=== PATIENT | female | born 1985 | race Caucasian/White ===

== ENCOUNTER 2018-01-18 18:12 | Inpatient (IN) | payer BC, SELFPAY ==
[2018-01-18] VITALS (9 sets, daily range): BP systolic 113–140; BP diastolic 59–73; PULSE 69–101; RESP 16–18; TEMP 36.3–37.2; O2SAT 98–100; BMI 24.8; BMI 24.7
--- NOTE | 2018-01-18 18:56 | ED.DCSUM_ITS ---
- ER Visit Summary Date of Service: 01/18/18 Chief Complaint: Lower abdominal pelvic pain. History of Present Illness: The patient is a 32 F history of colonic polyps and polypectomy and prior thyroid disease. She is also had a prior appendectomy and multiple laparoscopic procedures for endometriosis. Patient states she is having suprapubic with lower abdominal and pelvic pain. Associated nausea but no vomiting. She has had diarrhea last 2 days with some bright red blood. Denies melena. Denies fever. Denies dysuria. Her last menstrual period was 1 2 weeks ago. She denies any vaginal bleeding or discharge. She denies any fever. Physical Examination: Appearing young female. Vital signs are stable afebrile. HEENT exam unremarkable. Neck nontender no lymphadenopathy. Lungs clear to auscultation bilaterally. Heart rhythm no murmur. Abdomen soft nondistended normal bowel sounds no peritoneal signs. Mild superpubic tenderness. She is moving all 4 extremities. Neurovascular intact. Neurologically she is awake alert with no focal deficits. Skin is slightly pale. Back exam is nontender. Test Results: 7 but her hemoglobin and hematocrit are 5.4 and 21. Her last hemoglobin several years ago was 11. I suspect this is acute on chronic anemia that may or may not be from a slow lower GI bleed. Electrolytes are unremarkable normal creatinine, BUN and gap. UA normal. Serum test negative. Emergency Department Course and Treatment: Patient treated with Zofran for nausea and a liter normal saline. Treatment Plan: Repeat exam patient is doing well. I went over all test results with her. She has been typed and crossed for 4 units and she will be transfused 2 units. I went over that with her also. I have spoken to the hospitalist who will admit her. Disposition: Discharge Impression: Acute on chronic anemia with a hemoglobin of 5.4 Lower GI bleed Blood transfusion This note was generated with [employer] dictation software. It may contain incorrect words, spelling, and punctuation that were not noted in review of the chart prior to signing ED Disposition - Plan for ED Patient: Chief Complaint: Abd Pain Referrals: Alexis Yu DO [Primary Care Provider] -
[2018-01-18] MEDS: 0.9% Normal Saline 1,000 ML 1000 ML IV (19:08)
[2018-01-18] MEDS: Ondansetron 4 MG/2 ML Vial IV ×2 (19:08→21:16)
[2018-01-18 19:13] LABS: Absolute Lymphocyte Count 1.89 X10^3/ul (0.83-4.51); Absolute Neutrophil Count 5.2 X10^3/uL (2.0-7.7); Basophil# 0.05 X10^3/uL; Basophil% 0.6 % (0-1); Eosinophil# 0.22 X10^3/uL; Eosinophils% 2.8 % (0-5); Hematocrit 21.7 % (37-47); Lymphocyte # 1.89 X10^3/ul (4.0); Mean Corp Hgb Conc 24.9 g/gl (32-36); Mean Corpuscular Hgb 15.1 pg (27.0-32.0); Mean Corpuscular Volume 60.6 fL (81-99); Monocyte# 0.47 X10^3/uL; Neutrophil # 5.23 X10^3/uL (2.7-7.7); Neutrophil % 66.5 % (47-70); Platelet Count 306 K/mm3 (150-450); RBC Distribution Width CV 19.4 % (11.6-14.6); RBC Distribution Width SD 42.9 fl (35.1-43.9); Red Blood Count 3.58 M/mm3 (4.2-5.4); White Blood Count 7.9 K/mm3 (4.4-11.0)
[2018-01-18 19:15] LABS: Differential Indicated SCAN CRITERIA MET; Hemoglobin 5.4 g/dl (12.0-15.0); POSITIVE COUNT YES; POSITIVE DIFFERENTIAL NO; POSITIVE MORPHOLOGY YES
--- NOTE | 2018-01-18 19:18 | ED.RN ---
lab called with critical lab results. hgb 5.4. Dr. rdz made aware. orders to be placed at this time. primary nurse made aware.
[2018-01-18 19:22] LABS: Anion Gap 9 (5-15); BUN 9 mg/dL (7-18); BUN/Creat Ratio 12.8 RATIO (10-20); Calcium,Total 9.1 mg/dL (8.5-10.1); Chloride 104 mmol/L (98-107); EST Glomerular Filtration Rate 104 mL/min (>60); Est Glom Filt Rate - Afr Amer 125 mL/min (>60); Estimated Creatinine Clearance 105.74 ml/min; Glucose 92 mg/dL (74-106); Potassium 3.6 mmol/L (3.5-5.1); Sodium Level 139 mmol/L (136-145)
[2018-01-18 19:31] LABS: Bacteria 0 SEEN /hpf (None Seen); Mucous, Urine 0 SEEN /hpf (<or=2+); Red Blood Cells-Urine 0 SEEN /hpf (0-5); White Blood Cells 0 SEEN /hpf (0-5)
[2018-01-18 19:33] LABS: Pregnancy, Serum, hCG Quali. NEGATIVE Negative (0-9 Nonpreg)
[2018-01-18 19:35] LABS: Color, Urine Yellow (Yellow); Glucose, Dipstick Normal (Normal); Ketone-Dipstick Negative (Negative); Leukocyte Esterase-Dipstick Negative /ul (Negative); Nitrite-Dipstick Negative (Negative); Occult Blood-Urine Negative /ul (Negative); Protein-Dipstick Negative (Negative); Specific Gravity, Urine 1.005 (1.002-1.030); Urine Bilirubin Dipstick Negative (Negative); Urine Clarity Sl. Cloudy (Clear); Urine Urobilinogen Normal (Normal)
[2018-01-18 19:40] LABS: Anisocytosis 1+; Differential Comment SCANNED; Hypochromasia 4+; Platelet Estimate ADEQUATE (ADEQ); Polychromasia RARE
[2018-01-18 19:41] LABS: Ovalocyte 1+
[2018-01-18 19:42] LABS: Schistocytes RARE
[2018-01-18 19:47] LABS: Squamous Epithelial Cells - UA 0-5 SEEN /hpf (5-10)
--- NOTE | 2018-01-18 21:11 | PCM.HP.STD ---
Problem List (1) Acute blood loss anemia Status: Acute (2) GI bleed Status: Acute History of Present Illness Date of Admission: 01/18/18 Chief Complaint: GI bleed. The patient is a 32 year old F presents with hematochezia today. Had a large BM that was 70% blood. Days earlier was having small blood in BMs. Presents to ED with a hg of 5.4. Last know Hg was 11. from 04/27/2016. Pt says she have similiar episode 5 years ago due to polyps. Has had none since. She does endorse she has heavy regular periods. 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 I was requested to admit the patient for the anemia. [] Past Medical History Medical History: Medical History (Last Updated 01/18/18 @ 21:19 by Franc Husain DO) Colon polyps K63.5 Endometriosis N80.9 Graves disease E05.00 Hypothyroidism E03.9 Migraine G43.909 Allergies etodolac [From Lodine] Allergy (Mild, Verified 01/18/18 18:13) Itching tomato Allergy (Verified 01/18/18 18:13) Anaphylaxis FLU SHOT Allergy (Unknown, Uncoded 01/18/18 18:13) Unknown Home Medications: Ambulatory Orders Medication Instructions Recorded Amitriptyline HCl 25 mg PO QHS 01/18/18 Cetirizine HCl [Zyrtec] 10 mg PO DAILY 01/18/18 Citalopram [Celexa] 10 mg PO DAILY 01/18/18 Ibuprofen 400 - 600 mg PO QHS 01/18/18 Levothyroxine [Synthroid] 125 mcg PO DAILY 01/18/18 Verapamil [Calan Sr] 180 mg PO DAILY 01/18/18 Surgical History: Surgical History (Last Updated 01/18/18 @ 21:19 by Franc Husain DO) H/O exploratory laparotomy Z98.890 History of appendectomy Z90.49 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 Denies: Fever Eyes: Denies: Blurred vision, Double vision HEENT: Denies: Head Aches, Sinus Congestion, Sinus Drainage Cardiovascular: Reports: Chest Pain. Denies: Palpitations Respiratory: Denies: Cough, Shortness of breath at rest, Sputum production Gastrointestinal: Reports: Abdominal Pain, Hematochezia. Denies: Hematemesis Genitourinary: Denies: Dysuria Gynecological: Reports: Excessively long or heavy periods Musculoskeletal: Denies: Joint Pain, Joint Tenderness Skin: Denies: Rash, Wounds Neurological: Denies: Numbness, Tingling, Focal weakness Psychiatric: Denies: Anxiety, Depression, Homicidal Ideations, Suicidal Ideations Endocrine: Denies: Change in Body Habitus, Heat/ Cold Intolerance Hematologic/ Lymphatic: Denies: Easy Bruising, Easy Bleeding VTE Information - Inpt Only VTE Present on Admission: No VTE Mechan Device Prophylaxis: SCD's VTE Pharm Prophylaxis ordered?: No Reason prophylaxis not ordered:: Medical Contraindication Patient Problems: Active and Suspected Problems Acute blood loss anemia (Acute) GI bleed (Acute) - Physical Exam General: Alert, Cooperative, No apparent distress HEENT: Atraumatic, Normocephalic Oral: Moist Mucosa, No Gingival or Mucosal Lesions/ Ulcerations Neck: No Nodes, Thyroid Normal Size and Texture Lungs: Clear to auscultation, Normal air movement, No rhonchi, No wheeze Cardiovascular: Regular rate, Regular Rhythm, Normal S1, Normal S2, No murmurs Abdomen: Bowel Sounds Present, Soft, Non-Distended, Tender - RLQ Extremities: No edema, No Calf Tenderness Skin: No rashes, No breakdown Musculoskeletal: No Tenderness to Palpation of Joints or Extremities, No Muscle Wasting Neurological: Neuro grossly intact, Sensory exam intact to light touch and pain, Coordination normal Psych/Mental Status: Normal Affect, Appropriate Vital Signs Temp Pulse Resp BP Pulse Ox 37.2 C 101 H 17 140/73 H 100 01/18/18 18:14 01/18/18 18:14 01/18/18 18:14 01/18/18 18:14 01/18/18 18:14 Assessment/Plan All Active Problems Acute blood loss anemia (Acute) GI bleed (Acute) 1. Acute blood loss anemia Hemoglobin 5.4 and most recent was 11.2 from 2016. Part of this acute blood loss anemia is related with the medication that she had today but I suspect part of this is chronic due to her heavy periods. Patient was typed and crossed for 4 units in the emergency room. I do not feel is necessary the patient have 4 units of blood and will only transfuse her 2 units on the floor. Will monitor hemoglobin and transfuse as necessary. Start patient on ferrous sulfate. 2. GI bleed Unclear etiology. Possibilities could be related with colitis versus patient's history of polyps. Will check a CT scan of the abdomen pelvis Discussed with Dr. Najera on-call for Dr. Peck, and did not feel comfortable being available for care for this patient. I spoke with Dr. Hester who stated she would be happy to see the patient in consultation. I did discuss with the patient if she has further bleeding that she may require bleeding scan and possible coiling and if she did require coiling that would be done at another facility. 3. Heavy menstrual periods As above, I feel likely etiology of her anemia at least part of it. Advised patient follow-up with gynecology as outpatient 4. DVT prophylaxis with SCDs. Chemical prophylaxis contraindicated in light of acute hemorrhage. Code Visit Inpatient E&M: 43693 Init Hosp L3
[2018-01-18] MEDS: Morphine 4 MG/ML Syringe IV (21:15)
[2018-01-18] MEDS: Acetaminophen 500 MG Tablet 1000 MG PO (21:16)
--- NOTE | 2018-01-18 21:21 | HP.PCM_ITS ---
Problem List (1) Acute blood loss anemia Status: Acute (2) GI bleed Status: Acute History of Present Illness Date of Admission: 01/18/18 Chief Complaint: GI bleed. The patient is a 32 year old F presents with hematochezia today. Had a large BM that was 70% blood. Days earlier was having small blood in BMs. Presents to ED with a hg of 5.4. Last know Hg was 11. from 04/27/2016. Pt says she have similiar episode 5 years ago due to polyps. Has had none since. She does endorse she has heavy regular periods. 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 I was requested to admit the patient for the anemia. [] Past Medical History Medical History: Medical History (Last Updated 01/18/18 @ 21:19 by Franc Husain DO) Colon polyps K63.5 Endometriosis N80.9 Graves disease E05.00 Hypothyroidism E03.9 Migraine G43.909 Allergies etodolac [From Lodine] Allergy (Mild, Verified 01/18/18 18:13) Itching tomato Allergy (Verified 01/18/18 18:13) Anaphylaxis FLU SHOT Allergy (Unknown, Uncoded 01/18/18 18:13) Unknown Home Medications: Ambulatory Orders Medication Instructions Recorded Amitriptyline HCl 25 mg PO QHS 01/18/18 Cetirizine HCl [Zyrtec] 10 mg PO DAILY 01/18/18 Citalopram [Celexa] 10 mg PO DAILY 01/18/18 Ibuprofen 400 - 600 mg PO QHS 01/18/18 Levothyroxine [Synthroid] 125 mcg PO DAILY 01/18/18 Verapamil [Calan Sr] 180 mg PO DAILY 01/18/18 Surgical History: Surgical History (Last Updated 01/18/18 @ 21:19 by Franc Husain DO) H/O exploratory laparotomy Z98.890 History of appendectomy Z90.49 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 Denies: Fever Eyes: Denies: Blurred vision, Double vision HEENT: Denies: Head Aches, Sinus Congestion, Sinus Drainage Cardiovascular: Reports: Chest Pain. Denies: Palpitations Respiratory: Denies: Cough, Shortness of breath at rest, Sputum production Gastrointestinal: Reports: Abdominal Pain, Hematochezia. Denies: Hematemesis Genitourinary: Denies: Dysuria Gynecological: Reports: Excessively long or heavy periods Musculoskeletal: Denies: Joint Pain, Joint Tenderness Skin: Denies: Rash, Wounds Neurological: Denies: Numbness, Tingling, Focal weakness Psychiatric: Denies: Anxiety, Depression, Homicidal Ideations, Suicidal Ideations Endocrine: Denies: Change in Body Habitus, Heat/ Cold Intolerance Hematologic/ Lymphatic: Denies: Easy Bruising, Easy Bleeding VTE Information - Inpt Only VTE Present on Admission: No VTE Mechan Device Prophylaxis: SCD's VTE Pharm Prophylaxis ordered?: No Reason prophylaxis not ordered:: Medical Contraindication Patient Problems: Active and Suspected Problems Acute blood loss anemia (Acute) GI bleed (Acute) - Physical Exam General: Alert, Cooperative, No apparent distress HEENT: Atraumatic, Normocephalic Oral: Moist Mucosa, No Gingival or Mucosal Lesions/ Ulcerations Neck: No Nodes, Thyroid Normal Size and Texture Lungs: Clear to auscultation, Normal air movement, No rhonchi, No wheeze Cardiovascular: Regular rate, Regular Rhythm, Normal S1, Normal S2, No murmurs Abdomen: Bowel Sounds Present, Soft, Non-Distended, Tender - RLQ Extremities: No edema, No Calf Tenderness Skin: No rashes, No breakdown Musculoskeletal: No Tenderness to Palpation of Joints or Extremities, No Muscle Wasting Neurological: Neuro grossly intact, Sensory exam intact to light touch and pain , Coordination normal Psych/Mental Status: Normal Affect, Appropriate Vital Signs Temp Pulse Resp BP Pulse Ox 37.2 C 101 H 17 140/73 H 100 01/18/18 18:14 01/18/18 18:14 01/18/18 18:14 01/18/18 18:14 01/18/18 18:14 Assessment/Plan All Active Problems Acute blood loss anemia (Acute) GI bleed (Acute) 1. Acute blood loss anemia * Hemoglobin 5.4 and most recent was 11.2 from 2016. Part of this acute blood loss anemia is related with the medication that she had today but I suspect part of this is chronic due to her heavy periods. * Patient was typed and crossed for 4 units in the emergency room. I do not feel is necessary the patient have 4 units of blood and will only transfuse her 2 units on the floor. * Will monitor hemoglobin and transfuse as necessary. * Start patient on ferrous sulfate. 2. GI bleed * Unclear etiology. Possibilities could be related with colitis versus patient' s history of polyps. * Will check a CT scan of the abdomen pelvis * Discussed with Dr. Najera on-call for Dr. Peck, and did not feel comfortable being available for care for this patient. I spoke with Dr. Hester who stated she would be happy to see the patient in consultation. * I did discuss with the patient if she has further bleeding that she may require bleeding scan and possible coiling and if she did require coiling that would be done at another facility. 3. Heavy menstrual periods * As above, I feel likely etiology of her anemia at least part of it. * Advised patient follow-up with gynecology as outpatient 4. DVT prophylaxis with SCDs. Chemical prophylaxis contraindicated in light of acute hemorrhage. Code Visit Inpatient E&M: 12090 Init Hosp L3
--- NOTE | 2018-01-18 22:05 | CT_ITS ---
STUDY: CT ABDOMEN AND PELVIS WITH CONTRAST REASON FOR EXAM: Female, 32 years old. Right lower quadrant pain. Hematochezia. RADIATION DOSAGE (If Supplied By Facility): CTDIvol = ( 13.13 ) mGy, DLP = ( 617.11 ) mGycm TECHNIQUE: Transaxial images were obtained from the dome of the diaphragm to the symphysis pubis without oral contrast. 100 ml of Isovue 300 contrast was administered. Sagittal and coronal images were reconstructed. Individualized dose optimization techniques were used for this CT. COMPARISON: None. FINDINGS: Lung bases demonstrate minimal dependent atelectasis versus scar formation. The visualized portions of the heart are within normal limits. Hypoattenuated lesion within the right lateral hepatic dome with peripheral puddling enhancement. Normal gallbladder and extrahepatic biliary system. Normal spleen. Normal pancreas. Normal bilateral adrenal glands. Normal right kidney. Normal left kidney. Normal visualized stomach. Normal small intestine. Normal colon. Appendix is not visualized. No pericecal inflammation. Normal abdominal aorta. Normal inferior vena cava. Normal retroperitoneum. Normal urinary bladder. Uterus and bilateral adnexa are unremarkable. Normal abdominal wall. Normal osseous structures. CT/Abdomen/Pelvis WITH Contrast IMPRESSION: 1. No evidence of an acute intra-abdominal abnormality. 2. Hemangioma within the right lateral liver dome. Electronically Signed: Julian Banuelos MD at 1:59 EDT Tel , Service support ,
[2018-01-19] VITALS (20 sets, daily range): BP systolic 99–114; BP diastolic 54–70; PULSE 54–74; RESP 15–18; TEMP 36.4–36.8; O2SAT 96–100; BMI 24.7
[2018-01-19] MEDS: 0.9% Normal Saline 1,000 ML 100 ML IV ×3 (00:55→17:18)
[2018-01-19] MEDS: 0.9% NaCl Peripheral Flush Adult/Peds IV ×3 (01:00→15:12)
[2018-01-19] MEDS: Morphine 2 MG/ML Syringe IV ×4 (01:01→12:43)
[2018-01-19] MEDS: Electrolyte Solution/Peg's 4000 ML 2000 ML PO (03:15)
[2018-01-19] MEDS: Ondansetron 4 MG/2 ML Vial IV ×2 (05:54→18:42)
[2018-01-19 06:01] LABS: International Normalized Ratio 1.1; Prothrombin Time (Protime)PT. 14.5 SECONDS (11.7-14.9)
[2018-01-19 06:07] LABS: Anion Gap 7 (5-15); BUN 6 mg/dL (7-18); Calcium,Total 8.2 mg/dL (8.5-10.1); Chloride 111 mmol/L (98-107); Creatinine, Serum 0.54 mg/dL (0.55-1.02); EST Glomerular Filtration Rate 139 mL/min (>60); Est Glom Filt Rate - Afr Amer 169 mL/min (>60); Estimated Creatinine Clearance 137.08 ml/min; Glucose 86 mg/dL (74-106); Potassium 3.7 mmol/L (3.5-5.1); Sodium Level 143 mmol/L (136-145)
[2018-01-19 06:09] LABS: Hemoglobin 8.1 g/dl (12.0-15.0); Mean Corp Hgb Conc 27.9 g/gl (32-36); Mean Corpuscular Hgb 18.2 pg (27.0-32.0); Mean Corpuscular Volume 65.3 fL (81-99); Platelet Count 256 K/mm3 (150-450); RBC Distribution Width CV 20.6 % (11.6-14.6); RBC Distribution Width SD 49.5 fl (35.1-43.9); Red Blood Count 4.44 M/mm3 (4.2-5.4); White Blood Count 5.6 K/mm3 (4.4-11.0)
[2018-01-19 06:11] LABS: Scan Indicated on CBC? Y/N YES- FLAGS NOTED
[2018-01-19 06:31] LABS: Differential Comment SCANNED
--- NOTE | 2018-01-19 07:54 | CON.PCM_ITS ---
- Consult Date of Consult: 01/19/18 - Reason for Consult Chief Complaint: anemia, abdominal pain, diarrhea, blood in stools History of Present Illness: 32 y/o WF presents with diarrhea since Monday and copious bloody stools, mostly yesterday. Presented to ED, Hgb 5.4, transfused 2 uPRBC and Hgb is now 8.1. Complaint of lower abdominal pain, radiates to the back. Also has had history of endometriosis. Denies hematemesis, denies upper abdominal pain. Denies fevers. Denies weight loss. Has been passing flatus. Had colonoscopy a few years ago, had revealed polyps. No colon cancer in immediate family. No inflammatory bowel disease in immediate family Past Medical History: endometriosis Past Surgical History: appendectomy multiple diagnostic laparoscopies for endometriosis thyroid surgery Medications: amitriptyline zyrtec celexa iron oxyir calan SR levothyroxine Allergies: etodolac, flu shot Social history: TOB use denies Review of Systems: General - denies fevers, denies weight loss, denies anorexia Cardiovascular denies chest pain, denies chest palpatations, denies history of heart attack Pulmonary denies shortness of breath, denies coughing up blood Gastrointestinal as per HPI Neurological denies numbness/weakness of extremities, denies seizures Genitourinary thought she had a UTI, denies blood in urine Hematological denies spontaneous/prolonged bleeding Skin denies open non healing wounds Musculoskeletal denies arthritis Endocrine denies diabetes, had Graves disease presently on thyroid supplementation Psychological denies hallucinations Physical examination: Vital signs Temp 97.9F HR 62 RR 16 BP 110/53 General WD/WN WF in no apparent distress, alert and oriented, not septic appearing HEENT Normocephalic. EOM intact with sclera clear and no icterus noted. Neck is supple with no jugular venous distention noted. Trachea is midline. Lungs normal breath sounds in all lung joel. No rales/rhonchi/wheezing noted. No labored breathing noted, such as retractions. No cough heard. Heart normal S1 and S2 auscultated. No rubs/clicks/murmurs noted. Normal size and location by auscultation. Abdomen soft but generalized tenderness noted, no peritoneal signs, hypoactive bowel sounds, no masses noted Extremities no calf tenderness noted. No pitting edema noted. . Genitourinary/Rectal deferred Skin normal skin integrity. Neurological cranial nerves II-XII intact. Normal motor strength in arms and legs. No localized numbness detected. Psychological normal affect, patient is anxious but appropriate Impression: anemia blood in stools abdominal pain diarrhea Discussion/Plan: I have discussed the above with the patient and her mother who is present with her. I have offered the patient the procedure of colonoscopy, possible biopsies. I have explained the procedure to the patient. I have counseled the patient as to the risks of the procedure, including but not limited to: infection, bleeding, injury to any blood vessels/nerves, injury to any intraabdominal organs such as the liver/spleen, perforation of the GI tract, inability to complete the procedure, etc. the patient understands. She agrees to proceed. I have answered all questions to the patient?s satisfaction and the patient has no further questions.
[2018-01-19 10:03] LABS: Pathologist Review Reviewed
[2018-01-19 10:04] LABS: Pathologist Review Reviewed
--- NOTE | 2018-01-19 11:00 | CASEMGMT ---
Face to Face with patient for initial transition planning/care coordination assessment. SANTIAGO CAUSEY introduced self and role at [facility], pt voices understanding and consents to assessment at this time. Pt is lying in bed and tearful at this time. Per family member, pt has been the bathroom all morning. Pt is A/O x4 at this time and answers all questions appropriately at this time. Care providers, pharmacy, and demographics verified. See attached link. Pt voices no further concerns/needs at this time. Advised pt to ask for CM if any further questions/concerns/needs arise, voices understanding. PLAN: [place] SANTIAGO [place]USEY
--- NOTE | 2018-01-19 15:18 | NURSING ---
rEPORT CALLED TO HUYEN.
--- NOTE | 2018-01-19 16:36 | COLBX_PTH ---
PATIENT: OLIVIA CHANCE LOC: PCU U#:[id number] AGE/SX: 32/F ROOM: [facility] RE01/18/[address]: Saud Gracia MD : 1985 BED: 1 DIS: 01/20/2018 SPEC #: [id number] RECD: 01/19/18 17:34 STATUS: WENDI RE #: [id number] VANI: 01/19/18 16:[address]: Eli Hester DEPT: SURGICAL PATHOLOGY RECD BY: Seth Boykin ENTERED: 01/22/18 07:39 SP TYPE: COLON BX OTHR DR: Dr. Franc Husain, MD Dr. Eli Jiménez MD Dr. Mark Pluskota, Tissues: A - COLON BIOPSY B - Ileum, NOS Procedures: Surgery Specimen Level IV Comments: @ Ordering doctor for SUIV edited from to @ by LINDY at 01/22/18 0839 @ Submitting doctor edited from to @ by LINDY at 01/22/18 39 HEADER OPERATION: Colonoscopy PRE-OP DIAGNOSIS: GI bleed, anemia, diarrhea, abdomen pain TISSUE SUBMITTED: A ? Random colonic biopsies, B ? Terminal ileum biopsies, rule out colitis MICROSCOPIC DIAGNOSIS A. Colon, random biopsy: Fragments of colonic mucosa, no pathologic diagnosis. B. Terminal ileum, biopsy: Fragments of small intestinal mucosa, no pathologic diagnosis. Fragments of colonic mucosa, no pathologic diagnosis. OKSANA:dario 01/23/18 MICROSCOPIC DESCRIPTION Slides are reviewed. GROSS DESCRIPTION A - Received in fixative is one container labeled with the patient's name and designated random colonic biopsy. The specimen consists of multiple irregular fragments of light hameed soft tissue that in aggregate measure 2 x 0.5 x 0.1 cm. The specimen is totally submitted in one cassette. B - Received in fixative is one container labeled with the patient's name and designated terminal ileum. The specimen consists of multiple irregular fragments of light hameed soft tissue that in aggregate measure 1 x 0.3 x 0.1 cm. The specimen is totally submitted in one cassette. / OKSANA:dario 01/22/18 TC:4 CPT: 30950 x2
--- NOTE | 2018-01-19 17:38 | OP.PCM_ITS ---
Report of Operation Date of Procedure: 01/19/18 Pre-Operative Diagnosis: rectal bleeding, anemia, abdominal pain, diarrhea Post-Operative Diagnosis: same as above, no source of GI bleeding noted Surgery/Procedure Performed:: colonoscopy with mucosal biopsies Description of Surgical Findings:: normal colon, no source of GI bleeding noted Type of Anesthesia:: MAC Anesthesiologist: Gerber Shepard Specimen's removed: random mucosal biopsies throughout colon Estimated Blood Loss (mL): minimal Fluids Replaced: see anesthesia note Description of Procedure: After informed consent was given, the patient was brought to the endoscopy suite. Appropriate time out protocol was followed. Appropriate cardiac, blood pressure, and pulse oximetry monitoring was placed. After stable vital signs were noted, the patient was given anesthesia by the anesthesia provider. The patient was then placed in the left lateral decubitis position. The colonoscope was lubricated and carefully inserted into the patient?s anus. It was then advanced into the rectum, then into the sigmoid colon, then into the left descending colon, past the splenic flexure, into the transverse colon, past the hepatic flexure, then down into the right descending colon and into the cecum. The cecum was identified by: transillumination, confluence of the tenae coli, identification of the ileocecal valve and appendiceal orifice, and external pressure with indentation. At this point, the colonoscope was slowly retracted back and the entire colonic mucosa was examined. Random mucosal biopsies were taken about every 10 cm throughout the colon using cold grasper forceps to rule out microscopic colitis. There was no evidence of extrinsic compression and no inflammatory changes were noted. The colon cleansing preparation was adequate. No intraluminal obstructing lesions, no strictures, and no ulcers were noted. Retroflex view in the rectum revealed no lesions in the rectal vault, minimal hemorrhoidal disease was noted. The colonoscope was removed intact. Patient tolerated procedure well. - Complications none noted
--- NOTE | 2018-01-19 17:40 | PCM.PN.HOSP ---
Patient Problems: Active and Suspected Problems (Last Updated 01/18/18 @ 21:19 by Franc Husain DO) Acute blood loss anemia (Acute) GI bleed (Acute) Subjective: Cc: Acute GI bleed. Objective: Patient reports gastrointestinal bleed and abdominal pain, is any nausea or vomiting.She also denies any chest pain, shortness of breath or vaginal bleeding today. Vitals/I&O's: Vital Signs Temp Pulse Resp BP Pulse Ox 98.2 F 56 L 16 102/70 99 01/19/18 17:17 01/19/18 17:17 01/19/18 17:17 01/19/18 17:17 01/19/18 17:17 Oxygen Delivery Method Room Air Weight: 67.6 kg Body Mass Index (BMI) 24.7 Intake and Output for Last 24 Hours 01/17/18 01/18/18 01/19/18 23:59 23:59 23:59 Intake Total 345 / 345 5332 / 5332 Balance 345 / 345 5332 / 5332 General: Alert, Oriented x3 Oral: Moist Mucosa Neck: Supple, No JVD Lungs: Clear to auscultation Cardiovascular: Regular rate, Normal S1, Normal S2 Abdomen: Bowel Sounds Present Extremities: No edema Laboratory Results 01/19/18 05:35: WBC 5.6, RBC 4.44, Hgb 8.1 L, Hct 29.0 L, MCV 65.3 L, MCH 18.2 L, MCHC 27.9 L, RDW 20.6 H, RDW Differential 49.5 H, Plt Count 256, Differential Comment SCANNED, Diff Path Review Reviewed 01/19/18 05:35: PT 14.5, INR 1.1 01/19/18 05:35: Sodium 143, Potassium 3.7, Chloride 111 H, Carbon Dioxide 25.0, Anion Gap 7, BUN 6 L, Creatinine 0.54 L, Estim Creat Clear Calc 137.08, Est GFR (MDRD) Af Amer 169, Est GFR (MDRD) Non-Af 139, BUN/Creatinine Ratio 11.0, Glucose 86, Calcium 8.2 L Current Medications Amitriptyline HCl (Elavil) 25 mg PO QHS MICHAEL Last Admin: 01/18/18 23:35 Dose: Not Given Citalopram Hydrobromide (Celexa) 10 mg PO DAILY [facility] Ferrous Sulfate (Ferrous Sulfate) 325 mg PO BIDCM [facility] Last Admin: 01/19/18 15:19 Dose: Not Given Sodium Chloride () 1,000 mls @ 100 mls/hr IV .Q10H [facility] Last Admin: 01/19/18 17:18 Dose: 100 mls/hr Levothyroxine Sodium (Synthroid) 125 mcg PO DAILY@0600 [facility] Last Admin: 01/19/18 06:06 Dose: Not Given Loratadine (Claritin) 10 mg PO DAILY [facility] Magnesium Hydroxide (Milk Of Magnesia) 30 ml PO DAILY PRN PRN Reason: Constipation Morphine Sulfate () 2 - 4 mg IV Q3H PRN PRN PRN Reason: MOD-SEVERE PAIN (4-10/10) Morphine Sulfate () 2 - 4 mg IV Q3H PRN PRN PRN Reason: MOD-SEVERE PAIN (4-10/10) Last Admin: 01/19/18 12:43 Dose: 2 mg Ondansetron HCl (Zofran) 4 mg IV Q8H PRN PRN PRN Reason: NAUSEA Last Admin: 01/19/18 05:54 Dose: 4 mg Oxycodone HCl (Oxyir) 5 - 10 mg PO Q4H PRN PRN PRN Reason: MOD-SEVERE PAIN (4-10/10) Sodium Chloride () 5 - 30 ml IV UD PRN PRN Reason: SALINE FLUSH Last Admin: 01/19/18 15:12 Dose: 10 ml Verapamil HCl (Calan Sr) 180 mg PO DAILY [facility] Medical Necessity - Tobacco Use Smoking Status: Heavy Smoker (>10/day) Tobacco Use: Cigarettes Assessment/Plan All Active Problems (Last Updated 01/18/18 @ 21:19 by Franc Husain DO) Acute blood loss anemia (Acute) GI bleed (Acute) 1. Acute gastrointestinal bleed; colonoscopy today does not reveal any clear source of bleeding, continue to monitor. 2. Acute blood loss anemia; the patient would be transfused with packed RBCs as needed. 3. History of menorrhagia; this may be contributing to her anemia. Code Visit Inpatient E&M: 24033 Subs Hosp L2
--- NOTE | 2018-01-19 17:43 | PN_ITS ---
Patient Problems: Active and Suspected Problems (Last Updated 01/18/18 @ 21:19 by Franc Husain DO ) Acute blood loss anemia (Acute) GI bleed (Acute) Subjective: Cc: Acute GI bleed. Objective: Patient reports gastrointestinal bleed and abdominal pain, is any nausea or vomiting.She also denies any chest pain, shortness of breath or vaginal bleeding today. Vitals/I&O's: Vital Signs Temp Pulse Resp BP Pulse Ox 98.2 F 56 L 16 102/70 99 01/19/18 17:17 01/19/18 17:17 01/19/18 17:17 01/19/18 17:17 01/19/18 17:17 Oxygen Delivery Method Room Air Weight: 67.6 kg Body Mass Index (BMI) 24.7 Intake and Output for Last 24 Hours 01/17/18 01/18/18 01/19/18 23:59 23:59 23:59 Intake Total 345 / 345 5332 / 5332 Balance 345 / 345 5332 / 5332 General: Alert, Oriented x3 Oral: Moist Mucosa Neck: Supple, No JVD Lungs: Clear to auscultation Cardiovascular: Regular rate, Normal S1, Normal S2 Abdomen: Bowel Sounds Present Extremities: No edema Laboratory Results 01/19/18 05:35: WBC 5.6, RBC 4.44, Hgb 8.1 L, Hct 29.0 L, MCV 65.3 L, MCH 18.2 L , MCHC 27.9 L, RDW 20.6 H, RDW Differential 49.5 H, Plt Count 256, Differential Comment SCANNED, Diff Path Review Reviewed 01/19/18 05:35: PT 14.5, INR 1.1 01/19/18 05:35: Sodium 143, Potassium 3.7, Chloride 111 H, Carbon Dioxide 25.0, Anion Gap 7, BUN 6 L, Creatinine 0.54 L, Estim Creat Clear Calc 137.08, Est GFR (MDRD) Af Amer 169, Est GFR (MDRD) Non-Af 139, BUN/Creatinine Ratio 11.0, Glucose 86, Calcium 8.2 L Current Medications Amitriptyline HCl (Elavil) 25 mg PO QHS MICHAEL Last Admin: 01/18/18 23:35 Dose: Not Given Citalopram Hydrobromide (Celexa) 10 mg PO DAILY [facility] Ferrous Sulfate (Ferrous Sulfate) 325 mg PO BIDCM [facility] Last Admin: 01/19/18 15:19 Dose: Not Given Sodium Chloride () 1,000 mls @ 100 mls/hr IV .Q10H [facility] Last Admin: 01/19/18 17:18 Dose: 100 mls/hr Levothyroxine Sodium (Synthroid) 125 mcg PO DAILY@0600 [facility] Last Admin: 01/19/18 06:06 Dose: Not Given Loratadine (Claritin) 10 mg PO DAILY [facility] Magnesium Hydroxide (Milk Of Magnesia) 30 ml PO DAILY PRN PRN Reason: Constipation Morphine Sulfate () 2 - 4 mg IV Q3H PRN PRN PRN Reason: MOD-SEVERE PAIN (4-10/10) Morphine Sulfate () 2 - 4 mg IV Q3H PRN PRN PRN Reason: MOD-SEVERE PAIN (4-10/10) Last Admin: 01/19/18 12:43 Dose: 2 mg Ondansetron HCl (Zofran) 4 mg IV Q8H PRN PRN PRN Reason: NAUSEA Last Admin: 01/19/18 05:54 Dose: 4 mg Oxycodone HCl (Oxyir) 5 - 10 mg PO Q4H PRN PRN PRN Reason: MOD-SEVERE PAIN (4-10/10) Sodium Chloride () 5 - 30 ml IV UD PRN PRN Reason: SALINE FLUSH Last Admin: 01/19/18 15:12 Dose: 10 ml Verapamil HCl (Calan Sr) 180 mg PO DAILY [facility] Medical Necessity - Tobacco Use Smoking Status: Heavy Smoker (>10/day) Tobacco Use: Cigarettes Assessment/Plan All Active Problems (Last Updated 01/18/18 @ 21:19 by Franc Husain DO) Acute blood loss anemia (Acute) GI bleed (Acute) 1. Acute gastrointestinal bleed; colonoscopy today does not reveal any clear source of bleeding, continue to monitor. 2. Acute blood loss anemia; the patient would be transfused with packed RBCs as needed. 3. History of menorrhagia; this may be contributing to her anemia. Code Visit Inpatient E&M: 83502 Subs Hosp L2
[2018-01-19] MEDS: Morphine 4 MG/ML Syringe IV ×2 (18:42→21:47)
[2018-01-19] MEDS: Amitriptyline 25 MG Tablet PO (21:23)
[2018-01-19] MEDS: Verapamil SR 180 MG CAPSULE PO (21:24)
[2018-01-20 02:55] VITALS: BP 92/53; PULSE 56; RESP 16; TEMP 36.9; O2SAT 98
[2018-01-20 03:00] VITALS: PULSE 69
[2018-01-20] MEDS: 0.9% Normal Saline 1,000 ML 100 ML IV (06:25)
[2018-01-20] MEDS: Levothyroxine 125 MCG Tablet PO (06:25)
[2018-01-20 08:01] VITALS: PULSE 62
[2018-01-20 08:55] VITALS: BP 110/53; PULSE 83; RESP 16; TEMP 36.6; O2SAT 98
[2018-01-20] MEDS: Ferrous Sulfate 325 MG Tablet PO (09:06)
[2018-01-20] MEDS: Citalopram 10 MG Tablet PO (09:06)
[2018-01-20] MEDS: Loratadine 10 MG Tablet PO (09:06)
[2018-01-20] MEDS: oxyCODONE 5 MG Tablet PO ×2 (10:00→16:22)
[2018-01-20 11:15] LABS: Hematocrit 29.3 % (37-47); Hemoglobin 8.2 g/dl (12.0-15.0)
[2018-01-20] MEDS: Morphine 2 MG/ML Syringe IV (13:09)
--- NOTE | 2018-01-20 15:16 | PCM.DC ---
- Discharge Diagnoses Current Active Problems: Current Active and Chronic Problems (Last Updated 01/18/18 @ 21:19 by Franc Husain DO) Acute blood loss anemia (Acute) GI bleed (Acute) You will use the following diet at home:: Regular Discharge Activity: Return to Normal Activity Allergies/Adverse Reactions: Allergies etodolac [From Lodine] Allergy (Mild, Verified 01/18/18 18:13) Itching tomato Allergy (Verified 01/18/18 18:13) Anaphylaxis FLU SHOT Allergy (Unknown, Uncoded 01/18/18 18:13) Unknown Medications to take at Discharge Amitriptyline HCl 25 mg PO QHS 01/18/18 Cetirizine HCl [Zyrtec] 10 mg PO DAILY 01/18/18 Citalopram [Celexa] 10 mg PO DAILY 01/18/18 Levothyroxine [Synthroid] 125 mcg PO DAILY 01/18/18 Verapamil [Calan Sr] 180 mg PO DAILY 01/18/18 Ferrous Sulfate 325 mg PO BIDCM 30 Days #60 tab 01/20/18 Oxycodone [Oxyir] 5 - 10 mg PO Q4H PRN PRN #20 tab 01/20/18 The following prescriptions were given: Oxycodone [Oxyir] 5 - 10 mg PO Q4H PRN PRN #20 tab PRN Reason: Mod-Severe Pain (4-10/10) Ferrous Sulfate 325 mg PO BIDCM 30 Days #60 tab Primary Care Physician: Alexis Yu DO [Primary Care Provider] - Within 2 Weeks
--- NOTE | 2018-01-20 15:18 | DS.PCM_ITS ---
Discharge Date and Diagnosis - Problem List Patient Problems: Active and Suspected Problems (Last Updated 01/18/18 @ 21:19 by Franc Husain DO ) Acute blood loss anemia (Acute) GI bleed (Acute) Date of Admission: 01/18/18 Date of Discharge: 01/20/18 - Primary Discharge Diagnosis Active and Suspected Problems (Last Updated 01/18/18 @ 21:19 by Franc Husain DO ) Acute blood loss anemia (Acute) GI bleed (Acute) Hospital Course and Treatment Summary of Care Provided: This is a 32 year old F presents with hematochezia with hgb 5.4, she reports history of menorrhagia. She was transfused with packed RBCs as he was admitted to the hospital general surgery was consulted and Dr. Garcia performed colonoscopy that did not reveal any evidence of gastrointestinal bleeding. Her hemoglobin remains stable and she was discharged home on iron sulfate she is recommended to follow-up with her primary care doctor, marketing communications coordinator and Dr. Garcia. Physical exam at the time of discharge; vital signs were stable. He was alert and oriented to time place and person. He did not appear to be any form of distress. S1 and S2 heard no murmur or gallop Lung exam was clear to auscultation with no adventitious sounds. Abdomen was soft nontender with normal bowel sounds. extremity exam did not reveal any edema, palpable pulses bilaterally. Neurologic exam was grossly intact. Discharge Activity: Return to Normal Activity Home Medications: Medications to take at Discharge Amitriptyline HCl 25 mg PO QHS 01/18/18 Cetirizine HCl [Zyrtec] 10 mg PO DAILY 01/18/18 Citalopram [Celexa] 10 mg PO DAILY 01/18/18 Levothyroxine [Synthroid] 125 mcg PO DAILY 01/18/18 Verapamil [Calan Sr] 180 mg PO DAILY 01/18/18 Ferrous Sulfate 325 mg PO BIDCM 30 Days #60 tab 01/20/18 Oxycodone [Oxyir] 5 - 10 mg PO Q4H PRN PRN #20 tab 01/20/18 Following Prescrptions Were Given to Patient: Oxycodone [Oxyir] 5 - 10 mg PO Q4H PRN PRN #20 tab PRN Reason: Mod-Severe Pain (4-10/10) Ferrous Sulfate 325 mg PO BIDCM 30 Days #60 tab Primary Care Physician: Alexis Yu DO [Primary Care Provider] - Within 2 Weeks Medical Necessity - Tobacco Use Smoking Status: Heavy Smoker (>10/day) Tobacco Use: Cigarettes Meaningful Use Info Meaningful Use Diagnoses (Choose all that apply): None applicable Code Visit Inpatient E&M: 81288 Disch Hosp
[2018-01-20 17:00] VITALS: BP 108/62; PULSE 61; RESP 16; TEMP 36.6; O2SAT 96
== END 2018-01-20 17:40 | disposition home or self-care (01) | DRG 812 ==
LOC: ED 18:56 → PCU 21:26
PROVIDERS: Surgery; Emergency Provider Emergency Medicine; Visit Provider Internal Medicine
PROC: 0DJD8ZZ Inspection of Lower Intestinal Tract, Via Natural or Artificial Opening Endoscopic (ICD-10-PCS; CPT 45378; principal; 2018-01-19 11:55)
DX: D62 Acute posthemorrhagic anemia (principal); K92.1 Melena; F17.210 Nicotine dependence, cigarettes, uncomplicated; E89.0 Postprocedural hypothyroidism; N92.0 Excessive and frequent menstruation with regular cycle
CPT/HCPCS: 36415; 74177; 80048; 81001; 84703; 85014; 85018; 85025; 85027; 85610; 86850; 86900; 86920; 86922; 88305; 99284; 99406; J7030; J7040; P9016; Q9967; A4216; J2405

== ENCOUNTER → 2018-02-13 14:35 | Outpatient (CLI) | payer BC, SELFPAY ==
[2018-02-13 15:04] LABS: Absolute Lymphocyte Count 1.95 X10^3/ul (0.83-4.51); Absolute Neutrophil Count 3.6 X10^3/uL (2.0-7.7); Basophil# 0.04 X10^3/uL; Basophil% 0.7 % (0-1); Differential Indicated SCAN CRITERIA MET; Eosinophil# 0.16 X10^3/uL; Eosinophils% 2.7 % (0-5); Hematocrit 36.2 % (37-47); Hemoglobin 10.5 g/dl (12.0-15.0); Lymphocyte # 1.95 X10^3/ul (4.0); Lymphocyte % 32.4 % (19-41); Mean Corpuscular Hgb 21.9 pg (27.0-32.0); Mean Corpuscular Volume 75.6 fL (81-99); Monocyte# 0.31 X10^3/uL; Monocyte% 5.1 % (0-10); Neutrophil # 3.55 X10^3/uL (2.7-7.7); Neutrophil % 58.9 % (47-70); POSITIVE COUNT NO; POSITIVE DIFFERENTIAL NO; POSITIVE MORPHOLOGY YES; Platelet Count 309 K/mm3 (150-450); RBC Distribution Width SD 75.7 fl (35.1-43.9); Red Blood Count 4.79 M/mm3 (4.2-5.4)
[2018-02-13 19:59] LABS: Anisocytosis 2+
[2018-02-13 20:00] LABS: Ovalocyte 1+; Tear Drop Cell RARE
[2018-02-13 20:06] LABS: Platelet Estimate ADEQUATE (ADEQ)
[2018-02-16 14:17] LABS: t-Transglutaminase IgA <2 U/mL (0-3)
== END ==
DX: D50.0 Iron deficiency anemia secondary to blood loss (chronic) (principal); E03.9 Hypothyroidism, unspecified
CPT/HCPCS: 36415; 83516; 85025

== ENCOUNTER → 2018-02-21 14:53 | Outpatient (CLI) | payer BC, SELFPAY ==
[2018-02-21 16:29] LABS: Absolute Neutrophil Count 5.4 X10^3/uL (2.0-7.7); Basophil# 0.05 X10^3/uL; Basophil% 0.6 % (0-1); Eosinophil# 0.18 X10^3/uL; Eosinophils% 2.2 % (0-5); Hematocrit 37.5 % (37-47); Hemoglobin 10.9 g/dl (12.0-15.0); Lymphocyte % 25.3 % (19-41); Mean Corp Hgb Conc 29.1 g/gl (32-36); Mean Corpuscular Hgb 22.9 pg (27.0-32.0); Mean Corpuscular Volume 78.9 fL (81-99); Monocyte# 0.56 X10^3/uL; Monocyte% 6.7 % (0-10); Neutrophil # 5.42 X10^3/uL (2.7-7.7); Neutrophil % 65.2 % (47-70); Platelet Count 186 K/mm3 (150-450); RBC Distribution Width CV 26.5 % (11.6-14.6); RBC Distribution Width SD 73.7 fl (35.1-43.9); Red Blood Count 4.75 M/mm3 (4.2-5.4); White Blood Count 8.3 K/mm3 (4.4-11.0)
[2018-02-21 16:30] LABS: Ferritin 6 ng/mL (8-252); Iron 83 ug/dL (50-170)
[2018-02-21 16:33] LABS: Differential Indicated SCAN CRITERIA MET; POSITIVE COUNT NO; POSITIVE DIFFERENTIAL NO; POSITIVE MORPHOLOGY YES
[2018-02-21 17:10] LABS: Anisocytosis 1+; Differential Comment SCANNED; Ovalocyte 1+; Platelet Estimate ADEQUATE (ADEQ)
== END ==
DX: D64.9 Anemia, unspecified (principal)
CPT/HCPCS: 36415; 82728; 83540; 85025

== ENCOUNTER 2018-03-14 12:22 | Day surgery (SDC) | payer BC, SELFPAY ==
[2018-03-09 16:54] LABS: Hematocrit 37.9 % (37-47); Hemoglobin 11.5 g/dl (12.0-15.0); Mean Corp Hgb Conc 30.3 g/gl (32-36); Mean Corpuscular Hgb 24.8 pg (27.0-32.0); Mean Corpuscular Volume 81.9 fL (81-99); Mean Platelet Vol. 9.8 fl (6.2-12.0); Platelet Count 189 K/mm3 (150-450); RBC Distribution Width CV 21.3 % (11.6-14.6); RBC Distribution Width SD 63.8 fl (35.1-43.9); Red Blood Count 4.63 M/mm3 (4.2-5.4); Scan Indicated on CBC? Y/N YES- FLAGS NOTED; White Blood Count 6.2 K/mm3 (4.4-11.0)
[2018-03-09 17:04] LABS: Thyroid Stim Hormone (TSH) 1.46 uIU/mL (0.358-3.74)
[2018-03-09 17:08] LABS: Prothrombin Time (Protime)PT. 12.9 SECONDS (11.7-14.9)
[2018-03-09 17:09] LABS: Partial Thromboplast Time 27.3 Seconds (24.1-36.2)
[2018-03-09 17:32] LABS: Differential Comment SCANNED
[2018-03-14] VITALS (12 sets, daily range): BP systolic 103–132; BP diastolic 59–83; PULSE 50–89; RESP 16–18; TEMP 36.4–37; O2SAT 93–100; BMI 24.0
[2018-03-14] MEDS: Phenazopyridine 95 MG Tablet 190 MG PO (13:12)
[2018-03-14 13:31] LABS: Pregnancy, Serum, hCG Quali. NEGATIVE Negative (0-9 Nonpreg)
--- NOTE | 2018-03-14 14:20 | UT_PTH ---
PATIENT: OLIVIA CHANCE LOC: [facility] U#:[id number] AGE/SX: 32/F ROOM: RE03/14/[address]: Dr. Baylee Garrett MD : [id number] BED: DIS: 03/15/2018 SPEC #: [id number] RECD: 03/15/18 09:19 STATUS: WENDI RAHEEM #: [id number] VANI: 03/14/18 14:[address]: Baylee Garrett DEPT: SURGICAL PATHOLOGY RECD BY: Seth Boykin ENTERED: 03/15/18 10:18 SP TYPE: UTERUS OTHR DR: Dr. Alexis Yu, DO Tissues: Uterus, NOS Procedures: Surgery Specimen Level V HEADER OPERATION: Hysterectomy, lap-assisted vaginal, bilateral salpingectomy PRE-OP DIAGNOSIS: Endometriosis, abnormal uterine bleeding, anemia due to blood loss, chronic TISSUE SUBMITTED: Uterus, bilateral tubes MICROSCOPIC DIAGNOSIS Uterus and bilateral fallopian tubes, vaginal hysterectomy and bilateral salpingectomy: Cervix ? chronic inflammation and squamous metaplasia. Endometrium ? early secretory endometrium. Myometrium - no pathologic diagnosis. Bilateral fallopian tubes - no pathologic diagnosis. Right paratubal cyst. SJ:rg 03/16/18 MICROSCOPIC DESCRIPTION Slides are reviewed. GROSS DESCRIPTION Received in fixative is one container labeled with the patient's name and designated uterus and bilateral tubes. The specimen consists of a hysterectomy specimen consisting of uterus with cervix and attached bilateral fallopian tubes. The uterus with cervix weighs 72 gm and measures 7.5 x 6 x 4 cm. The serosal surface is hameed, glistening. The ectocervical mucosa is unremarkable. The external os is slit-like in contour. The endocervical canal measures 2.5 cm in length and the endocervical mucosa is without any mass lesion. The triangular endometrial cavity measures 3.5 cm in length and up to 2 cm in width. The endometrium is without any mass lesions and measures 0.1 cm in thickness. Sections of the uterine wall do not reveal any mass lesion and measures 2 cm in thickness. The right fallopian tube measures 7 cm in length and 0.5 to 0.8 cm in diameter. The fimbrial end is identified. A paratubal cyst is also noted measuring 0.4 cm in greatest dimension. Sections reveal unremarkable cut surfaces. The left fallopian tube is similar appearance to right and measures 6 cm in length and 0.5 to 0.7 cm in diameter. The fimbrial end is identified. Sections reveal unremarkable cut surfaces. Ironer Sock sections are submitted in eight cassettes as follows: 1 - anterior cervix, 2 - posterior cervix, 3 & 4 - anterior uterine wall, 5 & 6 - posterior uterine wall, 7 ? right fallopian tube and paratubal cyst, 8 ? left fallopian tube. / OKSANA:dario 03/15/18 TC:5 CPT: 71306
--- NOTE | 2018-03-14 15:27 | PCM.OPRPT ---
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 Patient was taken back to the operating room and placed in the dorsal lithotomy position. General anesthesia was induced and patient was prepped and draped in normal sterile fashion. Uterine manipulator was placed inside the uterus and Vazquez catheter placed in the bladder. The umbilicus was grasped with towel clamps and an intraumbilical incision was made after injecting with quarter percent Marcaine and a Veress needle entered into the abdomen confirmed to be intra-abdominal with a low opening pressure. Abdomen was insufflated with CO2 gas and the Veress needle removed and the 5 mm trocar was placed under direct visualization without complication. Right and left lower quadrants were transilluminated and injected with quarter percent Marcaine and 5 mm ports placed under direct visualization. Pelvis was well visualized see operative findings for additional information. Bilateral fallopian tubes were identified and transected with the LigaSure device across the mesosalpinx to the level of the utero-ovarian ligament which was also transected with the LigaSure device. The broad ligament was opened up by transecting the round ligament bilaterally and skeletonizing the uterine vessels bilaterally and creating a bladder flap using the LigaSure device. The uterine arteries were transected bilaterally with good visualization of the bladder and the ureters were seen to be inferior lateral to the operative area. Attention was then paid to the vaginal portion of the procedure and the cervix was grasped with Jairo clamps and circumferentially injected with dilute vasopressin. A circumferential incision was made and the vaginal mucosa was mobilized off posteriorly and the cul-de-sac entered into sharply and a longneck speculum placed. The anterior cul-de-sac was then identified and entered into sharply. The uterosacral ligaments were clamped cut and suture ligated with 0 Monocryl bilaterally followed by the cardinal ligaments which were clamped cut and suture ligated bilaterally with 0 Monocryl. The uterus serially descended and was removed without difficulty with minimal morcellation. Pelvic sidewall pedicles were checked and noted to have excellent hemostasis. The vaginal mucosa was reapproximated incorporating the posterior peritoneum. This was reapproximated using 0 Vicryl [id number] sutures. Excellent hemostasis was noted. The cystoscopy was then performed and bilateral ureteral strong spray was noted and the bladder was noted to have no abnormality or lesions seen. Vazquez catheter was replaced and then attention paid to the abdominal portion of the procedure again. The pelvis and cul-de-sac was well visualized and no significant active bleeding noted but some raw areas were seen and stable. several small endometriosis implants were seen and ablated with the ligasure device. Pressure was taken down and the areas visualized and noted of excellent hemostasis. All ports were removed under direct visualization without complication and the abdomen was desufflated of air. The instruments removed from the abdomen and the vagina vaginal sweep was negative. Port sites on the abdomen were closed with 4-0 Monocryl interrupted sutures and Steri's and windows were applied. She was awoken and taken recovery in stable condition. - Complications none - Admit VTE Documentation VTE Present on Admission: No
[2018-03-14] MEDS: Bupivacaine 0.25% 30 ML Vial (15:40)
[2018-03-14] MEDS: Vasopressin 20 UNITS/ML Vial (16:01)
--- NOTE | 2018-03-14 19:53 | NURSING ---
PHARMACY CALLED TO VERIFY DILAUDID AND ZOFRAN
[2018-03-14] MEDS: Ondansetron 4 MG/2 ML Vial IV (20:30)
[2018-03-14] MEDS: Ketorolac 30 MG/ML Syringe IV (20:30)
[2018-03-14] MEDS: Acetaminophen 500 MG Tablet 1000 MG PO (21:39)
[2018-03-14] MEDS: oxyCODONE 5 MG Tablet PO (21:40)
[2018-03-14] MEDS: Amitriptyline 25 MG Tablet PO (21:40)
[2018-03-14] MEDS: Ferrous Gluconate 325 MG Tablet PO (21:41)
[2018-03-14] MEDS: Verapamil SR 180 MG CAPSULE PO (23:00)
[2018-03-15] MEDS: Ketorolac 30 MG/ML Syringe IV (04:33)
[2018-03-15 05:33] VITALS: BP 111/66; PULSE 54; RESP 18; TEMP 37; O2SAT 97
[2018-03-15] MEDS: Levothyroxine 125 MCG Tablet PO (05:36)
[2018-03-15] MEDS: 0.9% NaCl Peripheral Flush Adult/Peds IV (05:36)
[2018-03-15 06:29] LABS: Hematocrit 37.7 % (37-47); Hemoglobin 11.8 g/dl (12.0-15.0); Mean Corp Hgb Conc 31.3 g/gl (32-36); Mean Corpuscular Hgb 25.4 pg (27.0-32.0); Mean Corpuscular Volume 81.3 fL (81-99); Mean Platelet Vol. 10.7 fl (6.2-12.0); Platelet Count 215 K/mm3 (150-450); RBC Distribution Width CV 18.9 % (11.6-14.6); RBC Distribution Width SD 55.5 fl (35.1-43.9); Red Blood Count 4.64 M/mm3 (4.2-5.4); White Blood Count 8.1 K/mm3 (4.4-11.0)
[2018-03-15 06:30] LABS: Scan Indicated on CBC? Y/N NO
[2018-03-15 08:05] VITALS: O2SAT 95
[2018-03-15 08:32] VITALS: BP 99/56; PULSE 51; RESP 16; TEMP 37.1; O2SAT 96
[2018-03-15] MEDS: Enoxaparin 40 MG/0.4 ML Syringe SC (08:38)
[2018-03-15] MEDS: Ferrous Gluconate 325 MG Tablet PO (08:38)
[2018-03-15] MEDS: Citalopram 10 MG Tablet PO (08:38)
[2018-03-15] MEDS: oxyCODONE 5 MG Tablet PO ×2 (08:41→13:38)
[2018-03-15] MEDS: Ketorolac 10 MG Tablet PO (11:17)
[2018-03-15 13:37] VITALS: BP 106/66; PULSE 60; RESP 14; TEMP 36.3; O2SAT 100
[2018-03-15] MEDS: Acetaminophen 500 MG Tablet 1000 MG PO (13:39)
--- NOTE | 2018-03-15 13:43 | DCINST_ITS ---
Discharge Diet: No Restrictions Discharge Activity: Return to Normal Activity, May Not Drive, May Shower May resume sexual activity in: 6-8 weeks Call your doctor if your incision/area has: Continuous Slow Oozing, Sudden Increased Bleeding, Increased Pain/ Swelling, Increased Redness, Foul Smelling Discharge Call your doctor if you observe: Fever of 101 or Higher, Inability to urinate, Inability to have a bowel movement, Using more than one pad per hour Allergies/Adverse Reactions: Allergies etodolac [From Lodine] Allergy (Mild, Verified 03/07/18 13:08) Itching FLU SHOT Allergy (Unknown, Uncoded 03/07/18 13:08) Unknown Medications to take at Discharge Amitriptyline HCl 25 mg PO QHS 01/18/18 Citalopram [Celexa] 10 mg PO DAILY 01/18/18 Levothyroxine [Synthroid] 125 mcg PO DAILY 01/18/18 Verapamil [Calan Sr] 180 mg PO QHS 01/18/18 oxycodone 5 mg tablet 5 - 10 mg PO Q4H PRN PRN #20 tab 02/27/18 pantoprazole 40 mg tablet,delayed release 40 mg PO BID PRN tab 02/27/18 Ferrous Gluconate 325 mg PO BIDCM 03/14/18 Levonorgestrel-Ethin Estradiol [Lessina-28 Tablet] 1 tab PO QDAY 03/14/18 Naproxen 500 mg PO BID PRN #60 tab 03/15/18 Naproxen 500 mg PO BID PRN #60 tab 03/15/18 Oxycodone HCl/Acetaminophen [Percocet 5/325] 1 - 2 tablet PO Q4H PRN PRN 7 Days #28 tablet 03/15/18 The following prescriptions were given: Oxycodone HCl/Acetaminophen [Percocet 5/325] 1 - 2 tablet PO Q4H PRN PRN 7 Days #28 tablet PRN Reason: Pain Naproxen 500 mg PO BID PRN #60 tab PRN Reason: Pain Naproxen 500 mg PO BID PRN #60 tab PRN Reason: Pain Primary Care Physician: Alexis Yu DO [Primary Care Provider] - Test Results: Test results from this visit will be discussed in further detail at your follow- up appointment, if applicable. Please Follow Up With: Baylee Garrett MD - [phone]
--- NOTE | 2018-03-15 13:43 | PCM.PN.OB ---
Subjective: doing well no complaints - Physical Exam General: Alert, Oriented x3 Vital Signs Temp Pulse Resp BP Pulse Ox 97.4 F L 60 14 106/66 100 03/15/18 13:37 03/15/18 13:37 03/15/18 13:37 03/15/18 13:37 03/15/18 13:37 Oxygen Delivery Method Room Air Weight: 144 lb 9.972 oz Body Mass Index (BMI) 24.0 Intake and Output for Last 24 Hours 03/13/18 03/14/18 03/15/18 23:59 23:59 23:59 Intake Total 2400 / 2400 1983 / 1983 Output Total 410 / 410 2200 / 2200 Balance 1989 / 1989 -216 / -216 Laboratory Tests Past 24 Hrs 03/14/18 03/15/18 12:40 05:55 WBC 8.1 RBC 4.64 Hgb 11.8 L Hct 37.7 MCV 81.3 MCH 25.4 L MCHC 31.3 L RDW 18.9 H RDW Differential 55.5 H Plt Count 215 MPV 10.7 Blood Type A POSITIVE Antibody Screen NEGATIVE Medical Necessity - Tobacco Use Smoking Status: Current every day smoker Assessment/Plan All Active Problems (Last Reviewed 02/27/18 @ 08:51 by Lea Falk) Acute blood loss anemia (Acute) GI bleed (Acute) dc home routine care doing well s/p YOVANNY
== END 2018-03-15 14:00 | disposition home or self-care (01) ==
LOC: SDC 12:22 → AC 12:25 → MS2 03-15 07:48
PROVIDERS: Visit Provider Obstetrics & Gynecology
PROC: 0UT9FZZ Resection of Uterus, Via Natural or Artificial Opening With Percutaneous Endoscopic Assistance (ICD-10-PCS; CPT 58552; principal; 2018-03-14 13:55)
DX: N93.9 Abnormal uterine and vaginal bleeding, unspecified (principal); D50.0 Iron deficiency anemia secondary to blood loss (chronic); N80.3 Endometriosis of pelvic peritoneum; N80.2 Endometriosis of fallopian tube; N83.8 Other noninflammatory disorders of ovary, fallopian tube and broad ligament; E05.00 Thyrotoxicosis with diffuse goiter without thyrotoxic crisis or storm; E89.0 Postprocedural hypothyroidism; F17.200 Nicotine dependence, unspecified, uncomplicated; Z79.899 Other long term (current) drug therapy
CPT/HCPCS: 00840; 58552; 36415; 84443; 84703; 85027; 85610; 85730; 86850; 86900; 88307; 99406; J7120; A4216; J2405

== ENCOUNTER 2018-04-06 12:37 | Emergency (ER) | payer BC, SELFPAY ==
[2018-04-06 12:37] VITALS: BP 123/68; PULSE 95; RESP 16; TEMP 36.9; O2SAT 98; BMI 23.6
[2018-04-06] MEDS: 0.9% Normal Saline 1,000 ML 1000 ML IV (14:07)
[2018-04-06 14:26] LABS: Anion Gap 7 (5-15); BUN 10 mg/dL (7-18); BUN/Creat Ratio 14.8 RATIO (10-20); Calcium,Total 8.4 mg/dL (8.5-10.1); Chloride 110 mmol/L (98-107); Creatinine, Serum 0.68 mg/dL (0.55-1.02); EST Glomerular Filtration Rate 108 mL/min (>60); Est Glom Filt Rate - Afr Amer 131 mL/min (>60); Estimated Creatinine Clearance 108.85 ml/min; Glucose 80 mg/dL (74-106); Potassium 3.9 mmol/L (3.5-5.1); Sodium Level 143 mmol/L (136-145)
[2018-04-06 14:37] LABS: Hematocrit 36.4 % (37-47); Hemoglobin 11.4 g/dl (12.0-15.0); Mean Corp Hgb Conc 31.3 g/gl (32-36); Mean Corpuscular Hgb 25.5 pg (27.0-32.0); Mean Corpuscular Volume 81.4 fL (81-99); Mean Platelet Vol. 10.1 fl (6.2-12.0); Platelet Count 219 K/mm3 (150-450); RBC Distribution Width CV 15.5 % (11.6-14.6); RBC Distribution Width SD 43.9 fl (35.1-43.9); Red Blood Count 4.47 M/mm3 (4.2-5.4); Scan Indicated on CBC? Y/N NO; White Blood Count 7.7 K/mm3 (4.4-11.0)
--- NOTE | 2018-04-06 15:53 | ED.VISSUMM ---
- ER Visit Summary Date of Service: 04/06/18 Chief Complaint: Chronic cough and bloody diarrhea. History of Present Illness: The patient is a 32 F status post hysterectomy several weeks ago. She states she has had a cough for the last 2 weeks. Mild phlegm. No hemoptysis. No chest pain. No pleuritic chest pain. No leg pain or swelling. No prior DVT or PE. Also states she is recently developed diarrhea the last few days. Has had some blood mixed with it. Physical Examination: Well-appearing young female. Vital signs are stable afebrile. Does not look septic or toxic. No acute distress. HEENT exam unremarkable. Neck nontender no JVD. No lymphadenopathy. Lungs clear to auscultation bilaterally. Dry cough. No rhonchi or wheezing. Heart regular rhythm no murmur. Abdomen soft, nontender, nondistended normal bowel sounds no peritoneal signs. Moving all 4 extremities. Calves nontender no edema no cords neurologically awake alert no focal motor deficits. Neurologically she is awake and alert. Test Results: CBC showed a white count 7. Hemoglobin 11.4 previously she runs chronically anemic and her hemoglobin was around 11 before. Electrolytes unremarkable gap is 7. Creatinine 0.6. Emergency Department Course and Treatment: Repeat exam patient is doing well at 249. She will be discharged to home to follow-up with Dr. Eli Hester who had done prior endoscopy on her. Treatment Plan: Return to the ER feeling worse. Outpatient follow-up for repeat evaluation for bloody diarrhea. Disposition: Discharge Impression: Bloody diarrhea Chronic anemia URI This note was generated with [employer] dictation software. It may contain incorrect words, spelling, and punctuation that were not noted in review of the chart prior to signing ED Disposition - Plan for ED Patient: Chief Complaint: General Illness Referrals: Alexis Yu DO [Primary Care Provider] -
--- NOTE | 2018-04-06 15:58 | ED.DEP ---
ED Disposition - Plan for ED Patient: Disposition: Home or Assisted Living Chief Complaint: General Illness Diagnosis: GI bleed Referrals: Eli Hestre MD [STAFF PHYSICIAN] - Additional Instructions: Call follow-up your primary care physician or Dr. Eli Hester for further evaluation of the bloody diarrhea and endoscopy if needed. Plenty fluids and rest. The cough should clear up. Your chest x-ray was normal today. Return to ER if bleeding is a lot worse you are feeling a lot worse but at this time is stable and your blood counts are stable.
[2018-04-06 16:17] VITALS: BP 112/68; PULSE 78; RESP 16; O2SAT 98
== END 2018-04-06 16:18 | disposition home or self-care (01) ==
PROVIDERS: Emergency Provider Emergency Medicine
DX: J06.9 Acute upper respiratory infection, unspecified (principal); R19.7 Diarrhea, unspecified; K92.1 Melena; D64.9 Anemia, unspecified; Z79.899 Other long term (current) drug therapy; Z72.0 Tobacco use
CPT/HCPCS: 71046; 80048; 85027; 96360; 96361; 99284; J7030

== ENCOUNTER → 2018-05-09 14:50 | Outpatient (CLI) | payer BC, SELFPAY ==
[2018-05-09 16:05] LABS: Absolute Lymphocyte Count 2.05 X10^3/ul (0.83-4.51); Absolute Neutrophil Count 3.7 X10^3/uL (2.0-7.7); Basophil# 0.07 X10^3/uL; Basophil% 1.1 % (0-1); Eosinophil# 0.34 X10^3/uL; Eosinophils% 5.2 % (0-5); Hematocrit 38.1 % (37-47); Hemoglobin 12.3 g/dl (12.0-15.0); Lymphocyte # 2.05 X10^3/ul (4.0); Lymphocyte % 31.3 % (19-41); Mean Corp Hgb Conc 32.3 g/gl (32-36); Mean Corpuscular Hgb 26.7 pg (27.0-32.0); Mean Corpuscular Volume 82.8 fL (81-99); Mean Platelet Vol. 10.9 fl (6.2-12.0); Monocyte# 0.35 X10^3/uL; Monocyte% 5.3 % (0-10); Neutrophil # 3.74 X10^3/uL (2.7-7.7); Neutrophil % 56.9 % (47-70); POSITIVE COUNT NO; POSITIVE DIFFERENTIAL NO; POSITIVE MORPHOLOGY NO; Platelet Count 253 K/mm3 (150-450); RBC Distribution Width CV 14.3 % (11.6-14.6); RBC Distribution Width SD 42.3 fl (35.1-43.9); White Blood Count 6.6 K/mm3 (4.4-11.0)
[2018-05-09 16:40] LABS: Thyroid Stim Hormone (TSH) 1.25 uIU/mL (0.358-3.74)
== END ==
DX: Z79.899 Other long term (current) drug therapy (principal)
CPT/HCPCS: 36415; 84443; 85025

== ENCOUNTER 2018-08-19 17:07 | Emergency (ER) | payer BC, SELFPAY ==
[2018-08-19 17:09] VITALS: BP 116/75; PULSE 89; RESP 18; TEMP 36.3; O2SAT 99; BMI 23.3
[2018-08-19] MEDS: DiphenhydrAMINE 50 MG/ML Syringe 25 MG IV (17:31)
[2018-08-19] MEDS: proCHLORPERazine 10 MG/2 ML Vial IV (17:31)
[2018-08-19] MEDS: 0.9% Normal Saline 1,000 ML 999 ML IV (17:31)
[2018-08-19] MEDS: Ketorolac 30 MG/ML Syringe IV (17:32)
--- NOTE | 2018-08-19 18:09 | ED.VISSUMM ---
- ER Visit Summary Date of Service: 08/19/18 Chief Complaint: Migraine headache History of Present Illness: The patient is a 33 F who presents with a migraine headache. Started 5 days ago. Similar to her prior migraines. She has had nausea and is seeing black spots. She felt dizzy as well. Denies any falls or trauma. She currently takes verapamil and amitriptyline and just started a new injection to help with her migraines. Physical Examination: Vital signs reviewed. HEENT exam unremarkable. Heart is regular rate and rhythm without murmurs. Lungs are clear to auscultation. Abdomen is soft and nontender. Extremities reveal no edema. Skin exam normal. Neurologic exam normal. Test Results: None performed Emergency Department Course and Treatment: Patient was given IV Toradol, Compazine and Benadryl. She was given normal saline. She feels much better upon reevaluation. Patient will be discharged to continue her home medications. She will follow-up with her PCP Treatment Plan: [] Disposition: Discharge Impression: Migraine headache This note was generated with [employer] dictation software. It may contain incorrect words, spelling, and punctuation that were not noted in review of the chart prior to signing ED Disposition - Plan for ED Patient: Chief Complaint: Headache Referrals: Alexis Yu DO [Primary Care Provider] -
--- NOTE | 2018-08-19 18:10 | ED.DEP ---
ED Disposition - Plan for ED Patient: Disposition: Home or Assisted Living Chief Complaint: Headache Instructions: ED Headache Migraine Referrals: Alexis Yu DO [Primary Care Provider] -
[2018-08-19 18:20] VITALS: BP 113/78; PULSE 73; RESP 17; O2SAT 98
== END 2018-08-19 18:20 | disposition home or self-care (01) ==
PROVIDERS: Emergency Provider Emergency Medicine
DX: G43.909 Migraine, unspecified, not intractable, without status migrainosus (principal); Z72.0 Tobacco use
CPT/HCPCS: 96361; 96374; 96375; 99283; J7030; A4216

== ENCOUNTER → 2018-11-06 17:43 | Outpatient (CLI) | payer BC, SELFPAY ==
[2018-11-06 15:02] VITALS: BMI 23.3
== END ==
PROVIDERS: Referring Provider Obstetrics & Gynecology; Visit Provider Obstetrics & Gynecology
DX: R10.2 Pelvic and perineal pain (principal); G89.29 Other chronic pain
CPT/HCPCS: 87086; 87088

== ENCOUNTER 2018-11-07 10:42 | Emergency (ER) | payer BC, SELFPAY ==
[2018-11-06 15:02] VITALS: BMI 23.3
[2018-11-07 10:43] VITALS: BP 124/67; PULSE 91; RESP 16; TEMP 36.7; O2SAT 96; BMI 23.8
--- NOTE | 2018-11-07 10:57 | CT_ITS ---
STUDY: CT ABDOMEN AND PELVIS WITHOUT CONTRAST REASON FOR EXAM: Female, 33 years old. Left lower quadrant pain with nausea. RADIATION DOSAGE (If Supplied By Facility): CTDIvol = ( 9.22 ) mGy, DLP = ( 458.57 ) mGycm TECHNIQUE: Transaxial images were obtained from the dome of the diaphragm to the symphysis pubis without oral contrast, and without intravenous contrast. Sagittal and coronal images were reconstructed. Individualized dose optimization techniques were used for this CT. COMPARISON: Comparison is made with prior study dated January 19, 2018. FINDINGS: The visualized lung bases are unremarkable. The visualized portions of the heart are within normal limits. There is a 7.6 mm well-defined rounded vascular nodule in the anterior lateral aspect of the dome of the right lobe the liver. This most likely represents an hemangioma. Normal gallbladder and extrahepatic biliary system. Normal spleen. Normal pancreas. Normal bilateral adrenal glands. Normal right kidney. Normal left kidney. Normal visualized stomach. Normal small intestine. There are scattered colonic diverticula consistent with diverticulosis. There is non-visualization of the appendix. Normal abdominal aorta. Normal inferior vena cava. Normal retroperitoneum. Normal urinary bladder. There is absence of the uterus consistent with a prior hysterectomy. Minimal amount of free fluid is seen in the right lower hemipelvis. There is a 1.9 cm x 1.4 cm dominant follicle in the right ovary. This is also evidence of a 1.4 cm dominant follicle in the left ovary. Normal abdominal wall. Normal osseous structures. CT/Abdomen/Pelvis W IV Cont ONLY IMPRESSION: Status post hysterectomy. Minimal amount of fluid is seen in the right posterior hemipelvis. Dominant follicles are seen in both ovaries. Electronically Signed: Alonso Jennings, at 11:38 EDT , Service support ,
--- NOTE | 2018-11-07 11:04 | ED.DCSUM_ITS ---
History of Present Illness Chief Complaint: Abd Pain Informant: Patient Onset: Days - 3 Context: Gradual Onset Timing: Intermittent - initially, now continuous, Waxes and wanes - at times Quality: sharp, burning Location: LLQ mostly; radiating across lower abd Current Severity: Severe Maximum Severity: Severe Worsened by: trying to eat or drink Relieved by: nothing Associated Symptoms: nausea. no vtg. no back pain. no urinary sx or fevers. Narrative: Patient had a hysterectomy last year because of anemia related to menorrhagia. She still has her ovaries. She has had prior appendectomy and multiple surgeries for endometriosis. She states this feels different than that. She saw her OB yesterday for this pain, she ordered an outpatient ultrasound that is scheduled about an hour and a half from now here at the hospital, but the patie nt states the pain is much worse and so she is seeking further evaluation now. She states a urinalysis was done in the office but she does not know the results. She had been having normal bowel movements, but she has not had one yet today. Also states that the age of 28 she was having rectal bleeding and then had a colonoscopy that showed many polyps, none of them were cancerous. - Past Medical History (1) Endometriosis Status: Chronic Past Medical History - Allergies and Home Meds Allergies/Adverse Reactions: Allergies etodolac [From [place]] Allergy (Mild, Verified 11/07/18 10:42) Itching FLU SHOT Allergy (Unknown, Uncoded 11/07/18 10:42) Unknown Primary Care Physician: Alexis Yu DO [Primary Care Provider] - Surgical History: appendectomy, hysterectomy, - - laparoscopies for endometrios is Smoking Status: Current every day smoker - Family History Maternal Family History: Reports: - - no colon cancer Review of Systems General: Denies: Chills, Fever, Sweats Eyes: Denies: Visual changes - bilaterally, Diplopia ENT: Denies: Rhinorrhea, Sore throat Cardiovascular: Denies: Chest pain, Palpitations Respiratory: Denies: Dyspnea, Cough, Dyspnea on exertion Gastrointestinal: Reports: Abdominal pain, Nausea. Denies: Vomiting, Diarrhea, Melena, Hematochezia Genitourinary: Denies: Dysuria, Hematuria, Frequency Musculoskeletal: Denies: Back pain, Swelling, Extremity Pain Skin: Denies: Rash, Wounds Neurological: Denies: Headache, Weakness, Numbness Physical Exam Vital Signs/Narrative: Vital Signs Temp Pulse Resp BP Pulse Ox 11/07/18 10:43 98.1 F 91 16 124/67 H 96 Inital Vital Signs reviewed: Yes General: Well nourished, Well developed, No Acute Distress Head: Normocephalic, Atraumatic Eyes: Perrl, EOMI ENT: Moist mucous membranes, No rhinorrhea Neck: Supple, Nontender Cardiovascular: Regular rate, Regular rhythm, No murmurs, Normal S1, Normal S2 Respiratory: No distress, CTA bilaterally, Chest nontender Abdomen: Soft, Nondistended, Normal bowel sounds, Tender - LLQ and suprapubic > LUQ and RLQ. otherwise, NT, including RUQ., Guarding - LLQ. voluntary.. Negative for: Rebound tenderness Back: Normal Inspection, CVA tenderness - left only. no rash/lesions. . Negative for: Spinal tenderness Extremities: Nontender, No edema Skin: Normal color, No rash, No Trauma Neurological: Alert, Oriented x3, Cranial nerves II-XII grossly intact, Normal Strength, Normal Sensation Psychological: Normal affect, Normal Mood Diagnostic/Tx/Re-eval Impressions Abdomen/Pelvis CT 11/07/18 10:57 IMPRESSION: Status post hysterectomy. Minimal amount of fluid is seen in the right posterior hemipelvis. Dominant follicles are seen in both ovaries. Electronically Signed: Alonso Jennings, at 11:38 EDT , Service support , 11/07/18 10:57 CT Abd [Abdomen/Pelvis W IV Cont ONLY] [CT] Stat Laboratory Results 11/07/18 11/07/18 11:15 11:15 WBC 11.5 H RBC 4.95 Hgb 15.0 Hct 44.6 MCV 90.1 MCH 30.3 MCHC 33.6 RDW 12.5 RDW Differential 41.0 Plt Count 246 MPV 10.0 Immature Gran % (Auto) 0.200 Neut % (Auto) 80.0 H Lymph % (Auto) 12.0 L [place] % (Auto) 6.4 Eos % (Auto) 1.1 Baso % (Auto) 0.3 Absolute Neuts (auto) 9.2 H Absolute Lymphs (auto) 1.38 Total Counted Not Reportable Sodium 139 Potassium 3.8 Chloride 105 Carbon Dioxide 26.0 Anion Gap 8 BUN 7 Creatinine 0.74 Estim Creat Clear Calc 99.12 Est GFR (MDRD) Af Amer 118 Est GFR (MDRD) Non-Af 98 BUN/Creatinine Ratio 9.5 L Glucose 85 Calcium 9.4 Total Bilirubin 0.40 AST 15 ALT 23 Alkaline Phosphatase 94 Total Protein 7.8 Albumin 4.3 Globulin 3.5 Albumin/Globulin Ratio 1.2 Lipase 59 L - Medical Decision Making Reviewed patient's urinalysis results that were available from yesterday. That showed large bilirubin but was otherwise normal. I obtain CBC, chemistries with liver enzymes and lipase, all of it is normal. Still, obtain CT abdomen/pelvis to rule out colonic etiologies of her discomfort and other possibilities, it showed free fluid in the pelvis and dominant follicles bilaterally, but no other acute abnormalities explained on CT. Given this, I suspect the ultrasound she is scheduled for would be the next best test. I gave her some Toradol she said it helped a little but not much. She is stable clinically and hemodynamically. I discussed with her OB Dr. Garrett, she agrees with plan of discharging her with an analgesic. She reviewed the CT, and states that it basically is showing normal follicular ovaries, and states that the patient does not have to follow back up with her and the ultrasound may be canceled, it is not necessary anymore based on the information provided. I would advise patient to follow-up with her PCP if the pain does not resolve spontaneously. Prescribed Ultram and given a dose here prior to discharge. ED Disposition - Plan for ED Patient: Disposition: Home or Assisted Living Diagnosis: Pelvic pain in female Instructions: ED Pelvic Pain [facility] Prescriptions: traMADol [Ultram] 50 mg PO Q4H PRN PRN 3 Days #15 tab PRN Reason: Pain Referrals: Alexis Yu, [Primary Care Provider] - 3-5 Days if not improving
[2018-11-07] MEDS: Ketorolac 30 MG/ML Syringe IV (11:30)
[2018-11-07 11:31] LABS: Absolute Lymphocyte Count 1.38 X10^3/ul (0.83-4.51); Absolute Neutrophil Count 9.2 X10^3/uL (2.0-7.7); Basophil# 0.03 X10^3/uL; Basophil% 0.3 % (0-1); Eosinophil# 0.13 X10^3/uL; Eosinophils% 1.1 % (0-5); Hematocrit 44.6 % (37-47); Lymphocyte # 1.38 X10^3/ul (4.0); Mean Corp Hgb Conc 33.6 g/gl (32-36); Mean Corpuscular Hgb 30.3 pg (27.0-32.0); Mean Corpuscular Volume 90.1 fL (81-99); Monocyte# 0.74 X10^3/uL; Monocyte% 6.4 % (0-10); Neutrophil # 9.18 X10^3/uL (2.7-7.7); Platelet Count 246 K/mm3 (150-450); RBC Distribution Width CV 12.5 % (11.6-14.6); Red Blood Count 4.95 M/mm3 (4.2-5.4); White Blood Count 11.5 K/mm3 (4.4-11.0)
[2018-11-07 11:34] LABS: POSITIVE COUNT NO; POSITIVE DIFFERENTIAL NO; POSITIVE MORPHOLOGY NO
[2018-11-07 11:40] LABS: ALB/GLOB Ratio 1.2 RATIO (0.9-2.4); AST(SGOT) 15 U/L (15-37); Alanine Aminotransfer ALT/SGPT 23 U/L (13-56); Albumin, Serum 4.3 g/dL (3.2-5.0); Alkaline Phosphatase 94 U/L (45-117); Anion Gap 8 (5-15); BUN 7 mg/dL (7-18); BUN/Creat Ratio 9.5 RATIO (10-20); Calcium,Total 9.4 mg/dL (8.5-10.1); Chloride 105 mmol/L (98-107); Creatinine, Serum 0.74 mg/dL (0.55-1.02); EST Glomerular Filtration Rate 98 mL/min (>60); Est Glom Filt Rate - Afr Amer 118 mL/min (>60); Estimated Creatinine Clearance 99.12 ml/min; Globulin 3.5 g/dL (2.2-4.2); Glucose 85 mg/dL (74-106); Lipase 59 U/L (73-393); Potassium 3.8 mmol/L (3.5-5.1); Protein, Total 7.8 g/dL (6.4-8.2); Sodium Level 139 mmol/L (136-145)
--- NOTE | 2018-11-07 12:07 | NURSING ---
DR FRANCESCA SY
[2018-11-07] MEDS: traMADol 50 MG Tablet PO (12:18)
[2018-11-07 12:23] VITALS: BP 107/71; PULSE 69; RESP 18; O2SAT 99
== END 2018-11-07 12:24 | disposition home or self-care (01) ==
PROVIDERS: Emergency Provider Emergency Medicine
DX: R10.2 Pelvic and perineal pain (principal); N80.9 Endometriosis, unspecified; F17.200 Nicotine dependence, unspecified, uncomplicated
CPT/HCPCS: 74177; 80053; 83690; 85025; 96374; 99285; Q9967; A4216

== ENCOUNTER 2019-08-08 10:24 | Emergency (ER) | payer BC, SELFPAY ==
[2019-08-08 10:25] VITALS: BP 125/70; PULSE 122; RESP 17; TEMP 36.6; O2SAT 99; BMI 24.1
--- NOTE | 2019-08-08 10:40 | CT_ITS ---
STUDY: CT ABDOMEN AND PELVIS WITH CONTRAST REASON FOR EXAM: Female, 34 years old. AB PAIN. PRIOR Appendectomy, uterus REMOVED RADIATION DOSAGE (If Supplied By Facility): CTDIvol = ( 10.70 ) mGy, DLP = ( 586.00 ) mGycm TECHNIQUE: Transaxial images were obtained from the dome of the diaphragm to the symphysis pubis with oral contrast. Oral and amp; IV Gastrografin and amp; 100mL Isovue-300 was administered. Sagittal and coronal images were reconstructed. Individualized dose optimization techniques were used for this CT. COMPARISON: 11/07/2018 FINDINGS: The visualized lung bases are unremarkable. The visualized portions of the heart are within normal limits. Normal liver. Normal gallbladder and extrahepatic biliary system. Normal spleen. Normal pancreas. Normal bilateral adrenal glands. Normal right kidney. Normal left kidney. Normal visualized stomach. Normal small intestine. Normal colon. There is non-visualization of the appendix. Normal abdominal aorta. Normal inferior vena cava. Normal retroperitoneum. Normal urinary bladder. There is absence of the uterus consistent with a prior hysterectomy. Bilateral likely physiologic ovarian cysts. Small amount of free fluid in the cul-de-sac Normal abdominal wall. Normal osseous structures. CT/Abdomen/Pelvis WITH Contrast IMPRESSION: No suspicious solid organ abnormality No free intraperitoneal fluid, air, or suspicious adenopathy Physiologic ovarian cysts Electronically Signed: Horacio Mead MD at 13:17 EST , Service support ,
--- NOTE | 2019-08-08 10:41 | EKG12_ITS ---
Test Reason : GI BLEED Blood Pressure : / mmHG Vent. Rate : 087 BPM Atrial Rate : 087 BPM P-R Int : 130 ms QRS Dur : 090 ms QT Int : 376 ms P-R-T Axes : 012 053 003 degrees QTc Int : 452 ms Normal sinus rhythm Normal ECG Confirmed by DAVID SHEARER, CHRIS ([id number]), editor farm journal OLIVIA RODRIGUEZ ([id number]) on 08/12/2019 12:26:26 PM Referred By: KAYLEE Confirmed By:CHRIS HERNANDEZ MD
--- NOTE | 2019-08-08 10:42 | ED.DCSUM_ITS ---
History of Present Illness Chief Complaint: GI Bleed Informant: Patient Onset: Yesterday Narrative: Patient states for the past several days she has had pain in the lower abdomen reminiscent of when she had an ovarian cyst rupture. She has had prior hysterectomy but states that her ovaries are still in place. She states that beginning last night she said several episodes of blood with her stool. She states that about 9 years ago she had significant GI bleeding and had polyps found and removed. She states she has subsequently had GI bleeds with colonoscopies but did not find any obvious source of bleeding but continued polyps. She denies any history of colitis. No history of diverticulitis. She denies any rectal pain. She is not on any blood thinners. No fevers. Past Medical History - Allergies and Home Meds Allergies/Adverse Reactions: Allergies etodolac [From [facility]] Allergy (Mild, Verified 08/08/19 10:25) Itching FLU SHOT Allergy (Unknown, Uncoded 08/08/19 10:25) Unknown Primary Care Physician: Alexis Yu DO [Primary Care Provider] - Surgical History: appendectomy, hysterectomy, - - laparoscopies for endometriosis Smoking Status: Current every day smoker - Family History Maternal Family History: Reports: - - no colon cancer Review of Systems General: Denies: Chills, Fever, Malaise, Subjective, Sweats Eyes: Denies: Visual changes - bilaterally, Diplopia ENT: Denies: Left ear pain, Right ear pain, Rhinorrhea, Sore throat Cardiovascular: Denies: Chest pain, Palpitations Respiratory: Denies: Dyspnea, Cough, Sputum, Dyspnea on exertion Gastrointestinal: Reports: Abdominal pain, Nausea, Hematochezia. Denies: Vomiting, Diarrhea, Melena Genitourinary: Denies: Dysuria, Hematuria, Frequency Musculoskeletal: Denies: Myalgias, Arthralgias, Neck pain, Back pain, Swelling, Extremity Pain Skin: Denies: Rash, Abscess, Abrasions, Wounds Neurological: Denies: Headache, Weakness, Numbness Psych: Denies: Depression, Anxiety, Suicidal thoughts, Suicidal ideations Endocrine: Denies: Polyuria, Polydipsia, Heat intolerance, Cold intolerance Hematologic: Denies: Easy bruising, Easy bleeding, Lymphadenopathy Allergy: Denies: Swelling of the mouth Physical Exam Vital Signs/Narrative: Vital Signs Temp Pulse Resp BP Pulse Ox 08/08/19 10:25 97.8 F 122 H 17 125/70 H 99 Inital Vital Signs reviewed: Yes General: Well nourished, Well developed, No Acute Distress Head: Normocephalic, Atraumatic Eyes: Perrl, EOMI. Negative for: Pale conjunctiva ENT: Moist mucous membranes, No rhinorrhea Neck: Supple, Nontender Cardiovascular: Regular rate, Regular rhythm, No murmurs, Tachycardia Respiratory: No distress, CTA bilaterally, Chest nontender Abdomen: Soft, Nondistended, Normal bowel sounds, Tender Back: Nontender, Normal Inspection Extremities: Nontender, No edema Skin: Normal color, No rash Neurological: Alert, Oriented x3, Cranial nerves II-XII grossly intact, Normal Strength, Normal Sensation Psychological: Normal affect, Normal Mood Diagnostic/Tx/Re-eval - Medical Decision Making Patient's hemoglobin level is stable. White count is normal. CT does not demonstrate any evidence of colitis. There are some ovarian cyst but this should not cause any rectal bleeding. As she is hemodynamically stable hemoglobin is stable patient's not had any bleeding since she has been here that I am aware of it safe to send the patient home. Dr. Hester is seen her and performed a colonoscopy in the past. 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 I am going to refer her to Dr. Simental and to Dr. Hester and I have asked that at her next doctor's appointment which she has next week they recheck her hem oglobin level unless she starts to bleed more and become symptomatic. ED Disposition - Plan for ED Patient: Disposition: Home or Assisted Living Instructions: RECTAL BLEED, Stable Referrals: Alexis Yu DO [Primary Care Provider] - Keep Tristan appointment Oren Simental MD [NON-STAFF] - (for gastroenterology) Eli Hester MD [STAFF PHYSICIAN] - (for surgery - you have seen her before for your last colonoscopy)
[2019-08-08] MEDS: 0.9% Normal Saline 1,000 ML 1000 ML IV (11:04)
[2019-08-08 11:07] LABS: Absolute Lymphocyte Count 1.59 X10^3/uL (0.83-4.51); Absolute Neutrophil Count 4.5 X10^3/uL (2.0-7.7); Basophil# 0.05 X10^3/uL; Basophil% 0.7 % (0-1); Eosinophil# 0.19 X10^3/uL; Eosinophils% 2.8 % (0-5); Hematocrit 43.1 % (37-47); Hemoglobin 14.4 g/dL (12.0-15.0); Lymphocyte # 1.59 X10^3/ul (4.0); Lymphocyte % 23.2 % (19-41); Mean Corp Hgb Conc 33.4 g/dL (32-36); Mean Corpuscular Hgb 29.8 pg (27.0-32.0); Mean Platelet Vol. 9.2 fl (6.2-12.0); Monocyte# 0.54 X10^3/uL; Monocyte% 7.9 % (0-10); NRBC Flagged by Analyzer 0 % (0-5); Neutrophil # 4.47 X10^3/uL (2.7-7.7); Neutrophil % 65.3 % (47-70); Platelet Count 240 K/mm3 (150-450); RBC Distribution Width CV 12.7 % (11.6-14.6); RBC Distribution Width SD 41.5 fl (35.1-43.9); Red Blood Count 4.84 M/mm3 (4.2-5.4); White Blood Count 6.9 K/mm3 (4.4-11.0)
[2019-08-08] MEDS: Ondansetron 4 MG/2 ML Vial IV (11:08)
[2019-08-08] MEDS: Morphine 4 MG/ML Syringe IV (11:08)
[2019-08-08 11:27] LABS: AST(SGOT) 16 U/L (15-37); Alanine Aminotransfer ALT/SGPT 24 U/L (13-56); Albumin, Serum 4.1 g/dL (3.2-5.0); Alkaline Phosphatase 85 U/L (45-117); Anion Gap 6 (5-15); BUN 10 mg/dL (7-18); BUN/Creat Ratio 13.2 RATIO (10-20); Calcium,Total 9.4 mg/dL (8.5-10.1); Chloride 107 mmol/L (98-107); Creatinine, Serum 0.76 mg/dL (0.55-1.02); EST Glomerular Filtration Rate 94 mL/min (>60); Est Glom Filt Rate - Afr Amer 114 mL/min (>60); Estimated Creatinine Clearance 95.63 ml/min; Globulin 3.6 g/dL (2.2-4.2); Glucose 89 mg/dL (74-106); Lipase 44 U/L (73-393); Potassium 3.7 mmol/L (3.5-5.1); Protein, Total 7.7 g/dL (6.4-8.2); Sodium Level 140 mmol/L (136-145)
[2019-08-08 11:30] LABS: Lactic Acid 0.9 mmol/L (0.4-1.9)
[2019-08-08 11:55] LABS: Bacteria 0 SEEN /hpf (None Seen); Mucous, Urine 0 SEEN /hpf (<or=2+); Red Blood Cells-Urine 0 SEEN /hpf (0-5); White Blood Cells 0 SEEN /hpf (0-5)
[2019-08-08 11:57] LABS: Color, Urine Yellow (Yellow); Glucose, Dipstick Normal (Normal); Ketone-Dipstick Negative (Negative); Leukocyte Esterase-Dipstick Negative /ul (Negative); Nitrite-Dipstick Negative (Negative); Occult Blood-Urine Negative /ul (Negative); Protein-Dipstick Negative (Negative); Specific Gravity, Urine 1.005 (1.002-1.030); Urine Bilirubin Dipstick Negative (Negative); Urine Clarity Clear (Clear); Urine Urobilinogen Normal (Normal)
[2019-08-08 12:04] LABS: Squamous Epithelial Cells - UA 0-5 SEEN /hpf (5-10)
[2019-08-08 13:23] LABS: Internal QC Validated? YES +Cl - CLEAR BKGD
[2019-08-08 13:24] LABS: Pregnancy, Urine Negative Negative
[2019-08-08 14:17] VITALS: BP 99/69; PULSE 70; RESP 14; O2SAT 98
== END 2019-08-08 14:29 | disposition home or self-care (01) ==
PROVIDERS: Emergency Provider Emergency Medicine
DX: K92.2 Gastrointestinal hemorrhage, unspecified (principal); N83.202 Unspecified ovarian cyst, left side; N83.201 Unspecified ovarian cyst, right side; F17.200 Nicotine dependence, unspecified, uncomplicated
CPT/HCPCS: 74177; 80048; 80076; 81001; 81025; 83605; 83690; 85025; 93005; 96361; 96374; 96375; 99283; J7030; Q9967; A4216; J2405

== ENCOUNTER 2020-03-17 06:01 | Day surgery (SDC) | payer BC, SELFPAY ==
[2019-12-19 10:37] VITALS: BMI 24.1
[2020-02-26 08:45] VITALS: BMI 24.1
[2020-03-11 11:03] LABS: Hematocrit 40.6 % (37-47); Hemoglobin 14.5 g/dL (12.0-15.0); Mean Corp Hgb Conc 35.7 g/dL (32-36); Mean Corpuscular Hgb 32.8 pg (27.0-32.0); Mean Corpuscular Volume 91.9 fL (81-99); Mean Platelet Vol. 9.8 fl (6.2-12.0); Platelet Count 206 K/mm3 (150-450); RBC Distribution Width CV 13.1 % (11.6-14.6); RBC Distribution Width SD 41.2 fl (35.1-43.9); Red Blood Count 4.42 M/mm3 (4.2-5.4); White Blood Count 6.8 K/mm3 (4.4-11.0)
[2020-03-11 11:45] LABS: Thyroid Stim Hormone (TSH) 3.34 uIU/mL (0.358-3.74)
--- NOTE | 2020-03-16 06:40 | HP.PCM_ITS ---
- Problem List (1) Endometriosis Status: Chronic Comment: Discussed options including hormonal and nonhormonal. Recommend 6 months of Depo-Lupron for ovarian suppression and if resolution of pain will proceed with laparoscopic BSO for long-term management. Discussed risk of early menopause and increased risk for heart disease and shortened life span, would recommend hormone replacement therapy after oophorectomy. Patient is agreeable to plan and will start medication and follow-up in 3 to 4 months. 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 Is patient in pain?: No Allergies etodolac [From Lodine] Allergy (Mild, Verified 02/26/20 08:44) Itching FLU SHOT Allergy (Unknown, Uncoded 02/26/20 08:44) Unknown Medications Amitriptyline HCl 25 mg PO QHS 01/18/18 [History Confirmed 02/26/20] Citalopram [Celexa] 10 mg PO DAILY 01/18/18 [History Confirmed 02/26/20] Levothyroxine [Synthroid] 125 mcg PO DAILY 01/18/18 [History Confirmed 02/26/20] Verapamil [Calan Sr] 180 mg PO QHS 01/18/18 [History Confirmed 02/26/20] Ferrous Gluconate 325 mg PO BIDCM 03/14/18 [History Confirmed 02/26/20] leuprolide (3 month) 11.25 mg (3 month) intramuscular syringe kit 11.25 mg IM Q12W #1 ea 09/18/19 [Rx Confirmed 02/26/20] Post menopausal: No Patient : No : No PFSH Medical History Anemia (Acute) Colon polyps (Acute) Endometriosis (Acute) Graves disease (Acute) Hypothyroidism (Acute) Migraine (Acute) Surgical History H/O exploratory laparotomy (Acute) History of LAVH (Acute) History of appendectomy (Acute) Hx of thyroidectomy (Acute) Social History (Updated 02/26/20 @ 09:[address] Baylee Garrett MD) Smoking Status: Current every day smoker alcohol intake: never substance use type: does not use caffeine: Yes what type of physical activity do you participate in: none seatbelt use: always do you feel safe at home: Yes additional social history: Jelena Oconnell Patient works at [employer] HPI pre op: Details: OLIVIA CHANCE is a 34 year old who presents for preop visit for her laparoscopic BSO for removal of ovaries for definitive treatment of endometriosis and chronic pelvic pain. she has had improvement with depot lupron and is looking for definitive therapy. Pregancy History 1 Elective abortions Hx Para 1 Spontaneous abortions Hx # Term Pregnancies Ectopic pregnancies Hx # Pregnancies Multiple births # of living children Past Pregnancies Del. Date Name GA/Weeks Outcome Route Bth Weight Infant Gen Labor Lgth Anesthesia Del Locatn Provider FOB Unknown 2008 Albert live - full term Dr. Ngo ROS Const Constitutional: Denies fatigue, fever(s), headache(s), increased appetite, poor appetite, weight gain or weight loss Cardio Card: Denies chest pain Resp Resp: Denies cough or dyspnea : Reports as per HPI; denies difficulty urinating, painful urination, nipple discharge, urinary frequency, urinary incontinence, urinary hesitancy, urinary urgency, vaginal discharge, vaginal dryness, vaginal odor or vaginal itching Skin Skin/Breast: Denies change in hair, breast lump, breast pain, breast skin changes or nipple discharge Psych Psych: Reports system reviewed and no additional complaints, except as docu Endo Endo: Denies cold intolerance, excessive sweating, heat intolerance or increased thirst Stephen/Lymph Hematologic/Lymphatic: Denies easy bleeding, Denies easy bruising, Denies enlarged lymph nodes Exam Const General: cooperative, healthy appearing, comfortable, no acute distress Nutritional Appearance: average body habitus Orientation: alert HENMT Head: normal to inspection, normocephalic Neck Neck: normal visual inspection, trachea midline Thyroid: thyroid normal Resp Effort & Inspection: normal respiratory effort Auscultation: clear to auscultation bilaterally Cardio Rate: regular rate Rhythm: regular rhythm Heart Sounds: S1 normal, S2 normal GI Inspection: normal to inspection, non-distended Palpation: soft, no hepatosplenomegaly General: bladder normal to palpation External Female Exam: normal external appearance, normal appearance of the urethra Urethra: normal appearance of the urethra Speculum Exam - Vagina: normal appearance of the vagina, other (normal vaginal length, apex well supprted and healed, intact no granulation) Speculum Exam - Cervix: cervix absent Bimanual Exam- Vagina & Uterus: bladder normal to palpation, uterus absent Bimanual Exam- Adnexa, other: pelvic support normal, adnexae non-tender Pelvic Support: normal Other: vaginal cuff normal and intact, good vaginal length, no granulation tissue present Musc Other: gross motor intact no deficits, full bilateral strength Skin General: no rashes or lesions noted Neuro General: alert, awake, moves all extremities, no focal motor deficits Motor: muscle tone normal throughout Extrem General: normal to inspection, no pedal edema Psych Appearance: grossly normal Mental Status: mental status grossly normal Affect: normal affect Speech and Movement: speech and movement normal Assessment & Plan Problems 1. Endometriosis N80.9 Discussed options including hormonal and nonhormonal. Recommend 6 months of Depo-Lupron for ovarian suppression and if resolution of pain will proceed with laparoscopic BSO for long-term management. Discussed risk of early menopause and increased risk for heart disease and shortened life span, would recommend hormone replacement therapy after oophorectomy. Patient is agreeable to plan and will start medication and follow-up in 3 to 4 months. Plan After discussing the patient's diagnosis and treatment plan options, patient wishes to proceed with surgical management. I have discussed with the patient the risks, benefits, and alternatives of the procedure which include but are not limited to risks of anesthesia, bleeding, infection, possible damage to bowel, bladder, or surrounding vasculature which could lead to additional surgery to evaluate any complications. Patient agrees to procedure and wishes to proceed. ACOG/uptodate references given for additional information regarding procedure. Coding Level of Care Code No Charge Diagnoses Endometriosis N80.9 UPDATE- I have seen the patient and performed any clinically relevant updates to the history and physical exam. Baylee Garrett MD
[2020-03-17] VITALS (8 sets, daily range): BP systolic 97–118; BP diastolic 55–77; PULSE 57–108; RESP 16; TEMP 36.1–36.6; O2SAT 92–100; BMI 25.2
[2020-03-17] MEDS: Lactated Ringers 1,000 ML 100 ML IV ×2 (06:38→08:59)
--- NOTE | 2020-03-17 07:30 | OV_PTH ---
PATIENT: OLIVIA CHANCE LOC: [facility] [place] U#:[id number] AGE/SX: 34/F ROOM: RE03/17/[address]: Dr. Baylee Garrett MD : [id number] BED: DIS: 03/17/2020 SPEC #: [id number] RECD: 03/17/20 08:46 STATUS: WENDI RAHEEM #: [id number] VANI: 03/17/20 07:[address]: Baylee Garrett DEPT: SURGICAL PATHOLOGY RECD BY: Daniel Elizabeth ENTERED: 03/17/20 08:52 SP TYPE: OVARY OTHR DR: Dr. Alexis Yu, DO Tissues: Ovary, NOS Procedures: Surgery Specimen Level IV HEADER OPERATION: Laparoscopic salpingo-oophorectomy PRE-OP DIAGNOSIS: Endometriosis N80.9 TISSUE SUBMITTED: Bilateral ovaries MICROSCOPIC DIAGNOSIS Bilateral ovaries, oophorectomy: Focal endometriosis involving one ovary. Physiologic follicular cysts. SJ:dario 03/18/20 MICROSCOPIC DESCRIPTION Slides are reviewed. GROSS DESCRIPTION Received in fixative is one container labeled with the patient's name and designated bilateral ovaries. The specimen consists of bilateral ovaries weighing in aggregate 15.9 and measuring 4 x 3 x 1.5 cm and 3.5 x 3 x 1.2 cm. The ovaries are not identified as right or left. The rest of the surface is unremarkable. Multiple cysts are noted filled with clear to hemorrhagic fluid. One of the cysts appear to be ruptured at the surface. This cyst measures 0.8 cm in greatest dimension. Aba Therapist sections are submitted in four cassettes as follows: 1 & 2 - one ovary, 3 & 4 - second ovary. / SJ:dario 03/17/20 TC:5 CPT: 97777 x2
[2020-03-17] MEDS: Bupivacaine 0.25% 30 ML Vial (08:01)
--- NOTE | 2020-03-17 08:19 | PCM.OPRPT ---
Problem List (1) Endometriosis Status: Chronic Comment: Discussed options including hormonal and nonhormonal. Recommend 6 months of Depo-Lupron for ovarian suppression and if resolution of pain will proceed with laparoscopic BSO for long-term management. Discussed risk of early menopause and increased risk for heart disease and shortened life span, would recommend hormone replacement therapy after oophorectomy. Patient is agreeable to plan and will start medication and follow-up in 3 to 4 months. 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 Bladder was drained of clear urine and SCDs were on preoperatively. Uterus was sounded and a uterine manipulator was placed after dilating. Attention was then paid to the abdominal portion of the procedure and the umbilicus was elevated with towel clamps and injected with Marcaine and after a 12 mm incision was made and the Veress needle was entered into the abdomen confirmed to be intra-abdominal with a low opening pressure of less than 5 mmHg. Abdomen was insufflated with CO2 gas and a 12 mm optical trocar was placed under direct visualization. A right and left lower quadrant 5 mm ports were placed under direct visualization. bilateral ovaries were identified and the infundibulopelvic ligaments were transected across using the LigaSure device. Excellent hemostasis was noted. Ovaries were removed through the umbilical port site and then trocar removed and umbilical port site closed with 0 Vicryl using a Inderjit-Lucius without complication. Liver and upper abdomen were visualized notably within normal limits and no other gross abnormalities were seen in the abdomen. All instruments removed from the abdomen after gas was desufflated. Port sites were closed with 3-0 Monocryl Steri's and op sites were applied. All instruments removed from the vagina and patient was awoken and taken recovery in stable condition. Grafts/Implants Used: none - Complications none - Admit VTE Documentation VTE Present on Admission: No VTE Mechan Device Prophylaxis: SCD's Multi Select Codes - Urinary/Genital Urinary/Genital CPT Codes: 10460 Laproscopic BS/O
--- NOTE | 2020-03-17 08:25 | DCINST_ITS ---
Discharge Diet: No Restrictions - Increase fluid intake for the next 48 hours. Discharge Activity: Return to Normal Activity, May Drive - when you are no longer taking narcotic pain medications., May Shower, May Take a Tub Bath - in 7 days Additional Activity Instructions:: Ambulate often the next week after surgery. Nothing in the vagina for 5 days. Call your doctor if your incision/area has: Continuous Slow Oozing, Sudden Increased Bleeding, Increased Pain/ Swelling, Increased Redness, Foul Smelling Discharge Call your doctor if you observe: Fever of 101 or Higher Allergies/Adverse Reactions: Allergies etodolac [From Lodine] Allergy (Mild, Verified 03/17/20 06:21) Itching FLU SHOT Allergy (Unknown, Uncoded 03/17/20 06:21) Unknown Medications to take at Discharge Amitriptyline HCl 25 mg PO QHS 01/18/18 Citalopram [Celexa] 10 mg PO DAILY 01/18/18 Levothyroxine [Synthroid] 125 mcg PO DAILY 01/18/18 Verapamil [Calan Sr] 180 mg PO QHS 01/18/18 Ferrous Gluconate 325 mg PO DAILY 03/14/18 leuprolide (3 month) 11.25 mg (3 month) intramuscular syringe kit 11.25 mg IM Q12W #1 ea 09/18/19 Primary Care Physician: Alexis Yu DO [Primary Care Provider] - Test Results: Test results from this visit will be discussed in further detail at your follow- up appointment, if applicable. Please Follow Up With: Baylee Garrett MD - [phone]
[2020-03-17] MEDS: HYDROcodone Bitartrate/Apap 5/325 Tablet PO (10:12)
== END 2020-03-17 10:53 | disposition home or self-care (01) ==
LOC: SDC 06:01 → AC 06:01
PROVIDERS: Anesthesiology; Referring Provider Obstetrics & Gynecology; Visit Provider Obstetrics & Gynecology
PROC: (CPT 58661; principal; 2020-03-17 07:15)
DX: N80.9 Endometriosis, unspecified (principal); Z11.59 Encounter for screening for other viral diseases; D64.9 Anemia, unspecified; E05.00 Thyrotoxicosis with diffuse goiter without thyrotoxic crisis or storm; Z79.899 Other long term (current) drug therapy; F17.200 Nicotine dependence, unspecified, uncomplicated; G43.909 Migraine, unspecified, not intractable, without status migrainosus
CPT/HCPCS: 00840; 58661; 36415; 84443; 85027; 86850; 86900; 86901; 87635; 88305; 94799; J7120; J2405; U0003

== ENCOUNTER 2020-04-20 21:23 | Emergency (ER) | payer BC, SELFPAY ==
[2020-04-01 11:38] VITALS: BMI 25.2
[2020-04-20 21:24] VITALS: BP 118/66; PULSE 80; RESP 18; TEMP 36.3; O2SAT 100; BMI 25.2
--- NOTE | 2020-04-20 22:01 | RAD_ITS ---
STUDY: X-RAY - LEFT FOOT CLINICAL: Female, 34 years old. Fell and smashed foot in door, states pain runs up her leg. TECHNIQUE: 3 view(s) of the foot. COMPARISON: None. FINDINGS: Normal talus, calcaneus, and tarsal bones. Normal visualized subtalar, talonavicular, calcaneocuboid, tarsal and tarsometatarsal articulations. Normal metatarsi. Normal metatarsophalangeal joint of the great toe. Normal tibial and fibular sesamoid bones. Normal interphalangeal joint of the great toe. Normal phalanges of the great toe. Normal second through fifth metatarsophalangeal joints. Normal interphalangeal joints and phalanges of the lesser toes. The soft tissue structures are unremarkable. RAD/Foot min 3 Views IMPRESSION: Normal x-ray examination of the foot. Electronically Signed: Dwaine Colbert DO at 22:49 EDT Tel [phone], Service support ,
--- NOTE | 2020-04-20 22:01 | RAD_ITS ---
STUDY: X-RAY - LEFT FEMUR REASON FOR STUDY: Female, 34 years old. Fell and smashed foot in door, states pain runs up her leg. TECHNIQUE: 4 view(s) of the femur. COMPARISON: None. FINDINGS: Normal visualized femur. Normal visualized soft tissue structure. RAD/Femur Min 2 Views IMPRESSION: Normal x-ray examination of the femur. Electronically Signed: Dwaine Colbert DO at 22:45 EDT Tel [phone], Service support ,
--- NOTE | 2020-04-20 22:01 | RAD_ITS ---
STUDY: X-RAY - LEFT TIBIA AND FIBULA REASON FOR EXAM: Female, 34 years old. Fell and smashed foot in door, states pain runs up her leg. TECHNIQUE: 2 view(s) of the tibia and fibula were obtained. COMPARISON: None. FINDINGS: Normal visualized tibia. Normal visualized fibula. The soft tissue structures are unremarkable. RAD/Tibia & Fibula 2 Views IMPRESSION: Normal x-ray examination of the tibia and fibula. Electronically Signed: Dwaine Colbert DO at 22:44 EDT Tel [phone], Service support ,
--- NOTE | 2020-04-20 22:01 | ED.VIS.GEN ---
History of Present Illness Chief Complaint: Lower Extremity Injury Informant: Patient Onset: Today Current Severity: Moderate Maximum Severity: Severe Narrative: Patient presents with severe left leg pain. She states that she was carrying her daughter in the house from the garage when her foot got caught on the door step into the house. She fell and twisted injuring her entire leg. She has not been able to weight-bear. - Past Medical History (1) Hypothyroidism Status: Chronic Past Medical History - Allergies and Home Meds Allergies/Adverse Reactions: Allergies etodolac [From Lodine] Allergy (Mild, Verified 04/20/20 21:24) Itching FLU SHOT Allergy (Unknown, Uncoded 04/20/20 21:24) Unknown Primary Care Physician: Alexis Yu DO [Primary Care Provider] - Harpreet Reid MD [STAFF PHYSICIAN] - 10-14 Days if not better Prior records reviewed: Yes Surgical History: appendectomy, hysterectomy, - - laparoscopies for endometriosis Lives: With Family Smoking Status: Current every day smoker - Family History Maternal Family History: Reports: - Review of Systems General: Denies: Chills, Fever Eyes: Denies: Visual changes - bilaterally ENT: Denies: Bilateral ear pain Cardiovascular: Denies: Chest pain Respiratory: Denies: Dyspnea, Cough Gastrointestinal: Denies: Abdominal pain, Nausea, Vomiting, Diarrhea Genitourinary: Denies: Dysuria Musculoskeletal: Reports: Extremity Pain Skin: Denies: Rash Neurological: Denies: Headache Hematologic: Denies: Easy bruising, Easy bleeding Allergy: Denies: Uticaria Physical Exam Vital Signs/Narrative: Vital Signs Temp Pulse Resp BP Pulse Ox 04/20/20 21:24 97.4 F L 80 18 118/66 100 Inital Vital Signs reviewed: Yes General: Well nourished, Well developed Head: Normocephalic ENT: Moist mucous membranes Neck: Supple Cardiovascular: Regular rate, Regular rhythm Respiratory: No distress, CTA bilaterally Abdomen: Soft, Nontender Extremities: - - Diffuse tenderness throughout the left lower extremity, worse over the foot. No significant edema, erythema, or abrasion noted. Strong distal pulses noted. Skin: Normal color Neurological: Alert, Oriented x3 Psychological: Normal affect Diagnostic/Tx/Re-eval Impressions Femur X-Ray 04/20/20 22:01 IMPRESSION: Normal x-ray examination of the femur. Electronically Signed: Dwaine Colbert at 22:45 EDT Tel [phone], Service support , Foot X-Ray 04/20/20 22:01 IMPRESSION: Normal x-ray examination of the foot. Electronically Signed: Dwaine Colbert at 22:49 EDT Tel [phone], Service support , Tibia/Fibula X-Ray 04/20/20 22:01 IMPRESSION: Normal x-ray examination of the tibia and fibula. Electronically Signed: Dwaine Colbert at 22:44 EDT Tel [phone], Service support , 04/20/20 22:01 Femur Min 2 Views [RAD] Stat Foot min 3 Views [RAD] Stat Tibia & Fibula 2 Views [RAD] Stat - Medical Decision Making She was given Naprosyn and [place] here for pain. Test results are discussed with her. Chad wrap is applied to the left foot she is given crutches. She may weight-bear as tolerated. She is referred to orthopedics for follow-up as needed. ED Disposition - Plan for ED Patient: Disposition: Home or Assisted Living Diagnosis: Foot sprain, Ankle sprain Instructions: ED Sprain Ankle W X Ray, ED Sprain Foot Prescriptions: Naproxen [Naprosyn] 500 mg PO BID PRN PRN #20 tab PRN Reason: Pain Score 4-10/10 Transmission Status: Received by [facility] Hydrocodone Bitart/Apap 5-325 [[place] 5MG-325MG] 1 tab PO Q6H PRN PRN 3 Days #10 tab PRN Reason: Pain Transmission Status: Received by [facility] Referrals: Alexis Yu DO [Primary Care Provider] - Harpreet Reid MD [STAFF PHYSICIAN] - 10-14 Days if not better
[2020-04-20] MEDS: HYDROcodone Bitartrate/Apap 5/325 Tablet PO (22:34)
[2020-04-20] MEDS: Naproxen 500 MG Tablet PO (22:34)
[2020-04-20 22:36] VITALS: RESP 16
== END 2020-04-20 23:37 | disposition home or self-care (01) ==
PROVIDERS: Emergency Provider Emergency Medicine
DX: S93.602A Unspecified sprain of left foot, initial encounter (principal); S93.402A Sprain of unspecified ligament of left ankle, initial encounter; F17.200 Nicotine dependence, unspecified, uncomplicated; E03.9 Hypothyroidism, unspecified; W19.XXXA Unspecified fall, initial encounter
CPT/HCPCS: 73552; 73590; 73630; 99284

== ENCOUNTER 2020-08-13 17:41 | Emergency (ER) | payer BC, SELFPAY ==
[2020-08-13 17:42] VITALS: BP 128/90; PULSE 116; RESP 20; TEMP 35.6; O2SAT 96; BMI 25.8
[2020-08-13 17:44] VITALS: BP 128/90; PULSE 116; RESP 20; TEMP 35.6; O2SAT 96
--- NOTE | 2020-08-13 17:55 | ED.DCSUM_ITS ---
History of Present Illness Chief Complaint: Allergic Reaction Narrative: Patient presents with an allergic reaction to her face she recently used a brand-new eye make-up remover. Her redness or swelling are in the infraorbital region and extending into her face. She has no other rash. She has no voice change. She has no shortness of breath, she saw an urgent care was prescribed prednisone but on the way there she felt tingling throughout her fingers and toes and wanted to get it checked out. Otherwise she has no other symptoms. Past Medical History - Allergies and Home Meds Allergies/Adverse Reactions: Allergies etodolac [From Lodine] Allergy (Mild, Verified 04/20/20 21:24) Itching FLU SHOT Allergy (Unknown, Uncoded 04/20/20 21:24) Unknown Primary Care Physician: Alexis Yu DO [Primary Care Provider] - Past Medical History: None Surgical History: appendectomy, hysterectomy, - - laparoscopies for endometriosis Smoking Status: Current every day smoker - Family History Maternal Family History: Reports: - Review of Systems All systems negative except as indicated General: Denies: Fever Eyes: Denies: Visual changes - bilaterally ENT: Reports: - - No voice change, otherwise facial swelling and redness as in HPI. Denies: Sore throat Cardiovascular: Denies: Chest pain Respiratory: Denies: Dyspnea, Cough Gastrointestinal: Denies: Abdominal pain, Nausea, Vomiting Skin: Reports: Rash Neurological: Denies: Headache, Weakness Psych: Denies: Depression Endocrine: Denies: Polyuria Hematologic: Denies: Easy bruising Physical Exam Vital Signs/Narrative: Vital Signs Temp Pulse Resp BP Pulse Ox 08/13/20 17:42 96.1 F L 116 H 20 H 128/90 H 96 General: Well nourished, Well developed, No Acute Distress Head: Normocephalic, Atraumatic Eyes: Perrl, EOMI ENT: Moist mucous membranes, - - There is erythema that is blanching and some edema of the infraorbital region and facial region. There is no mucosal involvement. This is consistent with an allergic reaction Neck: Supple Cardiovascular: Regular rate, Regular rhythm Respiratory: No distress, CTA bilaterally Abdomen: Soft, Nontender Extremities: Nontender, No edema Skin: Normal color Neurological: Alert, Oriented x3 Psychological: Normal affect Diagnostic/Tx/Re-eval - Medical Decision Making Triage note notes that she is tachycardic however by the time I got to the room she had a heart rate in the 90s. She appears well. She has no evidence of systemic allergic reaction. I reassured her she will be discharged in stable condition. ED Disposition - Plan for ED Patient: Disposition: Home or Assisted Living Diagnosis: Allergic reaction Instructions: ED Allergic Reaction Local Other Prescriptions: hydrOXYzine pamoate capsule [Vistaril] 50 mg PO TID PRN PRN #30 cap PRN Reason: Anxiety Transmission Status: Pending to [facility] Referrals: Alexis Yu DO [Primary Care Provider] - 3-5 Days
[2020-08-13] MEDS: Triamcinolone Acetonide 40 MG/ML Vial IM (18:03)
[2020-08-13] MEDS: hydrOXYzine 50 MG/ML Vial IM (18:03)
[2020-08-13 18:38] VITALS: BP 130/92; PULSE 75; RESP 16; O2SAT 99
== END 2020-08-13 18:39 | disposition home or self-care (01) ==
LOC: ED 18:18
PROVIDERS: Emergency Provider Emergency Medicine
DX: T78.40XA Allergy, unspecified, initial encounter (principal); F17.200 Nicotine dependence, unspecified, uncomplicated
CPT/HCPCS: 96372; 99282

== ENCOUNTER → 2020-08-19 09:47 | Outpatient (CLI) | payer BC, SELFPAY ==
[2020-08-13 17:42] VITALS: BMI 25.8
== END ==
PROVIDERS: Referring Provider Orthopaedic Surgery; Visit Provider Orthopaedic Surgery
DX: Z11.59 Encounter for screening for other viral diseases (principal)
CPT/HCPCS: 87635; C9803; U0005; U0003

== ENCOUNTER 2021-02-19 19:37 | Emergency (ER) | payer BC, SELFPAY ==
[2021-02-19 19:37] VITALS: BP 127/89; PULSE 73; RESP 15; TEMP 36.4; O2SAT 99; BMI 25.7
--- NOTE | 2021-02-19 19:58 | EDS_ITS ---
HPI History of Present Illness Chief Complaint: Headache Informant: patient Onset/Context/Timing Onset: Today Context: Gradual Timing: Continuous Quality -Headache: Positive for Similar Prior Headaches Current Severity: Moderate Maximum Severity: Moderate Associated Symptoms/Injury Associated Symptoms: Positive for Nausea and Photophobia; Negative for Fever, Vomiting, Sore Throat, Sinus Pressure, Numbness, Tingling, Preceding Aura, Visual Changes, Blurred Vision and Visual Loss Injury - SEGAL: Negative for Direct Trauma, Fall and Assault Narrative Narrative: 35-year-old female history of migraine headaches. Said started with a migraine headache today around 6:00 gradual increase. Primarily posterior scalp. No falls or trauma no fever no sinus congestion. He has had multiple migraines in the past. She had a prior CTA to rule out any aneurysm. States she took Imitrex at home and actually felt worse so she came in the emergency department. Prior similar symptoms: Yes Recent Illness/Hospitalization: No PFSH PFSH Medical History Anemia Colon polyps Endometriosis Graves disease Hypothyroidism Migraine Home Medications amitriptyline 25 mg PO QHS 01/18/18 [History Last Taken Unknown] citalopram 10 mg PO DAILY 01/18/18 [History Last Taken 03/17/20] levothyroxine 125 mcg PO DAILY 01/18/18 [History Last Taken 03/17/20] verapamil 180 mg PO QHS 01/18/18 [History Last Taken Unknown] ferrous gluconate 325 mg PO DAILY 03/14/18 [History Last Taken Unknown] naproxen 250 - 500 mg PO Q8H PRN PRN #30 tab 03/17/20 [Rx Last Taken Unknown] estradiol 1 mg tablet 1 mg PO QDAY #90 tab 04/01/20 [Rx Last Taken Unknown] sumatriptan succinate 100 mg PO X1 PRN 02/19/21 [History Last Taken Unknown] Allergy/AdvReac Type Severity Reaction Status Date / Time etodolac [From Lodine] Allergy Mild Itching Verified 02/19/21 19:39 FLU SHOT Allergy Unknown Unknown Uncoded 02/19/21 19:39 Surgical History H/O bilateral salpingo-oophorectomy H/O exploratory laparotomy History of appendectomy History of LAVH Hx of thyroidectomy Social History Smoking Status: Current every day smoker tobacco type: cigarettes alcohol intake: never substance use type: does not use caffeine: Yes what type of physical activity do you participate in: none seatbelt use: always do you feel safe at home: Yes 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 Review of Systems ROS Unobtainable: Denies due to encephalopathy Constitutional Constitutional ED: Denies chills or fever(s) Eyes Eyes: Denies change in vision ENT ENT ED: Denies ear pain or sore throat Cardiovascular Cardiovascular: Denies chest pain Respiratory/Chest Respiratory/Chest: Denies dyspnea Gastrointestinal Gastrointestinal: Reports nausea; Denies abdominal pain, diarrhea or vomiting Genitourinary Genitourinary ED: Denies dysuria Musculoskeletal Musculoskeletal: Denies myalgias Integumentary Denies rash Neurologic Neurologic: Reports headache(s) Psychiatric Psychiatric: Denies depression Endocrine Endocrinology: Denies polyuria Hematologic/Lymphatic Hematologic/Lymphatic: Denies easy bruising Allergic/Immunologic Allergic/Immunologic ED: Denies urticaria EXAM Physical Exam Narrative Exam Narrative: Well-appearing 35-year-old female no acute distress. Vital signs stable afebrile. HEENT exam unremarkable. Neck nontender no meningismus. Lungs clear to auscultation bilaterally. Heart regular rhythm no murmur rate about 70. Abdomen soft nontender normal bowel sounds no peritoneal signs. Moving all 4 extremities. Neurologic exam normal. Fingertip to nose within normal limits. 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 Dorsi plantar flexion intact. NIH score is 0. Const Vital Signs: 02/19/21 19:37 Temperature 97.6 F L Temperature Source Temporal Pulse Rate 73 Respiratory Rate 15 Blood Pressure 127/89 H Blood Pressure Mean 101 Pulse Ox 99 Oxygen Delivery Method Room Air Positive well nourished and well developed General Appearance ED: well developed HEENT Reports normocephalic and moist mucous membranes atraumatic; Negative for trauma or tenderness Eyes PERRL and EOMs intact bilaterally Neck no lymphadenopathy, supple, no meningeal signs and no JVD General: Negative for tenderness Resp normal respiratory effort and clear to auscultation bilaterally Cardio regular rate, regular rhythm, S1 normal heart sound, S2 normal heart sound and no murmurs GI non-tender and non-distended Auscultation: normoactive bowel sounds Palpation: soft Back/Spine no CVA tenderness Extremity normal to inspection and full ROM General Extremety ED: Negative for edema or tenderness General Extremity: Negative for edema Neuro oriented x3 and CN's II-XII intact bilaterally Sensorium / Orientation: awake, alert, oriented to person, oriented to place and oriented to time; Negative for orientation impaired, lethargic or stuporous Motor Exam: strength 5/5 throughout Psych mental status grossly normal Skin Lesions: no lesions Rashes: no rashes MDM MDM MDM Narrative Medical decision making narrative: 35-year-old female history exam consistent with migraine headache. Normal neurologic exam. Prior CTA showed no aneurysm. She will be treated with IV fluids, Toradol, Benadryl and Reglan and reassess. If she is doing well she will be discharged to home. Repeat exam neurologically remains normal at 9:20 PM. She will be given a second dose of Benadryl. Patient would like to go home and sleep and let the headache resolve. Discharge Plan Triage Chief Complaint: Headache ED Provider: Allan Daily Dx/Rx/DC Orders Clinical Impression: FH: migraine headache Instructions: ED, Migraine (Classical) Prescriptions: No Action estradiol [Estrace] 1 mg tablet 1 mg PO QDAY Qty: 90 RF: 4 citalopram 10 MG tablet 10 mg PO DAILY RF: 0 verapamil 180 MG capsule 180 mg PO QHS RF: 0 amitriptyline 25 MG tablet 25 mg PO QHS RF: 0 levothyroxine 125 MCG tablet 125 mcg PO DAILY RF: 0 ferrous gluconate 325 MG tablet 325 mg PO DAILY RF: 0 naproxen 250 MG tablet 250 - 500 mg PO Q8H PRN PRN (Reason: MILD PAIN) Qty: 30 RF: 1 sumatriptan succinate 100 mg tablet 100 mg PO X1 PRN (Reason: Migraine Headache) RF: 0 Primary Care Provider: Alexis Yu Referrals: Alexis Yu DO [Primary Care Provider] - As Needed Activity Restrictions/Additional Instructions: Plenty of fluids and rest. Alternate Tylenol Motrin for headache. Benadryl as needed. Return if you are feeling worse or follow-up your primary care physician. As needed. Disposition Disposition: Home, Self Care
[2021-02-19] MEDS: Metoclopramide 10 MG/2 ML Vial 5 MG IV (20:23)
[2021-02-19] MEDS: Ketorolac 30 MG/ML Syringe IV (20:23)
[2021-02-19] MEDS: 0.9% Normal Saline 1,000 ML 1000 ML IV (20:23)
[2021-02-19] MEDS: DiphenhydrAMINE 50 MG/ML Syringe IV ×2 (20:23→21:29)
[2021-02-19 21:32] VITALS: BP 115/75; PULSE 67
== END 2021-02-19 22:03 | disposition home or self-care (01) ==
PROVIDERS: Emergency Provider Emergency Medicine
DX: G43.909 Migraine, unspecified, not intractable, without status migrainosus (principal); F17.210 Nicotine dependence, cigarettes, uncomplicated; E03.9 Hypothyroidism, unspecified; Z79.899 Other long term (current) drug therapy
CPT/HCPCS: 96361; 96374; 96375; 96376; 99284; J7030; A4216

== ENCOUNTER 2022-03-23 13:22 | Emergency (ER) | payer BC, SELFPAY ==
[2022-03-23 13:25] VITALS: BP 113/76; PULSE 65; RESP 16; TEMP 35.8; O2SAT 100; BMI 26.7
--- NOTE | 2022-03-23 13:48 | CT_ITS ---
INDICATION: lower abd pain. S/p appy and hysterectomy EXAMINATION: CT ABDOMEN AND PELVIS WITH CONTRAST - CT Abdomen And Pelvis W/ Contrast Injection TECHNIQUE: Helically acquired images were obtained of the abdomen and pelvis following IV contrast. A radiation dose optimization technique was used for this scan. IV Contrast dosage and agent: 100 mL of ISOVUE-300 Oral contrast: None. COMPARISON: 08/08/2019.. FINDINGS: LOWER CHEST: Lung bases are clear. No cardiomegaly or pericardial effusion. LIVER: Homogeneous. 1.4 cm hypervascular lesion visualized in the lateral aspect of the right lobe of the liver suggestive of a hemangioma. GALLBLADDER AND BILIARY TREE: Multiple noncalcified filling defects/stones visualized in the neck of the gallbladder. No significant interval gallbladder wall thickening is seen. No gallbladder distension, no evidence of pericholecystic stranding. No intra- or extrahepatic biliary ductal dilation. PANCREAS: No focal cystic or solid mass. SPLEEN: Normal size without focal cystic or solid mass. ADRENAL GLANDS: No nodules. KIDNEYS AND URETERS: Normal renal size and position. No hydronephrosis. PERITONEUM: No ascites or free air. No other fluid collection. BOWEL: Small type I hiatus hernia is seen, small bowel loops are unremarkable except for the distal ileum that demonstrates wall thickening and luminal narrowing as visualized on sagittal series 602 image 74. Thickening of the wall of the terminal ileum is visualized seen best on coronal series 601 image 51. Surgical clips visualized along the posteromedial aspect of the cecum.. Scattered stool visualized in the large bowel, scattered areas of large bowel wall thickening visualized most prominent in the descending colon is visualized on axial series 2 image 57 and sagittal series 602 image 118, focal dilated segment of large bowel visualized distal to this narrowing. LYMPH NODES: Extensive scattered peritoneal lymph nodes are visualized. Bilateral inguinal lymphadenopathy seen. VESSELS: Aorta is non-dilated. URINARY BLADDER: Unremarkable. REPRODUCTIVE ORGANS: Uterus and ovaries are not visualized, correlate for history of hysterectomy and bilateral oophorectomy. ABDOMINAL WALL: No discrete abdominal or pelvic wall hernia. BONES: No lytic or blastic abnormality. CT/Abdomen/Pelvis W IV Cont ONLY IMPRESSION: Small type I hiatus hernia. Extensive peritoneal lymphadenopathy is seen. Areas of for wall thickening and luminal narrowing visualized most prominent in the distal ileum and in the descending colon. Correlate for inflammatory bowel disease. Electronically Signed: Sebas Marin MD at 14:41 EDT ,
--- NOTE | 2022-03-23 13:49 | ED.VIS.GI ---
HPI HPI - GI History of Present Illness Chief Complaint: Abd Pain Informant: patient Abdominal Pain/Flank Pain Onset: Today Context: Gradual Onset Timing: Continuous Quality: Aching Location: RLQ and LLQ Current Severity: Mild Maximum Severity: Mild Worsened by: Nothing Relieved by: Nothing Nausea/Vomiting/Emesis GI Symptom: Negative for Nausea or Vomiting Diarrhea/Melena/Hematochezia GI Symptom: Negative for Diarrhea, Melena or Hematochezia Associated Symptoms Associated Symptoms: Negative for Dysuria, Frequency, Hematuria or Urgency Narrative Narrative: 36-year-old female history of prior appendectomy KATHY/BSO and endometriosis. States that today this morning she started and lower abdominal cramping. No nausea or vomiting. No fever or chills. No dysuria. She is having bowel movements. No diarrhea. No melena. Denies any trauma. No weight change. Prior similar symptoms: Yes Recent Illness/Hospitalization: No [facility] Medical History Anemia Colon polyps Endometriosis Graves disease Hypothyroidism Migraine Home Medications amitriptyline 25 mg tablet 25 mg PO QHS anti depressant 01/18/18 [History Last Taken Unknown] citalopram 10 mg tablet 10 mg PO DAILY anti depressant 01/18/18 [History Last Taken 03/17/20] levothyroxine 125 mcg tablet 125 mcg PO DAILY thyroid 01/18/18 [History Last Taken 03/17/20] verapamil 180 mg 24 hr capsule,extended release 180 mg PO QHS MIGRAINE 01/18/18 [History Last Taken Unknown] ferrous gluconate 324 mg (37.5 mg iron) tablet 325 mg PO DAILY supplement 03/14/18 [History Last Taken Unknown] estradiol 2 mg tablet 2 mg PO QDAY #90 tabs 03/16/22 [Rx Last Taken Unknown] ondansetron 4 mg disintegrating tablet 4 mg PO Q6H PRN nausea and vomiting #10 tabs 03/23/22 [Rx Last Taken Unknown] Allergy/AdvReac Type Severity Reaction Status Date / Time etodolac [From Lodine] Allergy Mild Itching Verified 03/23/22 13:23 influenza virus vaccine tv AdvReac NEEDS Verified 03/23/22 13:25 splt 2012- (4 yr,up) FOLLOW-UP [From Fluvirin] Surgical History H/O bilateral salpingo-oophorectomy H/O exploratory laparotomy History of appendectomy History of LAVH Hx of thyroidectomy Social History Smoking Status: Current every day smoker tobacco type: cigarettes alcohol intake: never substance use type: does not use caffeine: Yes what type of physical activity do you participate in: none seatbelt use: always do you feel safe at home: Yes 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 Review of Systems ROS Unobtainable: Denies due to encephalopathy Constitutional Constitutional ED: Denies chills or fever(s) ENT ENT ED: Denies ear pain Cardiovascular Cardiovascular: Denies chest pain Respiratory/Chest Respiratory/Chest: Denies cough Gastrointestinal Gastrointestinal: Reports abdominal pain; Denies constipation, diarrhea, melena, nausea or vomiting Genitourinary Genitourinary ED: Denies dysuria or hematuria Musculoskeletal Musculoskeletal: Denies arthralgias Integumentary Denies abscess Neurologic Neurologic: Denies headache(s) Psychiatric Psychiatric: Denies anxiety Endocrine Endocrinology: Denies polydipsia Hematologic/Lymphatic Hematologic/Lymphatic: Denies easy bleeding Allergic/Immunologic Allergic/Immunologic ED: Denies mouth swelling EXAM Physical Exam Narrative Exam Narrative: 36-year-old female no acute distress. Vital signs stable afebrile. H EENT exam unremarkable. Moist with membranes. Neck nontender no lymphadenopathy. Lungs clear to auscultation. Heart regular rhythm rate about 65 no murmur. Abdomen soft nondistended normal bowel sounds no peritoneal signs. Diffusely tender both lower quadrants suprapubically. No hernia or mass. No obstruction. Upper quadrants are unremarkable. Moving all 4 extremities. Nontender no edema. Back nontender. Const Vital Signs: 03/23/22 13:25 Temperature 96.5 F L Temperature Source Temporal Pulse Rate 65 Respiratory Rate 16 Blood Pressure 113/76 Blood Pressure Mean 88 Pulse Ox 100 Oxygen Delivery Method Room Air Positive well nourished and well developed; Negative for obese, cachectic, contractures or unkempt General Appearance ED: well developed; Negative for unkempt, cachectic, contractures or pallor Nutritional Appearance: Negative for cachectic or obese HEENT Reports moist mucous membranes normocephalic and atraumatic; Negative for trauma or tenderness Eyes PERRL and EOMs intact bilaterally General Eye ED: Negative for pale conjunctiva or scleral icterus Neck no lymphadenopathy, supple and no JVD General: Negative for tenderness Carotids: Negative for other Lymph Lymphatic: Negative for other Resp normal respiratory effort and clear to auscultation bilaterally Effort and Inspection: Negative for respiratory distress Auscultation: Negative for rales, rhonchi or wheezes Cardio regular rate, regular rhythm, S1 normal heart sound, S2 normal heart sound and no murmurs Rate: Negative for bradycardia Rhythm: Negative for abnormal rhythm GI non-distended and no masses; Negative for non-tender Inspection: Negative for abdominal distention Auscultation: normoactive bowel sounds Palpation: soft and tender; Negative for guarding, rigid, hepatomegaly, splenomegaly, hernia, mass, pulsatile mass or rebound tenderness present Back/Spine no CVA tenderness General Back: Negative for CVA tenderness Cervical Spine: Negative for cervical spine tenderness Thoracic Spine / Upper Back: Negative for thoracic spinal tenderness Lumbar Spine / Lower Back: Negative for lumbar spinal tenderness Extremity full ROM General Extremety ED: Negative for edema or tenderness General Extremity: Negative for edema Neuro CN's II-XII intact bilaterally and moves all extremities Sensorium / Orientation: alert, oriented to person, oriented to place and oriented to time; Negative for orientation impaired, confused, lethargic or stuporous Motor Exam: strength 5/5 throughout Psych mental status grossly normal and thought process normal Appearance: Negative for unkempt Attitude: No agitated Mood & Affect: Negative for depressed, anxious or tearful Skin no wounds General Skin Exam: Negative for jaundice or pallor Lesions: no lesions Rashes: no rashes Trauma: Negative for abrasion Nails: Negative for discolored MDM MDM MDM Narrative Medical decision making narrative: 36-year-old with abdominal pain. Pain is on the lower. She had a prior hysterectomy and appendectomy. This may be from scar tissue from endometriosis. CAT scan labs pending. Benign exam. She will be treated with IV Toradol. Repeat exam patient doing well at 3 PM. Still having discomfort. She and I discussed her test results specifically the inflammation shown on the CAT scan of her colon. She has had colonoscopies before no history of any inflammatory bowel disease.She will be given IV morphine and Zofran prior to discharge. Tylenol Motrin at home for pain. She wants to get a new primary care physician locally and she also be referred to Dr. Abbott of gastroenterology. Lab Data Attestation: I reviewed the patient's lab results. Lab results narrative: CBC shows a white count 12.1. H&H 15 and 44. Platelets 245. Urinalysis shows no nitrites. No white or red cells. No bacteria.Urinalysis is negative. Chemistries unremarkable gap of 7. Normal BUN and creatinine. Liver enzymes unremarkable. Glucose of 112. Lipase normal at 91.CAT scan shows nonspecific colonic wall thickening. Also a hiatal hernia and lymphadenopathy. Labs: Laboratory Results - last 24 hr 03/23/22 03/23/22 03/23/22 13:55 14:00 14:00 WBC 12.1 H RBC 4.97 Hgb 15.1 H Hct 44.1 MCV 88.7 MCH 30.4 MCHC 34.2 RDW Std Deviation 39.4 RDW Coeff of Sy 12.1 Plt Count 245 MPV 9.4 Immature Gran % (Auto) 0.300 Neut % (Auto) 84.1 H Lymph % (Auto) 9.4 L [place] % (Auto) 4.6 Eos % (Auto) 0.9 Baso % (Auto) 0.7 Absolute Neuts (auto) 10.2 H Absolute Lymphs (auto) 1.14 Nucleated RBC % 0 Sodium 140 Potassium 3.7 Chloride 104 Carbon Dioxide 29.0 Anion Gap 7 BUN 12 Creatinine 0.74 Estim Creat Clear Calc 96.39 Est GFR (MDRD) Af Amer 115 Est GFR (MDRD) Non-Af 95 BUN/Creatinine Ratio 16.2 Glucose 112 H Calcium 9.7 Total Bilirubin 0.30 AST 15 ALT 23 Alkaline Phosphatase 98 Total Protein 8.0 Albumin 4.3 Globulin 3.7 Albumin/Globulin Ratio 1.2 Lipase 91 Urine Color Yellow Urine Clarity Clear Urine pH 7.0 Ur Specific [place] 1.010 Urine Protein 15 H Urine Glucose (UA) Normal Urine Ketones 5 H Urine Occult Blood 25 H Urine Nitrite Negative Urine Bilirubin Negative Urine Urobilinogen Normal Ur Leukocyte Esterase 25 H Urine RBC 0 SEEN Urine WBC 0-5 SEEN Ur Squamous Epith Cells 0-5 SEEN Urine Bacteria 0 SEEN Urine Mucus 0 SEEN Radiography Diagnostic Testing: Clinical Impression(s) from Imaging Studies Abdomen/Pelvis CT 03/23/22 13:48 IMPRESSION: Small type I hiatus hernia. Extensive peritoneal lymphadenopathy is seen. Areas of for wall thickening and luminal narrowing visualized most prominent in the distal ileum and in the descending colon. Correlate for inflammatory bowel disease. Electronically Signed: Sebas Marin MD at 14:41 EDT Reading Location ID and State: [facility] / [place] Tel , Service support , Discharge Plan Triage Chief Complaint: Abd Pain ED Provider: Allan Daily Dx/Rx/DC Orders Clinical Impression: Abdominal pain Instructions: ED Abdominal Pain Unkn Cause Fem Prescriptions: New ondansetron 4 mg tablet,disintegrating 4 mg PO Q6H PRN (Reason: nausea and vomiting) Qty: 10 0RF No Action citalopram 10 MG tablet 10 mg PO DAILY verapamil 180 MG capsule 180 mg PO QHS amitriptyline 25 MG tablet 25 mg PO QHS levothyroxine 125 MCG tablet 125 mcg PO DAILY ferrous gluconate 325 MG tablet 325 mg PO DAILY estradiol 2 mg tablet 2 mg PO QDAY Qty: 90 1RF Primary Care Provider: Care Physician,No Primary Referrals: Kulwant Lyon MD [Med Staff - Advertising Campaign Manager] - As soon as possible Alexis Yu DO [Non-Staff] - Harrison Abbott DO [Med Staff - Active Staff] - As soon as possible Activity Restrictions/Additional Instructions: Your labs are unremarkable. Plenty of fluids and rest. Zofran as needed for nausea. Motrin and Tylenol for pain. Your CAT scan showed nonspecific inflammation of your colon. You will need further evaluation for that. I referred you to a local primary care physician and Dr. Abbott who is the local lacquer shader. Disposition Disposition: Home, Self Care
[2022-03-23] MEDS: Ketorolac 30 MG/ML Syringe IV (14:03)
[2022-03-23 14:09] LABS: Bacteria 0 SEEN /hpf (None Seen); Mucous, Urine 0 SEEN /hpf (<or=2+); Red Blood Cells-Urine 0 SEEN /hpf (0-5)
[2022-03-23 14:11] LABS: Color, Urine Yellow (Yellow); Glucose, Dipstick Normal (Normal); Ketone-Dipstick 5 mg/dl (Negative); Leukocyte Esterase-Dipstick 25 /ul (Negative); Nitrite-Dipstick Negative (Negative); Occult Blood-Urine 25 /ul (Negative); Protein-Dipstick 15 mg/dl (Negative); Urine Bilirubin Dipstick Negative (Negative); Urine Clarity Clear (Clear); Urine Urobilinogen Normal (Normal)
[2022-03-23 14:17] LABS: Squamous Epithelial Cells - UA 0-5 SEEN /hpf (5-10); White Blood Cells 0-5 SEEN /hpf (0-5)
[2022-03-23 14:20] LABS: Absolute Lymphocyte Count 1.14 X10^3/uL (0.83-4.51); Absolute Neutrophil Count 10.2 X10^3/uL (2.0-7.7); Basophil# 0.08 X10^3/uL; Basophil% 0.7 % (0-1); Eosinophil# 0.11 X10^3/uL; Eosinophils% 0.9 % (0-5); Hematocrit 44.1 % (37-47); Hemoglobin 15.1 g/dL (12.0-15.0); Lymphocyte # 1.14 X10^3/ul (0.83-4.51); Lymphocyte % 9.4 % (19-41); Mean Corp Hgb Conc 34.2 g/dL (32-36); Mean Corpuscular Hgb 30.4 pg (27.0-32.0); Mean Corpuscular Volume 88.7 fL (81-99); Mean Platelet Vol. 9.4 fl (6.2-12.0); Monocyte# 0.56 X10^3/uL; Monocyte% 4.6 % (0-10); NRBC Flagged by Analyzer 0 % (0-5); Neutrophil # 10.15 X10^3/uL (2.7-7.7); Neutrophil % 84.1 % (47-70); Platelet Count 245 K/mm3 (150-450); RBC Distribution Width CV 12.1 % (11.6-14.6); RBC Distribution Width SD 39.4 fl (35.1-43.9); Red Blood Count 4.97 M/mm3 (4.2-5.4); White Blood Count 12.1 K/mm3 (4.4-11.0)
[2022-03-23 14:30] LABS: ALB/GLOB Ratio 1.2 RATIO (0.9-2.4); AST(SGOT) 15 U/L (15-37); Alanine Aminotransfer ALT/SGPT 23 U/L (13-56); Albumin, Serum 4.3 g/dL (3.2-5.0); Alkaline Phosphatase 98 U/L (45-117); Anion Gap 7 (5-15); BUN 12 mg/dL (7-18); BUN/Creat Ratio 16.2 RATIO (10-20); Calcium,Total 9.7 mg/dL (8.5-10.1); Chloride 104 mmol/L (98-107); Creatinine, Serum 0.74 mg/dL (0.55-1.02); EST Glomerular Filtration Rate 95 mL/min (>60); Est Glom Filt Rate - Afr Amer 115 mL/min (>60); Estimated Creatinine Clearance 96.39 ml/min; Globulin 3.7 g/dL (2.2-4.2); Glucose 112 mg/dL (74-106); Lipase 91 U/L (73-393); Potassium 3.7 mmol/L (3.5-5.1); Sodium Level 140 mmol/L (136-145)
[2022-03-23] MEDS: Ondansetron 4 MG/2 ML Vial IV (15:29)
[2022-03-23] MEDS: Morphine 4 MG/ML Syringe IV (15:29)
[2022-03-23 15:51] VITALS: PULSE 81; RESP 18; O2SAT 98
== END 2022-03-23 15:52 | disposition home or self-care (01) ==
PROVIDERS: Emergency Provider Emergency Medicine; Visit Provider Emergency Medicine
DX: R10.9 Unspecified abdominal pain (principal); E03.9 Hypothyroidism, unspecified; Z79.899 Other long term (current) drug therapy; Z79.890 Hormone replacement therapy; E05.00 Thyrotoxicosis with diffuse goiter without thyrotoxic crisis or storm
CPT/HCPCS: 74177; 80053; 81001; 83690; 85025; 96374; 96375; 96376; 99283; Q9967; A4216; J2405

== ENCOUNTER → 2022-03-25 | Outpatient (CLI) | payer BC, SELFPAY ==
[2022-03-25 12:23] LABS: Erythrocyte Sedimentation Rate 12 mm/hr (0-30)
[2022-03-25 12:35] LABS: Absolute Lymphocyte Count 1.97 X10^3/uL (0.83-4.51); Absolute Neutrophil Count 4.6 X10^3/uL (2.0-7.7); Basophil# 0.05 X10^3/uL; Basophil% 0.7 % (0-1); Eosinophils% 2.8 % (0-5); Hematocrit 40.1 % (37-47); Hemoglobin 13.5 g/dL (12.0-15.0); Lymphocyte # 1.97 X10^3/ul (0.83-4.51); Lymphocyte % 27.1 % (19-41); Mean Corp Hgb Conc 33.7 g/dL (32-36); Mean Corpuscular Hgb 29.8 pg (27.0-32.0); Mean Corpuscular Volume 88.5 fL (81-99); Mean Platelet Vol. 9.9 fl (6.2-12.0); Monocyte# 0.44 X10^3/uL; Monocyte% 6.1 % (0-10); NRBC Flagged by Analyzer 0 % (0-5); Neutrophil # 4.59 X10^3/uL (2.7-7.7); Neutrophil % 63.2 % (47-70); Platelet Count 242 K/mm3 (150-450); RBC Distribution Width SD 38.8 fl (35.1-43.9); Red Blood Count 4.53 M/mm3 (4.2-5.4); White Blood Count 7.3 K/mm3 (4.4-11.0)
[2022-03-25 13:01] LABS: ALB/GLOB Ratio 1.1 RATIO (0.9-2.4); AST(SGOT) 14 U/L (15-37); Alanine Aminotransfer ALT/SGPT 22 U/L (13-56); Albumin, Serum 3.7 g/dL (3.2-5.0); Alkaline Phosphatase 92 U/L (45-117); Anion Gap 5 (5-15); BUN 11 mg/dL (7-18); BUN/Creat Ratio 16.4 RATIO (10-20); Calcium,Total 8.8 mg/dL (8.5-10.1); Chloride 106 mmol/L (98-107); Creatinine, Serum 0.67 mg/dL (0.55-1.02); EST Glomerular Filtration Rate 107 mL/min (>60); Est Glom Filt Rate - Afr Amer 129 mL/min (>60); Globulin 3.5 g/dL (2.2-4.2); Glucose 102 mg/dL (74-106); LDH 136 U/L (84-246); Potassium 3.8 mmol/L (3.5-5.1); Protein, Total 7.2 g/dL (6.4-8.2); Sodium Level 138 mmol/L (136-145)
[2022-03-26 13:07] LABS: Anti-Centromere B Ab <0.2 AI (0.0-0.9); Anti-Chromatin <0.2 AI (0.0-0.9); Anti-Jo <0.2 AI (0.0-0.9); Anti-Scleroderma-70 AB <0.2 AI (0.0-0.9); RNP Ab <0.2 AI (0.0-0.9); SJOGREN'S Anti-SS-A test < 0.2 AI (0.0-0.9); SJOGREN'S Anti-SS-B test < 0.2 AI (0.0-0.9); Smith Ab <0.2 AI (0.0-0.9)
[2022-03-27 15:26] LABS: Anti-dsDNA Ab 8 IU/mL (0-9)
[2022-03-29 09:08] LABS: Endomysial Antibody IgA Negative (Negative); Immunoglobulin A 84 mg/dL (87-352)
[2022-03-29 09:21] LABS: t-Transglutaminase IgA <2 U/mL (0-3)
[2022-03-30 08:04] LABS: Calprotectin, Stool 458 ug/g (0-120)
[2022-03-30 18:00] LABS: Pancreatic Elastase, Fecal 417 (>200)
[2022-03-31 04:07] LABS: Alpha-1-Globulins 0.3 g/dL (0.0-0.4); Alpha-2-Globulins 0.8 g/dL (0.4-1.0); Cytoplasmic Ab (C-ANCA) <1:20 titer (Neg:<1:20); Immunoglobulin A 81 mg/dL (87-352); Immunoglobulin E 20 IU/mL (6-495); Immunoglobulin G 918 mg/dL (586-1602); Immunoglobulin M 63 mg/dL (26-217); PROEL- TOTAL PROTEIN 6.8 g/dL (6.0-8.5)
[2022-03-31 09:23] LABS: Perinuclear Ab (P-ANCA) <1:20 titer (Neg:<1:20)
== END | disposition home or self-care (01) ==
PROVIDERS: Referring Provider Internal Medicine Gastroenterology; Visit Provider Internal Medicine Gastroenterology
DX: R10.9 Unspecified abdominal pain (principal); K58.9 Irritable bowel syndrome, unspecified
CPT/HCPCS: 36415; 80053; 82653; 82784; 82785; 83516; 83615; 83630; 83993; 84165; 85025; 85652; 86140; 86225; 86235; 86255; 86256; 86334; 87493; 87506

== ENCOUNTER → 2022-03-26 | Outpatient (CLI) | payer BC, SELFPAY | END | disposition home or self-care (01) | LOC: LAB 11:43 | PROVIDERS: Referring Provider Internal Medicine Gastroenterology; Visit Provider Internal Medicine Gastroenterology | DX: Z00.00 Encounter for general adult medical examination without abnormal findings (principal) ==

== ENCOUNTER → 2022-04-01 | Outpatient (CLI) | payer BC, SELFPAY | END | disposition home or self-care (01) | PROVIDERS: Referring Provider Internal Medicine Gastroenterology; Visit Provider Internal Medicine Gastroenterology | DX: R10.9 Unspecified abdominal pain (principal) | CPT/HCPCS: 36415 ==

== ENCOUNTER 2022-04-19 05:22 | Day surgery (SDC) | payer BC, SELFPAY ==
--- NOTE | 2022-04-19 | IMM_PTH ---
PATIENT: OLIVIA CHANCE LOC: [facility] U#:[id number] AGE/SX: 36/F ROOM: RE04/19/[address]: Dr. Harrison Abbott DO : 1985 BED: DIS: 04/19/2022 SPEC #: [id number] RECD: 04/20/22 13:43 STATUS: WENDI REQ #: [id number] VANI: 04/19/22 00:[address]: Harrison Abbott DEPT: IMMUNOHISTOCHEMISTRY RECD BY: Tiarra Rosario ENTERED: 04/20/22 13:44 SP TYPE: IMMUNO OT DR: No Primary Care Phys Tissues: B - Stomach, NOS Procedures: H Pylori (initial) PHYSICIAN & INSTITUTION [place] [id number] SPECIMEN INFORMATION: Tissue Source: B ? Lesser curvature biopsy Clinical Info: Abdominal pain Specimen Number: [id number] CPT code: 29800 METHODOLOGY: Deparaffinized sections of prefer/formalin-fixed tissue or PAP/DQ stained slides are incubated with monoclonal/polyclonal antibodies/oligonucleotide probes. Localization is made via biotin free immunoperoxidase method. Appropriate controls are performed and reacted as expected. Results on target cell population are indicated in the following table: RESULTS: ANTIBODY / CLONE RESULT Block B H Pylori (polyclonal) negative These tests were developed and their performance characteristics determined by [facility]. They may not have been cleared or approved by the U.S. Food and Drug Administration. The FDA has determined that such clearance or approval is not necessary. The above immunohistochemical/dualISH markers are ordered and reviewed by the Pathologist. INTERPRETATION: B. Lesser curvature, biopsy: Negative for Helicobacter pylori organisms. OKSANA:dario 04/21/2022
[2022-04-19] MEDS: Lactated Ringers 1,000 ML 15 ML IV (05:40)
[2022-04-19 05:55] VITALS: BP 110/80; PULSE 68; RESP 18; TEMP 36.3; O2SAT 99; BMI 25.7
--- NOTE | 2022-04-19 06:29 | HP.PCM_ITS ---
History and Physical Date of Admission: 04/19/22 OLIVIA CHANCE, is a 36 F who presents to the office today for Initial consult. Olivia established with this clinic 03.25.22 following [facility] ED presentation 03.23.22 for lower abdominal pain/cramping with frequent BM and black stools with nausea (resolved) and bloating, one week prior to this she was having diarrhea. Exam, biochemical workup unremarkable, imaging with abnormality; pain medication effective and she was discharged. She has had similar symptoms periodically spanning across years. Stools are typically occur 2-3 times a day with normal consistency. Hospitalization 2018 for hemoglobin 5.4 with suspected GIB (not seen on colonoscopy); she was discharged following transfusion of PRBC with orders to follow up as outpatient PMH endometriosis, Graves disease, hypothyroid, migraine, anemia, colon polyps PSH appendectomy; total hysterectomy Colonoscopy 01.19.[address] Hester for suspected GIB without visual abnormalities. Colon random and TI biopsies without pathologic changes. Biochemical workup ED CBC, CMP, lipase, UA without pertinent abnormalities. CT abd/pel ED 03.25.22 hepatic hemangioma otherwise normal; multiple filling defects/stones of gallbladder neck without wall thickening or stranding; small hiatal hernia; distal ileum demonstrates wall thickening and luminal narrowing; scattered large bowel wall thickening most prominent in descending colon with distal narrowing; peritoneal lymphadenopathy. Recommend IBD correlation. ROS Const Constitutional: No anorexia, fatigue, fever(s), weight change or sleep problems Eyes Eyes: No change in vision ENT ENT: No abnormal hearing, difficulty swallowing, mouth lesions, tongue swelling or throat swelling Resp Respiratory: No cough or shortness of breath Cardio Cardiology: No chest pain at rest, chest pain with exertion, shortness of breath or dyspnea on exertion Gastro GI: No difficulty swallowing Genitourinary-Female: No difficulty urinating or burning urination Musc Musculoskeletal: No joint pain, joint swelling, muscle weakness or decreased muscle mass Skin Skin: No hair loss in leg, yellowing of the eye, itchy eyes, rash, skin ulcer or skin swelling Neuro Neurology: No abnormal hearing, abnormal movements, confusion, unsteady gait/balance or memory loss Psych Psychiatric: No anxiety, No confusion and No memory loss Endo Endocrine: No fatigue or weight change Aller/Imm Allergy/Immunologic: No itchy eyes, throat swelling or tongue swelling Stephen/Lymp Hematologic/Lymphatic: No easy bleeding, easy bruising or enlarged lymph nodes Exam Const General: cooperative and comfortable Nutritional Appearance: average body habitus and well nourished [facility] Head: normal to inspection Ears: hearing grossly normal bilaterally Nose: external nose normal Face and sinus: normal facial exam Mouth: oral mucosae normal Throat: posterior oropharynx normal Eyes General: appearance normal, both eyes and all related structures Neck Neck: normal visual inspection Chest Chest palpation & inspection: normal inspection of the chest and normal palpation of entire chest wall Resp Effort & Inspection: normal respiratory effort Auscultation: Bilateral: Clear to Auscultation Cardio Palpation: normal PMI Rate: regular rate Rhythm: regular rhythm GI Inspection: normal to inspection Auscultation: normal bowel sounds Percussion: normal to percussion Palpation: no hepatosplenomegaly Skin General: no rashes or lesions noted Neuro General: patient alert Extrem General: normal to inspection Psych Affect: normal affect Quality Reporting Tobacco Screening ([facility] 138) Smoking Status: Current every day smoker Assessment and Plan Assessment and Plan (1) Abdominal pain: ?Status:?Acute ?Plan: The differential diagnosis for abdominal pain in the setting of CT scan that shows bowel wall thickening and small bowel and the colon is inflammatory bowel disease.? We will draw an ESR, CRP, CBC, LDH, AUDIE comprehensive,, ANCA, celiac profile, and globulins G, A, M, E, protein electrophoresis, C. difficile PCR, enteric pathogen, fecal elastase.? She will also need an upper and lower endoscopy for the complete evaluation of her abdominal pain. ? ? ? Orders: Orders OP w/Giardia EIA [id number] Today R10.9 - Unspecified abdominal pain ? Comprehensive Metabolic Profil Today R10.9 - Unspecified abdominal pain ? CRP Today R10.9 - Unspecified abdominal pain ? LDH Today R10.9 - Unspecified abdominal pain ? CBC W/Diff, Automated Today R10.9 - Unspecified abdominal pain ? Erythrocyte Sed Rate Today R10.9 - Unspecified abdominal pain ? AUDIE Comprehensive Panel Today R10.9 - Unspecified abdominal pain ? Calprotectin, Stool Today R10.9 - Unspecified abdominal pain ? Stool Lactoferrin/WBC Today R10.9 - Unspecified abdominal pain ? ANCA Today R10.9 - Unspecified abdominal pain ? Celiac Disease Profile Today R10.9 - Unspecified abdominal pain ? Immunoglobulins G/A/M/E Today R10.9 - Unspecified abdominal pain ? ALVINO + Protein Elect, Serum Today R10.9 - Unspecified abdominal pain ? CDIFF (PCR) Today R10.9 - Unspecified abdominal pain ? ENTERIC PATHOGEN PANEL STOOL Today K58.9 - Irritable bowel syndrome without diarrhea, R10.9 - Unspecified abdominal pain ? Pancreatic Elastase, Fecal Today R10.9 - Unspecified abdominal pain ? Medications: New dicyclomine 20 mg? PO TID 90 tabs 0RF ? ? I have re-examined the patient. There are no clinical changes since date of exam.
--- NOTE | 2022-04-19 06:30 | EGD_PTH ---
PATIENT: OLIVIA CHANCE LOC: [facility] U#:[id number] AGE/SX: 36/F ROOM: RE04/19/[address]: Dr. Harrison Abbott DO : 1985 BED: DIS: 04/19/2022 SPEC #: [id number] RECD: 04/19/22 10:15 STATUS: WENDI RAHEEM #: [id number] VANI: 04/19/22 06:[address]: Harrison Abbott DEPT: SURGICAL PATHOLOGY RECD BY: Freda Zabala ENTERED: 04/19/22 11:44 SP TYPE: EGD BIOPSY OT DR: Kelle Primary Care Phys Tissues: A - Duodenum, NOS B - Stomach, NOS C - Esophagus, NOS D - Ileum, NOS E - COLON BIOPSY Procedures: Special Stain Group II Surgery Specimen Level IV Alcian Blue/PAS (control) HEADER OPERATION: Colonoscopy, EGD ([facility]), biopsy PRE-OP DIAGNOSIS: Abdominal pain TISSUE SUBMITTED: A ? Duodenum biopsy, B ? Lesser curvature biopsy, C ? Distal esophagus biopsy, D ? Terminal ileum biopsy, E ? Random colonic biopsy MICROSCOPIC DIAGNOSIS A. Duodenum, biopsy: Fragments of duodenal mucosa, no pathologic diagnosis. B. Lesser curvature, biopsy: Moderate chronic active gastritis. See comment. C. Distal esophagus, biopsy: Fragments of gastroesophageal mucosa with chronic inflammation. Intestinal metaplasia (goblet cell metaplasia) not identified. See comment. D. Terminal ileum, biopsy: Fragments of small intestinal mucosa, no pathologic diagnosis. E. Colon, random biopsy: Focal acute colitis. See comment. SJ:rg 04/20/2022 COMMENT B. The results of immunohistochemistry for Helicobacter pylori will be reported separately ([id number]). C. Alcian blue/PAS stain with matched control is used in the evaluation of the specimen. E. Significant glandular distortion is not seen. Correlation with clinical, endoscopic findings and appropriate follow up are necessary. MICROSCOPIC DESCRIPTION Slides are reviewed. GROSS DESCRIPTION A - Received in fixative is one container labeled with the patient's name and designated duodenum biopsy. The specimen consists of multiple irregular fragments of light hameed soft tissue that in aggregate measure 1 x 0.3 x 0.1 cm. The specimen is totally submitted in one cassette. B - Received in fixative is one container labeled with the patient's name and designated lesser curvature biopsy. The specimen consists of two irregular fragments of light hameed soft tissue that in aggregate measure 0.6 x 0.4 x 0.1 cm. The specimen is totally submitted in one cassette. C - Received in fixative is one container labeled with the patient's name and designated distal esophagus biopsy. The specimen consists of multiple irregular fragments of light hamede soft tissue that in aggregate measure 1 x 0.3 x 0.1 cm. The specimen is totally submitted in one cassette. D - Received in fixative is one container labeled with the patient's name and designated terminal ileum biopsy. The specimen consists of multiple irregular fragments of light hameed soft tissue that in aggregate measure 1.5 x 0.5 x 0.1 cm. The specimen is totally submitted in one cassette. E - Received in fixative is one container labeled with the patient's name and designated random colonic biopsy. The specimen consists of multiple irregular fragments of light hameed soft tissue that in aggregate measure 1.5 x 1 x 0.1 cm. The specimen is totally submitted in one cassette. / SJ:rg 04/19/2022 TC:2 CPT: 61913 x5, [id number]
[2022-04-19 07:08] VITALS: BP 101/79; BP 110/80; PULSE 80; RESP 18; TEMP 36.5; O2SAT 100
[2022-04-19 07:10] VITALS: BP 110/80; BP 95/68; PULSE 70; RESP 18; O2SAT 100
--- NOTE | 2022-04-19 07:10 | OP.CCLET_ITS ---
04/19/2022 No Primary Care Physician Re : Upper GI endoscopy procedure for Dina Man Dear Care Physician This procedure was performed on Tuesday, April 19, 2022. My impressions and recommendations are as follows: Impressions : - LA Grade A reflux esophagitis. Biopsied. - Chronic gastritis. Biopsied. - No gross lesions in the second portion of the duodenum. Biopsied. Recommendations : - Discharge patient to home. - Resume previous diet. - Continue present medications. - Await pathology results. - Repeat upper endoscopy in 1 year for surveillance based on pathology results. My findings are described in the full procedure note, which is enclosed. If I can be of further assistance, please feel free to contact me at . Sincerely, Harrison Abbott, 04/19/2022 7:09:29 AM This report has been signed electronically.
--- NOTE | 2022-04-19 07:10 | OP.EGD_ITS ---
Patient Name: Dina Man Procedure Date: 04/19/2022 6:12 AM Date of : 1985 Age: 36 Procedure: Upper GI endoscopy Indications: Epigastric abdominal pain, Failure to respond to medical treatment Providers: Harrison Abbott DO Medicines: Monitored Anesthesia Care Patient Profile: This is a 36 year old female. Refer to note in patient chart for documentation of history and physical. Patient has symptoms of chronic global abdominal pain and chronic nausea. Complications: No immediate complications. Procedure: Pre-Anesthesia Assessment: - Prior to the procedure, a History and Physical was performed, and patient medications and allergies were reviewed. The risks and benefits of the procedure and the sedation options and risks were discussed with the patient. All questions were answered and informed consent was obtained. Patient identification and proposed procedure were verified by the physician in the pre-procedure area. Mental Status Examination: alert and oriented. Airway Examination: normal oropharyngeal airway and neck mobility. Respiratory Examination: clear to auscultation. CV Examination: normal. Prophylactic Antibiotics: The patient does not require prophylactic antibiotics. Prior Anticoagulants: The patient has taken no previous anticoagulant or antiplatelet agents. After reviewing the risks and benefits, the patient was deemed in satisfactory condition to undergo the procedure. The anesthesia plan was to use monitored anesthesia care (MAC). Immediately prior to administration of medications, the patient was re-assessed for adequacy to receive sedatives. The heart rate, respiratory rate, oxygen saturations, blood pressure, adequacy of pulmonary ventilation, and response to care were monitored throughout the procedure. The physical status of the patient was re-assessed after the procedure. After obtaining informed consent, the endoscope was passed under direct vision. Throughout the procedure, the patient's blood pressure, pulse, and oxygen saturations were monitored continuously. The colonoscope was introduced through the mouth, and advanced to the second part of duodenum. The upper GI endoscopy was accomplished without difficulty. The patient tolerated the procedure well. Scope In: 6:39:19 AM Scope Out: 6:46:47 AM Total Procedure Duration Time 0 hours 7 minutes 28 seconds Findings: LA Grade A (one or more mucosal breaks less than 5 mm, not extending between tops of 2 mucosal folds) esophagitis with no bleeding was found 36 to 38 cm from the incisors. Biopsies were taken with a cold forceps for histology. Verification of patient identification for the specimen was done. Estimated blood loss was minimal. Patchy moderate inflammation characterized by erythema, friability and granularity was found on the lesser curvature of the stomach. Biopsies were taken with a cold forceps for histology. Verification of patient identification for the specimen was done. Estimated blood loss was minimal. No gross lesions were noted in the second portion of the duodenum. Biopsies were taken with a cold forceps for histology. Verification of patient identification for the specimen was done. Estimated blood loss was minimal. Impression: - LA Grade A reflux esophagitis. Biopsied. - Chronic gastritis. Biopsied. - No gross lesions in the second portion of the duodenum. Biopsied. Recommendation: - Discharge patient to home. - Resume previous diet. - Continue present medications. - Await pathology results. - Repeat upper endoscopy in 1 year for surveillance based on pathology results. Procedure Code(s): --- Professional --- 76938, Esophagogastroduodenoscopy, flexible, transoral; with biopsy, single or multiple CPT copyright 2017 [employer]. All rights reserved. The codes documented in this report are preliminary and upon car escort review may be revised to meet current compliance requirements. Harrison Abbott DO 04/19/2022 7:09:29 AM This report has been signed electronically. Number of Addenda: 0 Note Initiated On: 04/19/2022 6:12 AM
--- NOTE | 2022-04-19 07:13 | OP.CCLET_ITS ---
04/19/2022 No Primary Care Physician Re : Colonoscopy procedure for Dina Man Dear Care Physician This procedure was performed on Tuesday, April 19, 2022. My impressions and recommendations are as follows: Impressions : - Simple Endoscopic Score for Crohn's Disease: 6, mucosal inflammatory changes secondary to Crohn's disease, with ileitis and colitis. Biopsied. Recommendations : - Discharge patient to home. - Resume previous diet. - Continue present medications. - Await pathology results. - Repeat colonoscopy is recommended to check healing. The colonoscopy date will be determined after pathology results from today's exam become available for review. My findings are described in the full procedure note, which is enclosed. If I can be of further assistance, please feel free to contact me at . Sincerely, Harrison Abbott, 04/19/2022 7:13:18 AM This report has been signed electronically.
--- NOTE | 2022-04-19 07:13 | OP.COLON_ITS ---
Patient Name: Dina Man Procedure Date: 04/19/2022 6:46 AM Date of : 1985 Age: 36 Procedure: Colonoscopy Indications: Exclusion of Crohn's disease of the colon Providers: Harrison Abbott DO Medicines: Monitored Anesthesia Care Patient Profile: This is a 36 year old female. Refer to note in patient chart for documentation of history and physical. Patient has symptoms of chronic global abdominal pain and chronic nausea. Last Colonoscopy: 3 years ago. Complications: No immediate complications. Procedure: Pre-Anesthesia Assessment: - Prior to the procedure, a History and Physical was performed, and patient medications and allergies were reviewed. The risks and benefits of the procedure and the sedation options and risks were discussed with the patient. All questions were answered and informed consent was obtained. Patient identification and proposed procedure were verified by the physician in the pre-procedure area. Mental Status Examination: alert and oriented. Airway Examination: normal oropharyngeal airway and neck mobility. Respiratory Examination: clear to auscultation. CV Examination: normal. Prophylactic Antibiotics: The patient does not require prophylactic antibiotics. Prior Anticoagulants: The patient has taken no previous anticoagulant or antiplatelet agents. After reviewing the risks and benefits, the patient was deemed in satisfactory condition to undergo the procedure. The anesthesia plan was to use monitored anesthesia care (MAC). Immediately prior to administration of medications, the patient was re-assessed for adequacy to receive sedatives. The heart rate, respiratory rate, oxygen saturations, blood pressure, adequacy of pulmonary ventilation, and response to care were monitored throughout the procedure. The physical status of the patient was re-assessed after the procedure. After I obtained informed consent, the scope was passed under direct vision. Throughout the procedure, the patient's blood pressure, pulse, and oxygen saturations were monitored continuously. The Colonoscope was introduced through the anus and advanced to the terminal ileum. The colonoscopy was performed without difficulty. The patient tolerated the procedure well. The quality of the bowel preparation was adequate. Scope In: 6:49:22 AM Scope Withdrawal Time 0 hours 10 minutes 44 seconds Scope Out: 7:03:08 AM Total Procedure Duration Time 0 hours 13 minutes 46 seconds Findings: The perianal and digital rectal examinations were normal. The Simple Endoscopic Score for Crohn's Disease was determined based on the endoscopic appearance of the mucosa in the following segments: - Ileum: Findings include aphthous ulcers less than 0.5 cm in size, less than 10% ulcerated surfaces, less than 50% of surfaces affected, no narrowings and no ulcers present, no ulcerated surfaces, no affected surfaces and no narrowings. Segment score: 3. - Right Colon: Findings include no ulcers present, no ulcerated surfaces, no affected surfaces, no narrowings and no ulcers present, no ulcerated surfaces, no affected surfaces and no narrowings. Segment score: 0. - Transverse Colon: Findings include no ulcers present, no ulcerated surfaces, no affected surfaces and no narrowings. Segment score: 0. - Left Colon: Findings include aphthous ulcers less than 0.5 cm in size, less than 10% ulcerated surfaces, less than 50% of surfaces affected, no narrowings and no ulcers present, no ulcerated surfaces, no affected surfaces and no narrowings. Segment score: 3. - Rectum: Findings include no ulcers present, no ulcerated surfaces, no affected surfaces, no narrowings and no ulcers present, no ulcerated surfaces, no affected surfaces and no narrowings. Segment score: 0. - Total SES-CD aggregate score: 6. Biopsies were taken with a cold forceps for histology. Verification of patient identification for the specimen was done. Estimated blood loss was minimal. Impression: - Simple Endoscopic Score for Crohn's Disease: 6, mucosal inflammatory changes secondary to Crohn's disease, with ileitis and colitis. Biopsied. Recommendation: - Discharge patient to home. - Resume previous diet. - Continue present medications. - Await pathology results. - Repeat colonoscopy is recommended to check healing. The colonoscopy date will be determined after pathology results from today's exam become available for review. Procedure Code(s): --- Professional --- 35102, Colonoscopy, flexible; with biopsy, single or multiple CPT copyright 2017 [employer]. All rights reserved. The codes documented in this report are preliminary and upon torch straightener and heater review may be revised to meet current compliance requirements. Harrison Abbott DO 04/19/2022 7:13:18 AM This report has been signed electronically. Number of Addenda: 0 Note Initiated On: 04/19/2022 6:46 AM
[2022-04-19 07:14] VITALS: BP 110/80; BP 99/65; PULSE 62; RESP 12; O2SAT 100
[2022-04-19 07:21] VITALS: BP 110/80; BP 99/67; PULSE 66; RESP 18; TEMP 36.5; O2SAT 98
[2022-04-19 07:35] VITALS: BP 110/80
== END 2022-04-19 07:51 | disposition home or self-care (01) ==
LOC: EN 05:26 → AC 05:26
PROVIDERS: Visit Provider Internal Medicine Gastroenterology
PROC: 0DJD8ZZ Inspection of Lower Intestinal Tract, Via Natural or Artificial Opening Endoscopic (ICD-10-PCS; CPT 45378; principal; 2022-04-19 06:25)
DX: K50.90 Crohn's disease, unspecified, without complications (principal); K29.50 Unspecified chronic gastritis without bleeding; K31.89 Other diseases of stomach and duodenum; F17.200 Nicotine dependence, unspecified, uncomplicated; K21.00 Gastro-esophageal reflux disease with esophagitis, without bleeding; F41.9 Anxiety disorder, unspecified; F32.A Depression, unspecified; E03.9 Hypothyroidism, unspecified; Z79.899 Other long term (current) drug therapy
CPT/HCPCS: 45380; 43239; 87493; 87506; 88305; 88313; 88342; J7120; J2405

== ENCOUNTER → 2022-04-21 | Outpatient (CLI) | payer BC, SELFPAY ==
[2022-04-21 14:46] LABS: Rubella IgG Reactive (Nonreactive)
[2022-04-26 00:06] LABS: HEPATITIS B SURFACE AG Negative (Negative); Hep C Antibodies <0.1 s/co ratio (0.0-0.9); Hepatitis A IgM Antibody Negative (Negative); Hepatitis B Core AB IgM Negative (Negative); QNTFERON TB Mitogen Value > 10.00 IU/mL (.); QNTFERON TB Nil Value 0 IU/mL (.); QNTFERON TB1+ Ag Value 0 IU/mL (.); QNTFERON TB2+ Ag Value 0 IU/mL (.)
[2022-04-26 15:16] LABS: B. pertussis IgG 2.95 index (0.00-0.94); Mumps Antibody, IgM < 0.80 AU (0.00-0.79); QNTIFERON TB Positive Criteria Negative (Negative); V-Zoster IgG (Immunity) 1624 index (Immune >165)
== END | disposition home or self-care (01) ==
PROVIDERS: Referring Provider Internal Medicine Gastroenterology; Visit Provider Internal Medicine Gastroenterology
DX: K50.90 Crohn's disease, unspecified, without complications (principal)
CPT/HCPCS: 36415; 80074; 86480; 86735; 86762; 86787

== ENCOUNTER 2022-05-23 13:49 | Outpatient (RCR) | payer BC, SELFPAY | END 2022-06-06 23:59 | LOC: NS 13:49 | PROVIDERS: Referring Provider Internal Medicine Gastroenterology; Visit Provider Internal Medicine Gastroenterology | DX: Z71.3 Dietary counseling and surveillance (principal); R10.9 Unspecified abdominal pain | CPT/HCPCS: 97802 ==

== ENCOUNTER 2022-06-29 12:31 | Emergency (ER) | payer BC, SELFPAY ==
[2022-06-29 12:32] VITALS: BP 132/81; PULSE 102; RESP 16; TEMP 36.6; O2SAT 98; BMI 25.4
--- NOTE | 2022-06-29 13:40 | EKG12_ITS ---
Test Reason : Blood Pressure : / mmHG Vent. Rate : 076 BPM Atrial Rate : 076 BPM P-R Int : 138 ms QRS Dur : 092 ms QT Int : 390 ms P-R-T Axes : 008 061 028 degrees QTc Int : 438 ms Normal sinus rhythm Normal ECG Confirmed by DAVID SHEARER, CHRIS ([id number]), newspaper photo editor OLIVIA RODRIGUEZ ([id number]) on 07/04/2022 11:42:16 AM Referred By: RIVER Confirmed By:CHRIS HERNANDEZ MD
[2022-06-29 13:53] LABS: Absolute Lymphocyte Count 1.32 X10^3/uL (0.83-4.51); Absolute Neutrophil Count 12.4 X10^3/uL (2.0-7.7); Basophil# 0.03 X10^3/uL; Basophil% 0.2 % (0-1); Hematocrit 46.8 % (37-47); Hemoglobin 15.2 g/dL (12.0-15.0); Lymphocyte # 1.32 X10^3/ul (0.83-4.51); Lymphocyte % 9.2 % (19-41); Mean Corp Hgb Conc 32.5 g/dL (32-36); Mean Corpuscular Volume 92.3 fL (81-99); Mean Platelet Vol. 9.5 fl (6.2-12.0); Monocyte# 0.52 X10^3/uL; Monocyte% 3.6 % (0-10); NRBC Flagged by Analyzer 0 % (0-5); Neutrophil # 12.37 X10^3/uL (2.7-7.7); Neutrophil % 86.7 % (47-70); Platelet Count 211 K/mm3 (150-450); RBC Distribution Width CV 13.2 % (11.6-14.6); RBC Distribution Width SD 44.7 fl (35.1-43.9); Red Blood Count 5.07 M/mm3 (4.2-5.4); White Blood Count 14.3 K/mm3 (4.4-11.0)
[2022-06-29 14:06] LABS: Anion Gap 7 (5-15); BUN 18 mg/dL (7-18); BUN/Creat Ratio 22.4 RATIO (10-20); Calcium,Total 9.4 mg/dL (8.5-10.1); Chloride 104 mmol/L (98-107); EST Glomerular Filtration Rate 86 mL/min (>60); Est Glom Filt Rate - Afr Amer 104 mL/min (>60); Estimated Creatinine Clearance 88.32 ml/min; Glucose 96 mg/dL (74-106); Potassium 3.5 mmol/L (3.5-5.1); Sodium Level 139 mmol/L (136-145)
[2022-06-29 14:09] VITALS: PULSE 81; RESP 18; O2SAT 97
--- NOTE | 2022-06-29 14:10 | RAD_ITS ---
HISTORY: chest pain. TECHNIQUE: XR Chest 1 View. COMPARISON: 04/06/2018. FINDINGS: CARDIOMEDIASTINAL BORDERS: Cardiac silhouette within normal limits in size. Mediastinal contour unremarkable. LUNGS: Radiographically clear. PLEURA: No pleural effusion or pneumothorax seen. OSSEOUS STRUCTURES: Thoracic dextroscoliosis again noted. RAD/Chest 1 View (Portable) IMPRESSION: No acute cardiopulmonary process identified. Electronically Signed: Concetta White MD at 14:47 EST ,
[2022-06-29 14:13] LABS: Bacteria 0 SEEN /hpf (None Seen); Mucous, Urine 0 SEEN /hpf (<or=2+); Red Blood Cells-Urine 0 SEEN /hpf (0-5); White Blood Cells 0 SEEN /hpf (0-5)
[2022-06-29] MEDS: Ondansetron 4 MG/2 ML Vial IV (14:14)
[2022-06-29] MEDS: Ketorolac 15 MG/ML Vial IV (14:14)
--- NOTE | 2022-06-29 14:14 | CT_ITS ---
EXAM: CT ABDOMEN AND PELVIS WITH INTRAVENOUS CONTRAST CLINICAL INDICATION: abdominal pain -- IV PO Contrast TECHNIQUE: Helically acquired images were obtained of the abdomen and pelvis with intravenous contrast. This CT exam was performed using one or more of the following dose reduction techniques: automated exposure control, adjustment of the mA and/or kV according to patient size, and/or use of iterative reconstruction technique. This report was created using [employer] report generation technology. CONTRAST: Oral and amp;amp; IV Gastrografin and amp;amp; 100mL [id number] COMPARISON: CT Abdomen Pelvis dated 03/23/2022 FINDINGS: LOWER THORAX: Normal. Lung bases are clear. No cardiomegaly. No pericardial effusion. ABDOMEN: LIVER: Normal. Homogeneous. No focal mass. GALLBLADDER AND BILE DUCTS: Normal. No calcified gallstones. No gallbladder distention or wall edema. No intra- or extrahepatic biliary ductal dilation. PANCREAS: Normal. No focal cystic or solid mass. SPLEEN: Normal. Normal size without focal cystic or solid mass. ADRENALS: Normal. No nodules. KIDNEYS AND URETERS: Normal. Normal renal size and position. No hydronephrosis. STOMACH AND BOWEL: Normal. No bowel distention. No focal inflammatory change. PELVIS: APPENDIX: No evidence of acute appendicitis. BLADDER: Normal. REPRODUCTIVE: Uterus is absent. ABDOMEN and PELVIS: INTRAPERITONEAL SPACE: Normal. No ascites or other fluid collection. No free air. BONES/JOINTS: Normal. No suspicious lytic or blastic abnormality. SOFT TISSUES: Normal. No discrete abdominal or pelvic wall hernia. VASCULATURE: Normal. Abdominal aorta is non-dilated. LYMPH NODES: Normal. No enlarged lymph nodes. CT/Abdomen/Pelvis WITH Contrast IMPRESSION: No acute abdominal or pelvic abnormality. Electronically Signed: Phani Lane MD at 16:17 EST ,
[2022-06-29 14:16] LABS: Color, Urine Yellow (Yellow); Glucose, Dipstick Normal (Normal); Ketone-Dipstick Negative (Negative); Leukocyte Esterase-Dipstick Negative /ul (Negative); Nitrite-Dipstick Negative (Negative); Occult Blood-Urine Negative /ul (Negative); Protein-Dipstick Negative (Negative); Urine Bilirubin Dipstick Negative (Negative); Urine Clarity Sl. Cloudy (Clear); Urine Urobilinogen Normal (Normal)
--- NOTE | 2022-06-29 14:21 | EX.ED.DYSGE1 ---
HPI <SANGEETA Chavez - Last Filed: 06/29/22 21:22> History of Present Illness Chief Complaint: Abd Pain Narrative Narrative: Patient presents today with what she thinks is a flare-up of her Crohn's disease. She states that she has had intermittent abdominal pain, nausea, and coffee ground colored loose stools that started yesterday. She denies having these changes in her stool today, but states every time she pees she is seeing coffee grounds. She denies dysuria and polyuria. She states Monday she began to have feelings of lightheadedness, weakness, and midsternal nonradiating chest pain that is worsened with laying down. The symptoms have persisted and have not worsened. Several days ago she began to have diffuse joint pain, throbbing headache, increased skin redness around her chest, and left-sided ear pain. These symptoms have persisted and have not worsened. Monday she went to urgent care was diagnosed with bronchitis and was given azithromycin for body aches, fever, and cough. She states her symptoms have not resolved. Patient denies shortness of breath, difficulty breathing, and vomiting. PFSH <SANGEETA Chavez - Last Filed: 06/29/22 21:22> [facility] Medical History Anemia Anxiety Colon polyps Depression Endometriosis Graves disease Heartburn History of Crohn's disease History of hiatal hernia History of steroid therapy Hypothyroidism Low iron Migraine Smoker Thyroid disease Wears dentures Wears glasses Home Medications amitriptyline 25 mg tablet 25 mg PO QHS anti depressant 01/18/18 [History Last Taken Unknown] citalopram 10 mg tablet 10 mg PO DAILY anti depressant 01/18/18 [History Last Taken 04/19/22] levothyroxine 125 mcg tablet 125 mcg PO DAILY thyroid 01/18/18 [History Last Taken 04/19/22] verapamil 180 mg 24 hr capsule,extended release 180 mg PO QHS MIGRAINE 01/18/18 [History Last Taken Unknown] ferrous gluconate 324 mg (37.5 mg iron) tablet 325 mg PO DAILY supplement 03/14/18 [History Last Taken Unknown] prednisone 10 mg tablet 40 mg PO DAILY bowel inflamation 04/18/22 [History Last Taken Unknown] dicyclomine 20 mg tablet 20 mg PO TID #90 tabs 04/25/22 [Rx Last Taken Unknown] adalimumab 40 mg/0.4 mL subcutaneous pen kit (Humira(CF) Pen) 40 mg (0.4 mL) subcut Q2W #2 ea 05/17/22 [Rx Last Taken Unknown] adalimumab 80 mg/0.8 mL subcutaneous pen kit (Humira(CF) Pen) See Rx Instructions subcut .COMPLEX #2 ea 05/17/22 [Rx Last Taken Unknown] estradiol 2 mg tablet 2 mg PO QDAY #90 tabs 05/24/22 [Rx Last Taken Unknown] albuterol sulfate 90 mcg/actuation aerosol inhaler 1 inh inhalation Q6H PRN Wheezing 06/29/22 [History Last Taken Unknown] azithromycin 250 mg capsule 250 mg PO DAILY 06/29/22 [History Last Taken Unknown] benzonatate 100 mg capsule 100 mg PO TID PRN coughing 06/29/22 [History Last Taken Unknown] clotrimazole 1 % topical cream 1 applic topical BID 06/29/22 [History Last Taken Unknown] loratadine 10 mg capsule 10 mg PO DAILY 06/29/22 [History Last Taken Unknown] Allergy/AdvReac Type Severity Reaction Status Date / Time etodolac [From Lodine] Allergy Mild Itching Verified 06/29/22 12:34 influenza virus vaccine tv AdvReac NEEDS Verified 06/29/22 12:34 splt 2012- (4 yr,up) FOLLOW-UP [From Fluvirin] Surgical History H/O bilateral salpingo-oophorectomy H/O exploratory laparotomy History of appendectomy History of carpal tunnel surgery of right wrist History of colonoscopy History of hysteroscopy History of knee surgery History of LAVH History of oral surgery History of tonsillectomy and adenoidectomy Hx of thyroidectomy Social History Smoking Status: Current every day smoker tobacco type: cigarettes alcohol intake: never substance use type: does not use caffeine: Yes what type of physical activity do you participate in: none seatbelt use: always do you feel safe at home: Yes additional social history: [employer]- [employer] Patient works at [employer] ROS <SANGEETA Chavez - Last Filed: 06/29/22 21:22> ROS ED Constitutional Constitutional ED: Denies chills or fever(s) Eyes Eyes: Denies blurry vision or change in vision ENT ENT ED: Reports ear pain left; Denies rhinorrhea or sore throat Cardiovascular Cardiovascular: Reports chest pain; Denies palpitations Respiratory/Chest Respiratory/Chest: Reports cough; Denies dyspnea, shortness of breath at rest or shortness of breath with exertion Gastrointestinal Gastrointestinal: Reports abdominal pain, diarrhea, melena and nausea; Denies vomiting Genitourinary Genitourinary ED: Denies dysuria, hematuria or urinary frequency Musculoskeletal Musculoskeletal: Reports arthralgias and myalgias Integumentary Reports rash; Denies abscess or Abrasions Neurologic Neurologic: Reports headache(s); Denies paresthesias or weakness EXAM <SANGEETA Chavez - Last Filed: 06/29/22 21:22> Physical Exam Const Vital Signs: 06/29/22 12:32 06/29/22 13:19 06/29/22 14:09 Temperature 97.8 F Temperature Source Temporal Pulse Rate 102 H 81 Respiratory Rate 16 18 Respiratory Effort Normal Non-Labored Respiratory Depth Normal Respiratory Pattern Normal Blood Pressure 132/81 H Blood Pressure Mean 98 Pulse Ox 98 97 Oxygen Delivery Method Room Air Room Air 06/29/22 15:45 Temperature Temperature Source Pulse Rate 64 Respiratory Rate 16 Respiratory Effort Respiratory Depth Respiratory Pattern Blood Pressure Blood Pressure Mean Pulse Ox 99 Oxygen Delivery Method Room Air Positive well nourished and well developed General Appearance ED: well developed HEENT Reports external ears normal, TM's normal bilaterally and moist mucous membranes HEENT Narrative: Patient does have a healing ulcer on her lower lip. Negative for trauma Throat: posterior oropharynx normal Eyes PERRL and EOMs intact bilaterally Neck no lymphadenopathy and supple Chest Wall inspection of chest normal Chest Narrative: Patient states she has tenderness to palpation in the midsternal region of her chest. Resp normal respiratory effort and clear to auscultation bilaterally Cardio regular rate, regular rhythm and no murmurs GI normal to inspection, nondistended, normoactive bowel sounds GI Narrative: Patient is tender to palpation in the left lower quadrant. Palpation: soft; Negative for guarding or rebound tenderness present Narrative: Rectal examination performed with assistance from nurse. No external abnormality. No dried blood. Hemoccult testing performed. Extremity normal to inspection Neuro oriented x3, CN's II-XII intact bilaterally and no sensory deficits noted Sensorium / Orientation: alert Motor Exam: strength 5/5 throughout Psych mental status grossly normal Skin no wounds Skin Narrative: Patient has diffuse redness on her chest and neck. Lesions: No lesion noted Trauma: Negative for abrasion <Dr. Americo Estes, DO - Last Filed: 06/29/22 15:31> Physical Exam Const Vital Signs: 06/29/22 12:32 06/29/22 13:19 06/29/22 14:09 Temperature 97.8 F Temperature Source Temporal Pulse Rate 102 H 81 Respiratory Rate 16 18 Respiratory Effort Normal Non-Labored Respiratory Depth Normal Respiratory Pattern Normal Blood Pressure 132/81 H Blood Pressure Mean 98 Pulse Ox 98 97 Oxygen Delivery Method Room Air Room Air 06/29/22 15:45 Temperature Temperature Source Pulse Rate 64 Respiratory Rate 16 Respiratory Effort Respiratory Depth Respiratory Pattern Blood Pressure Blood Pressure Mean Pulse Ox 99 Oxygen Delivery Method Room Air <Dr. Pranay Wu, DO - Last Filed: 06/29/22 18:55> Physical Exam Const Vital Signs: 06/29/22 12:32 06/29/22 13:19 06/29/22 14:09 Temperature 97.8 F Temperature Source Temporal Pulse Rate 102 H 81 Respiratory Rate 16 18 Respiratory Effort Normal Non-Labored Respiratory Depth Normal Respiratory Pattern Normal Blood Pressure 132/81 H Blood Pressure Mean 98 Pulse Ox 98 97 Oxygen Delivery Method Room Air Room Air 06/29/22 15:45 Temperature Temperature Source Pulse Rate 64 Respiratory Rate 16 Respiratory Effort Respiratory Depth Respiratory Pattern Blood Pressure Blood Pressure Mean Pulse Ox 99 Oxygen Delivery Method Room Air MDM <Bessie Mccracken PA - Last Filed: 06/29/22 21:22> [facility] Narrative Medical decision making narrative: This patient was seen with a PA/BOILER TESTING TECHNICIAN Individually assessed they patient including history and physical. I have reviewed everything on the chart that is available and agree with the documentation provided by the PA/BOILER TESTING TECHNICIAN including discussion about the assessment, treatment plan, discussion, and return precautions. 37-year-old female with history of Crohn's disease previously had [address] dose of Humira with Dr. Abbott and has been on prednisone 40 mg p.o. daily for Crohn's disease. She is presenting today with multiple complaints including bronchitis, chest pain, shortness of breath. She states she had a fever 3 days ago but this is resolved. She also complains of nausea and vomiting as well as chest pain. EKG on my interpretation shows normal sinus rhythm with a ventricular at 76 bpm without sign of ischemic change. High-sensitivity troponin is 4. CBC shows slight leukocytosis of 14.3. Hemoglobin hematocrit are stable. Platelets are normal. Renal function electrolytes within normal limits. Urinalysis negative for infection. I do not need she needs any testing for her upper respiratory symptoms. She is outside the treatment window for anything. Her chest x-ray on my interpretation shows no acute cardiopulmonary process and the radiologist does agree. Since patient has leukocytosis of ongoing left lower quadrant abdominal pain will obtain CT of the abdomen pelvis. Patient signed out to incoming ED physician for monitoring for follow-up of the CT scan. CT of the abdomen and pelvis showed no acute abnormality. Hemoccult has been performed and shows no blood. Patient is still complaining of a headache after 15 mg Toradol so 30 mg more have been given to her along with IV fluids. I spoke with her GI doctor, Dr. Abbott about what is going on with her and he advised against using narcotics for her head pain. He stated to give her IV fluids and that she can discharge home after. Patient was able to tolerate food and liquids here in the ED. After the fluids and additional Toradol, she states she feels good enough to go home. Patient has close contact with her GI doctor so I am comfortable with her discharging home. I have given her return instructions and answered all of her questions. Patient is comfortable with plan. Lab Data Attestation: I reviewed the patient's lab results. Lab results narrative: Elevated WBC and neutrophils. Labs: Laboratory Results - last 24 hr 06/29/22 06/29/22 06/29/22 13:30 13:40 13:40 WBC 14.3 H RBC 5.07 Hgb 15.2 H Hct 46.8 MCV 92.3 MCH 30.0 MCHC 32.5 RDW Std Deviation 44.7 H RDW Coeff of Sy 13.2 Plt Count 211 MPV 9.5 Immature Gran % (Auto) 0.300 Neut % (Auto) 86.7 H Lymph % (Auto) 9.2 L [place] % (Auto) 3.6 Eos % (Auto) 0.0 Baso % (Auto) 0.2 Absolute Neuts (auto) 12.4 H Absolute Lymphs (auto) 1.32 Nucleated RBC % 0 Sodium 139 Potassium 3.5 Chloride 104 Carbon Dioxide 28.0 Anion Gap 7 BUN 18 Creatinine 0.80 Estim Creat Clear Calc 88.32 Est GFR (MDRD) Af Amer 104 Est GFR (MDRD) Non-Af 86 BUN/Creatinine Ratio 22.4 H Glucose 96 Calcium 9.4 Troponin I High Sens 4 Urine Color Urine Clarity Urine pH Ur Specific [place] Urine Protein Urine Glucose (UA) Urine Ketones Urine Occult Blood Urine Nitrite Urine Bilirubin Urine Urobilinogen Ur Leukocyte Esterase Urine RBC Urine WBC Ur Squamous Epith Cells Urine Bacteria Urine Mucus 06/29/22 14:10 WBC RBC Hgb Hct MCV MCH MCHC RDW Std Deviation RDW Coeff of Sy Plt Count MPV Immature Gran % (Auto) Neut % (Auto) Lymph % (Auto) [place] % (Auto) Eos % (Auto) Baso % (Auto) Absolute Neuts (auto) Absolute Lymphs (auto) Nucleated RBC % Sodium Potassium Chloride Carbon Dioxide Anion Gap BUN Creatinine Estim Creat Clear Calc Est GFR (MDRD) Af Amer Est GFR (MDRD) Non-Af BUN/Creatinine Ratio Glucose Calcium Troponin I High Sens Urine Color Yellow Urine Clarity Sl. Cloudy Urine pH 7.0 Ur Specific [place] 1.010 Urine Protein Negative Urine Glucose (UA) Normal Urine Ketones Negative Urine Occult Blood Negative Urine Nitrite Negative Urine Bilirubin Negative Urine Urobilinogen Normal Ur Leukocyte Esterase Negative Urine RBC 0 SEEN Urine WBC 0 SEEN Ur Squamous Epith Cells 0-5 SEEN Urine Bacteria 0 SEEN Urine Mucus 0 SEEN Radiography Diagnostic Testing: Clinical Impression(s) from Imaging Studies Chest X-Ray 06/29/22 14:10 IMPRESSION: No acute cardiopulmonary process identified. Electronically Signed: Concetta White MD at 14:47 EST , Abdomen/Pelvis CT 06/29/22 14:14 IMPRESSION: No acute abdominal or pelvic abnormality. Electronically Signed: Phani Lane MD at 16:17 EST , chest X-ray and abdominal CT reviewed and I agree with radiologist impressions. These have also been reviewed by attending ED physician. EKG Initial EKG: Attestation: I personally reviewed and interpreted this EKG as follows: Comments: 76 bpm. Normal sinus rhythm. No signs cardiac ischemia. No ST elevation. This has also been reviewed by attending ED physician. <Dr. Americo Estes, DO - Last Filed: 06/29/22 15:31> [facility] MDM Narrative Medical decision making narrative: This patient was seen with a PA/BOILER TESTING TECHNICIAN Individually assessed they patient including history and physical. I have reviewed everything on the chart that is available and agree with the documentation provided by the PA/BOILER TESTING TECHNICIAN including discussion about the assessment, treatment plan, discussion, and return precautions. 37-year-old female with history of Crohn's disease previously had 1 dose of Humira with Dr. Abbott and has been on prednisone 40 mg p.o. daily for Crohn's disease. She is presenting today with multiple complaints including bronchitis, chest pain, shortness of breath. She states she had a fever 3 days ago but this is resolved. She also complains of nausea and vomiting as well as chest pain. EKG on my interpretation shows normal sinus rhythm with a ventricular at 76 bpm without sign of ischemic change. High-sensitivity troponin is 4. CBC shows slight leukocytosis of 14.3. Hemoglobin hematocrit are stable. Platelets are normal. Renal function electrolytes within normal limits. Urinalysis negative for infection. I do not need she needs any testing for her upper respiratory symptoms. She is outside the treatment window for anything. Her chest x-ray on my interpretation shows no acute cardiopulmonary process and the radiologist does agree. Since patient has leukocytosis of ongoing left lower quadrant abdominal pain will obtain CT of the abdomen pelvis. Patient signed out to incoming ED physician for monitoring for follow-up of the CT scan. Lab Data Labs: Laboratory Results - last 24 hr 06/29/22 06/29/22 06/29/22 13:30 13:40 13:40 WBC 14.3 H RBC 5.07 Hgb 15.2 H Hct 46.8 MCV 92.3 MCH 30.0 MCHC 32.5 RDW Std Deviation 44.7 H RDW Coeff of Sy 13.2 Plt Count 211 MPV 9.5 Immature Gran % (Auto) 0.300 Neut % (Auto) 86.7 H Lymph % (Auto) 9.2 L [place] % (Auto) 3.6 Eos % (Auto) 0.0 Baso % (Auto) 0.2 Absolute Neuts (auto) 12.4 H Absolute Lymphs (auto) 1.32 Nucleated RBC % 0 Sodium 139 Potassium 3.5 Chloride 104 Carbon Dioxide 28.0 Anion Gap 7 BUN 18 Creatinine 0.80 Estim Creat Clear Calc 88.32 Est GFR (MDRD) Af Amer 104 Est GFR (MDRD) Non-Af 86 BUN/Creatinine Ratio 22.4 H Glucose 96 Calcium 9.4 Troponin I High Sens 4 Urine Color Urine Clarity Urine pH Ur Specific [place] Urine Protein Urine Glucose (UA) Urine Ketones Urine Occult Blood Urine Nitrite Urine Bilirubin Urine Urobilinogen Ur Leukocyte Esterase Urine RBC Urine WBC Ur Squamous Epith Cells Urine Bacteria Urine Mucus 06/29/22 14:10 WBC RBC Hgb Hct MCV MCH MCHC RDW Std Deviation RDW Coeff of Sy Plt Count MPV Immature Gran % (Auto) Neut % (Auto) Lymph % (Auto) [place] % (Auto) Eos % (Auto) Baso % (Auto) Absolute Neuts (auto) Absolute Lymphs (auto) Nucleated RBC % Sodium Potassium Chloride Carbon Dioxide Anion Gap BUN Creatinine Estim Creat Clear Calc Est GFR (MDRD) Af Amer Est GFR (MDRD) Non-Af BUN/Creatinine Ratio Glucose Calcium Troponin I High Sens Urine Color Yellow Urine Clarity Sl. Cloudy Urine pH 7.0 Ur Specific [place] 1.010 Urine Protein Negative Urine Glucose (UA) Normal Urine Ketones Negative Urine Occult Blood Negative Urine Nitrite Negative Urine Bilirubin Negative Urine Urobilinogen Normal Ur Leukocyte Esterase Negative Urine RBC 0 SEEN Urine WBC 0 SEEN Ur Squamous Epith Cells 0-5 SEEN Urine Bacteria 0 SEEN Urine Mucus 0 SEEN Radiography Diagnostic Testing: Clinical Impression(s) from Imaging Studies Chest X-Ray 06/29/22 14:10 IMPRESSION: No acute cardiopulmonary process identified. Electronically Signed: Concetta White MD at 14:47 EST , Abdomen/Pelvis CT 06/29/22 14:14 IMPRESSION: No acute abdominal or pelvic abnormality. Electronically Signed: Phani Lane MD at 16:17 EST , <Dr. Pranay Wu, DO - Last Filed: 06/29/22 18:55> [facility] MDM Narrative Medical decision making narrative: This patient was seen with a PA/BOILER TESTING TECHNICIAN Individually assessed they patient including history and physical. I have reviewed everything on the chart that is available and agree with the documentation provided by the PA/BOILER TESTING TECHNICIAN including discussion about the assessment, treatment plan, discussion, and return precautions. 37-year-old female with history of Crohn's disease previously had 1 dose of Humira with Dr. Abbott and has been on prednisone 40 mg p.o. daily for Crohn's disease. She is presenting today with multiple complaints including bronchitis, chest pain, shortness of breath. She states she had a fever 3 days ago but this is resolved. She also complains of nausea and vomiting as well as chest pain. EKG on my interpretation shows normal sinus rhythm with a ventricular at 76 bpm without sign of ischemic change. High-sensitivity troponin is 4. CBC shows slight leukocytosis of 14.3. Hemoglobin hematocrit are stable. Platelets are normal. Renal function electrolytes within normal limits. Urinalysis negative for infection. I do not need she needs any testing for her upper respiratory symptoms. She is outside the treatment window for anything. Her chest x-ray on my interpretation shows no acute cardiopulmonary process and the radiologist does agree. Since patient has leukocytosis of ongoing left lower quadrant abdominal pain will obtain CT of the abdomen pelvis. Patient signed out to incoming ED physician for monitoring for follow-up of the CT scan. CT of the abdomen and pelvis showed no acute abnormality. Hemoccult has been performed and shows no blood. Patient is still complaining of a headache after 15 mg Toradol so 30 mg more have been given to her along with IV fluids. I spoke with her GI doctor, Dr. Abbott about what is going on with her and he advised against using narcotics for her head pain. He stated to give her IV fluids and that she can discharge home. Lab Data Labs: Laboratory Results - last 24 hr 06/29/22 06/29/22 06/29/22 13:30 13:40 13:40 WBC 14.3 H RBC 5.07 Hgb 15.2 H Hct 46.8 MCV 92.3 MCH 30.0 MCHC 32.5 RDW Std Deviation 44.7 H RDW Coeff of Sy 13.2 Plt Count 211 MPV 9.5 Immature Gran % (Auto) 0.300 Neut % (Auto) 86.7 H Lymph % (Auto) 9.2 L [place] % (Auto) 3.6 Eos % (Auto) 0.0 Baso % (Auto) 0.2 Absolute Neuts (auto) 12.4 H Absolute Lymphs (auto) 1.32 Nucleated RBC % 0 Sodium 139 Potassium 3.5 Chloride 104 Carbon Dioxide 28.0 Anion Gap 7 BUN 18 Creatinine 0.80 Estim Creat Clear Calc 88.32 Est GFR (MDRD) Af Amer 104 Est GFR (MDRD) Non-Af 86 BUN/Creatinine Ratio 22.4 H Glucose 96 Calcium 9.4 Troponin I High Sens 4 Urine Color Urine Clarity Urine pH Ur Specific [place] Urine Protein Urine Glucose (UA) Urine Ketones Urine Occult Blood Urine Nitrite Urine Bilirubin Urine Urobilinogen Ur Leukocyte Esterase Urine RBC Urine WBC Ur Squamous Epith Cells Urine Bacteria Urine Mucus 06/29/22 14:10 WBC RBC Hgb Hct MCV MCH MCHC RDW Std Deviation RDW Coeff of Sy Plt Count MPV Immature Gran % (Auto) Neut % (Auto) Lymph % (Auto) [place] % (Auto) Eos % (Auto) Baso % (Auto) Absolute Neuts (auto) Absolute Lymphs (auto) Nucleated RBC % Sodium Potassium Chloride Carbon Dioxide Anion Gap BUN Creatinine Estim Creat Clear Calc Est GFR (MDRD) Af Amer Est GFR (MDRD) Non-Af BUN/Creatinine Ratio Glucose Calcium Troponin I High Sens Urine Color Yellow Urine Clarity Sl. Cloudy Urine pH 7.0 Ur Specific [place] 1.010 Urine Protein Negative Urine Glucose (UA) Normal Urine Ketones Negative Urine Occult Blood Negative Urine Nitrite Negative Urine Bilirubin Negative Urine Urobilinogen Normal Ur Leukocyte Esterase Negative Urine RBC 0 SEEN Urine WBC 0 SEEN Ur Squamous Epith Cells 0-5 SEEN Urine Bacteria 0 SEEN Urine Mucus 0 SEEN Radiography Diagnostic Testing: Clinical Impression(s) from Imaging Studies Chest X-Ray 06/29/22 14:10 IMPRESSION: No acute cardiopulmonary process identified. Electronically Signed: Concetta White MD at 14:47 EST , Abdomen/Pelvis CT 06/29/22 14:14 IMPRESSION: No acute abdominal or pelvic abnormality. Electronically Signed: Phani Lane MD at 16:17 EST , Treatment and Re-Evaluation Narrative: I performed a history and physical examination of the patient and discussed management plan with the physician research study assistant. I reviewed the physician research study assistant's note and agree with the documented findings and plan of care. Pranay Wu DO, MS Discharge Plan Triage Chief Complaint: Abd Pain Other Complaint: Cough ED Midlevel Provider: Bessie Mccracken ED Provider: Pranay Wu Dx/Rx/DC Orders Clinical Impression: Crohn disease, Headache, Nausea, Abdominal pain, Chest pain, Bronchitis Instructions: Crohns Disease Dc Prescriptions: No Action estradiol 2 mg tablet 2 mg PO QDAY Qty: 90 4RF citalopram 10 MG tablet 10 mg PO DAILY verapamil 180 MG capsule 180 mg PO QHS amitriptyline 25 MG tablet 25 mg PO QHS levothyroxine 125 MCG tablet 125 mcg PO DAILY ferrous gluconate 325 MG tablet 325 mg PO DAILY prednisone 10 mg tablet 40 mg PO DAILY azithromycin 250 mg Capsule 250 mg PO DAILY loratadine 10 mg Capsule 10 mg PO DAILY benzonatate 100 mg Capsule 100 mg PO TID PRN (Reason: coughing) albuterol sulfate 90 mcg/actuation Hfa Aerosol Inhaler 1 inh INHALATION Q6H PRN (Reason: Wheezing) clotrimazole 1 % Cream 1 applic TOPICAL BID Rx Instructions: ear dicyclomine 20 mg tablet 20 mg PO TID Qty: 90 0RF Humira(CF) Pen 40 mg/0.4 mL pen injector kit 40 mg subcut Q2W Qty: 2 11RF Rx Instructions: Maintenance dose: inject one syringe every other week. Humira(CF) Pen 80 mg/0.8 mL pen injector kit See Rx Instructions subcut .COMPLEX Qty: 2 0RF Rx Instructions: Starter Kit: inject two - 80 mg/0.8 mL pens on Day 1; inject one - 80 mg/0.8 mL pen on Day 15 of therapy subcut Primary Care Provider: MARIZOL WHITNEY Referrals: MOSES WHITNEY [Other] - 5-7 Days Activity Restrictions/Additional Instructions: Please return if any worsening of symptoms. Please follow-up with PCP. Disposition Disposition: Home, Self Care Discharge Date/Time: 06/29/22 18:47
[2022-06-29 14:24] LABS: Squamous Epithelial Cells - UA 0-5 SEEN /hpf (5-10)
[2022-06-29 14:35] LABS: Troponin-I HS (w/2H Reflex) 4 pg/mL (3.0-54.0)
[2022-06-29 15:45] VITALS: PULSE 64; RESP 16; O2SAT 99
[2022-06-29] MEDS: Ketorolac 30 MG/ML Syringe IV (17:01)
[2022-06-29] MEDS: 0.9% Normal Saline 1,000 ML 999 ML IV (17:03)
== END 2022-06-29 18:47 | disposition home or self-care (01) ==
PROVIDERS: Physician Assistant; Emergency Provider Emergency Medicine; Visit Provider Emergency Medicine
DX: K50.90 Crohn's disease, unspecified, without complications (principal); R51.9 Headache, unspecified; R11.0 Nausea; R10.9 Unspecified abdominal pain; R07.9 Chest pain, unspecified; J40 Bronchitis, not specified as acute or chronic; F41.9 Anxiety disorder, unspecified; F32.A Depression, unspecified; E03.9 Hypothyroidism, unspecified; F17.210 Nicotine dependence, cigarettes, uncomplicated; Z79.899 Other long term (current) drug therapy
CPT/HCPCS: 71045; 74177; 80048; 81001; 82274; 84484; 85025; 87426; 93005; 96374; 96375; 96376; 99285; J7030; Q9967; A4216; J2405

== ENCOUNTER → 2022-08-24 | Outpatient (CLI) | payer BC, SELFPAY ==
[2022-08-24 15:27] LABS: Absolute Lymphocyte Count 3.51 X10^3/uL (0.83-4.51); Absolute Neutrophil Count 4.6 X10^3/uL (2.0-7.7); Basophil# 0.09 X10^3/uL; Eosinophil# 0.19 X10^3/uL; Eosinophils% 2.1 % (0-5); Hematocrit 44.2 % (37-47); Hemoglobin 14.7 g/dL (12.0-15.0); Lymphocyte # 3.51 X10^3/ul (0.83-4.51); Lymphocyte % 39.5 % (19-41); Mean Corp Hgb Conc 33.3 g/dL (32-36); Mean Corpuscular Hgb 30.7 pg (27.0-32.0); Mean Corpuscular Volume 92.3 fL (81-99); Mean Platelet Vol. 9.8 fl (6.2-12.0); Monocyte# 0.52 X10^3/uL; Monocyte% 5.8 % (0-10); NRBC Flagged by Analyzer 0 % (0-5); Neutrophil # 4.56 X10^3/uL (2.7-7.7); Neutrophil % 51.4 % (47-70); Platelet Count 281 K/mm3 (150-450); RBC Distribution Width SD 41.3 fl (35.1-43.9); Red Blood Count 4.79 M/mm3 (4.2-5.4); White Blood Count 8.9 K/mm3 (4.4-11.0)
[2022-08-24 15:42] LABS: Erythrocyte Sedimentation Rate 2 mm/hr (0-30)
[2022-08-24 15:54] LABS: ALB/GLOB Ratio 1.2 RATIO (0.9-2.4); AST(SGOT) 14 U/L (15-37); Alanine Aminotransfer ALT/SGPT 22 U/L (13-56); Albumin, Serum 4.2 g/dL (3.2-5.0); Alkaline Phosphatase 65 U/L (45-117); Anion Gap 5 (5-15); BUN 11 mg/dL (7-18); BUN/Creat Ratio 15.6 RATIO (10-20); CRP < 2.90 mg/L (0.0-3.0); Calcium,Total 9.5 mg/dL (8.5-10.1); Chloride 108 mmol/L (98-107); Creatinine, Serum 0.71 mg/dL (0.55-1.02); EST Glomerular Filtration Rate 100 mL/min (>60); Est Glom Filt Rate - Afr Amer 121 mL/min (>60); Globulin 3.4 g/dL (2.2-4.2); Glucose 94 mg/dL (74-106); Potassium 3.6 mmol/L (3.5-5.1); Protein, Total 7.6 g/dL (6.4-8.2); Sodium Level 140 mmol/L (136-145)
== END | disposition home or self-care (01) ==
LOC: LAB 14:09
PROVIDERS: Referring Provider Internal Medicine Gastroenterology; Visit Provider Internal Medicine Gastroenterology
DX: K50.90 Crohn's disease, unspecified, without complications (principal)
CPT/HCPCS: 36415; 80053; 85025; 85652; 86140

== ENCOUNTER → 2022-09-23 | Outpatient (CLI) | payer BC, SELFPAY ==
[2022-09-23 12:46] LABS: Erythrocyte Sedimentation Rate 1 mm/hr (0-30)
[2022-09-23 12:54] LABS: ALB/GLOB Ratio 1.2 RATIO (0.9-2.4); AST(SGOT) 15 U/L (15-37); Alanine Aminotransfer ALT/SGPT 20 U/L (13-56); Albumin, Serum 4.4 g/dL (3.2-5.0); Alkaline Phosphatase 65 U/L (45-117); Anion Gap 7 (5-15); BUN 11 mg/dL (7-18); BUN/Creat Ratio 13.5 RATIO (10-20); CRP < 2.90 mg/L (0.0-3.0); Calcium,Total 9.9 mg/dL (8.5-10.1); Chloride 106 mmol/L (98-107); Creatinine, Serum 0.81 mg/dL (0.55-1.02); EST Glomerular Filtration Rate 85 mL/min (>60); Est Glom Filt Rate - Afr Amer 103 mL/min (>60); Globulin 3.7 g/dL (2.2-4.2); Glucose 74 mg/dL (74-106); Potassium 3.7 mmol/L (3.5-5.1); Protein, Total 8.1 g/dL (6.4-8.2); Rheumatoid Factor < 10.0 IU/mL (<15); Sodium Level 140 mmol/L (136-145)
[2022-09-23 12:56] LABS: Absolute Lymphocyte Count 2.33 X10^3/uL (0.83-4.51); Basophil# 0.06 X10^3/uL; Eosinophil# 0.13 X10^3/uL; Eosinophils% 2.2 % (0-5); Hematocrit 45.9 % (37-47); Hemoglobin 15.1 g/dL (12.0-15.0); Lymphocyte # 2.33 X10^3/ul (0.83-4.51); Lymphocyte % 39.2 % (19-41); Mean Corp Hgb Conc 32.9 g/dL (32-36); Mean Corpuscular Hgb 30.7 pg (27.0-32.0); Mean Corpuscular Volume 93.3 fL (81-99); Mean Platelet Vol. 10.6 fl (6.2-12.0); Monocyte# 0.42 X10^3/uL; Monocyte% 7.1 % (0-10); NRBC Flagged by Analyzer 0 % (0-5); Neutrophil # 2.99 X10^3/uL (2.7-7.7); Neutrophil % 50.2 % (47-70); Platelet Count 248 K/mm3 (150-450); RBC Distribution Width CV 11.9 % (11.6-14.6); RBC Distribution Width SD 41.3 fl (35.1-43.9); Red Blood Count 4.92 M/mm3 (4.2-5.4)
[2022-09-23 13:21] LABS: Hepatitis B Surface Antibody Non-Reactive; Hepatitis B Surface Antigen Non-Reactive (Nonreactive); Hepatitis C Antibody Non-Reactive (Nonreactive)
[2022-09-24 22:12] LABS: ANTINUCLEAR ANTIBODIES DIRECT Positive (Negative)
[2022-09-24 22:13] LABS: CCP IgG Antibodies 8 units (0-19)
== END | disposition home or self-care (01) ==
LOC: MTLAB 10:06
PROVIDERS: Referring Provider Internal Medicine Rheumatology; Visit Provider Internal Medicine Rheumatology
DX: M07.60 Enteropathic arthropathies, unspecified site (principal); K50.90 Crohn's disease, unspecified, without complications
CPT/HCPCS: 36415; 80053; 85025; 85652; 86038; 86140; 86200; 86431; 86706; 86803; 87340

== ENCOUNTER → 2022-11-16 | Outpatient (CLI) | payer BC, SELFPAY ==
[2022-11-16 14:33] LABS: EXAGEN MAILED SPECIMEN
[2022-11-16 15:25] LABS: Absolute Lymphocyte Count 2.94 X10^3/uL (0.83-4.51); Absolute Neutrophil Count 3.1 X10^3/uL (2.0-7.7); Basophil# 0.04 X10^3/uL; Basophil% 0.6 % (0-1); Eosinophil# 0.13 X10^3/uL; Hematocrit 41.2 % (37-47); Hemoglobin 13.4 g/dL (12.0-15.0); Lymphocyte # 2.94 X10^3/ul (0.83-4.51); Lymphocyte % 44.5 % (19-41); Mean Corp Hgb Conc 32.5 g/dL (32-36); Mean Corpuscular Hgb 30.2 pg (27.0-32.0); Mean Corpuscular Volume 92.8 fL (81-99); Monocyte# 0.42 X10^3/uL; Monocyte% 6.4 % (0-10); NRBC Flagged by Analyzer 0 % (0-5); Neutrophil # 3.07 X10^3/uL (2.7-7.7); Neutrophil % 46.3 % (47-70); Platelet Count 262 K/mm3 (150-450); RBC Distribution Width CV 12.5 % (11.6-14.6); RBC Distribution Width SD 42.5 fl (35.1-43.9); Red Blood Count 4.44 M/mm3 (4.2-5.4); White Blood Count 6.6 K/mm3 (4.4-11.0)
[2022-11-16 15:31] LABS: Color, Urine Yellow (Yellow); Glucose, Dipstick Normal (Normal); Ketone-Dipstick Negative (Negative); Leukocyte Esterase-Dipstick Negative /ul (Negative); Nitrite-Dipstick Negative (Negative); Occult Blood-Urine Negative /ul (Negative); Protein-Dipstick Negative (Negative); Specific Gravity, Urine 1.005 (1.002-1.030); Urine Bilirubin Dipstick Negative (Negative); Urine Clarity Clear (Clear); Urine Urobilinogen Normal (Normal)
[2022-11-16 16:06] LABS: Protein, Urine (Random) 7.5 mg/dL (<11.9); Protein:Creat Ratio 121 mg/g CRE (0-200)
[2022-11-16 16:09] LABS: ALB/GLOB Ratio 1.3 RATIO (0.9-2.4); AST(SGOT) 21 U/L (15-37); Alanine Aminotransfer ALT/SGPT 30 U/L (13-56); Albumin, Serum 4.1 g/dL (3.2-5.0); Alkaline Phosphatase 73 U/L (45-117); Anion Gap 3 (5-15); BUN 11 mg/dL (7-18); BUN/Creat Ratio 16.9 RATIO (10-20); Calcium,Total 9.4 mg/dL (8.5-10.1); Chloride 106 mmol/L (98-107); Creatinine, Serum 0.65 mg/dL (0.55-1.02); EST Glomerular Filtration Rate 110 mL/min (>60); Est Glom Filt Rate - Afr Amer 133 mL/min (>60); Globulin 3.1 g/dL (2.2-4.2); Glucose 88 mg/dL (74-106); Potassium 3.5 mmol/L (3.5-5.1); Protein, Total 7.2 g/dL (6.4-8.2); Sodium Level 137 mmol/L (136-145)
== END | disposition home or self-care (01) ==
LOC: MTLAB 13:24
PROVIDERS: Referring Provider Internal Medicine Rheumatology; Visit Provider Internal Medicine Rheumatology
DX: R76.8 Other specified abnormal immunological findings in serum (principal); K50.90 Crohn's disease, unspecified, without complications; M07.60 Enteropathic arthropathies, unspecified site
CPT/HCPCS: 36415; 80053; 81002; 82570; 84156; 85025

== ENCOUNTER 2022-11-29 08:42 | Outpatient (CLI) | payer BC, SELFPAY ==
[2022-11-29 08:51] VITALS: BP 111/62; PULSE 69; RESP 14; TEMP 36.3; O2SAT 98; BMI 25.6
[2022-11-29 10:26] VITALS: BP 102/74; PULSE 58; RESP 16; TEMP 36.2; O2SAT 99
[2022-11-29 11:06] VITALS: BP 115/73; PULSE 56; RESP 16; TEMP 35.9; O2SAT 100
== END 2022-11-29 08:43 | disposition home or self-care (01) ==
PROVIDERS: Referring Provider Internal Medicine Gastroenterology; Visit Provider Internal Medicine Gastroenterology
DX: K51.90 Ulcerative colitis, unspecified, without complications (principal)
CPT/HCPCS: 96365; 96366; J7050; A4216; J3358

== ENCOUNTER → 2023-01-09 | Outpatient (CLI) | payer BC, SELFPAY ==
[2023-01-09 11:17] LABS: Absolute Lymphocyte Count 2.62 X10^3/uL (0.83-4.51); Absolute Neutrophil Count 4.2 X10^3/uL (2.0-7.7); Basophil# 0.09 X10^3/uL; Basophil% 1.1 % (0-1); Eosinophil# 0.77 X10^3/uL; Eosinophils% 9.4 % (0-5); Hematocrit 46.3 % (37-47); Hemoglobin 15.1 g/dL (12.0-15.0); Lymphocyte # 2.62 X10^3/ul (0.83-4.51); Lymphocyte % 31.9 % (19-41); Mean Corp Hgb Conc 32.6 g/dL (32-36); Mean Corpuscular Hgb 30.6 pg (27.0-32.0); Mean Corpuscular Volume 93.7 fL (81-99); Mean Platelet Vol. 10.6 fl (6.2-12.0); Monocyte# 0.52 X10^3/uL; Monocyte% 6.3 % (0-10); NRBC Flagged by Analyzer 0 % (0-5); Neutrophil # 4.19 X10^3/uL (2.7-7.7); Neutrophil % 50.9 % (47-70); Platelet Count 220 K/mm3 (150-450); RBC Distribution Width CV 13.2 % (11.6-14.6); RBC Distribution Width SD 44.8 fl (35.1-43.9); Red Blood Count 4.94 M/mm3 (4.2-5.4); White Blood Count 8.2 K/mm3 (4.4-11.0)
[2023-01-09 11:33] LABS: AST(SGOT) 17 U/L (15-37); Alanine Aminotransfer ALT/SGPT 24 U/L (13-56); Albumin, Serum 3.8 g/dL (3.2-5.0); Alkaline Phosphatase 83 U/L (45-117); Anion Gap 7 (5-15); BUN 15 mg/dL (7-18); BUN/Creat Ratio 20.5 RATIO (10-20); Calcium,Total 9.3 mg/dL (8.5-10.1); Chloride 110 mmol/L (98-107); Creatinine, Serum 0.73 mg/dL (0.55-1.02); EST Glomerular Filtration Rate 96 mL/min (>60); Est Glom Filt Rate - Afr Amer 116 mL/min (>60); Globulin 3.9 g/dL (2.2-4.2); Glucose 69 mg/dL (74-106); Potassium 3.7 mmol/L (3.5-5.1); Protein, Total 7.7 g/dL (6.4-8.2); Sodium Level 138 mmol/L (136-145)
== END | disposition home or self-care (01) ==
LOC: MTLAB 09:09
PROVIDERS: PCP Nurse Practitioner Family; Referring Provider Internal Medicine Rheumatology; Visit Provider Internal Medicine Rheumatology
DX: M07.60 Enteropathic arthropathies, unspecified site (principal); Z79.899 Other long term (current) drug therapy
CPT/HCPCS: 36415; 80053; 85025

== ENCOUNTER 2023-01-13 22:07 | Emergency (ER) | payer BC, SELFPAY ==
[2023-01-13 22:08] VITALS: BP 137/84; PULSE 67; RESP 16; TEMP 36.1; O2SAT 100; BMI 24.5
--- NOTE | 2023-01-13 22:53 | EX.ED.DYSGE1 ---
HPI History of Present Illness Chief Complaint: Abd Pain Informant: parent and family Narrative Narrative: Patient is a 37-year-old female with past medical history of rheumatoid arthritis hypothyroidism and Crohn's disease which was recently diagnosed approximately 1 year ago. She states she was on Humira but then developed an allergic reaction after approximately 4 months and has been on Stelara. She states that despite being on it/receiving the infusions she does not feel she is having any symptom improvement. Patient states that over the last few days she has had changes from severe loose stool/diarrhea more constipation. She also reports increased abdominal pain at this time. She denies any previous history of small bowel obstruction but does admit to multiple abdominal surgeries. She states that secondary to the worsening pain and change in bowel habits she has concern for infection versus blockage and therefore comes in for evaluation. [facility] Medical History Acute frontal sinusitis, unspecified Anemia Anxiety Colon polyps Depression Endometriosis FH: migraine headache Graves disease Heartburn History of hiatal hernia History of steroid therapy Hx of Crohn's disease Hypothyroidism Low iron Migraine Smoker Thyroid disease Wears dentures Wears glasses Home Medications citalopram 10 mg tablet 10 mg PO DAILY anti depressant 01/18/18 [History Last Taken 04/19/22] levothyroxine 125 mcg tablet 125 mcg PO DAILY thyroid 01/18/18 [History Last Taken 04/19/22] ferrous gluconate 324 mg (37.5 mg iron) tablet 325 mg PO DAILY supplement 03/14/18 [History Last Taken Unknown] estradiol 2 mg tablet 2 mg PO QDAY #90 tabs 05/24/22 [Rx Last Taken Unknown] loratadine 10 mg capsule 10 mg PO DAILY 06/29/22 [History Last Taken Unknown] dicyclomine 20 mg tablet 20 mg PO TID #45 tabs 08/03/22 [Rx Last Taken Unknown] ustekinumab 130 mg/26 mL intravenous solution (Stelara) 390 mg (78 mL) .Route ONCE #78 mL 10/25/22 [Rx Last Taken Unknown] ustekinumab 90 mg/mL subcutaneous syringe (Stelara) 90 mg subcut Q8W #1 mL 10/25/22 [Rx Last Taken Unknown] pantoprazole 40 mg tablet,delayed release (Protonix) 40 mg PO DAILY #30 tabs 11/01/22 [Rx Last Taken Unknown] folic acid 1 mg tablet 2 mg PO DAILY 11/29/22 [History Last Taken Unknown] methotrexate sodium 5 mg tablet 5 mg PO QWEEK 11/29/22 [History Last Taken Unknown] clindamycin HCl 300 mg capsule 300 mg PO Q8H #30 caps 01/03/23 [Rx Last Taken Unknown] leucovorin calcium 15 mg tablet 15 mg PO DAILY 01/03/23 [History Last Taken Unknown] prednisone 20 mg tablet 40 mg PO DAILY 4 days #8 tabs 01/14/23 [Rx Last Taken Unknown] Allergy/AdvReac Type Severity Reaction Status Date / Time etodolac [From Lodine] Allergy Mild Itching Verified 01/13/23 22:07 adalimumab [From Humira] Allergy Hives Verified 01/13/23 22:07 influenza virus vaccine tv AdvReac Fainting Verified 01/13/23 22:07 splt 2012-14 (4 yr,up) [From Fluvirin] Surgical History H/O bilateral salpingo-oophorectomy H/O exploratory laparotomy History of appendectomy History of carpal tunnel surgery of right wrist History of colonoscopy History of hysteroscopy History of knee surgery History of LAVH History of oral surgery History of tonsillectomy and adenoidectomy Hx of thyroidectomy Social History Smoking Status: Current every day smoker tobacco type: cigarettes alcohol intake: never substance use type: does not use caffeine: Yes what type of physical activity do you participate in: none seatbelt use: always do you feel safe at home: Yes additional social history: Jelena Oconnell Patient works at [employer] ED Constitutional Constitutional ED: Denies chills or fever(s) ENT ENT ED: Denies sore throat Cardiovascular Cardiovascular: Denies chest pain Respiratory/Chest Respiratory/Chest: Denies cough or dyspnea Gastrointestinal Gastrointestinal: Reports abdominal pain, constipation and nausea; Denies diarrhea or vomiting Genitourinary Genitourinary ED: Denies dysuria Musculoskeletal Musculoskeletal: Reports myalgias Integumentary Denies rash Neurologic Neurologic: Denies headache(s) Hematologic/Lymphatic Hematologic/Lymphatic: Denies easy bleeding or easy bruising EXAM Physical Exam Const Vital Signs: 01/13/23 22:08 Temperature 97.0 F L Temperature Source Temporal Pulse Rate 67 Respiratory Rate 16 Blood Pressure 137/84 H Blood Pressure Mean 101 Pulse Ox 100 Oxygen Delivery Method Room Air Positive well nourished and well developed General Appearance ED: well developed HEENT Reports dry mucous membranes HEENT Narrative: No signs of infection noted in the posterior pharynx Mouth ED: Yes dry mucous membranes Mouth: dry mucous membranes Eyes PERRL and EOMs intact bilaterally General Eye ED: Negative for scleral icterus Neck supple Resp normal respiratory effort and clear to auscultation bilaterally Cardio regular rate and regular rhythm Rate: other Other Details: Radial pulses are plus 2 out of 4 bilaterally are equal and symmetric GI non-distended GI Narrative: Abdomen is soft and nondistended with normal active bowel sounds. There is mild diffuse pain with palpation without voluntary guarding or rigidity. No increased tympany or fluid wave noted. No pulsatile mass Auscultation: normoactive bowel sounds Palpation: soft Back/Spine no CVA tenderness Extremity normal to inspection Neuro oriented x3, CN's II-XII intact bilaterally and no sensory deficits noted Sensorium / Orientation: alert Psych mental status grossly normal Skin no rashes or lesions noted General Skin Exam: Negative for jaundice MDM MDM MDM Narrative Medical decision making narrative: Patient presented to the ER with stable vitals and a soft nonsurgical abdomen without distention or increased tympany going against possible bowel obstruction. With history of Crohn's disease differential diagnosis includes Crohn's exacerbation versus intestinal perforation versus small bowel obstruction versus constipation versus infectious colitis. Basic blood work was obtained and patient's white count is normal her ESR CRP and lactic are normal as well. Her eosinophils are increasing from baseline which could go with a pro inflammatory response versus patient rejecting her Stelara. As her exam did not show changes concerning for an acute obstruction or perforation I elected to perform an acute abdominal x-ray. This showed no signs of free air or obstruction but stool in the rectal vault consistent with constipation. At this time with stable vitals and negative work-up I do not feel there is need for CT scan or admission to the hospital to be placed on steroids secondary to the Crohn's flare and can follow-up with her GI physician for further evaluation and treatment. History & Record Review Discussion w/independent historian: Patient and Family Lab Data Attestation: I reviewed the patient's lab results. Labs: Laboratory Results - last 24 hr 01/13/23 01/13/23 01/13/23 22:48 22:48 22:48 WBC 8.2 RBC 4.34 Hgb 13.5 Hct 39.7 MCV 91.5 MCH 31.1 MCHC 34.0 RDW Std Deviation 43.7 RDW Coeff of Sy 13.0 Plt Count 227 MPV 10.3 Immature Gran % (Auto) 0.100 Neut % (Auto) 29.7 L Lymph % (Auto) 51.1 H [place] % (Auto) 6.9 Eos % (Auto) 11.2 H Baso % (Auto) 1.0 Absolute Neuts (auto) 2.5 Absolute Lymphs (auto) 4.21 Nucleated RBC % 0 ESR 2 Sodium 138 Potassium 3.6 Chloride 106 Carbon Dioxide 27.0 Anion Gap 5 BUN 14 Creatinine 0.75 Estim Creat Clear Calc 98.01 Est GFR (MDRD) Af Amer 112 Est GFR (MDRD) Non-Af 93 BUN/Creatinine Ratio 18.6 Glucose 87 Lactic Acid 0.6 Calcium 9.6 Magnesium 2.1 Total Bilirubin 0.20 Direct Bilirubin 0.07 AST 18 ALT 21 Alkaline Phosphatase 80 C-React Prot Ext Range < 2.90 Total Protein 7.3 Albumin 4.1 Globulin 3.2 Lipase 30 Radiography Diagnostic Testing: Clinical Impression(s) from Imaging Studies Acute Abdomen Series 01/13/23 23:32 IMPRESSION: There is large fecal residue in the colon. Electronically Signed: Good Grider MD at 23:57 EDT Reading Location ID and State: [facility] / MD Tel , Service support , Acute abdominal series as interpreted by the emergency medicine physician reveals a nonspecific nonobstructive bowel gas pattern with fecal residue in the rectal vault consistent with constipation Chest x-ray component reveals no acute infiltrate or pneumothorax Discharge Plan Triage Chief Complaint: Abd Pain ED Provider: Jeffry Granger Dx/Rx/DC Orders Clinical Impression: Exacerbation of Crohn's disease, Rheumatoid arthritis, Constipation Instructions: Crohns Disease Dc, ED Constipation (Adult) Prescriptions: New prednisone 20 mg tablet 40 mg PO DAILY 4 Days Qty: 8 0RF No Action estradiol 2 mg tablet 2 mg PO QDAY Qty: 90 4RF leucovorin calcium 15 mg tablet 15 mg PO DAILY clindamycin HCl 300 mg capsule 300 mg PO Q8H Qty: 30 0RF citalopram 10 MG tablet 10 mg PO DAILY levothyroxine 125 MCG tablet 125 mcg PO DAILY ferrous gluconate 325 MG tablet 325 mg PO DAILY loratadine 10 mg Capsule 10 mg PO DAILY methotrexate sodium 5 mg Tablet 5 mg PO QWEEK folic acid 1 mg Tablet 2 mg PO DAILY dicyclomine 20 mg tablet 20 mg PO TID Qty: 45 1RF Stelara 130 mg/26 mL solution 390 mg .Route ONCE Qty: 78 0RF Rx Instructions: Infuse 390mg IV once. Authorization #[id number] through [employer] Stelara 90 mg/mL syringe 90 mg subcut Q8W Qty: 1 5RF pantoprazole [Protonix] 40 mg tablet,delayed release (DR/EC) 40 mg PO DAILY Qty: 30 2RF Primary Care Provider: Debra Roland Referrals: Harrison Abbott DO [Med Staff - Active Staff] - Debra Roland [facility] [Primary Care Provider] - Activity Restrictions/Additional Instructions: Please continue all of your medication as directed by your doctor to add the steroid for the next 4 days to help with inflammatory response. As your x-ray shows there is constipation present please keep yourself well-hydrated and take MiraLAX daily to help resolve this. If you have worsening of symptoms or any further concerns please return to the ER for repeat evaluation. Disposition Disposition: Home, Self Care
[2023-01-13 22:54] LABS: Absolute Lymphocyte Count 4.21 X10^3/uL (0.83-4.51); Absolute Neutrophil Count 2.5 X10^3/uL (2.0-7.7); Basophil# 0.08 X10^3/uL; Eosinophil# 0.92 X10^3/uL; Eosinophils% 11.2 % (0-5); Hematocrit 39.7 % (37-47); Hemoglobin 13.5 g/dL (12.0-15.0); Lymphocyte # 4.21 X10^3/ul (0.83-4.51); Lymphocyte % 51.1 % (19-41); Mean Corpuscular Hgb 31.1 pg (27.0-32.0); Mean Corpuscular Volume 91.5 fL (81-99); Mean Platelet Vol. 10.3 fl (6.2-12.0); Monocyte# 0.57 X10^3/uL; Monocyte% 6.9 % (0-10); NRBC Flagged by Analyzer 0 % (0-5); Neutrophil # 2.45 X10^3/uL (2.7-7.7); Neutrophil % 29.7 % (47-70); Platelet Count 227 K/mm3 (150-450); RBC Distribution Width SD 43.7 fl (35.1-43.9); Red Blood Count 4.34 M/mm3 (4.2-5.4); White Blood Count 8.2 K/mm3 (4.4-11.0)
[2023-01-13] MEDS: Ondansetron 4 MG/2 ML Vial IV (22:55)
[2023-01-13] MEDS: Morphine 4 MG/ML Syringe IV (22:55)
[2023-01-13] MEDS: 0.9% Normal Saline 1,000 ML 999 ML IV (23:00)
[2023-01-13 23:04] LABS: Erythrocyte Sedimentation Rate 2 mm/hr (0-30)
[2023-01-13 23:10] LABS: BUN 14 mg/dL (7-18); Creatinine, Serum 0.75 mg/dL (0.55-1.02); EST Glomerular Filtration Rate 93 mL/min (>60); Estimated Creatinine Clearance 98.01 ml/min; Glucose 87 mg/dL (74-106)
[2023-01-13 23:11] LABS: AST(SGOT) 18 U/L (15-37); Alanine Aminotransfer ALT/SGPT 21 U/L (13-56); Albumin, Serum 4.1 g/dL (3.2-5.0); Alkaline Phosphatase 80 U/L (45-117); Anion Gap 5 (5-15); BUN/Creat Ratio 18.6 RATIO (10-20); Bilirubin, Direct 0.07 mg/dL (0.00-0.30); CRP < 2.90 mg/L (0.0-3.0); Calcium,Total 9.6 mg/dL (8.5-10.1); Chloride 106 mmol/L (98-107); Est Glom Filt Rate - Afr Amer 112 mL/min (>60); Globulin 3.2 g/dL (2.2-4.2); Lipase 30 U/L (13-75); Magnesium 2.1 mg/dL (1.6-2.6); Potassium 3.6 mmol/L (3.5-5.1); Protein, Total 7.3 g/dL (6.4-8.2); Sodium Level 138 mmol/L (136-145)
[2023-01-13 23:22] LABS: Lactic Acid 0.6 mmol/L (0.4-1.9)
--- NOTE | 2023-01-13 23:32 | RAD_ITS ---
INDICATION: abd pain EXAMINATION/TECHNIQUE: X-RAY - XR Abdomen Series W/ Chest 1 View COMPARISON: : FINDINGS: --Chest: LINES/DEVICES: None. LUNGS: No consolidation, edema or effusion. No pneumothorax. MEDIASTINUM AND CARDIOVASCULAR STRUCTURES: Cardiac silhouette not enlarged. Central airways and mediastinal contour are unremarkable. BONES AND SOFT TISSUES: There is a 29 degree dextroscoliosis of the thoracic spine. --Abdomen: BOWEL GAS PATTERN: There is large fecal residue in the colon. FREE AIR: None visualized. ORGANOMEGALY: Not seen. CALCIFICATIONS: No abnormal calcifications observed. BONES AND SOFT TISSUES: There is a 17 degree levoscoliosis of the lumbar spine. RAD/Acute Abdomen Inc Chest IMPRESSION: There is large fecal residue in the colon. Electronically Signed: Good Grider MD at 23:57 EDT ,
[2023-01-14] MEDS: MethylPREDNISolone 125 MG/2 ML Vial IV
[2023-01-14] MEDS: HYDROmorphone 1 MG/ML Syringe IV (00:03)
[2023-01-14 00:19] VITALS: BP 130/87; PULSE 71; RESP 15; O2SAT 100
== END 2023-01-14 00:25 | disposition home or self-care (01) ==
PROVIDERS: Emergency Provider Emergency Medicine; PCP Nurse Practitioner Family; Visit Provider Emergency Medicine
DX: K50.90 Crohn's disease, unspecified, without complications (principal); M06.9 Rheumatoid arthritis, unspecified; K59.00 Constipation, unspecified; F17.210 Nicotine dependence, cigarettes, uncomplicated
CPT/HCPCS: 74022; 80048; 80076; 83605; 83690; 83735; 85025; 85652; 86140; 96374; 96375; 99283; J7030; A4216; J2405

== ENCOUNTER → 2023-01-16 | Outpatient (CLI) | payer BC, SELFPAY ==
[2023-01-16 18:33] LABS: Absolute Lymphocyte Count 1.24 X10^3/uL (0.83-4.51); Absolute Neutrophil Count 7.6 X10^3/uL (2.0-7.7); Basophil# 0.03 X10^3/uL; Basophil% 0.3 % (0-1); Hematocrit 47.7 % (37-47); Hemoglobin 15.4 g/dL (12.0-15.0); Lymphocyte # 1.24 X10^3/ul (0.83-4.51); Lymphocyte % 13.6 % (19-41); Mean Corp Hgb Conc 32.3 g/dL (32-36); Mean Corpuscular Hgb 30.7 pg (27.0-32.0); Mean Corpuscular Volume 95.2 fL (81-99); Mean Platelet Vol. 11.4 fl (6.2-12.0); Monocyte# 0.21 X10^3/uL; Monocyte% 2.3 % (0-10); NRBC Flagged by Analyzer 0 % (0-5); Neutrophil # 7.58 X10^3/uL (2.7-7.7); Neutrophil % 83.4 % (47-70); Platelet Count 213 K/mm3 (150-450); RBC Distribution Width CV 13.2 % (11.6-14.6); RBC Distribution Width SD 46.6 fl (35.1-43.9); Red Blood Count 5.01 M/mm3 (4.2-5.4); White Blood Count 9.1 K/mm3 (4.4-11.0)
[2023-01-16 19:02] LABS: Erythrocyte Sedimentation Rate 8 mm/hr (0-30)
[2023-01-16 19:05] LABS: ALB/GLOB Ratio 1.1 RATIO (0.9-2.4); AST(SGOT) 16 U/L (15-37); Alanine Aminotransfer ALT/SGPT 25 U/L (13-56); Albumin, Serum 4.5 g/dL (3.2-5.0); Alkaline Phosphatase 93 U/L (45-117); Anion Gap 8 (5-15); BUN 12 mg/dL (7-18); BUN/Creat Ratio 15.3 RATIO (10-20); CRP < 2.90 mg/L (0.0-3.0); Calcium,Total 9.3 mg/dL (8.5-10.1); Chloride 109 mmol/L (98-107); Creatinine, Serum 0.78 mg/dL (0.55-1.02); EST Glomerular Filtration Rate 89 mL/min (>60); Est Glom Filt Rate - Afr Amer 107 mL/min (>60); Glucose 90 mg/dL (74-106); Potassium 3.8 mmol/L (3.5-5.1); Protein, Total 8.5 g/dL (6.4-8.2); Sodium Level 140 mmol/L (136-145)
[2023-01-25 12:09] LABS: Calprotectin, Stool 61 ug/g (0-120)
== END | disposition home or self-care (01) ==
PROVIDERS: PCP Nurse Practitioner Family; Referring Provider Internal Medicine Gastroenterology; Visit Provider Internal Medicine Gastroenterology
DX: K50.90 Crohn's disease, unspecified, without complications (principal)
CPT/HCPCS: 36415; 80053; 83630; 83993; 85025; 85652; 86140

== ENCOUNTER 2023-03-06 17:58 | Emergency (ER) | payer BC, SELFPAY ==
[2023-03-06 18:03] VITALS: BP 106/66; PULSE 87; RESP 18; TEMP 36.4; O2SAT 98; BMI 25.1
--- NOTE | 2023-03-06 19:16 | CT_ITS ---
STUDY: CT Abdomen And Pelvis W/ Contrast Injection 03/06/2023 8:23 PM REASON FOR EXAM: Female, 37 years old. ABDOMINAL PAIN L sided abd pain, hx crohns TECHNIQUE: Transaxial images were obtained without oral contrast, and with IV 100mL Isovue-300 intravenous contrast. Individualized dose optimization techniques were used for this CT. COMPARISON: 03.23.22 FINDINGS: The visualized lung bases are unremarkable. The visualized portions of the heart are within normal limits. Unremarkable liver. Unremarkable gallbladder and extrahepatic biliary system. Unremarkable spleen. Unremarkable pancreas. Unremarkable bilateral adrenal glands. No acute findings of the right kidney. No acute findings of the left kidney. Unremarkable visualized stomach. Unremarkable small intestine. Unremarkable colon. There are surgical clips in the region of the appendix consistent with a prior appendectomy. There are no acute findings of the abdominal aorta. Unremarkable inferior vena cava. Subcentimeter mesenteric lymph nodes. Unremarkable urinary bladder. There is absence of the uterus consistent with a prior hysterectomy. Unremarkable abdominal wall. Unremarkable osseous structures. CT/Abdomen/Pelvis W IV Cont ONLY IMPRESSION: (NOT LISTED IN ORDER OF SIGNIFICANCE) There are no acute findings. Other findings as above. Electronically Signed: Sunny Diaz MD at 20:26 EDT ,
--- NOTE | 2023-03-06 19:18 | EDS_ITS ---
HPI HPI - GI History of Present Illness Chief Complaint: Abd Pain Informant: patient Narrative Narrative: Patient having left-sided abdominal pain with nausea for the last 2 days. No radiation. She also states for the past week or so, she has had foreign body sensation in her lower chest with swallowing almost like food is having trouble getting through but she has had no vomiting from that, and the transition is transient and only associated with swallowing. In addition she has noticed black tarry stools off-and-on for the past week or so, she states sometimes it looks like coffee grounds but she has never seen any blood, and she is not vomiting anything including blood. She has a history of Crohn's, she has never required any surgery for it. She had a scope a year ago or so diagnosing it, and has been on Stelara but only had 1 infusion about a month ago. She is also altered her diet, this combination of things that seem to help until this past week. [facility] Medical History Acute frontal sinusitis, unspecified Anemia Anxiety Colon polyps Depression Endometriosis FH: migraine headache Graves disease Heartburn History of hiatal hernia History of steroid therapy Hx of Crohn's disease Hypothyroidism Low iron Migraine Smoker Thyroid disease Wears dentures Wears glasses Home Medications citalopram 10 mg tablet 10 mg PO DAILY anti depressant 01/18/18 [History Last Taken 04/19/22] levothyroxine 125 mcg tablet 125 mcg PO DAILY thyroid 01/18/18 [History Last Taken 04/19/22] ferrous gluconate 324 mg (37.5 mg iron) tablet 325 mg PO DAILY supplement 03/14/18 [History Last Taken Unknown] estradiol 2 mg tablet 2 mg PO QDAY #90 tabs 05/24/22 [Rx Last Taken Unknown] loratadine 10 mg capsule 10 mg PO DAILY 06/29/22 [History Last Taken Unknown] folic acid 1 mg tablet 2 mg PO DAILY 11/29/22 [History Last Taken Unknown] methotrexate sodium 5 mg tablet 30 mg PO TU 11/29/22 [History Last Taken Unknown] leucovorin calcium 15 mg tablet 15 mg PO WE 01/03/23 [History Last Taken Unknown] dicyclomine 20 mg tablet 20 mg PO TID #45 tabs 01/16/23 [Rx Last Taken Unknown] prochlorperazine maleate 5 mg tablet 5 mg PO BID PRN nausea and vomiting #30 tabs 01/17/23 [Rx Last Taken Unknown] pantoprazole 40 mg tablet,delayed release (Protonix) 40 mg PO DAILY #30 tabs 01/31/23 [Rx Last Taken Unknown] ustekinumab 90 mg/mL subcutaneous syringe (Stelara) 90 mg subcut Q8W #1 mL 02/01/23 [Rx Last Taken Unknown] dicyclomine 10 mg capsule 20 mg (2 x 10 mg) PO Q6H PRN PRN abdominal pain #20 CAPSULES 03/06/23 [Rx Last Taken Unknown] oxycodone-acetaminophen 5 mg-325 mg tablet 1 tab PO Q6H PRN PRN Pain 3 days #10 TABLETS 03/06/23 [Rx Last Taken Unknown] prednisone 10 mg tablet 10 mg PO DAILY PRN flare up 03/06/23 [History Last Taken Unknown] Allergy/AdvReac Type Severity Reaction Status Date / Time etodolac [From Lodine] Allergy Mild Itching Verified 03/06/23 19:36 adalimumab [From Humira] Allergy Hives Verified 03/06/23 19:36 influenza virus vaccine tv AdvReac Fainting Verified 03/06/23 19:36 splt 2012-14 (4 yr,up) [From Fluvirin] Surgical History H/O bilateral salpingo-oophorectomy H/O exploratory laparotomy History of appendectomy History of carpal tunnel surgery of right wrist History of colonoscopy History of hysteroscopy History of knee surgery History of LAVH History of oral surgery History of tonsillectomy and adenoidectomy Hx of thyroidectomy Social History Smoking Status: Current every day smoker tobacco type: cigarettes alcohol intake: never substance use type: does not use caffeine: Yes what type of physical activity do you participate in: none seatbelt use: always do you feel safe at home: Yes additional social history: [employer] Patient works at [employer] ED Constitutional Constitutional ED: Denies chills or fever(s) Eyes Eyes: Denies change in vision or diplopia ENT ENT ED: Denies rhinorrhea or sore throat Cardiovascular Cardiovascular: Reports other Details: Chest discomfort with swallowing see HPI. No angina symptoms. ; Denies palpitations Respiratory/Chest Respiratory/Chest: Denies cough or dyspnea Gastrointestinal Gastrointestinal: Reports as per HPI, abdominal pain, diarrhea, dysphagia, melena and nausea; Denies hematemesis, hematochezia or vomiting Genitourinary Genitourinary ED: Denies dysuria or hematuria Musculoskeletal Musculoskeletal: Denies back pain or neck pain Integumentary Denies abscess or rash Neurologic Neurologic: Denies headache(s), paresthesias or weakness Psychiatric Psychiatric: Denies anxiety or suicidal thoughts EXAM Physical Exam Const Vital Signs: 03/06/23 18:03 Temperature 97.6 F L Temperature Source Temporal Pulse Rate 87 Respiratory Rate 18 Blood Pressure 106/66 Blood Pressure Mean 79 Pulse Ox 98 Oxygen Delivery Method Room Air Positive well nourished and well developed General Appearance ED: well developed and NAD HEENT Reports moist mucous membranes normocephalic and atraumatic Eyes PERRL and EOMs intact bilaterally Neck full ROM and supple Resp normal respiratory effort and clear to auscultation bilaterally Cardio regular rate, regular rhythm and no murmurs Rate: Negative for tachycardic GI non-distended GI Narrative: Tender throughout the left side of the abdomen. No guarding or rebound tenderness. Rest of the abdomen is benign. No [place] sign no Zarate Romeo sign. Auscultation: normoactive bowel sounds Palpation: soft Back/Spine no CVA tenderness General Back: other FROM Extremity normal to inspection General Extremety ED: Negative for edema, pulses abnormal or tenderness General Extremity: Negative for edema or pulses abnormal Neuro oriented x3, CN's II-XII intact bilaterally and no sensory deficits noted Sensorium / Orientation: awake and alert Motor Exam: strength 5/5 throughout Skin no rashes or lesions noted and no wounds MDM MDM MDM Narrative Medical decision making narrative: Labs are all normal, Hemoccult is negative, the patient does not have an elevated BUN or an anemia to suggest acute upper GI bleeding. She has a history of a hiatal hernia, she already is on a PPI daily. CT images were reviewed, as well as interpretation which I agree with, negative for everything acute. Does not show any signs of intestinal inflammation, to suggest a Crohn's exacerbation. She states she has a standing prescription for prednisone I have it in my purse. As I discussed with the patient, if she has a standing order to use it without permission, she is welcome to do that if she thinks this feels like her Crohn's. I have no medical evidence to suggest that is what is going on, I advised that as long as she does it for less than a week she can always discontinue it if it is not helping and she is okay with that. She was given multiple doses of morphine and Toradol here, she said none of it helped her p ain. I am going to give her dicyclomine as well as a prescription for it, her esophageal discomfort I think is something separate that she needs an EGD for if it does not resolve on its own. Family is asking if her hiatal hernia is causing this, I do not think so. She does not have a paraesophageal. We will prescribe her dicyclomine and a couple of oxycodone and advised close outpatient follow-up with GI. They are not on-call to discuss with at this time. History & Record Review Discussion w/independent historian: Patient and Family Lab Data Attestation: I reviewed the patient's lab results. Labs: Laboratory Results - last 24 hr 03/06/23 19:30 WBC 7.8 RBC 4.57 Hgb 14.3 Hct 42.6 MCV 93.2 MCH 31.3 MCHC 33.6 RDW Std Deviation 44.0 H RDW Coeff of Sy 12.9 Plt Count 219 MPV 10.0 Immature Gran % (Auto) 0.100 Neut % (Auto) 43.6 L Lymph % (Auto) 43.5 H [place] % (Auto) 7.8 Eos % (Auto) 4.1 Baso % (Auto) 0.9 Absolute Neuts (auto) 3.4 Absolute Lymphs (auto) 3.39 Nucleated RBC % 0 Sodium 139 Potassium 3.4 L Chloride 106 Carbon Dioxide 29.0 Anion Gap 4 L BUN 9 Creatinine 0.73 Estim Creat Clear Calc 96.79 Est GFR (MDRD) Af Amer 116 Est GFR (MDRD) Non-Af 96 BUN/Creatinine Ratio 12.3 Glucose 88 Calcium 9.3 Urine Color Yellow Urine Clarity Clear Urine pH 8.0 Ur Specific [place] 1.015 Urine Protein Negative Urine Glucose (UA) Normal Urine Ketones Negative Urine Occult Blood Negative Urine Nitrite Negative Urine Bilirubin Negative Urine Urobilinogen Normal Ur Leukocyte Esterase 25 H Urine RBC 0 SEEN Urine WBC 0 SEEN Ur Squamous Epith Cells 0 SEEN Urine Bacteria 0 SEEN Urine Mucus 0 SEEN Radiography Chest X-Ray - ED: 2 View, Read by ED Physician, No Acute Disease and No Infiltrates Diagnostic Testing: Clinical Impression(s) from Imaging Studies Abdomen/Pelvis CT 03/06/23 19:16 IMPRESSION: (NOT LISTED IN ORDER OF SIGNIFICANCE) There are no acute findings. Other findings as above. Electronically Signed: Sunny Diaz MD at 20:26 EDT , Chest X-Ray 03/06/23 20:05 IMPRESSION: No radiographic evidence of acute cardiopulmonary disease. Electronically Signed: Sunny Diaz MD at 20:21 EDT , Discharge Plan Triage Chief Complaint: Abd Pain ED Provider: Kraig Chapman Dx/Rx/DC Orders Clinical Impression: Crohn disease, Dysphagia, Left sided abdominal pain Instructions: Abdominal Pain, Understanding Dysphagia Prescriptions: New dicyclomine 10 mg capsule 20 mg PO Q6H PRN PRN (Reason: abdominal pain) Qty: 20 0RF oxycodone-acetaminophen [oxycodone-acetaminophen] 5-325 mg tablet 1 tab PO Q6H PRN PRN (Reason: Pain) 3 Days Qty: 10 0RF No Action estradiol 2 mg tablet 2 mg PO QDAY Qty: 90 4RF leucovorin calcium 15 mg tablet 15 mg PO WE citalopram 10 MG tablet 10 mg PO DAILY levothyroxine 125 MCG tablet 125 mcg PO DAILY ferrous gluconate 325 MG tablet 325 mg PO DAILY loratadine 10 mg Capsule 10 mg PO DAILY methotrexate sodium 5 mg Tablet 30 mg PO TU folic acid 1 mg Tablet 2 mg PO DAILY prednisone 10 mg tablet 10 mg PO DAILY PRN (Reason: flare up) dicyclomine 20 mg tablet 20 mg PO TID Qty: 45 1RF prochlorperazine maleate 5 mg tablet 5 mg PO BID PRN (Reason: nausea and vomiting) Qty: 30 1RF pantoprazole [Protonix] 40 mg tablet,delayed release (DR/EC) 40 mg PO DAILY Qty: 30 5RF Stelara 90 mg/mL syringe 90 mg subcut Q8W Qty: 1 5RF Primary Care Provider: Debra Roland Referrals: Harrison Abbott DO [Med Staff - Active Staff] - As soon as possible Debra Roland, [facility]OO[facility] TECHNICIAN-C [Primary Care Provider] - Disposition Disposition: Home, Self Care
[2023-03-06] MEDS: 0.9% Normal Saline 1,000 ML 1000 ML IV (19:34)
[2023-03-06] MEDS: Morphine 4 MG/ML Syringe IV ×2 (19:35→20:33)
[2023-03-06] MEDS: Ondansetron 4 MG/2 ML Vial IV (19:35)
[2023-03-06 19:49] LABS: Bacteria 0 SEEN /hpf (None Seen); Mucous, Urine 0 SEEN /hpf (<or=2+); Red Blood Cells-Urine 0 SEEN /hpf (0-5); Squamous Epithelial Cells - UA 0 SEEN /hpf (5-10); White Blood Cells 0 SEEN /hpf (0-5)
[2023-03-06 19:52] LABS: Absolute Lymphocyte Count 3.39 X10^3/uL (0.83-4.51); Absolute Neutrophil Count 3.4 X10^3/uL (2.0-7.7); Basophil# 0.07 X10^3/uL; Basophil% 0.9 % (0-1); Color, Urine Yellow (Yellow); Eosinophil# 0.32 X10^3/uL; Eosinophils% 4.1 % (0-5); Glucose, Dipstick Normal (Normal); Hematocrit 42.6 % (37-47); Hemoglobin 14.3 g/dL (12.0-15.0); Ketone-Dipstick Negative (Negative); Leukocyte Esterase-Dipstick 25 /ul (Negative); Lymphocyte # 3.39 X10^3/ul (0.83-4.51); Lymphocyte % 43.5 % (19-41); Mean Corp Hgb Conc 33.6 g/dL (32-36); Mean Corpuscular Hgb 31.3 pg (27.0-32.0); Mean Corpuscular Volume 93.2 fL (81-99); Monocyte# 0.61 X10^3/uL; Monocyte% 7.8 % (0-10); NRBC Flagged by Analyzer 0 % (0-5); Neutrophil # 3.39 X10^3/uL (2.7-7.7); Neutrophil % 43.6 % (47-70); Nitrite-Dipstick Negative (Negative); Occult Blood-Urine Negative /ul (Negative); Platelet Count 219 K/mm3 (150-450); Protein-Dipstick Negative (Negative); RBC Distribution Width CV 12.9 % (11.6-14.6); Red Blood Count 4.57 M/mm3 (4.2-5.4); Specific Gravity, Urine 1.015 (1.002-1.030); Urine Bilirubin Dipstick Negative (Negative); Urine Clarity Clear (Clear); Urine Urobilinogen Normal (Normal); White Blood Count 7.8 K/mm3 (4.4-11.0)
--- NOTE | 2023-03-06 20:05 | RAD_ITS ---
EXAM: XR CHEST, 2 VIEWS CLINICAL INDICATION: pain TECHNIQUE: Frontal and lateral views of the chest. COMPARISON: 6.9.23 FINDINGS: LUNGS AND PLEURAL SPACES: Unremarkable. No consolidation or edema. No pneumothorax. No effusion. HEART: Unremarkable. Cardiac silhouette not enlarged. MEDIASTINUM: Central airways and mediastinal contour are unremarkable. BONES/JOINTS: Unremarkable. SOFT TISSUES: Unremarkable. RAD/Chest PA and Lateral IMPRESSION: No radiographic evidence of acute cardiopulmonary disease. Electronically Signed: Sunny Diaz MD at 20:21 EDT ,
[2023-03-06 20:07] LABS: Anion Gap 4 (5-15); BUN 9 mg/dL (7-18); BUN/Creat Ratio 12.3 RATIO (10-20); Calcium,Total 9.3 mg/dL (8.5-10.1); Chloride 106 mmol/L (98-107); Creatinine, Serum 0.73 mg/dL (0.55-1.02); EST Glomerular Filtration Rate 96 mL/min (>60); Est Glom Filt Rate - Afr Amer 116 mL/min (>60); Estimated Creatinine Clearance 96.79 ml/min; Glucose 88 mg/dL (74-106); Potassium 3.4 mmol/L (3.5-5.1); Sodium Level 139 mmol/L (136-145)
[2023-03-06] MEDS: Ketorolac 15 MG/ML Vial IV (20:34)
[2023-03-06] MEDS: Dicyclomine 20 MG/2 ML Vial IM (22:25)
[2023-03-06 22:27] VITALS: BP 109/62; PULSE 53; RESP 18; O2SAT 99
== END 2023-03-06 22:40 | disposition home or self-care (01) ==
PROVIDERS: Emergency Provider Emergency Medicine; PCP Nurse Practitioner Family; Visit Provider Emergency Medicine
DX: K50.90 Crohn's disease, unspecified, without complications (principal); R13.10 Dysphagia, unspecified; R10.9 Unspecified abdominal pain; F32.A Depression, unspecified; F41.9 Anxiety disorder, unspecified; E03.9 Hypothyroidism, unspecified; F17.210 Nicotine dependence, cigarettes, uncomplicated; Z79.899 Other long term (current) drug therapy
CPT/HCPCS: 71046; 74177; 80048; 81001; 82274; 85025; 96361; 96372; 96374; 96375; 96376; 99283; J7030; Q9967; A4216; J2405

== ENCOUNTER 2023-03-14 13:41 | Day surgery (SDC) | payer BC, SELFPAY ==
[2023-03-14] VITALS (7 sets, daily range): BP systolic 86–116; BP diastolic 55–78; PULSE 54–63; RESP 12–18; TEMP 35.6–36.5; O2SAT 98–100; BMI 24.5
[2023-03-14] MEDS: Lactated Ringers 1,000 ML 15 ML IV (14:00)
--- NOTE | 2023-03-14 14:05 | HP.PCM_ITS ---
History and Physical Date of Admission: 03/14/23 OLIVIA CHANCE, is a 37 F who presents to the office today for PMH endometriosis, Graves disease, hypothyroid, migraine, anemia, colon polyps.? PSH appendectomy; total hysterectomy Hospitalization 2018 for hemoglobin 5.4 with suspected GIB (not seen on colo noscopy); she was discharged following transfusion of PRBC with orders to follow up as outpatient Colonoscopy 01.19.[address] Hester for suspected GIB without visual abnormalit ies. Colon random and TI biopsies without pathologic changes. [facility] ED presentation 03.23.22 for lower abdominal pain/cramping with frequent BM and black stools with nausea (resolved) and bloating, one week prior to this she was having diarrhea. Exam, biochemical workup unremarkable, imaging with abnormality; pain medication effective and she was discharged. She has had simil ar symptoms periodically spanning across years. Stools are typically occur 2-3 times a day with normal consistency. ? Biochemical CBC, CMP, lipase, UA without pertinent abnormalities. CT abd/pel hepatic hemangioma otherwise normal; multiple filling defects/stones of gallbladder neck without wall thickening or stranding; small hiatal hernia; distal ileum demonstrates wall thickening and luminal narrowing; scattered large bowel wall thickening most prominent in descending colon with distal narrowing; peritoneal lymphadenopathy. Recommend IBD correlation. *BGI established 03.25.22 following ED presentation as noted above. Start dicyclomine Contact 04.08.22 prednisone 50mg with tapering to stop . ? EGD and colonoscopy 04.19.22. EGD found LA Grade A reflux esophagitis; chronic gastritis. H.pylori negative Colonoscopy found Crohn?s Disease 6 with ileitis and acute colitis. C.Difficile and enteric pathogen WNL OV 05.06.22 She is having difficulty with aphthous sores in her mouth and dry/red uncomfortable skin on her hands, some joint pain. Continuing to have BM 6-10 times a day with mucous, no blood. Lower abdominal and back pain. Continues with prednisone 50mg without adverse effect. Received her MMR recently. Nutrition services [id number]. [facility] ED 06.29.22 with abdominal pain, nausea, coffee colored stools x1 day. Imaging and biochemical workup without acute concern and she was provided with IVF and discharged home with ATB therapy and cough suppressant. ? CT abd/pel Without acute/chronic abnormality. Contact 07.14.22 wishing to decrease prednisone r/t irritability and compulsive behavior. Weaning taper provided. OV 08.02.22 steroid wean completed with improvement of adverse effect. Concern regarding dry skin on her hands where they become dry and cracked. BM have been more constipated with mucous lately; morning abdominal pain/cramping, dicyclomine effective. Food triggered reflux and belching. She has had three injections so far and has experienced a migraine on two occasions. She does typically get migraines; used to do injections which were helpful but insurance stopped. Currently taking verapamil and amitriptyline. Will talk to PCP about management options. Difficulty with insurance and high balance with her pharmacy because. Rheumatology established early 2022 diagnosed with Rheumatoid Arthritis and started methotrexate and folic acid. Contact 10.12.22 with concern regarding site reaction of widespread hives with itching following recent injection. Change to Stelara. OV 11.30.22 doing well following Stelara infusion; she did get a headache and felt drained during infusion. She has started methotrexate which she feels was helpful during period without therapy. Did have return of abdominal discomfort. ? ESR/CRP ? Calp/Lact? Level/ab ? TB 03.25.22.4? 458/? --/--? --? AUDIE comp, ANCA, CBC, CMP, Celiac WNL; C.difficile, EP, elastase WNL. IBD (apANCA, AMCA, ALCA) 04.21.22 --/--? --/--? <0.6/neg? neg? Prakash Start 08.24.22 2/<2.9? --/? --/--? -- 09.23.22 1/<2.9? --/? --/--? --? Grace Start 11.06.22 ROS Const Constitutional: No anorexia, fatigue, fever(s), weight change or sleep problems Eyes Eyes: No change in vision ENT ENT: No abnormal hearing, difficulty swallowing, mouth lesions, tongue swelling or throat swelling Resp Respiratory: No cough or shortness of breath Cardio Cardiology: No chest pain at rest, chest pain with exertion, shortness of breath or dyspnea on exertion Gastro GI: No difficulty swallowing Genitourinary-Female: No difficulty urinating or burning urination Musc Musculoskeletal: No joint pain, joint swelling, muscle weakness or decreased muscle mass Skin Skin: No hair loss in leg, yellowing of the eye, itchy eyes, rash, skin ulcer or skin swelling Neuro Neurology: No abnormal hearing, abnormal movements, confusion, unsteady gait/balance or memory loss Psych Psychiatric: No anxiety, No confusion and No memory loss Endo Endocrine: No fatigue or weight change Aller/Imm Allergy/Immunologic: No itchy eyes, throat swelling or tongue swelling Stephen/Lymp Hematologic/Lymphatic: No easy bleeding, easy bruising or enlarged lymph nodes Exam Const General: cooperative and comfortable Nutritional Appearance: average body habitus and well nourished HENMT Head: normal to inspection Ears: hearing grossly normal bilaterally Nose: external nose normal Face and sinus: normal facial exam Mouth: oral mucosae normal Throat: posterior oropharynx normal Eyes General: appearance normal, both eyes and all related structures Neck Neck: normal visual inspection Chest Chest palpation & inspection: normal inspection of the chest and normal palpation of entire chest wall Resp Effort & Inspection: normal respiratory effort Auscultation: Bilateral: Clear to Auscultation Cardio Palpation: normal PMI Rate: regular rate Rhythm: regular rhythm GI Inspection: normal to inspection Auscultation: normal bowel sounds Percussion: normal to percussion Palpation: no hepatosplenomegaly Skin General: no rashes or lesions noted Neuro General: patient alert Extrem General: normal to inspection Psych Affect: normal affect Quality Reporting Tobacco Screening ([facility] 138) Smoking Status: Current every day smoker Assessment and Plan Assessment and Plan (1) Crohn disease: Status: Chronic Plan: she is is doing a lot better when she gets. However, she has not received her medication because of an insurance issue. She had to go off of the prednisone due to side effects. She still has some dicyclomine that is helping with her cramping. She is taking antinausea medications. Hopefully able to get her Humira back for her. need to check therapeutic levels prior to her restarting the medication. (2) Migraine: Status: Chronic Plan: I do not think her migraine a Crohn's disease equivalent at this time. Recom mend that she can migraine regimen with Verapamil and Celexa. (3) Inflammatory arthritis: Status: Acute Plan: She is doing very well inflammatory arthritis secondary to her Crohn's disease. Her knees are less swollen and her extremities are less swollen on 2.5 mg of methotrexate 4 pills once a week. She is getting increased up to 5 pills a week with leucovorin to prevent the side effects of the methotrexate. Her ESR and CRP are normal. I have examined the patient and the H&P has been reviewed. There are no clinical changes since date of exam.
--- NOTE | 2023-03-14 14:45 | IMM_PTH ---
PATIENT: OLIVIA CHANCE LOC: [facility] U#:[id number] AGE/SX: 37/F ROOM: RE03/14/[address]: Dr. Harrison Abbott DO : 1985 BED: DIS: 03/14/2023 SPEC #: [id number] RECD: 03/15/23 14:30 STATUS: WENDI REBina #: [id number] VANI: 03/14/23 14:[address]: Harrison Abbott DEPT: IMMUNOHISTOCHEMISTRY RECD BY: Tiarra Rosario ENTERED: 03/15/23 14:30 SP TYPE: IMMUNO OTHR DR: Debra Roland, SPRING SETTER-C Tissues: B - Stomach, NOS Procedures: H Pylori (initial) PHYSICIAN & INSTITUTION [place] [id number] SPECIMEN INFORMATION: Tissue Source: B - Gastric body Clinical Info: Crohn's disease Specimen Number: [id number] CPT code: 42377 METHODOLOGY: Deparaffinized sections of prefer/formalin-fixed tissue or PAP/DQ stained slides are incubated with monoclonal/polyclonal antibodies/oligonucleotide probes. Localization is made via biotin free immunoperoxidase method. Appropriate controls are performed and reacted as expected. Results on target cell population are indicated in the following table: RESULTS: ANTIBODY / CLONE RESULT Block B H Pylori (polyclonal) negative These tests were developed and their performance characteristics determined by [facility]. They may not have been cleared or approved by the U.S. Food and Drug Administration. The FDA has determined that such clearance or approval is not necessary. The above immunohistochemical/dualISH markers are ordered and reviewed by the Pathologist. INTERPRETATION: B. Gastric body, biopsy: Negative for Helicobacter pylori organisms. AM:dario 03/16/2023
--- NOTE | 2023-03-14 14:45 | COLBX_PTH ---
PATIENT: OLIVIA CHANCE LOC: [facility] U#:[id number] AGE/SX: 37/F ROOM: RE03/14/[address]: Dr. Harrison Abbott DO : 1985 BED: DIS: 03/14/2023 SPEC #: [id number] RECD: 03/14/23 16:20 STATUS: WENDI RAHEEM #: [id number] VANI: 03/14/23 14:[address]: Harrison Abbott DEPT: SURGICAL PATHOLOGY RECD BY: Lionel Scanlon ENTERED: 03/15/23 07:25 SP TYPE: COLON BX OTHR DR: Debra Roland, SHEET ROCK TAPER-C Tissues: A - Duodenum, NOS B - Gastric mucous membrane C - Esophagus, NOS D - Ileum, NOS Procedures: Surgery Specimen Level IV HEADER OPERATION: Colonoscopy, EGD, biopsy PRE-OP DIAGNOSIS: Crohn's disease TISSUE SUBMITTED: A - Duodenum biopsy, B - Gastric body biopsy, C - Random esophagus biopsy, D - Terminal ileum biopsy MICROSCOPIC DIAGNOSIS A. Duodenum, biopsy: No pathologic change. B. Gastric body, biopsy: Chronic gastritis. See comment. C. Esophagus, random biopsy: Fragments of benign squamous mucosa. No evidence of inflammation. D. Terminal ileum, biopsy: No significant pathologic change. See comment. AM:dario 03/16/2023 COMMENT B. The results of immunohistochemistry for Helicobacter pylori will be reported separately ([id number]). D. Eosinophils are mildly increased in the mucosa. The significance of this is unclear. Clinical correlation is suggested. MICROSCOPIC DESCRIPTION Slides are reviewed. GROSS DESCRIPTION A - Received in fixative is one container labeled with the patient's name and designated duodenum biopsy. The specimen consists of two irregular fragments of light hameed soft tissue that in aggregate measure 0.7 x 0.3 x 0.1 cm. The specimen is totally submitted in one cassette. B - Received in fixative is one container labeled with the patient's name and designated gastric body. The specimen consists of multiple irregular fragments of light hameed soft tissue that in aggregate measure 0.6 x 0.5 x 0.1 cm. The specimen is totally submitted in one cassette. C - Received in fixative is one container labeled with the patient's name and designated random esophagus biopsy. The specimen consists of multiple irregular fragments of light hameed soft tissue that in aggregate measure 1.0 x 0.6 x 0.1 cm. The specimen is totally submitted in one cassette. D - Received in fixative is one container labeled with the patient's name and designated terminal ileum biopsy. The specimen consists of multiple irregular fragments of light hameed soft tissue that in aggregate measure 1.0 x 0.5 x 0.1 cm. The specimen is totally submitted in one cassette. / SJ:rg 03/15/2023 TC:3 CPT: 01169 x4
--- NOTE | 2023-03-14 15:38 | OP.CCLET_ITS ---
03/14/2023 Sea Wong Re : Upper GI endoscopy procedure for Dina Man Dear [place] This procedure was performed on Tuesday, March 14, 2023. My impressions and recommendations are as follows: Impressions : - Abnormal esophageal motility, suspicious for esophageal spasm. Biopsied. - Erythematous mucosa in the gastric body. Biopsied. - No gross lesions in the second portion of the duodenum. Biopsied. Recommendations : - Discharge patient to home. - Resume previous diet. - Continue present medications. - Await pathology results. My findings are described in the full procedure note, which is enclosed. If I can be of further assistance, please feel free to contact me at . Sincerely, Harrison Abbott, 03/14/2023 3:38:12 PM This report has been signed electronically.
--- NOTE | 2023-03-14 15:38 | OP.EGD_ITS ---
Patient Name: Dina Man Procedure Date: 03/14/2023 2:57 PM Date of : 1985 Age: 37 Procedure: Upper GI endoscopy Indications: Dysphagia Providers: Harrison Abbott DO Referring MD: Sea Wong Medicines: Monitored Anesthesia Care Patient Profile: This is a 37 year old female. Refer to note in patient chart for documentation of history and physical. Patient has symptoms. Complications: No immediate complications. Procedure: Pre-Anesthesia Assessment: - Prior to the procedure, a History and Physical was performed, and patient medications and allergies were reviewed. The patient is competent. The risks and benefits of the procedure and the sedation options and risks were discussed with the patient. All questions were answered and informed consent was obtained. Patient identification and proposed procedure were verified by the physician in the pre-procedure area. Mental Status Examination: alert and oriented. Airway Examination: normal oropharyngeal airway and neck mobility. Respiratory Examination: clear to auscultation. CV Examination: normal. Prophylactic Antibiotics: The patient does not require prophylactic antibiotics. Prior Anticoagulants: The patient has taken no previous anticoagulant or antiplatelet agents. ASA Grade Assessment: II - A patient with mild systemic disease. After reviewing the risks and benefits, the patient was deemed in satisfactory condition to undergo the procedure. The anesthesia plan was to use monitored anesthesia care (MAC). Immediately prior to administration of medications, the patient was re-assessed for adequacy to receive sedatives. The heart rate, respiratory rate, oxygen saturations, blood pressure, adequacy of pulmonary ventilation, and response to care were monitored throughout the procedure. The physical status of the patient was re-assessed after the procedure. After obtaining informed consent, the endoscope was passed under direct vision. Throughout the procedure, the patient's blood pressure, pulse, and oxygen saturations were monitored continuously. The pediatric colonoscope was introduced through the mouth, and advanced to the second part of duodenum. The upper GI endoscopy was accomplished without difficulty. The patient tolerated the procedure well. Scope In: 3:10:38 PM Scope Out: 3:15:19 PM Total Procedure Duration Time 0 hours 4 minutes 41 seconds Findings: Abnormal motility was noted in the middle third of the esophagus. The cricopharyngeus was abnormal. There is spasticity of the esophageal body. The distal esophagus/lower esophageal sphincter is spastic, but gives up passage to the endoscope. Tertiary peristaltic waves are noted. Biopsies were obtained from the proximal and distal esophagus with cold forceps for histology of suspected eosinophilic esophagitis. Patchy mildly erythematous mucosa without bleeding was found in the gastric body. Biopsies were taken with a cold forceps for histology. Verification of patient identification for the specimen was done. Estimated blood loss was minimal. No gross lesions were noted in the second portion of the duodenum. Biopsies were taken with a cold forceps for histology. Verification of patient identification for the specimen was done. Estimated blood loss was minimal. Impression: - Abnormal esophageal motility, suspicious for esophageal spasm. Biopsied. - Erythematous mucosa in the gastric body. Biopsied. - No gross lesions in the second portion of the duodenum. Biopsied. Recommendation: - Discharge patient to home. - Resume previous diet. - Continue present medications. - Await pathology results. Procedure Code(s): --- Professional --- 77122, Esophagogastroduodenoscopy, flexible, transoral; with biopsy, single or multiple CPT copyright 2017 [employer]. All rights reserved. The codes documented in this report are preliminary and upon computer science intern review may be revised to meet current compliance requirements. Harrison Abbott DO 03/14/2023 3:38:12 PM This report has been signed electronically. Number of Addenda: 0 Note Initiated On: 03/14/2023 2:57 PM
--- NOTE | 2023-03-14 15:42 | OP.COLON_ITS ---
Patient Name: Dina Man Procedure Date: 03/14/2023 3:15 PM Date of : 1985 Age: 37 Procedure: Colonoscopy Indications: Crohn's disease of the small bowel Providers: Harrison Abbott DO Referring MD: Sea Wong Medicines: Monitored Anesthesia Care Patient Profile: This is a 37 year old female. Refer to note in patient chart for documentation of history and physical. Patient has symptoms. Last Colonoscopy: within the past 3 years. Complications: No immediate complications. Procedure: Pre-Anesthesia Assessment: - Prior to the procedure, a History and Physical was performed, and patient medications and allergies were reviewed. The patient is competent. The risks and benefits of the procedure and the sedation options and risks were discussed with the patient. All questions were answered and informed consent was obtained. Patient identification and proposed procedure were verified by the physician in the pre-procedure area. Mental Status Examination: alert and oriented. Airway Examination: normal oropharyngeal airway and neck mobility. Respiratory Examination: clear to auscultation. CV Examination: normal. Prophylactic Antibiotics: The patient does not require prophylactic antibiotics. Prior Anticoagulants: The patient has taken no previous anticoagulant or antiplatelet agents. ASA Grade Assessment: II - A patient with mild systemic disease. After reviewing the risks and benefits, the patient was deemed in satisfactory condition to undergo the procedure. The anesthesia plan was to use monitored anesthesia care (MAC). Immediately prior to administration of medications, the patient was re-assessed for adequacy to receive sedatives. The heart rate, respiratory rate, oxygen saturations, blood pressure, adequacy of pulmonary ventilation, and response to care were monitored throughout the procedure. The physical status of the patient was re-assessed after the procedure. After I obtained informed consent, the scope was passed under direct vision. Throughout the procedure, the patient's blood pressure, pulse, and oxygen saturations were monitored continuously. The pediatric colonoscope was introduced through the anus and advanced to the terminal ileum. The colonoscopy was performed without difficulty. The patient tolerated the procedure well. The quality of the bowel preparation was good. Scope In: 3:17:02 PM Scope Withdrawal Time 0 hours 7 minutes 21 seconds Scope Out: 3:32:06 PM Total Procedure Duration Time 0 hours 15 minutes 4 seconds Findings: The perianal and digital rectal examinations were normal. The entire examined colon appeared normal on direct and retroflexion views. The hepatic flexure and ascending colon were moderately redundant. A patchy area of the terminal ileum was congested. Biopsies were taken with a cold forceps for histology. Verification of patient identification for the specimen was done. Estimated blood loss was minimal. Impression: - The entire examined colon is normal on direct and retroflexion views. - Redundant colon. - Congested mucosa in the terminal ileum. Biopsied. Recommendation: - Discharge patient to home. - Resume previous diet. - Continue present medications. - Await pathology results. - Repeat colonoscopy in 1 year for surveillance. Procedure Code(s): --- Professional --- 97247, Colonoscopy, flexible; with biopsy, single or multiple CPT copyright 2017 [employer]. All rights reserved. The codes documented in this report are preliminary and upon medical biller coder review may be revised to meet current compliance requirements. Harrison Abbott DO 03/14/2023 3:41:52 PM This report has been signed electronically. Number of Addenda: 0 Note Initiated On: 03/14/2023 3:15 PM
--- NOTE | 2023-03-14 15:42 | OP.CCLET_ITS ---
03/14/2023 Sea Wong Re : Colonoscopy procedure for Dina Man Dear Asuncion This procedure was performed on Tuesday, March 14, 2023. My impressions and recommendations are as follows: Impressions : - The entire examined colon is normal on direct and retroflexion views. - Redundant colon. - Congested mucosa in the terminal ileum. Biopsied. Recommendations : - Discharge patient to home. - Resume previous diet. - Continue present medications. - Await pathology results. - Repeat colonoscopy in 1 year for surveillance. My findings are described in the full procedure note, which is enclosed. If I can be of further assistance, please feel free to contact me at . Sincerely, Harrison Abbott, 03/14/2023 3:41:52 PM This report has been signed electronically.
== END 2023-03-14 17:14 | disposition home or self-care (01) ==
LOC: EN 13:42 → AC 13:44
PROVIDERS: PCP Nurse Practitioner Family; Referring Provider Nurse Practitioner Family; Visit Provider Internal Medicine Gastroenterology
PROC: 0DJD8ZZ Inspection of Lower Intestinal Tract, Via Natural or Artificial Opening Endoscopic (ICD-10-PCS; CPT 45378; principal; 2023-03-14 14:40)
DX: K29.50 Unspecified chronic gastritis without bleeding (principal); K50.90 Crohn's disease, unspecified, without complications; K31.89 Other diseases of stomach and duodenum; R13.10 Dysphagia, unspecified; Q43.8 Other specified congenital malformations of intestine; E03.9 Hypothyroidism, unspecified; G43.909 Migraine, unspecified, not intractable, without status migrainosus; M19.90 Unspecified osteoarthritis, unspecified site; D64.9 Anemia, unspecified; F32.A Depression, unspecified; F17.200 Nicotine dependence, unspecified, uncomplicated; Z86.010 Personal history of colon polyps
CPT/HCPCS: 45380; 43239; 88305; 88342; J7120; J2405

== ENCOUNTER 2023-03-23 20:14 | Emergency (ER) | payer BC, SELFPAY ==
[2023-03-23 20:16] VITALS: BP 115/62; PULSE 95; RESP 18; TEMP 35.8; O2SAT 100; BMI 24.5
[2023-03-23 20:57] LABS: Internal QC Validated? YES +Cl - CLEAR BKGD; Pregnancy, Serum, hCG Quali. NEGATIVE Negative
[2023-03-23 21:04] LABS: ALB/GLOB Ratio 1.2 RATIO (0.9-2.4); AST(SGOT) 12 U/L (15-37); Alanine Aminotransfer ALT/SGPT 20 U/L (13-56); Alkaline Phosphatase 81 U/L (45-117); Anion Gap 5 (5-15); BUN 8 mg/dL (7-18); BUN/Creat Ratio 10.1 RATIO (10-20); Chloride 106 mmol/L (98-107); Creatinine, Serum 0.79 mg/dL (0.55-1.02); EST Glomerular Filtration Rate 88 mL/min (>60); Est Glom Filt Rate - Afr Amer 106 mL/min (>60); Estimated Creatinine Clearance 89.44 ml/min; Globulin 3.2 g/dL (2.2-4.2); Glucose 122 mg/dL (74-106); Potassium 3.5 mmol/L (3.5-5.1); Protein, Total 7.2 g/dL (6.4-8.2); Sodium Level 138 mmol/L (136-145)
[2023-03-23 21:14] LABS: Absolute Lymphocyte Count 2.76 X10^3/uL (0.83-4.51); Absolute Neutrophil Count 4.1 X10^3/uL (2.0-7.7); Basophil# 0.03 X10^3/uL; Basophil% 0.4 % (0-1); Eosinophil# 0.31 X10^3/uL; Hematocrit 40.7 % (37-47); Hemoglobin 14.2 g/dL (12.0-15.0); Lymphocyte # 2.76 X10^3/ul (0.83-4.51); Lymphocyte % 35.6 % (19-41); Mean Corp Hgb Conc 34.9 g/dL (32-36); Mean Corpuscular Hgb 32.2 pg (27.0-32.0); Mean Corpuscular Volume 92.3 fL (81-99); Mean Platelet Vol. 9.9 fl (6.2-12.0); Monocyte# 0.56 X10^3/uL; Monocyte% 7.2 % (0-10); NRBC Flagged by Analyzer 0 % (0-5); Neutrophil # 4.09 X10^3/uL (2.7-7.7); Neutrophil % 52.7 % (47-70); Platelet Count 268 K/mm3 (150-450); RBC Distribution Width CV 12.4 % (11.6-14.6); RBC Distribution Width SD 42.5 fl (35.1-43.9); Red Blood Count 4.41 M/mm3 (4.2-5.4); White Blood Count 7.8 K/mm3 (4.4-11.0)
[2023-03-23 21:23] LABS: Mucous, Urine 0 SEEN /hpf (<or=2+)
[2023-03-23 21:48] LABS: Color, Urine Yellow (Yellow); Glucose, Dipstick Normal (Normal); Ketone-Dipstick 15 mg/dl (Negative); Leukocyte Esterase-Dipstick 25 /ul (Negative); Nitrite-Dipstick Negative (Negative); Occult Blood-Urine 25 /ul (Negative); Protein-Dipstick 15 mg/dl (Negative); Urine Bilirubin Dipstick Negative (Negative); Urine Clarity Clear (Clear); Urine Urobilinogen 1 mg/dl (Normal)
[2023-03-23 22:14] LABS: Bacteria RARE /hpf (None Seen); Red Blood Cells-Urine 0-5 SEEN /hpf (0-5); Squamous Epithelial Cells - UA 0-5 SEEN /hpf (5-10); White Blood Cells 0-5 SEEN /hpf (0-5)
[2023-03-23] MEDS: 0.9% Normal Saline 1,000 ML 999 ML IV (22:28)
[2023-03-23] MEDS: Diphenoxylate/Atrop 1 Tablet 2 TABLET PO (22:36)
--- NOTE | 2023-03-23 23:12 | EX.ED.DYSGE1 ---
HPI History of Present Illness Chief Complaint: Diarrhea Informant: patient Narrative Narrative: Patient is a 37-year-old female with past medical history of Crohn's disease. She states she has had diarrhea now for approximately 10 days. She states that she had a colonoscopy on March 14 and had to undergo the prep prior to the procedure. She states that after the procedure however the diarrhea has persisted. She does state that she had her Protonix increased to 80 mg/day and that she was also started on imipramine. She denies any known sick contacts or recent travel outside the country. However because of the 10 days of persistent diarrhea she presents for evaluation [facility] Medical History (Updated 03/24/23 @ 04:[address] Jeffry Granger, DO) Acute frontal sinusitis, unspecified Anemia Anxiety Colon polyps Depression Dietary restriction Endometriosis FH: migraine headache Graves disease Heartburn History of hiatal hernia History of steroid therapy Hx of Crohn's disease Hypothyroidism Low iron Smoker Thyroid disease Wears dentures Wears glasses Home Medications citalopram 10 mg tablet 20 mg PO DAILY anti depressant 01/18/18 [History Last Taken 03/14/23] levothyroxine 125 mcg tablet 125 mcg PO DAILY thyroid 01/18/18 [History Last Taken 03/14/23] ferrous gluconate 324 mg (37.5 mg iron) tablet 325 mg PO DAILY supplement 03/14/18 [History Last Taken Unknown] estradiol 2 mg tablet 2 mg PO QDAY #90 tabs 05/24/22 [Rx Last Taken Unknown] loratadine 10 mg capsule 10 mg PO DAILY 06/29/22 [History Last Taken Unknown] folic acid 1 mg tablet 2 mg PO DAILY 11/29/22 [History Last Taken Unknown] methotrexate sodium 5 mg tablet 15 mg PO TU 11/29/22 [History Last Taken Unknown] leucovorin calcium 15 mg tablet 15 mg PO WE 01/03/23 [History Last Taken Unknown] dicyclomine 20 mg tablet 20 mg PO TID #45 tabs 01/16/23 [Rx Last Taken Unknown] prochlorperazine maleate 5 mg tablet 5 mg PO BID PRN nausea and vomiting #30 tabs 01/17/23 [Rx Last Taken Unknown] ustekinumab 90 mg/mL subcutaneous syringe (Stelara) 90 mg subcut Q8W #1 mL 02/01/23 [Rx Last Taken Unknown] dicyclomine 10 mg capsule 20 mg (2 x 10 mg) PO Q6H PRN PRN abdominal pain #20 CAPSULES 03/06/23 [Rx Last Taken Unknown] oxycodone-acetaminophen 5 mg-325 mg tablet 1 tab PO Q6H PRN PRN Pain 3 days #10 TABLETS 03/06/23 [Rx Last Taken Unknown] prednisone 10 mg tablet 10 mg PO DAILY PRN flare up 03/06/23 [History Last Taken Unknown] pantoprazole 40 mg tablet,delayed release (Protonix) 40 mg PO BID 03/10/23 [History Last Taken Unknown] imipramine HCl 25 mg tablet 25 mg PO .daily #30 tabs 03/14/23 [Rx Last Taken Unknown] diphenoxylate-atropine 2.5 mg-0.025 mg tablet (Lomotil) 2 tab PO 4X/DAY PRN PRN diarrhea 5 days #40 tabs 03/23/23 [Rx Last Taken Unknown] Allergy/AdvReac Type Severity Reaction Status Date / Time etodolac [From Lodine] Allergy Mild Itching Verified 03/23/23 20:16 adalimumab [From Humira] Allergy Hives Verified 03/23/23 20:16 influenza virus vaccine tv AdvReac Fainting Verified 03/23/23 20:16 splt 2012-14 (4 yr,up) [From Fluvirin] Surgical History H/O bilateral salpingo-oophorectomy H/O exploratory laparotomy History of appendectomy History of carpal tunnel surgery of right wrist History of colonoscopy History of esophagogastroduodenoscopy (EGD) History of hysteroscopy History of knee surgery History of LAVH History of oral surgery History of tonsillectomy and adenoidectomy Hx of eye surgery Hx of thyroidectomy Social History Smoking Status: Current every day smoker tobacco type: cigarettes alcohol intake: never substance use type: does not use caffeine: Yes what type of physical activity do you participate in: none seatbelt use: always do you feel safe at home: Yes additional social history: [employer]- [employer] Patient works at [employer] ROS ROS ED Constitutional Constitutional ED: Denies chills or fever(s) ENT ENT ED: Denies sore throat Cardiovascular Cardiovascular: Denies chest pain Respiratory/Chest Respiratory/Chest: Denies cough or dyspnea Gastrointestinal Gastrointestinal: Reports abdominal pain and diarrhea; Denies nausea or vomiting Genitourinary Genitourinary ED: Denies dysuria or hematuria Musculoskeletal Musculoskeletal: Denies back pain or myalgias Integumentary Denies rash Neurologic Neurologic: Denies headache(s) Hematologic/Lymphatic Hematologic/Lymphatic: Denies easy bleeding or easy bruising EXAM Physical Exam Const Vital Signs: 03/23/23 20:16 03/23/23 23:36 Temperature 96.4 F L Temperature Source Temporal Pulse Rate 95 76 Respiratory Rate 18 16 Blood Pressure 115/62 111/60 Blood Pressure Mean 79 Pulse Ox 100 96 Oxygen Delivery Method Room Air Positive well nourished and well developed General Appearance ED: well developed HEENT HEENT Narrative: Mucous membranes are slightly dry and tacky No airway edema or compromise No signs of infection in the posterior pharynx Eyes PERRL and EOMs intact bilaterally General Eye ED: Negative for scleral icterus Neck supple Resp normal respiratory effort and clear to auscultation bilaterally Cardio regular rate and regular rhythm Rate: other Other Details: Radial and carotid pulses equal and symmetric GI non-distended GI Narrative: Abdomen is soft and nondistended with hyperactive bowel sounds. Patient has pain on palpation in the lower abdomen diffusely without voluntary guarding or rigidity. No pulsatile mass. No increased tympany Auscultation: hyperactive bowel sounds Palpation: soft Extremity normal to inspection Neuro oriented x3 and CN's II-XII intact bilaterally Sensorium / Orientation: alert Motor Exam: strength 5/5 throughout Psych mental status grossly normal Skin no rashes or lesions noted Skin Narrative: Skin turgor is slightly increased General Skin Exam: Negative for jaundice MDM MDM MDM Narrative Medical decision making narrative: Patient presented to the ER with stable vitals. History is concerning for acute kidney injury electrolyte disturbance or potential infectious diarrhea such as C. difficile E. coli or Salmonella. As she is having recurrent diarrhea I do not feel there is high likelihood for a small bowel obstruction and therefore do not feel the need for CT scan. Basic blood work was obtained and revealed no clinically significant finding. Patient was given IV hydration and Lomotil and had resolution of her diarrhea. At this time diarrhea could be secretory versus infectious and we will await the results of the stool sample prior to antibiotics as white count and temperature are normal. As she has been having recurrent diarrhea and her abdomen is soft and nondistended I do not feel there is high concern for small bowel obstruction and therefore do not feel need for CT scan. Patient was advised symptomatic care and is otherwise safe for discharge History & Record Review Discussion w/independent historian: Patient and Friend Lab Data Attestation: I reviewed the patient's lab results. Labs: Laboratory Results - last 24 hr 03/23/23 03/23/23 20:35 21:15 WBC 7.8 RBC 4.41 Hgb 14.2 Hct 40.7 MCV 92.3 MCH 32.2 H MCHC 34.9 RDW Std Deviation 42.5 RDW Coeff of Sy 12.4 Plt Count 268 MPV 9.9 Immature Gran % (Auto) 0.100 Neut % (Auto) 52.7 Lymph % (Auto) 35.6 Kend[place] % (Auto) 7.2 Eos % (Auto) 4.0 Baso % (Auto) 0.4 Absolute Neuts (auto) 4.1 Absolute Lymphs (auto) 2.76 Nucleated RBC % 0 Sodium 138 Potassium 3.5 Chloride 106 Carbon Dioxide 27.0 Anion Gap 5 BUN 8 Creatinine 0.79 Estim Creat Clear Calc 89.44 Est GFR (MDRD) Af Amer 106 Est GFR (MDRD) Non-Af 88 BUN/Creatinine Ratio 10.1 Glucose 122 H Calcium 9.0 Total Bilirubin 0.30 AST 12 L ALT 20 Alkaline Phosphatase 81 Total Protein 7.2 Albumin 4.0 Globulin 3.2 Albumin/Globulin Ratio 1.2 Serum , Qual NEGATIVE Urine Color Yellow Urine Clarity Clear Urine pH 6.0 Ur Specific [place] 1.020 Urine Protein 15 H Urine Glucose (UA) Normal Urine Ketones 15 H Urine Occult Blood 25 H Urine Nitrite Negative Urine Bilirubin Negative Urine Urobilinogen 1 H Ur Leukocyte Esterase 25 H Urine RBC 0-5 SEEN Urine WBC 0-5 SEEN Ur Squamous Epith Cells 0-5 SEEN Urine Bacteria RARE Urine Mucus 0 SEEN Discharge Plan Triage Chief Complaint: Diarrhea ED Provider: Jeffry Granger Dx/Rx/DC Orders Clinical Impression: Diarrhea, Mild dehydration, Crohn disease, Hypothyroidism Instructions: ED Dehydration (Adult), ED Diarrhea, Unknown Cause Prescriptions: New diphenoxylate-atropine [Lomotil] 2.5-0.025 mg tablet 2 tab PO 4X/DAY PRN PRN (Reason: diarrhea) 5 Days Qty: 40 0RF No Action estradiol 2 mg tablet 2 mg PO QDAY Qty: 90 4RF leucovorin calcium 15 mg tablet 15 mg PO WE citalopram 10 MG tablet 20 mg PO DAILY levothyroxine 125 MCG tablet 125 mcg PO DAILY ferrous gluconate 325 MG tablet 325 mg PO DAILY loratadine 10 mg Capsule 10 mg PO DAILY methotrexate sodium 5 mg Tablet 15 mg PO TU folic acid 1 mg Tablet 2 mg PO DAILY prednisone 10 mg tablet 10 mg PO DAILY PRN (Reason: flare up) dicyclomine 10 mg capsule 20 mg PO Q6H PRN PRN (Reason: abdominal pain) Qty: 20 0RF oxycodone-acetaminophen [oxycodone-acetaminophen] 5-325 mg tablet 1 tab PO Q6H PRN PRN (Reason: Pain) 3 Days Qty: 10 0RF pantoprazole [Protonix] 40 mg tablet,delayed release (DR/EC) 40 mg PO BID imipramine HCl 25 mg tablet 25 mg PO .daily Qty: 30 2RF dicyclomine 20 mg tablet 20 mg PO TID Qty: 45 1RF prochlorperazine maleate 5 mg tablet 5 mg PO BID PRN (Reason: nausea and vomiting) Qty: 30 1RF Stelara 90 mg/mL syringe 90 mg subcut Q8W Qty: 1 5RF Primary Care Provider: Debra Roland Referrals: Debra Roland, [facility] [Primary Care Provider] - Activity Restrictions/Additional Instructions: Please keep yourself well-hydrated and follow-up with your family doctor and/or GI doctor for repeat evaluation. Please take the Lomotil as prescribed to help control any further bouts of diarrhea and return to the ER should you have any further concerns Disposition Disposition: Home, Self Care Discharge Date/Time: 03/23/23 23:37
[2023-03-23 23:36] VITALS: BP 111/60; PULSE 76; RESP 16; O2SAT 96
== END 2023-03-23 23:37 | disposition home or self-care (01) ==
PROVIDERS: Emergency Provider Emergency Medicine; PCP Nurse Practitioner Family; Visit Provider Emergency Medicine
DX: K50.90 Crohn's disease, unspecified, without complications (principal); E86.0 Dehydration; E03.9 Hypothyroidism, unspecified; F17.210 Nicotine dependence, cigarettes, uncomplicated; Z86.010 Personal history of colon polyps
CPT/HCPCS: 80053; 81001; 84703; 85025; 99283; J7030; A4216

== ENCOUNTER → 2023-03-27 | Outpatient (CLI) | payer BC, SELFPAY ==
[2023-03-27 12:47] LABS: Absolute Lymphocyte Count 2.12 X10^3/uL (0.83-4.51); Absolute Neutrophil Count 4.3 X10^3/uL (2.0-7.7); Basophil# 0.06 X10^3/uL; Basophil% 0.8 % (0-1); Eosinophils% 2.8 % (0-5); Hematocrit 40.3 % (37-47); Hemoglobin 13.6 g/dL (12.0-15.0); Lymphocyte # 2.12 X10^3/ul (0.83-4.51); Lymphocyte % 29.4 % (19-41); Mean Corp Hgb Conc 33.7 g/dL (32-36); Mean Corpuscular Hgb 31.1 pg (27.0-32.0); Mean Corpuscular Volume 92.2 fL (81-99); Monocyte# 0.51 X10^3/uL; Monocyte% 7.1 % (0-10); NRBC Flagged by Analyzer 0 % (0-5); Neutrophil % 59.8 % (47-70); Platelet Count 240 K/mm3 (150-450); RBC Distribution Width CV 12.6 % (11.6-14.6); RBC Distribution Width SD 42.5 fl (35.1-43.9); Red Blood Count 4.37 M/mm3 (4.2-5.4); White Blood Count 7.2 K/mm3 (4.4-11.0)
[2023-03-27 14:10] LABS: ALB/GLOB Ratio 1.2 RATIO (0.9-2.4); AST(SGOT) 15 U/L (15-37); Alanine Aminotransfer ALT/SGPT 18 U/L (13-56); Albumin, Serum 3.9 g/dL (3.2-5.0); Alkaline Phosphatase 70 U/L (45-117); Anion Gap 6 (5-15); BUN 11 mg/dL (7-18); BUN/Creat Ratio 14.7 RATIO (10-20); Calcium,Total 9.5 mg/dL (8.5-10.1); Chloride 107 mmol/L (98-107); Creatinine, Serum 0.75 mg/dL (0.55-1.02); EST Glomerular Filtration Rate 94 mL/min (>60); Est Glom Filt Rate - Afr Amer 113 mL/min (>60); Globulin 3.2 g/dL (2.2-4.2); Glucose 70 mg/dL (74-106); Potassium 3.8 mmol/L (3.5-5.1); Protein, Total 7.1 g/dL (6.4-8.2); Sodium Level 139 mmol/L (136-145)
== END | disposition home or self-care (01) ==
LOC: MTLAB 09:25
PROVIDERS: PCP Nurse Practitioner Family; Referring Provider Internal Medicine Rheumatology; Visit Provider Internal Medicine Rheumatology
DX: M07.60 Enteropathic arthropathies, unspecified site (principal); K50.90 Crohn's disease, unspecified, without complications; Z79.899 Other long term (current) drug therapy
CPT/HCPCS: 36415; 80053; 85025

== ENCOUNTER → 2023-04-18 | Outpatient (CLI) | payer BC, SELFPAY ==
[2023-04-18 11:26] LABS: Magnesium 2.3 mg/dL (1.6-2.6)
[2023-04-23 01:06] LABS: Copper, Serum or Plasma 126 ug/dL (80-158)
== END | disposition home or self-care (01) ==
PROVIDERS: PCP Nurse Practitioner Family; Referring Provider Internal Medicine Gastroenterology; Visit Provider Internal Medicine Gastroenterology
DX: M19.90 Unspecified osteoarthritis, unspecified site (principal); K50.90 Crohn's disease, unspecified, without complications
CPT/HCPCS: 36415; 82525; 83735; 84100

== ENCOUNTER → 2023-05-12 | Day surgery (SDC) | payer BC, SELFPAY ==
--- OUTSIDE RECORDS SUMMARY | 2023-05-12 07:54 | XMS RPT_ITS ---
Author Name Auto Generated Organization [facility] Care Team Providers Care Picture Frames Inspector Name Role Phone DEBRA ROLAND Attending Unavailable DEBRA ROLAND Primary Care Unavailable PLUSKOROMEO SKINNER Primary Care Unavailable PLUSKOSUSANNE, ROMEO MONTE Primary Care Unavailable DEBRA ROLAND Attending Unavailable DEBRA ROLAND Primary Care Unavailable DEBRA ROLAND Attending Unavailable DEBRA ROLAND Primary Care Unavailable DEBRA ROLAND Referring Unavailable DEBRA ROLAND Primary Care Unavailable PROBLEMS DATE TYPE CONDITION / CODE ATTENDING STATUS GLORIA RCE 05/08/2023 Active Migraine without aura, intractable, without status migrainosus / G43.019(ICD-10) DEBRA ROLAND Active [facility] 09/29/2022 Active Graves' disease / E05.00(ICD-10) DEBRA ROLAND Active [facility] 09/29/2022 Active Tobacco use diso rder / F17.200(ICD-10) DEBRA ROLAND Active [facility] 09/29/2022 Active Crohn's disease without complication, unspecified gastrointestinal tract location (HCC) / K50.90(ICD-10) DEBRA ROLAND Active [facility] 05/04/2011 Active Hyperthyroidism / E05.90(ICD-10) DEBRA ROLAND Active [facility] 09/29/2022 Active Major depressive disorder, remission status unspecified, unspecified whether recurrent / F32.9(ICD-10) DEBRA ROLAND Active [facility] 09/07/2022 Active Fall, initial en counter / W19.XXXA(ICD-10) NA Active [facility] 09/07/2022 Active Acute pain of ri ght knee / M25.561(ICD-10) NA Active [facility] PROCEDURES No Procedure Records Found RESULTS PROGRESS Observed: 05/08/2023 11:43 AM Status: COMPLETED Source: [facility] REPOSITORY HNO ID: [id number] Author: Debra Roland APRN.DIRECTOR OF PLANT OPERATIONS Service: ? Author Type: Nurse Practitioner Type: Progress Notes Filed: 05/08/2023 12:05 PM Note Text: Chief Complaint Patient presents with: Headache: Migraines X 1 month HPI Olivia Man is a 37 year old female who presents here today for Above Complaints.. Patient presents for migraine x1 month. Patient reports symptoms are worsening after taking methotrexate weekly.Patient has tried multiple OTC medications with no improvement. Patient reports nausea, blurry vision, and dizziness throughout the month long exacerbation. Past medical history, appointments, medications, allergies reviewed. Previous Medical History PAST MEDICAL HISTORY Diagnosis Date Acute appendicitis without mention of peritonitis 02/27/2007 Acute gastritis without mention of hemorrhage Crohn's disease (HCC) 03/2022 Depressive disorder, not elsewhere classified Grave's disease 07/04/2011 Irregular menstrual cycle Irregular periods Migraine, unspecified, with intractable migraine, so stated, without mention of status migrainosus Migraine PMH - PAST MEDICAL HISTORY OF 06/07/2006 ASCUS - Neg HPV Tobacco use disorder Urinary tract infection, site not specified Recurrent UTI's Previous Surgical History PAST SURGICAL HISTORY Procedure Laterality Date ADENOIDECTOMY PRIMARY <AGE 14 Adenoidectomy ARTHROTOMY W/MENISCUS REPAIR KNEE CARPAL TUNNEL 12/2017 COLONOSCOPY 2013 DENTURES COMPLETE LOWER and upper EGD 2012 EGD TRANSORAL BIOPSY SINGLE/MULTIPLE 12/20/2007 minimal gastritis LAPAROSCOPIC APPENDECTOMY 02/27/2007 PAST SURGICAL HISTORY OF 2011 biopsy of (L) calf- benign PAST SURGICAL HISTORY OF 09/2012 B/L eye lid retraction PAST SURGICAL HISTORY OF multple surgery for endometriosis THYROIDECTOMY TOTAL/COMPLETE 11/23/2011 graves disease TONSILLECTOMY PRIMARY/SECONDARY <AGE 14 Tonsillectomy TOTAL ABDOM HYSTERECTOMY N/A Family History FAMILY HISTORY Problem Relation Age of Onset Diabetes Paternal Grandmother Psychiatry Maternal Grandmother Depression Asthma Mother Patient Allergies ALLERGIES Allergen Reactions Flu Immuzation [Oth* GI Upset Lodine [Etodolac] Itching Current Medications Current Outpatient Medications on File Prior to Visit Medication Sig imipramine HCl (TOFRANIL) 25 mg tablet Take 25 mg by mouth once daily. STELARA 90 mg/mL injection Inject 90 mg subcutaneously every 8 weeks. citalopram (CELEXA) 20 mg tablet Take 1 tablet by mouth once daily. levothyroxine (SYNTHROID) 125 mcg tablet Take 1 tablet by mouth once daily. Takes 8 tabs per week. One daily except Mon and Wed takes an extra half tab. estradiol (ESTRACE) 2 mg tablet dicyclomine (BENTYL) 20 mg tablet Ferrous Gluconate (FERGON) 324 mg (38 mg iron) tablet Take 1 tablet by mouth twice daily with meals. acetaminophen (TYLENOL) 500 mg tablet Take 500 mg by mouth every 8 hours as needed. acetaminophen/diphenhydramine (TYLENOL PM ORAL) Take by mouth. pantoprazole DR (PROTONIX) 20 mg tablet Take 20 mg by mouth once daily. No current facility-administered medications on file prior to visit. Social History Social History Tobacco Use Smoking status: Every Day Packs/day: 0.50 Years: 15.00 Additional pack years: 0.00 Total pack years: 7.50 Types: Cigarettes Smokeless tobacco: Never Substance Use Topics Alcohol use: No Drug use: Yes Types: Marijuana Comment: occasional edible Review of Symptoms REVIEW OF SYSTEMS SEE HPI EXAM: BP 106/70 Pulse 82 Resp 12 Wt 66.7 kg (147 lb) LMP 02/10/2017 BMI 24.46 kg/m? General Appearance: Well appearing, alert, in no acute distress, well-hydrated, well nourished.. Head: Normocephalic, no masses, lesions, tenderness or abnormalities. Neurologic: Gait normal. Reflexes normal and symmetric. Sensation grossly intact.. Health Maintenance List Covid-19 Vaccine(1) Never done Pneumococcal Vaccine(1 - PCV) Never done Meningococcal B Vaccine: Consider Based On Risk(1 of 4 - Increased Risk) Never done DTaP,Tdap,Td Vaccine(2 - Tdap) due on 02/05/1999 MMR Vaccine(1 of 2 - Risk 2-dose series) Never done Hepatitis C Screening Never done HIV Screening Never done Hepatitis A Vaccine(1 of 2 - Risk 2-dose series) Never done Shingrix Vaccine(1 of 2) Never done Pap Testing due on 05/31/2017 HPV Testing Never done Influenza Vaccine(1) Never done Annual PCP Team Chronic Disease Visit due on 04/13/2024 Hepatitis B Vaccine(1 of 3 - Risk 3-dose series) due on 2047 HPV Vaccine Aged Out ASSESSMENT/PLAN: 1. Migraine without aura, intractable, without status migrainosus - ICD9: 346.11, ICD10: G43.019 - CONSULT TO NEUROLOGY - KETOROLAC 60 MG/2 ML INTRAMUSCULAR SOLUTION - MRI BRAIN WO/W IVCON - IV CONTRAST (RADIOLOGY PROCEDURE) Debra Roland APRN.CNP CNOV Observed: 05/08/2023 11:40 AM Status: COMPLETED Source: [facility] REPOSITORY Office Visit (FAMPWS) OLIVIA MAN ([id number]) 1985 F Date Time Provider Department 05/08/23 11:40 AM DEBRA ROLAND During your visit today, we recorded the following information about you: Pulse Respiration Blood pressure Weight 82/minute 12/minute 106/70 66.7 kg Debra Roland APRN.CNP 05/08/2023 12:05 PM Signed Chief Complaint Patient presents with: Headache: Migraines X 1 month HPI Olivia Man is a 37 year old female who presents here today for Above Complaints.. Patient presents for migraine x1 month. Patient reports symptoms are worsening after taking methotrexate weekly.Patient has tried multiple OTC medications with no improvement. Patient reports nausea, blurry vision, and dizziness throughout the month long exacerbation. Past medical history, appointments, medications, allergies reviewed. Previous Medical History PAST MEDICAL HISTORY Diagnosis Date Acute appendicitis without mention of peritonitis 02/27/2007 Acute gastritis without mention of hemorrhage Crohn's disease (HCC) 03/2022 Depressive disorder, not elsewhere classified Grave's disease 07/04/2011 Irregular menstrual cycle Irregular periods Migraine, unspecified, with intractable migraine, so stated, without mention of status migrainosus Migraine PMH - PAST MEDICAL HISTORY OF 06/07/2006 ASCUS - Neg HPV Tobacco use disorder Urinary tract infection, site not specified Recurrent UTI's Previous Surgical History PAST SURGICAL HISTORY Procedure Laterality Date ADENOIDECTOMY PRIMARY <AGE 14 Adenoidectomy ARTHROTOMY W/MENISCUS REPAIR KNEE CARPAL TUNNEL 12/2017 COLONOSCOPY 2012 DENTURES COMPLETE LOWER and upper EGD 2012 EGD TRANSORAL BIOPSY SINGLE/MULTIPLE 12/20/2007 minimal gastritis LAPAROSCOPIC APPENDECTOMY 02/27/2007 PAST SURGICAL HISTORY OF 2011 biopsy of (L) calf- benign PAST SURGICAL HISTORY OF 09/2012 B/L eye lid retraction PAST SURGICAL HISTORY OF multple surgery for endometriosis THYROIDECTOMY TOTAL/COMPLETE 11/23/2011 graves disease TONSILLECTOMY PRIMARY/SECONDARY <AGE 14 Tonsillectomy TOTAL ABDOM HYSTERECTOMY N/A Family History FAMILY HISTORY Problem Relation Age of Onset Diabetes Paternal Grandmother Psychiatry Maternal Grandmother Depression Asthma Mother Patient Allergies ALLERGIES Allergen Reactions Flu Immuzation [Oth* GI Upset Lodine [Etodolac] Itching Current Medications Current Outpatient Medications on File Prior to Visit Medication Sig imipramine HCl (TOFRANIL) 25 mg tablet Take 25 mg by mouth once daily. STELARA 90 mg/mL injection Inject 90 mg subcutaneously every 8 weeks. citalopram (CELEXA) 20 mg tablet Take 1 tablet by mouth once daily. levothyroxine (SYNTHROID) 125 mcg tablet Take 1 tablet by mouth once daily. Takes 8 tabs per week. One daily except Mon and Wed takes an extra half tab. estradiol (ESTRACE) 2 mg tablet dicyclomine (BENTYL) 20 mg tablet Ferrous Gluconate (FERGON) 324 mg (38 mg iron) tablet Take 1 tablet by mouth twice daily with meals. acetaminophen (TYLENOL) 500 mg tablet Take 500 mg by mouth every 8 hours as needed. acetaminophen/diphenhydramine (TYLENOL PM ORAL) Take by mouth. pantoprazole DR (PROTONIX) 20 mg tablet Take 20 mg by mouth once daily. No current facility-administered medications on file prior to visit. Social History Social History Tobacco Use Smoking status: Every Day Packs/day: 0.50 Years: 15.00 Additional pack years: 0.00 Total pack years: 7.50 Types: Cigarettes Smokeless tobacco: Never Substance Use Topics Alcohol use: No Drug use: Yes Types: Marijuana Comment: occasional edible Review of Symptoms REVIEW OF SYSTEMS SEE HPI EXAM: BP 106/70 Pulse 82 Resp 12 Wt 66.7 kg (147 lb) LMP 02/10/2017 BMI 24.46 kg/m? General Appearance: Well appearing, alert, in no acute distress, well-hydrated, well nourished.. Head: Normocephalic, no masses, lesions, tenderness or abnormalities. Neurologic: Gait normal. Reflexes normal and symmetric. Sensation grossly intact.. Health Maintenance List Covid-19 Vaccine(1) Never done Pneumococcal Vaccine(1 - PCV) Never done Meningococcal B Vaccine: Consider Based On Risk(1 of 4 - Increased Risk) Never done DTaP,Tdap,Td Vaccine(2 - Tdap) due on 02/05/1999 MMR Vaccine(1 of 2 - Risk 2-dose series) Never done Hepatitis C Screening Never done HIV Screening Never done Hepatitis A Vaccine(1 of 2 - Risk 2-dose series) Never done Shingrix Vaccine(1 of 2) Never done Pap Testing due on 05/31/2017 HPV Testing Never done Influenza Vaccine(1) Never done Annual PCP Team Chronic Disease Visit due on 04/13/2024 Hepatitis B Vaccine(1 of 3 - Risk 3-dose series) due on 2047 HPV Vaccine Aged Out ASSESSMENT/PLAN: 1. Migraine without aura, intractable, without status migrainosus - ICD9: 346.11, ICD10: G43.019 - CONSULT TO NEUROLOGY - KETOROLAC 60 MG/2 ML INTRAMUSCULAR SOLUTION - MRI BRAIN WO/W IVCON - IV CONTRAST (RADIOLOGY PROCEDURE) Debra Roland APRN.DIRECTOR OF PLANT OPERATIONS Allergies As of Date: 05/08/2023 Noted Allergy Reaction flu immuzation [Other] 07/09/2007 8 - GI Upset LODINE (ETODOLAC) 09/18/2006 9 - Itching Date Reviewed: 05/08/2023 Reviewed by: Zenobia Dominguez Cma - Fully Assessed Reason for Visit: Headache [52] Cmt: Migraines X 1 month Primary Visit Diagnosis:Migraine without aura, intractable, without status migrainosus [G43.019] Order(s):CONSULT TO NEUROLOGY [9019] Order #: [id number]: 1 FUTURE [] keTORolac 60 mg injection (Toradol)Disp: Rfl: MRI BRAIN WO/W IVCON [[id number]] Order #: [id number] FUTURE iv contrast (will be provided with radiology test)MRI Brain Inject, intravenously, once for 1 dose.No IV access, insert saline lock prior to beginning of sedation, infusion, injection of imaging exam.Discontinue saline lock post exam. If Pt. has a central line or IVAD, may access for administration according to line specific nursing protocol.Once exam is complete flush line and de-access according to line specific nursing protocol in the MR contrast administration guidelines linkDisp: 1 EachRfl: 0 Prescriptions as of 05/08/2023 - iv contrast (will be provided with radiology test) MRI Brain Inject, intravenously, once for 1 dose.No IV access, insert saline lock prior to beginning of sedation, infusion, injection of imaging exam.Discontinue saline lock post exam. If Pt. has a central line or IVAD, may access for administration according to line specific nursing protocol.Once exam is complete flush line and de-access according to line specific nursing protocol in the MR contrast administration guidelines link - imipramine HCl (TOFRANIL) 25 mg tablet Take 25 mg by mouth once daily. - STELARA 90 mg/mL injection Inject 90 mg subcutaneously every 8 weeks. - citalopram (CELEXA) 20 mg tablet Take 1 tablet by mouth once daily. - levothyroxine (SYNTHROID) 125 mcg tablet Take 1 tablet by mouth once daily. Takes 8 tabs per week. One daily except Mon and Wed takes an extra half tab. - estradiol (ESTRACE) 2 mg tablet - dicyclomine (BENTYL) 20 mg tablet - Ferrous Gluconate (FERGON) 324 mg (38 mg iron) tablet Take 1 tablet by mouth twice daily with meals. - acetaminophen (TYLENOL) 500 mg tablet Take 500 mg by mouth every 8 hours as needed. - acetaminophen/diphenhydramine (TYLENOL PM ORAL) Take by mouth. - pantoprazole DR (PROTONIX) 20 mg tablet Take 20 mg by mouth once daily. Problem List As Of Date 05/08/2023 Noted Resolved SPRAIN OF BACK NOS [LME1603] 09/25/2006 PAP SMEAR OF CERVIX W ASCUS [R87.610] 02/08/2007 Depressive disorder, not elsewhere classified [*07/04/2011 ABDOMINAL PAIN RLQ [R10.31] 03/13/2007 03/27/2007 ANAL FISSURE [K60.2] 06/23/2007 CONSTIPATION NOS [K59.00] 11/20/2007 ACUTE GASTRITIS W/O HEMORRHAGE [K29.00] 12/20/2007 DIZZINESS AND GIDDINESS [R42] 09/24/2008 Supervision of Other High-Risk [O09.8*10/29/2008 11/04/2009 LEG VARICOSITY W OTHER COMPLICATION [I83.893] 01/08/2009 Irregular Menstrual Cycle [N92.6] 11/04/2009 Unspecified Symptom Associated with Female Nupur*11/04/2009 Hyperthyroidism [E05.90] 05/04/2011 Graves' disease [E05.00] 07/04/2011 Anemia [D64.9] 02/02/2018 Crohn's disease (HCC) [K50.90] 03/2022 Tobacco use disorder [F17.200] 09/29/2022 Prescriptions ordered this encounter Disp Refills Start End KETOROLAC 60 MG/2 ML INTRAMUSCULAR S* 05/08/2023 05/08/2023 Route: INTRAMUSCULA IV CONTRAST (RADIOLOGY PROCEDURE) 1 Ea* 0 05/08/2023 05/09/2023 Class: In Office Sig: MRI Brain Inject, intravenously, once for 1 dose.No IV access, insert saline lock prior to beginning of sedation, infusion, injection of imaging exam.Discontinue saline lock post exam. If Pt. has a central line or IVAD, may access for administration according to line specific nursing protocol.Once exam is complete flush line and de-access according to line specific nursing protocol in the MR contrast administration guidelines link Encounter Status:Closed by DEBRA ROLAND on 05/08/23 CNOV Observed: 04/13/2023 10:40 AM Status: COMPLETED Source: [facility] REPOSITORY Office Visit (FAMPWS) OLIVIA MAN ([id number]) 1985 F Date Time Provider Department 04/13/23 10:40 AM DEBRA ROLAND During your visit today, we recorded the following information about you: Pulse Respiration Blood pressure Weight 96/minute 12/minute 104/60 67.1 kg Debra Roland, [employer].DIRECTOR OF PLANT OPERATIONS 04/13/2023 10:41 AM Signed Chief Complaint Patient presents with: Follow Up HPI Olivia Man is a 37 year old female who presents here today for Above Complaints.. Patient presents today for routine follow up. Patient recently had TSH rechecked which was within normal limits. Patient also had citalopram increased at beginning of march due to increased anxiety. Patient reported son had been diagnosed with ADHD and autism at that time. Patient reports today she is not feeling too bad. Patient reports she has been to the ER twice in the past couple of months. Patient recently saw Dr. Abbott and did GI and had upper and lower GI. Past medical history, appointments, medications, allergies reviewed. Previous Medical History PAST MEDICAL HISTORY Diagnosis Date Acute appendicitis without mention of peritonitis 02/27/2007 Acute gastritis without mention of hemorrhage Crohn's disease (HCC) 03/2022 Depressive disorder, not elsewhere classified Grave's disease 07/04/2011 Irregular menstrual cycle Irregular periods Migraine, unspecified, with intractable migraine, so stated, without mention of status migrainosus Migraine PMH - PAST MEDICAL HISTORY OF 06/07/2006 ASCUS - Neg HPV Tobacco use disorder Urinary tract infection, site not specified Recurrent UTI's Previous Surgical History PAST SURGICAL HISTORY Procedure Laterality Date ADENOIDECTOMY PRIMARY <AGE 14 Adenoidectomy ARTHROTOMY W/MENISCUS REPAIR KNEE CARPAL TUNNEL 12/2017 COLONOSCOPY 2013 DENTURES COMPLETE LOWER and upper EGD 2012 EGD TRANSORAL BIOPSY SINGLE/MULTIPLE 12/20/2007 minimal gastritis LAPAROSCOPIC APPENDECTOMY 02/27/2007 PAST SURGICAL HISTORY OF 2011 biopsy of (L) calf- benign PAST SURGICAL HISTORY OF 09/2012 B/L eye lid retraction PAST SURGICAL HISTORY OF multple surgery for endometriosis THYROIDECTOMY TOTAL/COMPLETE 11/23/2011 graves disease TONSILLECTOMY PRIMARY/SECONDARY <AGE 14 Tonsillectomy TOTAL ABDOM HYSTERECTOMY N/A Family History FAMILY HISTORY Problem Relation Age of Onset Diabetes Paternal Grandmother Psychiatry Maternal Grandmother Depression Asthma Mother Patient Allergies ALLERGIES Allergen Reactions Flu Immuzation [Oth* GI Upset Lodine [Etodolac] Itching Current Medications Current Outpatient Medications on File Prior to Visit Medication Sig citalopram (CELEXA) 20 mg tablet Take 1 tablet by mouth once daily. levothyroxine (SYNTHROID) 125 mcg tablet Take 1 tablet by mouth once daily. Takes 8 tabs per week. One daily except Mon and Wed takes an extra half tab. HUMIRA,CF, PEN 40 mg/0.4 mL pen kit estradiol (ESTRACE) 2 mg tablet dicyclomine (BENTYL) 20 mg tablet Ferrous Gluconate (FERGON) 324 mg (38 mg iron) tablet Take 1 tablet by mouth twice daily with meals. acetaminophen (TYLENOL) 500 mg tablet Take 500 mg by mouth every 8 hours as needed. acetaminophen/diphenhydramine (TYLENOL PM ORAL) Take by mouth. pantoprazole DR (PROTONIX) 20 mg tablet Take 20 mg by mouth once daily. verapamil SR (CALAN SR, ISOPTIN SR) 180 mg CR tablet No current facility-administered medications on file prior to visit. Social History Social History Tobacco Use Smoking status: Every Day Packs/day: 0.50 Years: 15.00 Additional pack years: 0.00 Total pack years: 7.50 Types: Cigarettes Smokeless tobacco: Never Substance Use Topics Alcohol use: No Drug use: Yes Types: Marijuana Comment: occasional edible Review of Symptoms REVIEW OF SYSTEMS SEE HPI EXAM: BP 104/60 Pulse 96 Resp 12 Wt 67.1 kg (148 lb) LMP 02/10/2017 BMI 24.63 kg/m? General Appearance: Well appearing, alert, in no acute distress, well-hydrated, well nourished.. Health Maintenance List COVID-19 VACCINE(1) Never done PNEUMOCOCCAL(1 - PCV) Never done MENINGOCOCCAL B: Consider based on risk(1 of 4 - Increased Risk) Never done DTAP,TDAP,TD(2 - Tdap) due on 02/05/1999 MMR(1 of 2 - Risk 2-dose series) Never done HEPATITIS C SCREENING Never done HIV SCREENING Never done HEPATITIS A(1 of 2 - Risk 2-dose series) Never done SHINGRIX VACCINE(1 of 2) Never done PAP TESTING due on 05/31/2017 HPV TESTING Never done INFLUENZA(1) due on 04/07/2023 ANNUAL PCP TEAM CHRONIC DISEASE VISIT due on 09/29/2023 HEPATITIS B(1 of 3 - Risk 3-dose series) due on 2047 HPV VACCINE Aged Out Data reviewed Component Latest Ref Rng AND Units 04/06/2023 TSH 0.270 - 4.200 mIU/L 3.400 ASSESSMENT/PLAN: 1. Graves' disease - ICD9: 242.00, ICD10: E05.00 (primary diagnosis) -Continue levothyroxine 2. JONELLE (generalized anxiety disorder) - ICD9: 300.02, ICD10: F41.1 -Continue citalopram 3. Major depressive disorder, remission status unspecified, unspecified whether recurrent - ICD9: 296.20, ICD10: F32.9 -Continue citalopram Debra Roland, CLEMENTE.DIRECTOR OF PLANT OPERATIONS Allergies As of Date: 04/13/2023 Noted Allergy Reaction flu immuzation [Other] 07/09/2007 8 - GI Upset LODINE (ETODOLAC) 09/18/2006 9 - Itching Date Reviewed: 04/13/2023 Reviewed by: Zenobia Domignuez Cma - Fully Assessed Reason for Visit: Follow Up [171] Primary Visit Diagnosis:Graves' disease [E05.00] Other Visit Diagnoses:JONELLE (generalized anxiety disorder) [F41.1] Major depressive disorder, remission status unspecified, unspecified whether recurrent [F32.9] Hyperthyroidism [E05.90] Order(s):CONSULT TO [facility] [[id number]] Order #: [id number]: 1 Prescriptions as of 04/13/2023 - imipramine HCl (TOFRANIL) 25 mg tablet Take 25 mg by mouth once daily. - STELARA 90 mg/mL injection Inject 90 mg subcutaneously every 8 weeks. - citalopram (CELEXA) 20 mg tablet Take 1 tablet by mouth once daily. - levothyroxine (SYNTHROID) 125 mcg tablet Take 1 tablet by mouth once daily. Takes 8 tabs per week. One daily except Mon and Wed takes an extra half tab. - estradiol (ESTRACE) 2 mg tablet - dicyclomine (BENTYL) 20 mg tablet - Ferrous Gluconate (FERGON) 324 mg (38 mg iron) tablet Take 1 tablet by mouth twice daily with meals. - acetaminophen (TYLENOL) 500 mg tablet Take 500 mg by mouth every 8 hours as needed. - acetaminophen/diphenhydramine (TYLENOL PM ORAL) Take by mouth. - pantoprazole DR (PROTONIX) 20 mg tablet Take 20 mg by mouth once daily. 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 Follow-up and Disposition History for Encounter Date Provider Department Center 04/13/2023 [id number]-VQCIXTDEBRA ROLAND [facility] Encounter Status:Closed by DEBRA ROLAND on 04/13/23 PROGRESS Observed: 04/13/2023 10:18 AM Status: COMPLETED Source: [facility] REPOSITORY O ID: [id number] Author: Debra Roland APRN.DIRECTOR OF PLANT OPERATIONS Service: ? Author Type: Nurse Practitioner Type: Progress Notes Filed: 04/13/2023 10:41 AM Note Text: Chief Complaint Patient presents with: Follow Up HPI Olivia Man is a 37 year old female who presents here today for Above Complaints.. Patient presents today for routine follow up. Patient recently had TSH rechecked which was within normal limits. Patient also had citalopram increased at beginning of march due to increased anxiety. Patient reported son had been diagnosed with ADHD and autism at that time. Patient reports today she is not feeling too bad. Patient reports she has been to the ER twice in the past couple of months. Patient recently saw Dr. Abbott and did GI and had upper and lower GI. Past medical history, appointments, medications, allergies reviewed. Previous Medical History PAST MEDICAL HISTORY Diagnosis Date Acute appendicitis without mention of peritonitis 02/27/2007 Acute gastritis without mention of hemorrhage Crohn's disease (HCC) 03/2022 Depressive disorder, not elsewhere classified Grave's disease 07/04/2011 Irregular menstrual cycle Irregular periods Migraine, unspecified, with intractable migraine, so stated, without mention of status migrainosus Migraine PMH - PAST MEDICAL HISTORY OF 06/07/2006 ASCUS - Neg HPV Tobacco use disorder Urinary tract infection, site not specified Recurrent UTI's Previous Surgical History PAST SURGICAL HISTORY Procedure Laterality Date ADENOIDECTOMY PRIMARY <AGE 14 Adenoidectomy ARTHROTOMY W/MENISCUS REPAIR KNEE CARPAL TUNNEL 12/2017 COLONOSCOPY 2012 DENTURES COMPLETE LOWER and upper EGD 2012 EGD TRANSORAL BIOPSY SINGLE/MULTIPLE 12/20/2007 minimal gastritis LAPAROSCOPIC APPENDECTOMY 02/27/2007 PAST SURGICAL HISTORY OF 2011 biopsy of (L) calf- benign PAST SURGICAL HISTORY OF 09/2012 B/L eye lid retraction PAST SURGICAL HISTORY OF multple surgery for endometriosis THYROIDECTOMY TOTAL/COMPLETE 11/23/2011 graves disease TONSILLECTOMY PRIMARY/SECONDARY <AGE 14 Tonsillectomy TOTAL ABDOM HYSTERECTOMY N/A Family History FAMILY HISTORY Problem Relation Age of Onset Diabetes Paternal Grandmother Psychiatry Maternal Grandmother Depression Asthma Mother Patient Allergies ALLERGIES Allergen Reactions Flu Immuzation [Oth* GI Upset Lodine [Etodolac] Itching Current Medications Current Outpatient Medications on File Prior to Visit Medication Sig citalopram (CELEXA) 20 mg tablet Take 1 tablet by mouth once daily. levothyroxine (SYNTHROID) 125 mcg tablet Take 1 tablet by mouth once daily. Takes 8 tabs per week. One daily except Mon and Wed takes an extra half tab. HUMIRA,CF, PEN 40 mg/0.4 mL pen kit estradiol (ESTRACE) 2 mg tablet dicyclomine (BENTYL) 20 mg tablet Ferrous Gluconate (FERGON) 324 mg (38 mg iron) tablet Take 1 tablet by mouth twice daily with meals. acetaminophen (TYLENOL) 500 mg tablet Take 500 mg by mouth every 8 hours as needed. acetaminophen/diphenhydramine (TYLENOL PM ORAL) Take by mouth. pantoprazole DR (PROTONIX) 20 mg tablet Take 20 mg by mouth once daily. verapamil SR (CALAN SR, ISOPTIN SR) 180 mg CR tablet No current facility-administered medications on file prior to visit. Social History Social History Tobacco Use Smoking status: Every Day Packs/day: 0.50 Years: 15.00 Additional pack years: 0.00 Total pack years: 7.50 Types: Cigarettes Smokeless tobacco: Never Substance Use Topics Alcohol use: No Drug use: Yes Types: Marijuana Comment: occasional edible Review of Symptoms REVIEW OF SYSTEMS SEE HPI EXAM: BP 104/60 Pulse 96 Resp 12 Wt 67.1 kg (148 lb) LMP 02/10/2017 BMI 24.63 kg/m? General Appearance: Well appearing, alert, in no acute distress, well-hydrated, well nourished.. Health Maintenance List COVID-19 VACCINE(1) Never done PNEUMOCOCCAL(1 - PCV) Never done MENINGOCOCCAL B: Consider based on risk(1 of 4 - Increased Risk) Never done DTAP,TDAP,TD(2 - Tdap) due on 02/05/1999 MMR(1 of 2 - Risk 2-dose series) Never done HEPATITIS C SCREENING Never done HIV SCREENING Never done HEPATITIS A(1 of 2 - Risk 2-dose series) Never done SHINGRIX VACCINE(1 of 2) Never done PAP TESTING due on 05/31/2017 HPV TESTING Never done INFLUENZA(1) due on 04/07/2023 ANNUAL PCP TEAM CHRONIC DISEASE VISIT due on 09/29/2023 HEPATITIS B(1 of 3 - Risk 3-dose series) due on 2047 HPV VACCINE Aged Out Data reviewed Component Latest Ref Rng AND Units 04/06/2023 TSH 0.270 - 4.200 mIU/L 3.400 ASSESSMENT/PLAN: 1. Graves' disease - ICD9: 242.00, ICD10: E05.00 (primary diagnosis) -Continue levothyroxine 2. JONELLE (generalized anxiety disorder) - ICD9: 300.02, ICD10: F41.1 -Continue citalopram 3. Major depressive disorder, remission status unspecified, unspecified whether recurrent - ICD9: 296.20, ICD10: F32.9 -Continue citalopram Debra Roland, TURN LASTER.JIMENA CNPN Observed: 04/13/2023 12:00 AM Status: COMPLETED Source: [facility] Telephone (PSYLME) ROBSONOLIVIA ([id number]) 1985 F Date Time Provider Department 04/13/23 AGATHA LANCE PSYLME During your visit today, we recorded the following information about you: Agatha Lance LPCC 04/13/2023 1:35 PM Signed Behavioral Health Social Work Progress Note Patient identified for [facility] from: PCP Reason for referral: Resources Behavioral Health Resources: Psychology - talk therapy [facility] encounter type: Telephone Encounter, MyChart Message Attempts to Outreach: 1 attempt Referral made: Psychology - Internal, Psychology - External Psychology-Internal referral type: Therapy Psychology-External referral type: Therapy Reason for external referral: Patient choice, Wait times at [facility] too long Final Disposition: Resources given Patient Discharged?: Yes therapist spoke with patient, she is seeking counseling services at this time. therapist will send her a list of resources to her [employer]. MARCO Hernandez-S April 13, 2023 Allergies As of Date: 04/13/2023 Noted Allergy Reaction flu immuzation [Other] 07/09/2007 8 - GI Upset LODINE (ETODOLAC) 09/18/2006 9 - Itching Date Reviewed: 04/13/2023 Reviewed by: Zenobia Dominguez Cma - Fully Assessed Prescriptions as of 04/13/2023 - imipramine HCl (TOFRANIL) 25 mg tablet Take 25 mg by mouth once daily. - STELARA 90 mg/mL injection Inject 90 mg subcutaneously every 8 weeks. - citalopram (CELEXA) 20 mg tablet Take 1 tablet by mouth once daily. - levothyroxine (SYNTHROID) 125 mcg tablet Take 1 tablet by mouth once daily. Takes 8 tabs per week. One daily except Mon and Wed takes an extra half tab. - estradiol (ESTRACE) 2 mg tablet - dicyclomine (BENTYL) 20 mg tablet - Ferrous Gluconate (FERGON) 324 mg (38 mg iron) tablet Take 1 tablet by mouth twice daily with meals. - acetaminophen (TYLENOL) 500 mg tablet Take 500 mg by mouth every 8 hours as needed. - acetaminophen/diphenhydramine (TYLENOL PM ORAL) Take by mouth. - pantoprazole DR (PROTONIX) 20 mg tablet Take 20 mg by mouth once daily. Problem List As Of Date 04/13/2023 Noted Resolved SPRAIN OF BACK NOS [FAH2001] 09/25/2006 PAP SMEAR OF CERVIX W ASCUS [R87.610] 02/08/2007 Depressive disorder, not elsewhere classified [*07/04/2011 ABDOMINAL PAIN RLQ [R10.31] 03/13/2007 03/27/2007 ANAL FISSURE [K60.2] 06/23/2007 CONSTIPATION NOS [K59.00] 11/20/2007 ACUTE GASTRITIS W/O HEMORRHAGE [K29.00] 12/20/2007 DIZZINESS AND GIDDINESS [R42] 09/24/2008 Supervision of Other High-Risk [O09.8*10/29/2008 11/04/2009 LEG VARICOSITY W OTHER COMPLICATION [I83.893] 01/08/2009 Irregular Menstrual Cycle [N92.6] 11/04/2009 Unspecified Symptom Associated with Female Nupur*11/04/2009 Hyperthyroidism [E05.90] 05/04/2011 Graves' disease [E05.00] 07/04/2011 Anemia [D64.9] 02/02/2018 Crohn's disease (HCC) [K50.90] 03/2022 Tobacco use disorder [F17.200] 09/29/2022 Encounter Status:Closed by AGATHA LANCE on 04/13/23 TSH SERPL-ACNC Collected: 3 8:56 AM Status: F Source: [facility] Order Comment: Specimen Type : BLOOD SPECIMEN Ordering Facility: [facility] Address: [address] [place] [id number] TYPE CODE TESTS RESULT OUT OF RANGE REFERENCE UNITS LAB 3016-3(LOINC) TSH SerPl-aCnc 3.400 0.270-4.200 mIU/L Result Comment: If the patie nt is , TSH reference range varies by gestational period: First Trimester (weeks 9-12): 0.180-2.990 mIU/L Second Trimester: 0.110-3.980 mIU/L Third Trimester: 0.480-4.710 mIU/L Tarun Caldwell et al. A Practical Approach for the Verifications and Determination of Site- and Trimester-Specific Reference Intervals for Thyroid Function tests in . Thyroid, 2019:29:3:412-420. Alec Villeda, et al. 2017 Guidelines of the [place] [employer] for the Diagnosis and Management of Thyroid Disease during and the . Thyroid, 2017:27:3:315-389. Performed By: #### 3016-3 ## ## [facility] CLIA [id number] [address] [place] [address] OF [facility] CNPN Observed: 04/06/2023 12:00 AM Status: COMPLETED Source[facility] OLIVIA MAN ([id number]) 1985 F Date Time Provider Department 04/06/23 DEBRA ROLAND [facility] During your visit today, we recorded the following information about you: Debra Roland APRN.CNP 04/06/2023 6:23 PM Signed Please let patient know her tsh is normal. Zenobia Dominguez Cma 04/06/2023 6:50 PM Signed Patient notified and verbalized understanding Zenobia Dominguez Cma Allergies As of Date: 04/06/2023 Noted Allergy Reaction flu immuzation [Other] 07/09/2007 8 - GI Upset LODINE (ETODOLAC) 09/18/2006 9 - Itching Date Reviewed: 09/29/2022 Reviewed by: Zenobia Dominguez Cma - Fully Assessed Reason for Visit: Results [95] Prescriptions as of 04/06/2023 - citalopram (CELEXA) 20 mg tablet Take 1 tablet by mouth once daily. - levothyroxine (SYNTHROID) 125 mcg tablet Take 1 tablet by mouth once daily. Takes 8 tabs per week. One daily except Mon and Wed takes an extra half tab. - HUMIRA,CF, PEN 40 mg/0.4 mL pen kit - estradiol (ESTRACE) 2 mg tablet - dicyclomine (BENTYL) 20 mg tablet - Ferrous Gluconate (FERGON) 324 mg (38 mg iron) tablet Take 1 tablet by mouth twice daily with meals. - acetaminophen (TYLENOL) 500 mg tablet Take 500 mg by mouth every 8 hours as needed. - acetaminophen/diphenhydramine (TYLENOL PM ORAL) Take by mouth. - pantoprazole DR (PROTONIX) 20 mg tablet Take 20 mg by mouth once daily. - verapamil SR (CALAN SR, ISOPTIN SR) 180 mg CR tablet Problem List As Of Date 04/06/2023 Noted Resolved SPRAIN OF BACK NOS [TOH0967] 09/25/2006 PAP SMEAR OF CERVIX W ASCUS [R87.610] 02/08/2007 Depressive disorder, not elsewhere classified [*07/04/2011 ABDOMINAL PAIN RLQ [R10.31] 03/13/2007 03/27/2007 ANAL FISSURE [K60.2] 06/23/2007 CONSTIPATION NOS [K59.00] 11/20/2007 ACUTE GASTRITIS W/O HEMORRHAGE [K29.00] 12/20/2007 DIZZINESS AND GIDDINESS [R42] 09/24/2008 Supervision of Other High-Risk [O09.8*10/29/2008 11/04/2009 LEG VARICOSITY W OTHER COMPLICATION [I83.893] 01/08/2009 Irregular Menstrual Cycle [N92.6] 11/04/2009 Unspecified Symptom Associated with Female Nupur*11/04/2009 Hyperthyroidism [E05.90] 05/04/2011 Graves' disease [E05.00] 07/04/2011 Anemia [D64.9] 02/02/2018 Crohn's disease (HCC) [K50.90] 03/2022 Tobacco use disorder [F17.200] 09/29/2022 Encounter Status:Closed by WORKMAN ZENOBIA FLORIAN on 04/06/23 CNPTOUTREACH Observed: 03/28/2023 12:00 AM Status: COMPLETED Source: [facility] Patient Outreach (INTMMN) OLIVIA MAN ([id number]) 1985 F Date Time Provider Department 03/28/23 LIZZETHDEBRA DSOUZA During your visit today, we recorded the following information about you: Allergies As of Date: 03/28/2023 Noted Allergy Reaction flu immuzation [Other] 07/09/2007 8 - GI Upset LODINE (ETODOLAC) 09/18/2006 9 - Itching Date Reviewed: 09/29/2022 Reviewed by: Zenobia Dominguez Cma - Fully Assessed Visit Diagnosis:Hyperthyroidism [E05.90] Order(s):TSH BLD [SQTSH] Order #: [id number] FUTURE Prescriptions as of 03/31/2023 - citalopram (CELEXA) 20 mg tablet Take 1 tablet by mouth once daily. - levothyroxine (SYNTHROID) 125 mcg tablet Take 1 tablet by mouth once daily. Takes 8 tabs per week. One daily except Mon and Wed takes an extra half tab. - HUMIRA,CF, PEN 40 mg/0.4 mL pen kit - estradiol (ESTRACE) 2 mg tablet - dicyclomine (BENTYL) 20 mg tablet - Ferrous Gluconate (FERGON) 324 mg (38 mg iron) tablet Take 1 tablet by mouth twice daily with meals. - acetaminophen (TYLENOL) 500 mg tablet Take 500 mg by mouth every 8 hours as needed. - acetaminophen/diphenhydramine (TYLENOL PM ORAL) Take by mouth. - pantoprazole DR (PROTONIX) 20 mg tablet Take 20 mg by mouth once daily. - verapamil SR (CALAN SR, ISOPTIN SR) 180 mg CR tablet Problem List As Of Date 03/28/2023 Noted Resolved SPRAIN OF BACK NOS [CNE2780] 09/25/2006 PAP SMEAR OF CERVIX W ASCUS [R87.610] 02/08/2007 Depressive disorder, not elsewhere classified [*07/04/2011 ABDOMINAL PAIN RLQ [R10.31] 03/13/2007 03/27/2007 ANAL FISSURE [K60.2] 06/23/2007 CONSTIPATION NOS [K59.00] 11/20/2007 ACUTE GASTRITIS W/O HEMORRHAGE [K29.00] 12/20/2007 DIZZINESS AND GIDDINESS [R42] 09/24/2008 Supervision of Other High-Risk [O09.8*10/29/2008 11/04/2009 LEG VARICOSITY W OTHER COMPLICATION [I83.893] 01/08/2009 Irregular Menstrual Cycle [N92.6] 11/04/2009 Unspecified Symptom Associated with Female Nupur*11/04/2009 Hyperthyroidism [E05.90] 05/04/2011 Graves' disease [E05.00] 07/04/2011 Anemia [D64.9] 02/02/2018 Crohn's disease (HCC) [K50.90] 03/2022 Tobacco use disorder [F17.200] 09/29/2022 Encounter Status:Closed by LILIANA JACK on 03/31/23 CNOV Observed: 09/29/2022 6:40 PM Status: COMPLETED Source: [facility] OLIVIA MAN ([id number]) 1985 F Date Time Provider Department 09/29/22 6:40 PM DEBRA ROLAND During your visit today, we recorded the following information about you: Pulse Respiration Blood pressure Weight 89/minute 16/minute 102/80 69.4 kg Height 1.651 m Debra Roland APRN.DIRECTOR OF PLANT OPERATIONS 09/29/2022 7:07 PM Signed Chief Complaint Patient presents with: Establish Care HPI Olivia Man is a 37 year old female who presents here today for Above Complaints.. Patient presents to [facility] care. Patient reports that she sees Dr. Abbott for Crohn's and is currently on humira. Patient reports she has constipation from Crohn's. Patient reports she was on prednisone for a long time. Patient reports fatigue and exhaustion since stopping prednisone as well as weight loss of about 8-10 pounds. Patient reports her weight has now stabilized. Patient also reports that she sees Dr. Davis for arthritis evaluation and follows with Dr. Barajas for dry skin and itching. Past medical history, appointments, medications, allergies reviewed. Previous Medical History PAST MEDICAL HISTORY Diagnosis Date Acute appendicitis without mention of peritonitis 02/27/07 Acute gastritis without mention of hemorrhage Depressive disorder, not elsewhere classified Grave's disease 07/04/2011 Irregular menstrual cycle Irregular periods Migraine, unspecified, with intractable migraine, so stated, without mention of status migrainosus Migraine PMH - PAST MEDICAL HISTORY OF 06/12 ASCUS - Neg HPV Tobacco use disorder Urinary tract infection, site not specified Recurrent UTI's Previous Surgical History PAST SURGICAL HISTORY Procedure Laterality Date ADENOIDECTOMY PRIMARY <AGE 14 Adenoidectomy CARPAL TUNNEL 12/2017 COLONOSCOPY 2012 EGD 2012 EGD TRANSORAL BIOPSY SINGLE/MULTIPLE 12/20/2007 minimal gastritis LAPAROSCOPIC APPENDECTOMY 02/27/07 PAST SURGICAL HISTORY OF 2011 biopsy of (L) calf- benign PAST SURGICAL HISTORY OF 09/2012 B/L eye lid retraction PAST SURGICAL HISTORY OF multple surgery for endometriosis THYROIDECTOMY TOTAL/COMPLETE 11/23/11 graves disease TONSILLECTOMY PRIMARY/SECONDARY <AGE 14 Tonsillectomy Family History FAMILY HISTORY Problem Relation Age of Onset Diabetes Paternal Grandmother Psychiatry Maternal Grandmother Depression Asthma Mother Patient Allergies ALLERGIES Allergen Reactions Flu Immuzation [Oth* GI Upset Lodine [Etodolac] Itching Current Medications Current Outpatient Medications on File Prior to Visit Medication Sig HUMIRA,CF, PEN 40 mg/0.4 mL pen kit estradiol (ESTRACE) 2 mg tablet dicyclomine (BENTYL) 20 mg tablet Ferrous Gluconate (FERGON) 324 mg (38 mg iron) tablet Take 1 tablet by mouth twice daily with meals. acetaminophen (TYLENOL) 500 mg tablet Take 500 mg by mouth every 8 hours as needed. acetaminophen/diphenhydramine (TYLENOL PM ORAL) Take by mouth. pantoprazole DR (PROTONIX) 20 mg tablet Take 20 mg by mouth once daily. citalopram hydrobromide (CELEXA) 10 mg tablet verapamil SR (CALAN SR, ISOPTIN SR) 180 mg CR tablet levothyroxine 125 mcg tablet Takes 8 tabs per week. One daily except Mon and Wed takes an extra half tab. cholestyramine (QUESTRAN) 4 gram packet Take 1 Packet by mouth three times daily with meals. cetirizine (ZYRTEC) 10 mg tablet Take by mouth. (Patient not taking: Reported on 09/07/2022) nystatin (MYCOSTATIN) 100,000 unit/mL suspension Take 5 mL by mouth four times daily. 1tsp swish in mouth for several minutes, then swallow (or expectorate) 4 times daily until gone. (Patient not taking: Reported on 09/07/2022) SYNTHROID 112 mcg tablet (Patient not taking: Reported on 09/07/2022) amitriptyline (ELAVIL) 10 mg tablet (Patient not taking: Reported on 09/07/2022) No current facility-administered medications on file prior to visit. Social History Social History Tobacco Use Smoking status: Every Day Packs/day: 0.50 Years: 1.00 Pack years: 0.50 Types: Cigarettes Smokeless tobacco: Never Tobacco comments: 12/04/09 Patient has decreased to 3-4 cigarettes daily Substance Use Topics Alcohol use: No Drug use: No Review of Symptoms REVIEW OF SYSTEMS SEE HPI EXAM: BP 102/80 Pulse 89 Resp 16 Ht 165.1 cm (5' 5 ) Wt 69.4 kg (153 lb) LMP 02/10/2017 BMI 25.46 kg/m? General Appearance: Well appearing, alert, in no acute distress, well-hydrated, well nourished.. Skin: Skin color, texture, turgor normal, no suspicious rashes or lesions. Lungs: Lungs clear to auscultation. No wheezing, rhonchi, rales.. Heart: RRR without murmur, gallop, or rubs. No ectopy. Abdomen: Positive findings: distended. Musculoskeletal: No joint swelling, deformity, or tenderness. Peripheral Pulses: Normal. Health Maintenance List HEPATITIS B(1 of 3 - 3-dose series) Never done COVID-19 VACCINE(1) Never done PNEUMOCOCCAL(1 - PCV) Never done DTAP,TDAP,TD(2 - Tdap) due on 02/05/1999 ANNUAL PCP TEAM CHRONIC DISEASE VISIT Never done HEPATITIS C SCREENING Never done HIV SCREENING Never done SHINGRIX VACCINE(1 of 2) Never done PAP TESTING due on 05/31/2017 HPV TESTING Never done INFLUENZA(1) Never done ASSESSMENT/PLAN: 1. Crohn's disease without complication, unspecified gastrointestinal tract location (HCC) - ICD9: 555.9, ICD10: K50.90 (primary diagnosis) -Follows with Dr. Abbott -Currently on Humira 2. Tobacco use disorder - ICD9: 305.1, ICD10: F17.200 - Cessation encouraged. - Physiologic and physical aspects of tobacco addiction as well as strategies for quitting were discussed. - Counseling was given focusing on the harmful effects of this addiction especially given the patient's medical condition(s) which will be worsened because of the chemicals in tobacco. 3. Major depressive disorder, remission status unspecified, unspecified whether recurrent - ICD9: 296.20, ICD10: F32.9 -Continue celexa 4. Graves' disease - ICD9: 242.00, ICD10: E05.00 -Continue levothyroxine 5. Hyperthyroidism - ICD9: 242.90, ICD10: E05.90 -Continue levothyroxine Discussed vaccinations with patient as she is concerned about updating vaccinations prior to starting methotrexate. Patient is allergic to flu shot and as a result has not gotten a covid shot as no one has ok'd this due to her flu allergy and immunocompromised. Debra Roland APRN.JIMENA Roland APRN.JIMENA 09/29/2022 7:01 PM Addendum Continue current medications Follow with specialists as scheduled Follow up in 6 months Referring Provider: SELF [200] Allergies As of Date: 09/29/2022 Noted Allergy Reaction flu immuzation [Other] 07/09/2007 8 - GI Upset LODINE (ETODOLAC) 09/18/2006 9 - Itching Date Reviewed: 09/29/2022 Reviewed by: Zenobia Dominguez [facility] - Fully Assessed Reason for Visit: Establish Care [42] Primary Visit Diagnosis:Crohn's disease without complication, unspecified gastrointestinal tract location (HCC) [K50.90] Other Visit Diagnoses:Tobacco use disorder [F17.200] Major depressive disorder, remission status unspecified, unspecified whether recurrent [F32.9] Graves' disease [E05.00] Hyperthyroidism [E05.90] Prescriptions as of 09/29/2022 - HUMIRA,CF, PEN 40 mg/0.4 mL pen kit - estradiol (ESTRACE) 2 mg tablet - dicyclomine (BENTYL) 20 mg tablet - Ferrous Gluconate (FERGON) 324 mg (38 mg iron) tablet Take 1 tablet by mouth twice daily with meals. - acetaminophen (TYLENOL) 500 mg tablet Take 500 mg by mouth every 8 hours as needed. - acetaminophen/diphenhydramine (TYLENOL PM ORAL) Take by mouth. - pantoprazole DR (PROTONIX) 20 mg tablet Take 20 mg by mouth once daily. - citalopram hydrobromide (CELEXA) 10 mg tablet - verapamil SR (CALAN SR, ISOPTIN SR) 180 mg CR tablet - levothyroxine 125 mcg tablet Takes 8 tabs per week. One daily except Mon and Wed takes an extra half tab. Problem List As Of Date 09/29/2022 Noted Resolved SPRAIN OF BACK NOS [TSQ1399] 09/25/2006 PAP SMEAR OF CERVIX W ASCUS [R87.610] 02/08/2007 Depressive disorder, not elsewhere classified [*07/04/2011 ABDOMINAL PAIN RLQ [R10.31] 03/13/2007 03/27/2007 ANAL FISSURE [K60.2] 06/23/2007 CONSTIPATION NOS [K59.00] 11/20/2007 ACUTE GASTRITIS W/O HEMORRHAGE [K29.00] 12/20/2007 DIZZINESS AND GIDDINESS [R42] 09/24/2008 Supervision of Other High-Risk [O09.8*10/29/2008 11/04/2009 LEG VARICOSITY W OTHER COMPLICATION [I83.893] 01/08/2009 Irregular Menstrual Cycle [N92.6] 11/04/2009 Unspecified Symptom Associated with Female Nupur*11/04/2009 Hyperthyroidism [E05.90] 05/04/2011 Graves' disease [E05.00] 07/04/2011 Anemia [D64.9] 02/02/2018 Crohn's disease (HCC) [K50.90] 03/2022 Tobacco use disorder [F17.200] 09/29/2022 Other instructions from your clinician: Continue current medications Follow with specialists as scheduled Follow up in 6 months Medications Discontinued During This Encounter Prescriptions - cholestyramine (QUESTRAN) 4 gram packet (Discontinued) Take 1 Packet by mouth three times daily with meals. - cetirizine (ZYRTEC) 10 mg tablet (Discontinued) Reported on 09/07/2022 - nystatin (MYCOSTATIN) 100,000 unit/mL suspension (Discontinued) Reported on 09/07/2022 - SYNTHROID 112 mcg tablet (Discontinued) Reported on 09/07/2022 - amitriptyline (ELAVIL) 10 mg tablet (Discontinued) Reported on 09/07/2022 Disposition: Return in about 6 months (around 03/29/2023). Follow-up and Disposition History for Encounter Date Provider Department Center 09/29/2022 [id number] ROLAND [facility] Encounter Status:Closed by DEBRA ROLAND on 09/29/22 PROGRESS Observed: 09/29/2022 6:32 PM Status: COMPLETED Source: [facility] HNO ID: [id number] Author: Debra Roland APRN.DIRECTOR OF [employer] Service: ? Author Type: Nurse Practitioner Type: Progress Notes Filed: 09/29/2022 7:07 PM Note Text: Chief Complaint Patient presents with: [facility] HPI Olivia Man is a 37 year old female who presents here today for Above Complaints.. Patient presents to [facility]. Patient reports that she sees Dr. Abbott for Crohn's and is currently on humira. Patient reports she has constipation from Crohn's. Patient reports she was on prednisone for a long time. Patient reports fatigue and exhaustion since stopping prednisone as well as weight loss of about 8-10 pounds. Patient reports her weight has now stabilized. Patient also reports that she sees Dr. Davis for arthritis evaluation and follows with Dr. Barajas for dry skin and itching. Past medical history, appointments, medications, allergies reviewed. Previous Medical History PAST MEDICAL HISTORY Diagnosis Date Acute appendicitis without mention of peritonitis 02/27/07 Acute gastritis without mention of hemorrhage Depressive disorder, not elsewhere classified Grave's disease 07/04/2011 Irregular menstrual cycle Irregular periods Migraine, unspecified, with intractable migraine, so stated, without mention of status migrainosus Migraine PMH - PAST MEDICAL HISTORY OF 06/12 ASCUS - Neg HPV Tobacco use disorder Urinary tract infection, site not specified Recurrent UTI's Previous Surgical History PAST SURGICAL HISTORY Procedure Laterality Date ADENOIDECTOMY PRIMARY <AGE 14 Adenoidectomy CARPAL TUNNEL 12/2017 COLONOSCOPY 2012 EGD 2012 EGD TRANSORAL BIOPSY SINGLE/MULTIPLE 12/20/2007 minimal gastritis LAPAROSCOPIC APPENDECTOMY 02/27/07 PAST SURGICAL HISTORY OF 2011 biopsy of (L) calf- benign PAST SURGICAL HISTORY OF 09/2012 B/L eye lid retraction PAST SURGICAL HISTORY OF multple surgery for endometriosis THYROIDECTOMY TOTAL/COMPLETE 11/23/11 graves disease TONSILLECTOMY PRIMARY/SECONDARY <AGE 14 Tonsillectomy Family History FAMILY HISTORY Problem Relation Age of Onset Diabetes Paternal Grandmother Psychiatry Maternal Grandmother Depression Asthma Mother Patient Allergies ALLERGIES Allergen Reactions Flu Immuzation [Oth* GI Upset Lodine [Etodolac] Itching Current Medications Current Outpatient Medications on File Prior to Visit Medication Sig HUMIRA,CF, PEN 40 mg/0.4 mL pen kit estradiol (ESTRACE) 2 mg tablet dicyclomine (BENTYL) 20 mg tablet Ferrous Gluconate (FERGON) 324 mg (38 mg iron) tablet Take 1 tablet by mouth twice daily with meals. acetaminophen (TYLENOL) 500 mg tablet Take 500 mg by mouth every 8 hours as needed. acetaminophen/diphenhydramine (TYLENOL PM ORAL) Take by mouth. pantoprazole DR (PROTONIX) 20 mg tablet Take 20 mg by mouth once daily. citalopram hydrobromide (CELEXA) 10 mg tablet verapamil SR (CALAN SR, ISOPTIN SR) 180 mg CR tablet levothyroxine 125 mcg tablet Takes 8 tabs per week. One daily except Mon and Wed takes an extra half tab. cholestyramine (QUESTRAN) 4 gram packet Take 1 Packet by mouth three times daily with meals. cetirizine (ZYRTEC) 10 mg tablet Take by mouth. (Patient not taking: Reported on 09/07/2022) nystatin (MYCOSTATIN) 100,000 unit/mL suspension Take 5 mL by mouth four times daily. 1tsp swish in mouth for several minutes, then swallow (or expectorate) 4 times daily until gone. (Patient not taking: Reported on 09/07/2022) SYNTHROID 112 mcg tablet (Patient not taking: Reported on 09/07/2022) amitriptyline (ELAVIL) 10 mg tablet (Patient not taking: Reported on 09/07/2022) No current facility-administered medications on file prior to visit. Social History Social History Tobacco Use Smoking status: Every Day Packs/day: 0.50 Years: 1.00 Pack years: 0.50 Types: Cigarettes Smokeless tobacco: Never Tobacco comments: 12/04/09 Patient has decreased to 3-4 cigarettes daily Substance Use Topics Alcohol use: No Drug use: No Review of Symptoms REVIEW OF SYSTEMS SEE HPI EXAM: BP 102/80 Pulse 89 Resp 16 Ht 165.1 cm (5' 5 ) Wt 69.4 kg (153 lb) LMP 02/10/2017 BMI 25.46 kg/m? General Appearance: Well appearing, alert, in no acute distress, well-hydrated, well nourished.. Skin: Skin color, texture, turgor normal, no suspicious rashes or lesions. Lungs: Lungs clear to auscultation. No wheezing, rhonchi, rales.. Heart: RRR without murmur, gallop, or rubs. No ectopy. Abdomen: Positive findings: distended. Musculoskeletal: No joint swelling, deformity, or tenderness. Peripheral Pulses: Normal. Health Maintenance List HEPATITIS B(1 of 3 - 3-dose series) Never done COVID-19 VACCINE(1) Never done PNEUMOCOCCAL(1 - PCV) Never done DTAP,TDAP,TD(2 - Tdap) due on 02/05/1999 ANNUAL PCP TEAM CHRONIC DISEASE VISIT Never done HEPATITIS C SCREENING Never done HIV SCREENING Never done SHINGRIX VACCINE(1 of 2) Never done PAP TESTING due on 05/31/2017 HPV TESTING Never done INFLUENZA(1) Never done ASSESSMENT/PLAN: 1. Crohn's disease without complication, unspecified gastrointestinal tract location (HCC) - ICD9: 555.9, ICD10: K50.90 (primary diagnosis) -Follows with Dr. Abbott -Currently on Humira 2. Tobacco use disorder - ICD9: 305.1, ICD10: F17.200 - Cessation encouraged. - Physiologic and physical aspects of tobacco addiction as well as strategies for quitting were discussed. - Counseling was given focusing on the harmful effects of this addiction especially given the patient's medical condition(s) which will be worsened because of the chemicals in tobacco. 3. Major depressive disorder, remission status unspecified, unspecified whether recurrent - ICD9: 296.20, ICD10: F32.9 -Continue celexa 4. Graves' disease - ICD9: 242.00, ICD10: E05.00 -Continue levothyroxine 5. Hyperthyroidism - ICD9: 242.90, ICD10: E05.90 -Continue levothyroxine Discussed vaccinations with patient as she is concerned about updating vaccinations prior to starting methotrexate. Patient is allergic to flu shot and as a result has not gotten a covid shot as no one has ok'd this due to her flu allergy and immunocompromised. Debra Roland, [employer].DIRECTOR OF PLANT OPERATIONS XR KNEE 4V AP/PA BOTH+LAT/DESTIN RT Observed: 09/07/2022 2:24 PM Status: F Source: [facility] * * *Final Report* * * DATE OF EXAM: Sep 07 2022 2:24PM WOX [id number] - XR KNEE 4V AP/PA BOTH+LAT/DESTIN RT / PROCEDURE REASON: multiple diagnoses * * * * Physician Interpretation * * * * TITLE: XR KNEE 4V AP/PA BOTH+LAT/DESTIN RT, XR TIBIA FIBULA 2V AP/LAT RT CLINICAL INDICATION: Status post fall with pain TECHNIQUE: AP and lateral radiographs of the right tibia and fibula. AP, PA, merchant radiographs of both knees and lateral radiographs of the right knee COMPARISON: None FINDINGS: Right knee: Trace fluid in the right suprapatellar joint space. No acute fracture or dislocation identified. Joint spaces preserved. Left knee: No acute fracture or dislocation. Joint spaces preserved. Right tibia/fibula: No acute fracture or dislocation identified. Small dorsal calcaneal enthesophyte. IMPRESSION: No radiographic evidence of acute osseous injury Science Interpreter: [facility] Transcribe Date/Time: Sep 07 2022 2:26P Dictated by : KAYCEE WILL MD This examination was interpreted and the report reviewed and electronically signed by: KAYCEE WILL MD on Sep 07 2022 2:28PM EST [id number] XR TIBIA FIBULA 2V AP/LAT RT Observed: 0 09/07/2022 2:24 PM Status: F Source: [facility] * * *Final Report* * * DATE OF EXAM: Sep 07 2022 2:24PM WOX [id number] - XR TIBIA FIBULA 2V AP/LAT RT / PROCEDURE REASON: multiple diagnoses * * * * Physician Interpretation * * * * TITLE: XR KNEE 4V AP/PA BOTH+LAT/DESTIN RT, XR TIBIA FIBULA 2V AP/LAT RT CLINICAL INDICATION: Status post fall with pain TECHNIQUE: AP and lateral radiographs of the right tibia and fibula. AP, PA, merchant radiographs of both knees and lateral radiographs of the right knee COMPARISON: None FINDINGS: Right knee: Trace fluid in the right suprapatellar joint space. No acute fracture or dislocation identified. Joint spaces preserved. Left knee: No acute fracture or dislocation. Joint spaces preserved. Right tibia/fibula: No acute fracture or dislocation identified. Small dorsal calcaneal enthesophyte. IMPRESSION: No radiographic evidence of acute osseous injury Science Interpreter: [facility] Transcribe Date/Time: Sep 07 2022 2:26P Dictated by : KAYCEE WILL MD This examination was interpreted and the report reviewed and electronically signed by: KAYCEE WILL MD on Sep 07 2022 2:28PM EST [id number] PROGRESS Observed: 09/07/2022 1:59 PM Status: COMPLETED Source: [facility] ID: [id number] Author: RT Michelle(R) Service: ? Author Type: Field Assembly Supervisor Type: Progress Notes Filed: 09/07/2022 2:25 PM Note Text: Radiology Service Progress Note PATIENT NAME: Olivia Man DATE OF SERVICE: September 07, 2022 TIME: 1:59 PM PATIENT IDENTITY VERIFICATION COMPLETED USING TWO (2) IDENTIFIERS: Name and Date of confirmed by patient verbally. FALL SCREENING: Has the patient had 2 falls in the last year or 1 fall with injury or currently using an Ambulatory Assistive Device (Walker, Cane, Wheelchair, Crutches, etc.)? No PATIENT GENDER DATA: Female. status: : No status: NO. PATIENT RELEVANT IMPLANT DATA REVIEWED: Yes RADIOLOGY DEPARTMENT: General X-ray: Exam(s) Completed: Lower Extremity X-Ray(s): Knee, AP / Lat / Tunne / Merchant Right and Tibia Fibula, Right PERIPHERAL IV DATA: Not applicable SIGNED BY: RT Michelle(R) September 07, 2022 1:59 PM PROGRESS Observed: 09/07/2022 1:59 PM Status: COMPLETED Source: [facility] ID: [id number] Author: SANGEETA Nunez Service: ? Author Type: Physician Sap Administrator Type: Progress Notes Filed: 09/07/2022 2:44 PM Note Text: This note was created using NoteWriter. Subjective Olivia Man is a 37 year old female. HPI 37-year-old female presents for right knee pain. Patient was in her driveway today trying to put her daughter in the car when she tripped on something and started to fall to the ground. She twisted her leg and landed on her right knee. She has an abrasion to the right knee. States that she is having pain in the right knee and right lateral leg. She did have some swelling. She put some ice on it. No numbness or tingling in the leg. No history of surgery on this leg in the past. She is still able to ambulate PAST MEDICAL HISTORY Diagnosis Date Acute appendicitis without mention of peritonitis 02/27/07 Acute gastritis without mention of hemorrhage Depressive disorder, not elsewhere classified Grave's disease 07/04/2011 Irregular menstrual cycle Irregular periods Migraine, unspecified, with intractable migraine, so stated, without mention of status migrainosus Migraine PMH - PAST MEDICAL HISTORY OF 06/12 ASCUS - Neg HPV Tobacco use disorder Urinary tract infection, site not specified Recurrent UTI's PAST SURGICAL HISTORY Procedure Laterality Date ADENOIDECTOMY PRIMARY <AGE 14 Adenoidectomy CARPAL TUNNEL 12/2017 COLONOSCOPY 2012 EGD 2012 EGD TRANSORAL BIOPSY SINGLE/MULTIPLE 12/20/2007 minimal gastritis LAPAROSCOPIC APPENDECTOMY 02/27/07 PAST SURGICAL HISTORY OF 2011 biopsy of (L) calf- benign PAST SURGICAL HISTORY OF 09/2012 B/L eye lid retraction PAST SURGICAL HISTORY OF multple surgery for endometriosis THYROIDECTOMY TOTAL/COMPLETE 11/23/11 graves disease TONSILLECTOMY PRIMARY/SECONDARY <AGE 14 Tonsillectomy ALLERGIES Flu Immuzation [Other] and Lodine [Etodolac] MEDICATIONS HUMIRA,CF, PEN 40 mg/0.4 mL pen kit estradiol (ESTRACE) 2 mg tablet dicyclomine (BENTYL) 20 mg tablet Ferrous Gluconate (FERGON) 324 mg (38 mg iron) tablet Take 1 tablet by mouth twice daily with meals. acetaminophen (TYLENOL) 500 mg tablet Take 500 mg by mouth every 8 hours as needed. acetaminophen/diphenhydramine (TYLENOL PM ORAL) Take by mouth. pantoprazole DR (PROTONIX) 20 mg tablet Take 20 mg by mouth once daily. citalopram hydrobromide (CELEXA) 10 mg tablet verapamil SR (CALAN SR, ISOPTIN SR) 180 mg CR tablet levothyroxine 125 mcg tablet Takes 8 tabs per week. One daily except Mon and Wed takes an extra half tab. cholestyramine (QUESTRAN) 4 gram packet Take 1 Packet by mouth three times daily with meals. cetirizine (ZYRTEC) 10 mg tablet Take by mouth. (Patient not taking: Reported on 09/07/2022) nystatin (MYCOSTATIN) 100,000 unit/mL suspension Take 5 mL by mouth four times daily. 1tsp swish in mouth for several minutes, then swallow (or expectorate) 4 times daily until gone. (Patient not taking: Reported on 09/07/2022) SYNTHROID 112 mcg tablet (Patient not taking: Reported on 09/07/2022) amitriptyline (ELAVIL) 10 mg tablet (Patient not taking: Reported on 09/07/2022) FAMILY HISTORY Problem Relation Age of Onset Diabetes Paternal Grandmother Psychiatry Maternal Grandmother Depression Asthma Mother Social History Tobacco Use Smoking status: Every Day Packs/day: 0.50 Years: 1.00 Pack years: 0.50 Types: Cigarettes Smokeless tobacco: Never Tobacco comments: 12/04/09 Patient has decreased to 3-4 cigarettes daily Substance Use Topics Alcohol use: No Drug use: No Review of Systems Constitutional: Negative for chills and fever. Musculoskeletal: Positive for arthralgias (R knee). Negative for gait problem. Skin: Positive for wound (abrasion). Neurological: Negative for numbness. Objective BP 118/82 Pulse 80 Temp 36.2 ?C (97.1 ?F) Resp 21 Wt 70.4 kg (155 lb 3.2 oz) LMP 02/10/2017 SpO2 98% BMI 25.05 kg/m? Physical Exam Vitals and nursing note reviewed. Constitutional: General: She is not in acute distress. Appearance: Normal appearance. She is not toxic-appearing. Cardiovascular: Rate and Rhythm: Normal rate and regular rhythm. Pulmonary: Effort: Pulmonary effort is normal. Breath sounds: Normal breath sounds. Musculoskeletal: Right knee: Ecchymosis and bony tenderness present. No deformity or lacerations (+ abrasion). Tenderness present over the lateral joint line. No LCL laxity, MCL laxity, ACL laxity or PCL laxity. Normal patellar mobility. Normal pulse. Right lower leg: Tenderness present. Comments: Normal ROM right knee. Normal flexion extension right knee, but reports pain with movement. She has a small abrasion over the patella with a bruise present. No significant swelling. Tenderness over the anterior knee/patella and lateral joint line. Tenderness over the proximal fibula. No calf swelling noted. No ankle pain. Pulses 2+ right lower extremity. Normal sensation. Able to ambulate. No significant ligament laxity. No deformity seen. Skin: General: Skin is warm and dry. Neurological: Mental Status: She is alert. Assessment and Plan ASSESSMENT/PLAN: 1. Injury of right knee, initial encounter - ICD9: 959.7, ICD10: S89.91XA (primary diagnosis) -XR reveals no acute osseous injury. Chad bandage was applied. Patient is able to ambulate, declines crutches at this time. - Advised rest, ice, compression, elevation, NSAIDs as needed for pain. -Referral to orthopedics placed if symptoms do not improve - CONSULT TO ORTHOPAEDICS 2. Fall, initial encounter - ICD9: E888.9, ICD10: W19.XXXA - XR KNEE GENERAL 4V AP BOTH/PA BOTH/LAT/MERC RIGHT - XR TIBIA FIBULA 2V AP/LAT RIGHT -XR reveals no evidence of acute osseous injury. Trace fluid in right suprapatellar joint space. No fracture or dislocation. 3. Acute pain of right knee - ICD9: 719.46, ICD10: M25.561 - see above. - XR KNEE GENERAL 4V AP BOTH/PA BOTH/LAT/MERC RIGHT - XR TIBIA FIBULA 2V AP/LAT RIGHT Diagnosis and treatment plan were discussed and questions were answered to the patient's satisfaction. Pt acknowledged understanding of concepts and follow up plan. Specific signs and symptoms that would indicate the need for higher level of care were discussed in detail warranting prompt ER evaluation. SANGEETA Nunez CNOV Observed: 09/07/2022 1:45 PM Status: COMPLETED Source: [facility] Office Visit (WSTR) OLIVIA MAN ([id number]) 1985 F Date Time Provider Department 09/07/22 1:45 PM JEMMA PETERS [facility] During your visit today, we recorded the following information about you: Temperature Pulse Respiration Blood pressure 97.1 degrees 80/minute 21/minute 118/82 Weight 70.4 kg SANGEETA Nunez 09/07/2022 2:44 PM Signed This note was created using Hotelcloudriter. Subjective Olivia Man is a 37 year old female. HPI 37-year-old female presents for right knee pain. Patient was in her driveway today trying to put her daughter in the car when she tripped on something and started to fall to the ground. She twisted her leg and landed on her right knee. She has an abrasion to the right knee. States that she is having pain in the right knee and right lateral leg. She did have some swelling. She put some ice on it. No numbness or tingling in the leg. No history of surgery on this leg in the past. She is still able to ambulate PAST MEDICAL HISTORY Diagnosis Date Acute appendicitis without mention of peritonitis 02/27/07 Acute gastritis without mention of hemorrhage Depressive disorder, not elsewhere classified Grave's disease 07/04/2011 Irregular menstrual cycle Irregular periods Migraine, unspecified, with intractable migraine, so stated, without mention of status migrainosus Migraine PMH - PAST MEDICAL HISTORY OF 06/12 ASCUS - Neg HPV Tobacco use disorder Urinary tract infection, site not specified Recurrent UTI's PAST SURGICAL HISTORY Procedure Laterality Date ADENOIDECTOMY PRIMARY <AGE 14 Adenoidectomy CARPAL TUNNEL 12/2017 COLONOSCOPY 2012 EGD 2012 EGD TRANSORAL BIOPSY SINGLE/MULTIPLE 12/20/2007 minimal gastritis LAPAROSCOPIC APPENDECTOMY 02/27/07 PAST SURGICAL HISTORY OF 2011 biopsy of (L) calf- benign PAST SURGICAL HISTORY OF 09/2012 B/L eye lid retraction PAST SURGICAL HISTORY OF multple surgery for endometriosis THYROIDECTOMY TOTAL/COMPLETE 11/23/11 graves disease TONSILLECTOMY PRIMARY/SECONDARY <AGE 14 Tonsillectomy ALLERGIES Flu Immuzation [Other] and Lodine [Etodolac] MEDICATIONS HUMIRA,CF, PEN 40 mg/0.4 mL pen kit estradiol (ESTRACE) 2 mg tablet dicyclomine (BENTYL) 20 mg tablet Ferrous Gluconate (FERGON) 324 mg (38 mg iron) tablet Take 1 tablet by mouth twice daily with meals. acetaminophen (TYLENOL) 500 mg tablet Take 500 mg by mouth every 8 hours as needed. acetaminophen/diphenhydramine (TYLENOL PM ORAL) Take by mouth. pantoprazole DR (PROTONIX) 20 mg tablet Take 20 mg by mouth once daily. citalopram hydrobromide (CELEXA) 10 mg tablet verapamil SR (CALAN SR, ISOPTIN SR) 180 mg CR tablet levothyroxine 125 mcg tablet Takes 8 tabs per week. One daily except Mon and Wed takes an extra half tab. cholestyramine (QUESTRAN) 4 gram packet Take 1 Packet by mouth three times daily with meals. cetirizine (ZYRTEC) 10 mg tablet Take by mouth. (Patient not taking: Reported on 09/07/2022) nystatin (MYCOSTATIN) 100,000 unit/mL suspension Take 5 mL by mouth four times daily. 1tsp swish in mouth for several minutes, then swallow (or expectorate) 4 times daily until gone. (Patient not taking: Reported on 09/07/2022) SYNTHROID 112 mcg tablet (Patient not taking: Reported on 09/07/2022) amitriptyline (ELAVIL) 10 mg tablet (Patient not taking: Reported on 09/07/2022) FAMILY HISTORY Problem Relation Age of Onset Diabetes Paternal Grandmother Psychiatry Maternal Grandmother Depression Asthma Mother Social History Tobacco Use Smoking status: Every Day Packs/day: 0.50 Years: 1.00 Pack years: 0.50 Types: Cigarettes Smokeless tobacco: Never Tobacco comments: 12/04/09 Patient has decreased to 3-4 cigarettes daily Substance Use Topics Alcohol use: No Drug use: No Review of Systems Constitutional: Negative for chills and fever. Musculoskeletal: Positive for arthralgias (R knee). Negative for gait problem. Skin: Positive for wound (abrasion). Neurological: Negative for numbness. Objective BP 118/82 Pulse 80 Temp 36.2 ?C (97.1 ?F) Resp 21 Wt 70.4 kg (155 lb 3.2 oz) LMP 02/10/2017 SpO2 98% BMI 25.05 kg/m? Physical Exam Vitals and nursing note reviewed. Constitutional: General: She is not in acute distress. Appearance: Normal appearance. She is not toxic-appearing. Cardiovascular: Rate and Rhythm: Normal rate and regular rhythm. Pulmonary: Effort: Pulmonary effort is normal. Breath sounds: Normal breath sounds. Musculoskeletal: Right knee: Ecchymosis and bony tenderness present. No deformity or lacerations (+ abrasion). Tenderness present over the lateral joint line. No LCL laxity, MCL laxity, ACL laxity or PCL laxity. Normal patellar mobility. Normal pulse. Right lower leg: Tenderness present. Comments: Normal ROM right knee. Normal flexion extension right knee, but reports pain with movement. She has a small abrasion over the patella with a bruise present. No significant swelling. Tenderness over the anterior knee/patella and lateral joint line. Tenderness over the proximal fibula. No calf swelling noted. No ankle pain. Pulses 2+ right lower extremity. Normal sensation. Able to ambulate. No significant ligament laxity. No deformity seen. Skin: General: Skin is warm and dry. Neurological: Mental Status: She is alert. Assessment and Plan ASSESSMENT/PLAN: 1. Injury of right knee, initial encounter - ICD9: 959.7, ICD10: S89.91XA (primary diagnosis) -XR reveals no acute osseous injury. Chad bandage was applied. Patient is able to ambulate, declines crutches at this time. - Advised rest, ice, compression, elevation, NSAIDs as needed for pain. -Referral to orthopedics placed if symptoms do not improve - CONSULT TO ORTHOPAEDICS 2. Fall, initial encounter - ICD9: E888.9, ICD10: W19.XXXA - XR KNEE GENERAL 4V AP BOTH/PA BOTH/LAT/MERC RIGHT - XR TIBIA FIBULA 2V AP/LAT RIGHT -XR reveals no evidence of acute osseous injury. Trace fluid in right suprapatellar joint space. No fracture or dislocation. 3. Acute pain of right knee - ICD9: 719.46, ICD10: M25.561 - see above. - XR KNEE GENERAL 4V AP BOTH/PA BOTH/LAT/MERC RIGHT - XR TIBIA FIBULA 2V AP/LAT RIGHT Diagnosis and treatment plan were discussed and questions were answered to the patient's satisfaction. Pt acknowledged understanding of concepts and follow up plan. Specific signs and symptoms that would indicate the need for higher level of care were discussed in detail warranting prompt ER evaluation. SANGEETA Nunez Allergies As of Date: 09/07/2022 Noted Allergy Reaction flu immuzation [Other] 07/09/2007 8 - GI Upset LODINE (ETODOLAC) 09/18/2006 9 - Itching Date Reviewed: 09/07/2022 Reviewed by: Mary Timmons MA - Fully Assessed Reason for Visit: Trauma [112] Cmt: Tripped and twisted right leg and scraped knee Primary Visit Diagnosis:Injury of right knee, initial encounter [S89.91XA] Other Visit Diagnoses:Fall, initial encounter [W19.XXXA] Acute pain of right knee [M25.561] Order(s):XR KNEE GENERAL 4V AP BOTH/PA BOTH/LAT/MERC RIGHT [0660764] Order #: [id number] FUTURE XR TIBIA FIBULA 2V AP/LAT RIGHT [[id number]] Order #: [id number] FUTURE CONSULT TO ORTHOPAEDICS [9026] Order #: [id number]: 1 FUTURE Prescriptions as of 09/07/2022 - HUMIRA,CF, PEN 40 mg/0.4 mL pen kit - estradiol (ESTRACE) 2 mg tablet - dicyclomine (BENTYL) 20 mg tablet - cholestyramine (QUESTRAN) 4 gram packet Take 1 Packet by mouth three times daily with meals. - cetirizine (ZYRTEC) 10 mg tablet Take by mouth. - Ferrous Gluconate (FERGON) 324 mg (38 mg iron) tablet Take 1 tablet by mouth twice daily with meals. - acetaminophen (TYLENOL) 500 mg tablet Take 500 mg by mouth every 8 hours as needed. - acetaminophen/diphenhydramine (TYLENOL PM ORAL) Take by mouth. - pantoprazole DR (PROTONIX) 20 mg tablet Take 20 mg by mouth once daily. - nystatin (MYCOSTATIN) 100,000 unit/mL suspension Take 5 mL by mouth four times daily. 1tsp swish in mouth for several minutes, then swallow (or expectorate) 4 times daily until gone. - citalopram hydrobromide (CELEXA) 10 mg tablet - verapamil SR (CALAN SR, ISOPTIN SR) 180 mg CR tablet - SYNTHROID 112 mcg tablet - amitriptyline (ELAVIL) 10 mg tablet - levothyroxine 125 mcg tablet Takes 8 tabs per week. One daily except Mon and Wed takes an extra half tab. Problem List As Of Date 09/07/2022 Noted Resolved SPRAIN OF BACK NOS [PKF4509] 09/25/2006 PAP SMEAR OF CERVIX W ASCUS [R87.610] 02/08/2007 DEPRESSIVE DISORDER NEC [F32.89] 02/15/2007 ABDOMINAL PAIN RLQ [R10.31] 03/13/2007 03/27/2007 ANAL FISSURE [K60.2] 06/23/2007 CONSTIPATION NOS [K59.00] 11/20/2007 ACUTE GASTRITIS W/O HEMORRHAGE [K29.00] 12/20/2007 DIZZINESS AND GIDDINESS [R42] 09/24/2008 Supervision of Other High-Risk [O09.8*10/29/2008 11/04/2009 LEG VARICOSITY W OTHER COMPLICATION [I83.893] 01/08/2009 Irregular Menstrual Cycle [N92.6] 11/04/2009 Unspecified Symptom Associated with Female Nupur*11/04/2009 Hyperthyroidism [E05.90] 05/04/2011 Grave's disease 07/04/2011 Anemia [D64.9] 02/02/2018 Encounter Status:Closed by JEMMA PETERS on 09/07/22 ALLERGIES DATE TYPE / CODE NAME / CODE REACTION SEVERITY SOURCE 07/09/2007 Miscellaneous Allergy/795748360(SNOMED CT) OTHER GI UPSET [facility] 09/18/2006 DRUG INGREDI/540109215(SNOMED CT) ETODOLAC ITCHING [facility] ENCOUNTERS ADMIT/DISCHARGE ACCOUNT NUMBER ADMITTING ENCOUNTER CLASS LOC ATION SOURCE 05/08/2023/ 3 [id number] [facility] [id number] [facility]/ 3 [id number] Ambulatory [facility] ing:[address] 09/29/2022/ 3 [id number] [facility]/ 3 [id number] Ambulatory [facility] 09/07/2022/ 3 [id number] [facility] ENCOUNTER GUARANTOR PAYER SUBSCRIBER SOURCE 05/08/2023 Primary Insurance:BLUE CARD PPO OOSPolicy Number: [id number] artem Date:3987-22-21Zvim Name:Samantha PEREZ: [id number] [place], [place] [address] [place] [address] 04/13/2023 Primary Insurance:BLUE CARD PPO OOSPolicy Number: [id number] artem Date:[id number] Name:Samantha PEREZ: [id number] [place], [place] [id number] [place] [address] 04/06/2023 Primary Insurance:BLUE CARD PPO OOSPolicy Number: [id number] artem Date:[id number] Name:Samantha PEREZ: [id number] [place], [place] [id number] [place] [address] 09/29/2022 Primary Insurance:BLUE CARD PPO OOSPolicy Number: [id number] artem Date:8724-99-88Lybo Name:Samantha PEREZ: [id number] [place], [place] [address] [place] [address] 09/07/2022 Primary Insurance:BLUE CARD PPO OOSPolicy Number: [id number] artem Date:[id number] Name:Samantha PEREZ: [id number] [place] [address] [facility] 09/07/2022 Primary Insurance:BLUE CARD PPO OOSPolicy Number: [id number] artem Date:[id number] Name:Samantha PEREZ: [id number] [place] [address] [facility]
[2023-05-12 08:45] VITALS: BP 103/62; PULSE 83; RESP 15; TEMP 36.2; O2SAT 99
== END | disposition home or self-care (01) ==
LOC: EN 07:49
PROVIDERS: PCP Nurse Practitioner Family; Referring Provider Nurse Practitioner Family; Visit Provider Internal Medicine Gastroenterology
PROC: F00ZJWZ Instrumental Swallowing and Oral Function Assessment using Swallowing Equipment (ICD-10-PCS; CPT 43235; principal; 2023-05-12 07:55)
DX: R13.10 Dysphagia, unspecified (principal)
CPT/HCPCS: 91010

== ENCOUNTER → 2023-06-02 | Outpatient (CLI) | payer BC, SELFPAY ==
[2023-06-02 12:27] LABS: Absolute Lymphocyte Count 2.44 X10^3/uL (0.83-4.51); Absolute Neutrophil Count 5.8 X10^3/uL (2.0-7.7); Basophil# 0.08 X10^3/uL; Basophil% 0.9 % (0-1); Eosinophil# 0.31 X10^3/uL; Eosinophils% 3.4 % (0-5); Hematocrit 43.4 % (37-47); Hemoglobin 14.7 g/dL (12.0-15.0); Lymphocyte # 2.44 X10^3/ul (0.83-4.51); Lymphocyte % 26.6 % (19-41); Mean Corp Hgb Conc 33.9 g/dL (32-36); Mean Corpuscular Hgb 31.3 pg (27.0-32.0); Mean Corpuscular Volume 92.3 fL (81-99); Monocyte# 0.54 X10^3/uL; Monocyte% 5.9 % (0-10); NRBC Flagged by Analyzer 0 % (0-5); Neutrophil # 5.77 X10^3/uL (2.7-7.7); Platelet Count 269 K/mm3 (150-450); RBC Distribution Width CV 12.7 % (11.6-14.6); White Blood Count 9.2 K/mm3 (4.4-11.0)
[2023-06-02 12:32] LABS: Erythrocyte Sedimentation Rate 1 mm/hr (0-30)
[2023-06-02 13:06] LABS: ALB/GLOB Ratio 1.1 RATIO (0.9-2.4); AST(SGOT) 22 U/L (15-37); Alanine Aminotransfer ALT/SGPT 38 U/L (13-56); Albumin, Serum 3.9 g/dL (3.2-5.0); Alkaline Phosphatase 88 U/L (45-117); Anion Gap 5 (5-15); BUN 13 mg/dL (7-18); CRP < 2.90 mg/L (0.0-3.0); Calcium,Total 9.3 mg/dL (8.5-10.1); Chloride 104 mmol/L (98-107); Creatinine, Serum 0.76 mg/dL (0.55-1.02); EST Glomerular Filtration Rate 91 mL/min (>60); Est Glom Filt Rate - Afr Amer 110 mL/min (>60); Globulin 3.7 g/dL (2.2-4.2); Glucose 84 mg/dL (74-106); Potassium 3.4 mmol/L (3.5-5.1); Protein, Total 7.6 g/dL (6.4-8.2); Sodium Level 136 mmol/L (136-145)
[2023-06-06 20:07] LABS: Calprotectin, Stool 141 ug/g (0-120)
== END | disposition home or self-care (01) ==
LOC: LAB 12:05
PROVIDERS: PCP Nurse Practitioner Family; Referring Provider Internal Medicine Gastroenterology; Visit Provider Internal Medicine Gastroenterology
DX: R19.7 Diarrhea, unspecified (principal)
CPT/HCPCS: 36415; 80053; 83630; 83993; 85025; 85652; 86140

== ENCOUNTER → 2023-07-18 | Outpatient (CLI) | payer BC, SELFPAY ==
[2023-07-18 10:09] LABS: Absolute Lymphocyte Count 1.61 X10^3/uL (0.83-4.51); Absolute Neutrophil Count 4.5 X10^3/uL (2.0-7.7); Basophil# 0.03 X10^3/uL; Basophil% 0.4 % (0-1); Eosinophil# 0.14 X10^3/uL; Eosinophils% 2.1 % (0-5); Hematocrit 43.8 % (37-47); Hemoglobin 14.7 g/dL (12.0-15.0); Lymphocyte # 1.61 X10^3/ul (0.83-4.51); Lymphocyte % 24.1 % (19-41); Mean Corp Hgb Conc 33.6 g/dL (32-36); Mean Corpuscular Hgb 30.9 pg (27.0-32.0); Mean Platelet Vol. 9.5 fl (6.2-12.0); Monocyte# 0.43 X10^3/uL; Monocyte% 6.4 % (0-10); NRBC Flagged by Analyzer 0 % (0-5); Neutrophil # 4.47 X10^3/uL (2.7-7.7); Neutrophil % 66.9 % (47-70); Platelet Count 222 K/mm3 (150-450); RBC Distribution Width CV 12.5 % (11.6-14.6); RBC Distribution Width SD 42.3 fl (35.1-43.9); Red Blood Count 4.76 M/mm3 (4.2-5.4); White Blood Count 6.7 K/mm3 (4.4-11.0)
[2023-07-18 10:37] LABS: ALB/GLOB Ratio 1.1 RATIO (0.9-2.4); AST(SGOT) 14 U/L (15-37); Alanine Aminotransfer ALT/SGPT 22 U/L (13-56); Albumin, Serum 3.8 g/dL (3.2-5.0); Alkaline Phosphatase 81 U/L (45-117); Anion Gap 4 (5-15); BUN 13 mg/dL (7-18); BUN/Creat Ratio 16.1 RATIO (10-20); Calcium,Total 9.6 mg/dL (8.5-10.1); Chloride 110 mmol/L (98-107); Creatinine, Serum 0.81 mg/dL (0.55-1.02); EST Glomerular Filtration Rate 85 mL/min (>60); Est Glom Filt Rate - Afr Amer 103 mL/min (>60); Globulin 3.5 g/dL (2.2-4.2); Glucose 69 mg/dL (74-106); Potassium 3.7 mmol/L (3.5-5.1); Protein, Total 7.3 g/dL (6.4-8.2); Sodium Level 138 mmol/L (136-145)
[2023-07-20 07:08] LABS: G6PD Quant Test 261 (127-427); Red Blood Cell Count Test/G6PD 4.69 x10E6/uL (3.77-5.28)
== END | disposition home or self-care (01) ==
LOC: MTLAB 08:41
PROVIDERS: PCP Nurse Practitioner Family; Referring Provider Internal Medicine Rheumatology; Visit Provider Internal Medicine Rheumatology
DX: M07.60 Enteropathic arthropathies, unspecified site (principal); Z79.899 Other long term (current) drug therapy
CPT/HCPCS: 36415; 80053; 82955; 85025

== ENCOUNTER 2023-08-02 18:31 | Emergency (ER) | payer BC, SELFPAY ==
[2023-08-02 18:33] VITALS: BP 122/75; PULSE 80; RESP 14; TEMP 36.6; O2SAT 98; BMI 24.5
--- NOTE | 2023-08-02 19:25 | EDS_ITS ---
HPI History of Present Illness Chief Complaint: Headache Informant: patient Narrative Narrative: Patient with a longstanding history of migraines states she has been having 1 for the past 3 days, started gradually became worse, did not get better despite her attempting a triptan and ibuprofen and ogib-oml-lnstime Excedrin. Today she has been vomiting, several times. She has photophobia. Subsequently after vomiting she developed tingling in both hands and both feet which is new but no weakness, no confusion no fevers or chills. No obvious trigger. She is on Topamax for prophylaxis. She states the last time she had a migraine a lasted for 2 months. [facility] Medical History Acute frontal sinusitis, unspecified Anemia Anxiety Colon polyps Depression Dietary restriction Endometriosis FH: migraine headache Graves disease Heartburn History of hiatal hernia History of steroid therapy Hx of Crohn's disease Hypothyroidism Low iron Smoker Thyroid disease Wears dentures Wears glasses Home Medications citalopram 10 mg tablet 20 mg PO DAILY anti depressant 01/18/18 [History Last Taken 03/14/23] levothyroxine 125 mcg tablet 125 mcg PO DAILY thyroid 01/18/18 [History Last Taken 03/14/23] ferrous gluconate 324 mg (37.5 mg iron) tablet 325 mg PO DAILY supplement 03/14/18 [History Last Taken Unknown] loratadine 10 mg capsule 10 mg PO DAILY 06/29/22 [History Last Taken Unknown] folic acid 1 mg tablet 2 mg PO DAILY 11/29/22 [History Last Taken Unknown] methotrexate sodium 5 mg tablet 15 mg PO TU 11/29/22 [History Last Taken Unknown] leucovorin calcium 15 mg tablet 15 mg PO WE 01/03/23 [History Last Taken Unknown] prochlorperazine maleate 5 mg tablet 5 mg PO BID PRN nausea and vomiting #30 tabs 01/17/23 [Rx Last Taken Unknown] ustekinumab 90 mg/mL subcutaneous syringe (Stelara) 90 mg subcut Q8W #1 mL 02/01/23 [Rx Last Taken Unknown] oxycodone-acetaminophen 5 mg-325 mg tablet 1 tab PO Q6H PRN PRN Pain 3 days #10 TABLETS 03/06/23 [Rx Last Taken Unknown] prednisone 10 mg tablet 10 mg PO DAILY PRN flare up 03/06/23 [History Last Taken Unknown] diphenoxylate-atropine 2.5 mg-0.025 mg tablet (Lomotil) 2 tab PO 4X/DAY PRN PRN diarrhea 5 days #40 tabs 03/23/23 [Rx Last Taken Unknown] estradiol 2 mg tablet 2 mg PO QDAY #90 tabs 05/25/23 [Rx Last Taken Unknown] naratriptan 2.5 mg tablet 2.5 mg PO ONCE 05/25/23 [History Last Taken Unknown] topiramate 25 mg tablet (Topamax) 25 mg PO DAILY 05/25/23 [History Last Taken Unknown] imipramine HCl 25 mg tablet 25 mg PO .daily #30 tabs 06/05/23 [Rx Last Taken Unknown] dicyclomine 20 mg tablet 20 mg PO TID #45 tabs 07/18/23 [Rx Last Taken Unknown] pantoprazole 40 mg tablet,delayed release (Protonix) 40 mg PO BID #60 tabs 07/18/23 [Rx Last Taken Unknown] Allergy/AdvReac Type Severity Reaction Status Date / Time etodolac [From Lodine] Allergy Mild Itching Verified 08/02/23 18:31 adalimumab [From Humira] Allergy Hives Verified 08/02/23 18:31 influenza virus vaccine tv AdvReac Fainting Verified 08/02/23 18:31 splt 2012-14 (4 yr,up) [From Fluvirin] Surgical History H/O bilateral salpingo-oophorectomy H/O exploratory laparotomy History of appendectomy History of carpal tunnel surgery of right wrist History of colonoscopy History of esophagogastroduodenoscopy (EGD) History of hysteroscopy History of knee surgery History of LAVH History of oral surgery History of tonsillectomy and adenoidectomy Hx of eye surgery Hx of thyroidectomy Social History Smoking Status: Current every day smoker tobacco type: cigarettes alcohol intake: never substance use type: does not use caffeine: Yes what type of physical activity do you participate in: none seatbelt use: always do you feel safe at home: Yes additional social history: [employer]- [employer] Patient works at [employer] ROS ROS ED Constitutional Constitutional ED: Denies chills or fever(s) Eyes Eyes: Reports blurry vision; Denies diplopia ENT ENT ED: Denies ear pain or sore throat Cardiovascular Cardiovascular: Denies chest pain or palpitations Respiratory/Chest Respiratory/Chest: Denies cough or dyspnea Gastrointestinal Gastrointestinal: Reports nausea and vomiting; Denies abdominal pain or diarrhea Genitourinary Genitourinary ED: Denies dysuria or urinary frequency Musculoskeletal Musculoskeletal: Denies back pain or myalgias Integumentary Denies abscess or rash Neurologic Neurologic: Reports headache(s) and paresthesias RUE, RLE, LUE and LLE; Denies weakness EXAM Physical Exam Const Vital Signs: 08/02/23 18:33 Temperature 98 F Temperature Source Temporal Pulse Rate 80 Respiratory Rate 14 Blood Pressure 122/75 H Blood Pressure Mean 90 Pulse Ox 98 Oxygen Delivery Method Room Air HEENT Reports normocephalic and moist mucous membranes atraumatic Eyes PERRL, EOMs intact bilaterally and conjunctivae normal Eyes Narrative: photophobia Neck no lymphadenopathy, supple and no meningeal signs Resp normal respiratory effort and clear to auscultation bilaterally GI non-tender and non-distended Palpation: soft Extremity normal to inspection and full ROM Neuro oriented x3 and CN's II-XII intact bilaterally Sensorium / Orientation: awake and alert Speech: speech normal Gait (Neuro): normal gait Motor Exam: strength 5/5 throughout Psych mental status grossly normal Skin Lesions: no lesions Rashes: no rashes MDM MDM MDM Narrative Medical decision making narrative: Patient was given Reglan, Benadryl, Toradol, it helped her nausea but not her headache very much. She then was given valproic acid 500 mg followed by Decadron 6 mg IV. She said this helped, her pain was down to about a 6. She was amenable to getting another dose of valproic acid 500 mg. This helped further. She is amenable going home she has a ride, advised to follow-up closely as an outpatient. She comfortable with that plan. Discharge Plan Triage Chief Complaint: Headache ED Provider: Kraig Chapman Dx/Rx/DC Orders Clinical Impression: Headache, migraine Instructions: ED, Migraine (Classical) Prescriptions: No Action topiramate [Topamax] 25 mg tablet 25 mg PO DAILY naratriptan 2.5 mg tablet 2.5 mg PO ONCE estradiol 2 mg tablet 2 mg PO QDAY Qty: 90 4RF leucovorin calcium 15 mg tablet 15 mg PO WE citalopram 10 MG tablet 20 mg PO DAILY levothyroxine 125 MCG tablet 125 mcg PO DAILY ferrous gluconate 325 MG tablet 325 mg PO DAILY loratadine 10 mg Capsule 10 mg PO DAILY methotrexate sodium 5 mg Tablet 15 mg PO TU folic acid 1 mg Tablet 2 mg PO DAILY prednisone 10 mg tablet 10 mg PO DAILY PRN (Reason: flare up) oxycodone-acetaminophen [oxycodone-acetaminophen] 5-325 mg tablet 1 tab PO Q6H PRN PRN (Reason: Pain) 3 Days Qty: 10 0RF diphenoxylate-atropine [Lomotil] 2.5-0.025 mg tablet 2 tab PO 4X/DAY PRN PRN (Reason: diarrhea) 5 Days Qty: 40 0RF prochlorperazine maleate 5 mg tablet 5 mg PO BID PRN (Reason: nausea and vomiting) Qty: 30 1RF Stelara 90 mg/mL syringe 90 mg subcut Q8W Qty: 1 5RF imipramine HCl 25 mg tablet 25 mg PO .daily Qty: 30 2RF dicyclomine 20 mg tablet 20 mg PO TID Qty: 45 1RF pantoprazole [Protonix] 40 mg tablet,delayed release (DR/EC) 40 mg PO BID Qty: 60 0RF Primary Care Provider: Debra Roland Referrals: Debra Roland, ENGINE [employer] OPERATOR TOOL-C [Primary Care Provider] - 3-5 Days if not improving Disposition Disposition: Home, Self Care
[2023-08-02] MEDS: Metoclopramide 10 MG/2 ML Vial 5 MG IV (19:59)
[2023-08-02] MEDS: Ketorolac 30 MG/ML Syringe IV (20:00)
[2023-08-02] MEDS: DiphenhydrAMINE 50 MG/ML Syringe 25 MG IV (20:01)
[2023-08-02] MEDS: 0.9% Normal Saline (1000mL) 1,000 ML 999 ML IV (20:02)
[2023-08-02] MEDS: dexAMETHasone 10 MG/ML Vial 6 MG IV (20:43)
[2023-08-02] MEDS: Valproate Sodium 500 MG in Dextrose 5%-Water (50mL Bag) 50 ML 50 MG IV ×2 (21:06→22:39)
[2023-08-03 00:10] VITALS: BP 103/60; PULSE 63; O2SAT 97
== END 2023-08-03 00:11 | disposition home or self-care (01) ==
PROVIDERS: Emergency Provider Emergency Medicine; PCP Nurse Practitioner Family; Visit Provider Emergency Medicine
DX: G43.909 Migraine, unspecified, not intractable, without status migrainosus (principal); F17.210 Nicotine dependence, cigarettes, uncomplicated
CPT/HCPCS: 96365; 96375; 99283; J7030; J7040; A4216

== ENCOUNTER → 2023-10-04 | Outpatient (CLI) | payer BC, SELFPAY ==
[2023-10-04 11:25] LABS: Absolute Lymphocyte Count 1.79 X10^3/uL (0.83-4.51); Basophil# 0.02 X10^3/uL; Basophil% 0.3 % (0-1); Eosinophil# 0.01 X10^3/uL; Eosinophils% 0.1 % (0-5); Hematocrit 41.8 % (37-47); Lymphocyte # 1.79 X10^3/ul (0.83-4.51); Lymphocyte % 24.2 % (19-41); Mean Corp Hgb Conc 33.5 g/dL (32-36); Mean Corpuscular Hgb 29.4 pg (27.0-32.0); Mean Corpuscular Volume 87.6 fL (81-99); Mean Platelet Vol. 9.8 fl (6.2-12.0); Monocyte# 0.52 X10^3/uL; NRBC Flagged by Analyzer 0 % (0-5); Neutrophil # 5.04 X10^3/uL (2.7-7.7); Neutrophil % 68.1 % (47-70); Platelet Count 201 K/mm3 (150-450); RBC Distribution Width CV 12.2 % (11.6-14.6); RBC Distribution Width SD 39.3 fl (35.1-43.9); Red Blood Count 4.77 M/mm3 (4.2-5.4); White Blood Count 7.4 K/mm3 (4.4-11.0)
[2023-10-04 11:28] LABS: Erythrocyte Sedimentation Rate 3 mm/hr (0-30)
--- OUTSIDE RECORDS SUMMARY | 2023-10-04 20:20 | XMS RPT_ITS | CCD ---
Author Name Unknown Address [address] [place] [address] Organization [facility] Care Team Providers Care Manager Stars Name Role Phone KARON RADFORD Unavailable Unavailable PLUSKOTAROMEO Unavailable Unavailable PLUSKOTA, ROMEO Luna Unavailable Unavailable Pluskota Romeo WEBSTER Primary Care Provider Knoble CANDLE CUTTER.Debra HESS Primary Care Provider Unavailable Primary Care Provider UnavailCORNELIA Patterson Attending Unavailable KNOBLE, DEBRA Referring Unavailable KNOBLE, DEBRA Primary Care Unavailable DARCY FLORES Attending Unavailable KNOBLE, DEBRA Referring Unavailable KNOBLE, DEBRA Primary Care Unavailable KNOBLE, DEBRA Attending Unavailable KNOBLE, DEBRA Primary Care Unavailable KNOBLE, DEBRA Primary Care Unavailable KNOBLE, DEBRA Attending Unavailable KNOBLE, DEBRA Primary Care Unavailable KNOBLE, DEBRA Referring Unavailable KNOBLE, DEBRA Primary Care Unavailable KNOBLE, DEBRA Attending Unavailable KNOBLE, DEBRA Primary Care Unavailable DARCY FLORES Attending Unavailable KNOBLE, DEBRA Attending Unavailable KNOBLE, DEBRA Primary Care Unavailable KNOBLE, DEBRA Referring Unavailable KNOBLE, DEBRA Primary Care Unavailable QUEENER, DARCY Referring Unavailable KNOBLE, DEBRA Primary Care Unavailable Allergies Allergy Classification Reported Allergen(s) Allergy Type Date of Onset Reaction(s) Facility (20 sources) etodolac; Translations: [ETODOLAC] Drug Allergy 7 Itching [facility] Repository (2 sources) OTHER; Translations: [OTHER] Propensity to adverse reactions to food (disorder) 7 AOF [facility] Repository (19 sources) flu immuzation [Other] Propensity to adverse reactions 7 GI Upset [facility] Work Phone: (12 sources) adalimumab; Translations: [ADALIMUMAB] Drug Allergy 3 Hives, Itching, Rash [facility] (2 sources) Flu Vac 2014 (65 Up)-Mf59c(Pf); Translations: [FLU VAC 2014 (65 UP)-MF59C(PF)] Drug Allergy 3 Unknown [facility] Work Phone: Medications Current Medications Medication Drug Class(es) Dates Sig (Normalized) Sig (Original) iv contrast (will be provided with radiology test) (2 sources) Start: 06-06-2023 End: 06-07-2023 inject 1 dose intravenously once iv contrast (will be provided with radiology test) Indications: Abnormal MRI of head CTA Head/Neck WO/W No IV access, insert saline lock prior to the sedation, infusion, injection for imaging exam. Discontinue saline lock post exam. If Pt. has a central line or IVAD, may access for administration according to line specific nursing protocol. Once exam is complete flush line and de-access according to line specific nursing protocol in the CT contrast administration guidelines link. 1 Each 0 06/06/2023 06/07/2023 Active Completed/Discontinued Medications Medication Drug Class(es) Dates Sig (Normalized) Sig (Original) acetaminophen 500 mg oral tablet (20 sources) take 1 tablet by mouth every eight hours as needed acetaminophen (TYLENOL) 500 mg tablet Take 500 mg by mouth every 8 hours as needed. 0 Active Problems Active Problems Problem Classification Problem Date Documented Da te Episodic/Chronic Anxiety disorders (2 sources) Generalized anxiety disorder; Translations: [Generalized anxiety disorder] 03-09-2023 Chronic E Codes: Fall (1 source) Fall; Translations: [Unspecified fall, initial encounter] Episodic Headache; including migraine (7 sources) Refractory migraine without aura; Translations: [Migraine without aura, intractable, without status migrainosus] Onset: 06-06-2023 05-08-2023 Chronic Menstrual disorders (20 sources) Irregular periods; Translations: [Irregular menstruation, unspecified] Onset: 11-04-2009 11-04-2009 Chronic Mood disorders (20 sources) Depressive disorder; Translations: [Other specified depressive episodes] Onset: 02-15-2007 02-15-2007 Chronic Mycoses (1 source) Candidiasis of skin and nail; Translations: [Skin yeast infection] Onset: 07-20-2023 Episodic Other injuries and conditions due to external causes (1 source) Injury of right knee; Translations: [Unspecified injury of right lower leg, initial encounter] Episodic Other non-traumatic joint disorders (1 source) Pain in right knee; Translations: [Pain in joint, lower leg] Episodic Regional enteritis and ulcerative colitis (20 sources) Crohn's disease; Translations: [Crohn's disease, unspecified, without complications] Onset: 03-07-2022 Chronic Residual codes; unclassified (2 sources) Obstructive sleep apnea syndrome; Translations: [Obstructive sleep apnea (adult) (pediatric)] 05-23-2023 Chronic Residual codes; unclassified (1 source) Obstructive sleep apnea (adult) (pediatric); Translations: [Obstructive sleep apnea] Onset: 06-16-2023 Chronic Substance-related disorders (20 sources) Tobacco user; Translations: [Nicotine dependence, unspecified, uncomplicated] Onset: 09-29-2022 Chronic Thyroid disorders (20 sources) Hyperthyroidism; Translations: [Thyrotoxicosis, unspecified without thyrotoxic crisis or storm] Onset: 05-04-2011 05-04-2011 Chronic Past or Other Problems Problem Classification Problem Date Documented Da te Episodic/Chronic Anal and rectal conditions (20 sources) Anal fissure; Translations: [Anal fissure, unspecified] Onset: 06-23-2007 06-23-2007 Episodic Cancer of cervix (20 sources) Cervical atypism; Translations: [Atypical squamous cells of undetermined significance on cytologic smear of cervix (ASC-US)] Onset: 02-08-2007 02-08-2007 Episodic Conditions associated with dizziness or vertigo (20 sources) Dizziness and giddiness; Translations: [Dizziness and giddiness] Onset: 09-24-2008 09-24-2008 Episodic Deficiency and other anemia (20 sources) Anemia; Translations: [Anemia, unspecified] Onset: 02-02-2018 02-02-2018 Episodic Gastritis and duodenitis (20 sources) Acute gastritis; Translations: [Acute gastritis without bleeding] Onset: 12-20-2007 12-20-2007 Episodic Other female genital disorders (20 sources) Female genital organ symptoms; Translations: [Unspecified condition associated with female genital organs and menstrual cycle] Onset: 11-04-2009 11-04-2009 Episodic Other gastrointestinal disorders (20 sources) Constipation; Translations: [Constipation, unspecified] Onset: 11-20-2007 11-20-2007 Episodic Other screening for suspected conditions (not mental disorders or infectious disease) (3 sources) MRI of head abnormal; Translations: [Abnormal findings on diagnostic imaging of skull and head, not elsewhere classified] Onset: 06-21-2023 06-06-2023 Episodic Sprains and strains (20 sources) Sprain of spinal ligament; Translations: [Sprain of unspecified site of back] Onset: 09-25-2006 09-25-2006 Episodic Varicose veins of lower extremity (20 sources) Varicose veins of lower extremity; Translations: [Varicose veins of bilateral lower extremities with other complications] Onset: 01-08-2009 01-08-2009 Episodic Results Test Name Value Interpretation Reference Range Facil ity Vital Signs Date Time Vital Sign Value Performing Clinician Facility 09-26-2023 11:30-0500 Body weight 69.04 kg Darcy RUTHERFORD-C Work Phone: [facility] 09-26-2023 11:30-0500 Diastolic blood pressure 68 mm[Hg] Darcy Flores PA-C Work Phone: [facility] 09-26-2023 11:30-0500 Heart rate 90 /min Darcy RUTHERFORD-C Work Phone: [facility] 09-26-2023 11:30-0500 Respiratory rate 16 /min Darcy Floers PA-C Work Phone: [facility] 09-26-2023 11:30-0500 SaO2% (BldA) [Mass fraction] 97 % Darcy Flores PA-C Work Phone: [facility] 09-26-2023 11:30-0500 Systolic blood pressure 122 mm[Hg] Darcy Flores PA-C Work Phone: [facility] 07-17-2023 13:59-0500 Body height 165.1 cm Cornelia Singh CANDLE CUTTER-[employer] Work Phone: [facility] 07-17-2023 13:59-0500 Body mass index (BMI) [Ratio] 23.85 kg/m2 Cornelia Martinezert CANDLE CUTTER-[employer] Work Phone: [facility] 07-17-2023 13:59-0500 Body weight 65 kg Cornelia Martinezert CANDLE CUTTER-[employer] Work Phone: [facility] 07-17-2023 13:59-0500 Diastolic blood pressure 74 mm[Hg] Cornelia Jayichert CANDLE CUTTER-[employer] Work Phone: [facility] 07-17-2023 13:59-0500 Heart rate 90 /min Cornelia Samantha CANDLE CUTTER-[employer] Work Phone: [facility] 07-17-2023 13:59-0500 Respiratory rate 18 /min Cornelia Samantha CANDLE CUTTER-[employer] Work Phone: [facility] 07-17-2023 13:59-0500 Systolic blood pressure 108 mm[Hg] Cornelia Jayichert CANDLE CUTTER-[employer] Work Phone: [facility] 05-23-2023 08:54-0400 Body weight 67.95 kg Darcy Hernandezer PA-C Work Phone: [facility] 05-23-2023 08:54-0400 Diastolic blood pressure 74 mm[Hg] Darcy Queener PA-C Work Phone: [facility] 05-23-2023 08:54-0400 Heart rate 100 /min Darcy Queener PA-C Work Phone: [facility] 05-23-2023 08:54-0400 Respiratory rate 16 /min Darcy Queener PA-C Work Phone: [facility] 05-23-2023 08:54-0400 SaO2% (BldA) [Mass fraction] 99 % Darcy Queener PA-C Work Phone: [facility] 05-23-2023 08:54-0400 Systolic blood pressure 112 mm[Hg] Darcy Hernandezer PA-C Work Phone: [facility] 05-08-2023 11:29-0400 Body weight 66.68 kg Debra Rossoble CANDLE CUTTER.[employer] Work Phone: [facility] 05-08-2023 11:29-0400 Diastolic blood pressure 70 mm[Hg] Debra Knoble CANDLE CUTTER.[employer] Work Phone: [facility] 05-08-2023 11:29-0400 Heart rate 82 /min Debra Knoble CANDLE CUTTER.[employer] Work Phone: [facility] 05-08-2023 11:29-0400 Respiratory rate 12 /min Debra Rossoble CANDLE CUTTER.[employer] Work Phone: [facility] 05-08-2023 11:29-0400 Systolic blood pressure 106 mm[Hg] Debra Knoble CANDLE CUTTER.[employer] Work Phone: [facility] 09-29-2022 18:27-0500 Body height 165.1 cm Debra Rossoble CANDLE CUTTER.[employer] Work Phone: [facility] 09-29-2022 18:27-0500 Body weight 69.4 kg Debra Rossoble CANDLE CUTTER.[employer] Work Phone: [facility] 09-29-2022 18:27-0500 Diastolic blood pressure 80 mm[Hg] Debra Rossoble CANDLE CUTTER.[employer] Work Phone: [facility] 09-29-2022 18:27-0500 Heart rate 89 /min Debra Rossoble CANDLE CUTTER.[employer] Work Phone: [facility] 09-29-2022 18:27-0500 Respiratory rate 16 /min Debra Rossoble CANDLE CUTTER.[employer] Work Phone: [facility] 09-29-2022 18:27-0500 Systolic blood pressure 102 mm[Hg] Debra Knoble CANDLE CUTTER.[employer] Work Phone: [facility] 09-07-2022 13:51-0500 Body temperature 97.11 [degF] Hardeep RUTHERFORD Work Phone: [facility] 09-07-2022 13:51-0500 Body weight 70.4 kg Krislyn Aberegg PA Work Phone: [facility] 09-07-2022 13:51-0500 Diastolic blood pressure 82 mm[Hg] Krislyn Aberegg PA Work Phone: [facility] 09-07-2022 13:51-0500 Heart rate 80 /min Krislyn Aberegg PA Work Phone: [facility] 09-07-2022 13:51-0500 Respiratory rate 21 /min Krislyn Aberegg PA Work Phone: [facility] 09-07-2022 13:51-0500 SaO2% (BldA) [Mass fraction] 98 % Krislyn Aberegg PA Work Phone: [facility] 09-07-2022 13:51-0500 Systolic blood pressure 118 mm[Hg] Krislyn Aberegg PA Work Phone: [facility] Encounters Encounter Date Encounter Type Care Provider Facility Start: 09-26-2023 End: 09-26-2023 ambulatory DEBRA ROLAND Facility:[facility] Start: 09-26-2023 End: 09-26-2023 Patient encounter procedure Darcy Flores PA-C Work Phone: Neurology Procedures Date Procedure Procedure Detail Performing Clinician Start: 06-21-2023 Ct angiography head w/contrast/noncontrast Debra Roland APRN.[employer] Work Phone: Plan of Treatment Date Care Activity Detail Author Start: 2047 HEPATITIS B (1 of 3 - Risk 3-dose series) HEPATITIS B (1 of 3 - Risk 3-dose series) [facility] Start: 2047 Hepatitis B Vaccine (1 of 3 - Risk 3-dose series) Hepatitis B Vaccine (1 of 3 - Risk 3-dose series) [facility] Start: 2037 Zoster Vaccines (1 of 2) Zoster Vaccines (1 of 2) [facility] Start: 07-20-2024 Annual PCP Team Chronic Disease Visit Annual PCP Team Chronic Disease Visit [facility] Start: 05-08-2024 Annual PCP Team Chronic Disease Visit Annual PCP Team Chronic Disease Visit [facility] Start: 04-13-2024 ANNUAL PCP TEAM CHRONIC DISEASE VISIT ANNUAL PCP TEAM CHRONIC DISEASE VISIT [facility] Start: 09-29-2023 ANNUAL PCP TEAM CHRONIC DISEASE VISIT ANNUAL PCP TEAM CHRONIC DISEASE VISIT [facility] Start: 04-07-2023 Influenza vaccination [facility] Start: 03-28-2023 End: 05-28-2023 Thyrotropin [Units/volume] in Serum or Plasma TSH BLD Lab Routine Hyperthyroidism Expected: 03/28/2023, Expires: 05/28/2023 [facility] Work Phone: Immunizations Immunization Date Immunization Notes Care Provider Hayde mistry 02-04-1999 tetanus and diphther ia toxoids, adsorbed, preservative free, for adult use (2 Lf of tetanus toxoid and 2 Lf of diphtheria toxoid) Hardeep RUTHERFORD Work Phone: [facility] Work Phone: Payers Date Payer Category Payer Unknown [id number] 2016 Unknown [id number] 1987 Unknown [id number] Social History Date Type Detail Facility Start: 09-07-2022 End: 09-29-2022 Tobacco smoking status NHIS Smokes tobacco daily [facility] History of tobacco use Cigarette Smoker C [facility] Start: 09-07-2022 End: 04-06-2023 Cigarettes smoked current (pack per day) - Reported 0.5 [facility] Start: 09-07-2022 End: 09-29-2022 Tobacco use and exposure Smokeless tobacco non-user [facility] Start: 09-07-2022 End: 09-26-2023 Alcohol intake Current non-drinker of alcohol (finding) [facility] Start: 09-07-2022 Tobacco Comment 12/04/09 Patient has decreased to 3-4 cigarettes daily [facility] Start: 07-25-2007 Alcohol Comment rare [facility] Start: 1985 Sex Assigned At Not on file [facility] Start: 09-29-2022 End: 04-06-2023 Tobacco use panel [facility] National Score (1-10 0), lower number is lower risk Not on file [facility] Start: 1985 Sex Assigned At Female [facility] Start: 03-23-2023 Gender identity Identifies as female gender (finding) [facility] Do you belong to any clubs or organizations such as latter-day groups, unions, fraternal or athletic groups, or school groups? No [facility] Are you now , , , , never or living with a partner? [facility] How often to you hav e a drink containing alcohol? Never [facility] How hard is it for y ou to pay for the very basics like food, housing, medical care, and heating Not very hard [facility] Do you feel stress - tense, restless, nervous, or anxious, or unable to sleep at night because your mind is troubled all the time - these days [OSQ] Only a little [facility] (I/We) worried shreya er (my/our) food would run out before (I/we) got money to buy more. Never true [facility] Start: 07-17-2023 Tobacco smoking status PAIS Tobacco smoking consumption unknown [facility] Work Phone: Start: 07-07-2023 End: 07-17-2023 Exposure to SARS-CoV-2 (event) Not sure [facility] Clinical Notes 10-29-2008 to 09-26-2023 Patient InstructionsSera Martinez LPN - 09/26/2023 11:24 AM Darcy Bro PA-C - 09/26/2023 11:23 AM Sera Alvarado LPN - 09/26/2023 11:21 AM Klaudia Sierra - 06/07/2023 11:13 AM EDT Note Date & Type Note Facility 09-26-2023 Note HNO ID: [id number] Author: SERA MARTINEZ LPN Service: ? Author Type: LICENSED NURSE Type: Progress Notes Filed: 09/26/2023 12:13 Note Text: 09/26/2023 PROMIS Global Health Physical Health Summary Physical health: Good Everyday physical activity, ability: Mostly Fatigue: Severe Pain level: 5 General health: Fair Social activities/roles, ability: Good Physical Health T-Score 39.8 (Fair) Physical Health Percentile 15 PR[facility]IS [facility] Mental Health Summary Quality of life: Good Mental health (mood,thinking): Good Social satisfaction: Very good Emotional problems (anxious,depressed): Rarely Mental Health T-Score 48.3 (Very Good) Mental Health Percentile 43 PHQ-9 Score: 3(Minimal Depression) PHQ-9 Self-Harm: Not at all NEURO-QOL Cognitive Function T-Score 52(Within Normal Limits) Neuro-Qol Cognitive Function Percentile 58 PROMIS Physical Function T-Score 47(Within Normal Limits) PROMIS Physical Function Percentile 38 PROMIS Pain Interference T-Score 58(Mild) PROMIS Pain Interference Percentile 21 Percentiles provide an indication of how a patient's score ranks in relation to the [place] general population. > 31st percentile is within normal limits or better *< 31st percentile is at least ? SD worse than population, which may be clinically relevant < 16th percentile is at least 1 SD worse than population and warrants attention [facility] 09-26-2023 Note HNO ID: [id number] Author: DARCY FLORES PA-C Service: ? Author Type: Physician Loom Operator Apprentice Type: Progress Notes Filed: 09/26/2023 12:13 Note Text: [facility] Follow up CC: Headache Follow up Last Visit: 05/23/23 Assessment AND Plan: Olivia Man is a 37 year old right-handed female with a history of Graves' disease, Crohn's disease, rheumatoid arthritis, migraines, tobacco use, depression. Her examination demonstrates exophthalmos, but no neurologic abnormalities. Patient with years of headaches, worsening around a year ago after she was started on methotrexate for rheumatoid arthritis. Notes her headaches have worsened over the last year, recently had a 2-month long headache that finally resolved. Notes that she just completed Depakote bridge for 10 days resolving a 1 month long headache. Not currently taking anything for headaches other than [id number] medications including Benadryl and Tylenol. Notes she cannot take NSAIDs due to history of Crohn's disease. Has a scheduled MRI of the brain for the end of the month. Headaches are migrainous in nature, intractable and triggered by methotrexate which she has an appointment with her pattern cutter to to discuss stopping at the end of the week. Patient also with signs and symptoms of sleep apnea as well, notes history of complete hysterectomy in 2019 and has multiple signs of sleep apnea as well. We will order home sleep study to evaluate for any sleep apnea contribute to patient's symptoms. Regarding treatment, patient has tried multiple medications in the past but does not remember trying Topamax. No history of kidney stones or glaucoma. Discussed Topamax and titrating up to 100 mg the patient is amenable. Did have good resolve from Depakote, but discussed side effects and patient would like to refrain from this medication if possible. Should this medication not be beneficial, may consider Botox therapy as well in the future. Patient is amenable. Regarding abortive therapy, patient tried Imitrex in the past and had significant side effects, as patient's headaches last longer and she is sensitive to side effects we will prescribe longer-lasting triptan therapy. We will prescribe Amerge 2.5 mg take with onset of headache. Discussed not taking more than 10 doses a month. Discussed other conservative therapies including supplements,, triggers and increasing water intake while decreasing caffeine intake to avoid headaches. Patient is amenable. Patient sees eye doctor regularly, encouraged regular visits. Patient agreeable to treatment plan of care at this time, all questions were answered. Patient to follow-up in 3 months or sooner should any symptoms change or worsen. Olivia was seen today for new patient. Diagnoses and all orders for this visit: Migraine without aura, intractable, without status migrainosus - CONSULT TO NEUROLOGY Obstructive sleep apnea - HOME SLEEP APNEA TEST (HSAT); Future Other orders - topiramate (TOPAMAX) 25 mg tablet; 25 mg (1 tab) at bed x 2 wks, then 50 mg at bed (2 tabs) x 2 wks, then 75 mg at bed (3 tabs) x 2 wks - topiramate (TOPAMAX) 100 mg tablet; Take 1 tablet by mouth daily at bedtime. - naratriptan (AMERGE) 2.5 mg tablet; Take 1 tablet (2.5 mg) by mouth as directed. at the onset of headache; if headache returns or does not fully resolve, the dose may be repeated after 4 hours; do not exceed five(5) mg in 24 hours. NO more than 10 doses a month All options for treatment discussed. Preventative: Topiramate 100mg Abortive:Amerge Imaging:MRI brain Labs: She should return to see me in 3 months. Today: Patient is here for headache/migraine follow up. Saw outside neuro at on 07/17/23 to establish care. Last seen on 06/02/23 for headache, having almost daily headaches, migrainous. Started on TPM 100mg and AMERGE for aboritve relief. Discussed botox. MRI of the brain showed small vascular anatomic variant. HSAT shows mild sleep apnea. Since last visit headaches have improved. Having 3 headache attacks a month but they are lasting up to a week. Amerge was not helpful.. Did see an outside neurologist at over her MRI and CT scan. 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 Regarding her headaches, no new symptoms other than when she has a headache she will occasionally get numbness and tingling of the nose, bilateral hands and feet. Takes the Topamax daily, does have some increased fatigue and decreased appetite, but otherwise tolerating well. Of note, does note history of previous facial droop with migraines in the past, was seen in the emergency department and stroke was ruled out. Has not had this in many years. Current Headache treatment Preventative: TPM 100mg Abortive: Amerge Medications effective? no # of doses of abo (more content not included)... [facility] 09-26-2023 Note HNO ID: [id number] Author: SERA MARTINEZ LPN Service: ? Author Type: LICENSED NURSE Type: Progress Notes Filed: 09/26/2023 12:13 Note Text: 09/26/2023 PROMIS Global Health Physical Health Summary Physical health: Good Everyday physical activity, ability: Mostly Fatigue: Severe Pain level: 5 General health: Fair Social activities/roles, ability: Good Physical Health T-Score 39.8 (Fair) Physical Health Percentile 15 PROMIS Global Health Mental Health Summary Quality of life: Good Mental health (mood,thinking): Good Social satisfaction: Very good Emotional problems (anxious,depressed): Rarely Mental Health T-Score 48.3 (Very Good) Mental Health Percentile 43 PHQ-9 Score: 3(Minimal Depression) PHQ-9 Self-Harm: Not at all NEURO-QOL Cognitive Function T-Score 52(Within Normal Limits) Neuro-Qol Cognitive Function Percentile 58 PROMIS Physical Function T-Score 47(Within Normal Limits) PROMIS Physical Function Percentile 38 PROMIS Pain Interference T-Score 58(Mild) PROMIS Pain Interference Percentile 21 Percentiles provide an indication of how a patient's score ranks in relation to the [place] general population. > 31st percentile is within normal limits or better *< 31st percentile is at least ? SD worse than population, which may be clinically relevant < 16th percentile is at least 1 SD worse than population and warrants attention [facility] 09-26-2023 Instructions Darcy Flores PA-C - 09/26/2023 11:57 AM EST Continue topiramate 100mg and will start Nurtec 75mg for headache when it starts. Follow up in three months documented in this encounter [facility] 09-26-2023 History of Presen t illness Narrative 09/26/2023 PROMIS Global Health Physical Health Summary Physical health: Good Everyday physical activity, ability: Mostly Fatigue: Severe Pain level: 5 General health: Fair Social activities/roles, ability: Good Physical Health T-Score 39.8 (Fair) Physical Health Percentile 15 PROMIS Global Health Mental Health Summary Quality of life: Good Mental health (mood,thinking): Good Social satisfaction: Very good Emotional problems (anxious,depressed): Rarely Mental Health T-Score 48.3 (Very Good) Mental Health Percentile 43 PHQ-9 Score: 3(Minimal Depression) PHQ-9 Self-Harm: Not at all NEURO-QOL Cognitive Function T-Score 52(Within Normal Limits) Neuro-Qol Cognitive Function Percentile 58 PROMIS Physical Function T-Score 47(Within Normal Limits) PROMIS Physical Function Percentile 38 PROMIS Pain Interference T-Score 58(Mild) PROMIS Pain Interference Percentile 21 Percentiles provide an indication of how a patient's score ranks in relation to the [place] general population. > 31st percentile is within normal limits or better *< 31st percentile is at least SD worse than population, which may be clinically relevant < 16th percentile is at least 1 SD worse than population and warrants attention Images from the original note were not included. [facility] Follow up CC: Headache Follow up Last Visit: 05/23/23 Assessment & Plan: Olivia Man is a 37 year old right-handed female with a history of Graves' disease, Crohn's disease, rheumatoid arthritis, migraines, tobacco use, depression. Her examination demonstrates exophthalmos, but no neurologic abnormalities. Patient with years of headaches, worsening around a year ago after she was started on methotrexate for rheumatoid arthritis. Notes her headaches have worsened over the last year, recently had a 2-month long headache that finally resolved. Notes that she just completed Depakote bridge for 10 days resolving a 1 month long headache. Not currently taking anything for headaches other than [id number] medications including Benadryl and Tylenol. Notes she cannot take NSAIDs due to history of Crohn's disease. Has a scheduled MRI of the brain for the end of the month. Headaches are migrainous in nature, intractable and triggered by methotrexate which she has an appointment with her pattern cutter to to discuss stopping at the end of the week. Patient also with signs and symptoms of sleep apnea as well, notes history of complete hysterectomy in 2019 and has multiple signs of sleep apnea as well. We will order home sleep study to evaluate for any sleep apnea contribute to patient's symptoms. Regarding treatment, patient has tried multiple medications in the past but does not remember trying Topamax. No history of kidney stones or glaucoma. Discussed Topamax and titrating up to 100 mg the patient is amenable. Did have good resolve from Depakote, but discussed side effects and patient would like to refrain from this medication if possible. Should this medication not be beneficial, may consider Botox therapy as well in the future. Patient is amenable. Regarding abortive therapy, patient tried Imitrex in the past and had significant side effects, as patient's headaches last longer and she is sensitive to side effects we will prescribe longer-lasting triptan therapy. We will prescribe Amerge 2.5 mg take with onset of headache. Discussed not taking more than 10 doses a month. Discussed other conservative therapies including supplements,, triggers and increasing water intake while decreasing caffeine intake to avoid headaches. Patient is amenable. Patient sees eye doctor regularly, encouraged regular visits. Patient agreeable to treatment plan of care at this time, all questions were answered. Patient to follow-up in 3 months or sooner should any symptoms change or worsen. Olivia was seen today for new patient. Diagnoses and all orders for this visit: Migraine without aura, intractable, without status migrainosus - CONSULT TO NEUROLOGY Obstructive sleep apnea - HOME SLEEP APNEA TEST (HSAT); Future Other orders - topiramate (TOPAMAX) 25 mg tablet; 25 mg (1 tab) at bed x 2 wks, then 50 mg at bed (2 tabs) x 2 wks, then 75 mg at bed (3 tabs) x 2 wks - topiramate (TOPAMAX) 100 mg tablet; Take 1 tablet by mouth daily at bedtime. - naratriptan (AMERGE) 2.5 mg tablet; Take 1 tablet (2.5 mg) by mouth as directed. at the onset of headache; if headache returns or does not fully resolve, the dose may be repeated after 4 hours; do not exceed five(5) mg in 24 hours. NO more than 10 doses a month All options for treatment discussed. Preventative: Topiramate 100mg Abortive:Amerge Imaging:MRI brain Labs: She should return to see me in 3 months. Today: Patient is here for headache/migraine follow up. Saw outside neuro at on 07/17/23 to establish care. Last seen on 06/02/23 for headache, having almost daily headaches, migrainous. Started on TPM 100mg and AMERGE for aboritve relief. Discussed botox. MRI of the brain showed small vascular anatomic variant. HSAT shows mild sleep apnea. Since last visit headaches have improved. Having 3 headache attacks a month but they are lasting up to a week. Amerge was not helpful.. Did see an outside neurologist at over her MRI and CT scan. 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 Regarding her headaches, no new symptoms other than when she has a headache she will occasionally get numbness and tingling of the nose, bilateral hands and feet. Takes the Topamax daily, does have some increased fatigue and decreased appetite, but otherwise tolerating well. Of note, does note history of previous facial droop with migraines in the past, was seen in the emergency department and stroke was ruled out. Has not had this in many years. Current Headache treatment Preventative: TPM 100mg Abortive: Amerge Medications effective? no # of doses of abortive medications per month: few Total headache days per month: 20 per month Total headache attacks per month: 3 per month Headache free days: Yes Duration of attacks: 5-7 days Severity of headaches? Up to a 04/16 Location: posterior head. Aura: None Accompanying symptoms: photophobia, phonophobia, osmophobia, nausea, vomiting, vertigo, lightheaded, unsteadiness, blurred vision, neck pain, worse with movement, spots Quality:sharp, dull, throbbing, and aching . Worse with activity: No Pain today: 10/14 Triggers: weather changes, sleep- too little, fasting/hunger, dehydration, Gluten, and MTX. Prodrome:none. Tobacco Use: Yes: 1/2 pack Alcohol Use: No Caffeine:Yes: tea and coffee (5 servings a day) Prior Therapies Celexa Depakote bridge Verapamil Elavil Emgality Imitrex Tylenol Benadryl Ibuprofen Oxycodone Amerge Topiramate The patient's prior records were reviewed including and lab testing, imaging, and procedures done since their last visit with me. Review of symptoms including constitutional, eyes, ENT, neck, respiratory, cardiovascular, GI, , musculoskeletal, hematologic, oncologic, endocrine, and psychiatric categories is unchanged. No new details in the family history or social history were offered by the patient. PAST MEDICAL HISTORY Diagnosis Date Acute appendicitis [...] <AGE 14 Tonsillectomy TOTAL ABDOM HYSTERECTOMY N/A ALLERGIES Allergen Reactions Adalimumab Hives, Itching, Rash Flu Vac 2014 (65 Up* Unknown Lodine [Etodolac] Itching Current Medications: citalopram (CELEXA) 20 mg tablet Take 1 tablet by mouth once daily. levothyroxine (SYNTHROID) 125 mcg tablet Take 1 tablet by mouth once daily. Takes 8 tabs per week. One daily except Mon and Wed takes an extra half tab. topiramate (TOPAMAX) 100 mg tablet Take 1 tablet by mouth daily at bedtime. imipramine HCl (TOFRANIL) 25 mg tablet Take 25 mg by mouth once daily. STELARA 90 mg/mL injection Inject 90 mg subcutaneously every 8 weeks. estradiol (ESTRACE) 2 mg tablet dicyclomine (BENTYL) 20 mg tablet Ferrous Gluconate (FERGON) 324 mg (38 mg iron) tablet Take 1 tablet by mouth twice daily with meals. acetaminophen (TYLENOL) 500 mg tablet Take 500 mg by mouth every 8 hours as needed. acetaminophen/diphenhydramine (TYLENOL PM ORAL) Take by mouth. pantoprazole DR (PROTONIX) 20 mg tablet Take 20 mg by mouth once daily. prochlorperazine (COMPAZINE) 5 mg tablet Take by mouth. topiramate (TOPAMAX) 25 mg tablet 25 mg (1 tab) at bed x 2 wks, then 50 mg at bed (2 tabs) x 2 wks, then 75 mg at bed (3 tabs) x 2 wks (Patient not taking: Reported on 09/26/2023) naratriptan (AMERGE) 2.5 mg tablet Take 1 tablet (2.5 mg) by mouth as directed. at the onset of headache; if headache returns or does not fully resolve, the dose may be repeated after 4 hours; do not exceed five(5) mg in 24 hours. NO more than 10 doses a month (Patient not taking: Reported on 09/26/2023) Studies to Review: MRI brain 06/06/23 IMPRESSION: No acute intracranial abnormality. Other general findings as noted. Gross brain volume and morphology is within expected limits for age. Tortuous intradural left vertebral artery does cause some distortion of the left portion of the cervicomedullary junction (7:5). Questionable clinical significance. Other general findings as noted. CTA head 06/21/23 IMPRESSION: REDEMONSTRATION OF SMALL VASCULAR IMPRESSION OF LEFT INTRADURAL VERTEBRAL ARTERY ON LEFT MEDULLA, ANATOMIC VARIANT, LIKELY OF NO CONSEQUENCE Arterial blood flow was measured to detect acute large vessel occlusion by computer aided detection software: Not Performed. Concordance between software and imaging review: Not Applicable. New Health Issues: No New Social History: No New Family History: No REVIEW OF SYSTEMS: Sleep: Sleep a lot, 10-11 at night and then takes a nap for 3-4 hours a day Mood: Rough month, son in trauma therapy Energy: Low, Stress: High GENERAL:No weight loss, malaise or fevers. HEENT:no changes to hearing or vision NECK:negative for neck pain, swelling. RESPIRATORY: Negative for cough, wheezing or shortness of breath. CARDIOVASCULAR: Negative for chest pain, leg swelling or palpitations. GASTROINTESTINAL: Negative for abdominal discomfort, blood in stools or black stools or change in bowel habits GENITOURINARY: No history of dysuria, frequency or incontinence MUSKULOSKELETAL: Negative for joint pain or swelling, back pain or muscle pain. SKIN:Negative for lesions, rash, and itching. HEMATOLOGIC/LYMPHATIC/IMMUNOLOG IC:Negative for prolonged bleeding, bruising easily or swollen nodes. ENDOCRINE: Negative for cold or heat intolerance, polyuria, polydipsia NEUROLOGIC:See HPI PHYSICAL EXAMINATION: BP 122/68 Pulse 90 Resp 16 Wt 69 kg (152 lb 3.2 oz) LMP 02/10/2017 SpO2 97% BMI 25.33 kg/m General: well appearing, in no acute distress, alert, HEENT: Normocephalic/atraumatic., Skin: Color, texture, turgor normal. No rashes or lesions, Lungs: breathing comfortably, Neurological Examination: Cognition: The patient is alert and oriented times three Lucid and organized in conversation Able to tell detailed medical hx Speech is Normal in fluency volume and clarity Content and Syntax: Normal Comprehension: Normal, able to follow several step commands Cranial Nerves: Pupils are equal and reactive to light. Pupils normal in size Extraocular movements are grossly intact Good saccades and pursuits No nystagmus Hearing intact Good upgaze Visual joel are full to confrontation. Facial, motor and sensory exam is symmetric Equal v1,V2, V3 Tongue is in midline. No tongue fasciculation. Palate is upgoing bilaterally SCM and trapezius are full. Shoulder shrug intact Normal tone and strength. Normal coordination. DTRs are intact and symmetric bilaterally. Normal gait. Impression: ASSESSMENT/PLAN: 1. Migraine without aura, intractable, without status migrainosus - ICD9: 346.11, ICD10: G43.019 (primary diagnosis) Improvement since last appointment, is no longer having daily headaches and typically has 3 attacks a month but can last up to 7 days each. Amerge was not beneficial. Tolerating Topamax well but with some mild side effects including decreased appetite and fatigue. Had read about Nurtec and would like to try this. Patient has tried Imitrex and Amerge, feel this is an appropriate neck step, will prescribe Nurtec 75 mg. Discussed that should this be beneficial for her to transition it to a preventative as well. Patient agrees and understands. MRI of the brain was negative for any intracranial etiology of patient's headaches. No significant change in headache since last appointment, no new red flag signs or symptoms that would warrant additional imaging at this time. Discussed conservative therapy as well, patient agreeable 2. Obstructive sleep apnea - ICD9: 327.23, ICD10: G47.33 Patient was found to have some mild sleep apnea, discussed conservative therapy for this as well. Should this worsen, may consider inpatient sleep study and possible CPAP. Patient agrees understands. Patient agreeable to treatment plan of care at this time, questions were answered. Patient to follow-up in 3 months or sooner should any symptoms change or worsen. Plan: All options for treatment discussed. Preventative: Topamax 100 mg Abortive: Nurtec 75 mg Follow-up: 3 months I spent a total of 30 minutes on the date of the service which included preparing to see the patient, [id number] patient care, completing clinical documentation, obtaining and/or reviewing separately obtained history, performing a medically appropriate examination, counseling and educating the patient/family/caregiver, and ordering medications, tests, or procedures. Darcy Flores PA-C General Neurology [address] [place] [address]. [id number] Appointment: [phone] 09/26/2023 PROMIS Global Health Physical Health Summary Physical health: Good Everyday physical activity, ability: Mostly Fatigue: Severe Pain level: 5 General health: Fair Social activities/roles, ability: Good Physical Health T-Score 39.8 (Fair) Physical Health Percentile 15 PROMIS Global Health Mental Health Summary Quality of life: Good Mental health (mood,thinking): Good Social satisfaction: Very good Emotional problems (anxious,depressed): Rarely Mental Health T-Score 48.3 (Very Good) Mental Health Percentile 43 PHQ-9 Score: 3(Minimal Depression) PHQ-9 Self-Harm: Not at all NEURO-QOL Cognitive Function T-Score 52(Within Normal Limits) Neuro-Qol Cognitive Function Percentile 58 PROMIS Physical Function T-Score 47(Within Normal Limits) PROMIS Physical Function Percentile 38 PROMIS Pain Interference T-Score 58(Mild) PROMIS Pain Interference Percentile 21 Percentiles provide an indication of how a patient's score ranks in relation to the [place] general population. > 31st percentile is within normal limits or better *< 31st percentile is at least SD worse than population, which may be clinically relevant < 16th percentile is at least 1 SD worse than population and warrants attention documented in this encounter [facility] 07-20-2023 Note HNO ID: [id number] Author: Debra Roland APRN.[employer] Service: ? Author Type: Nurse Practitioner Type: Progress Notes Filed: 07/20/2023 2:04 PM Note Text: Chief Complaint Patient presents with: Follow Up: Sore painful belly button X 3 days HPI Olivia Man is a 38 year old female who presents here today for Above Complaints.. Patient presents for belly button pain and swelling. Patient reports thick white drainage to belly button. Past medical history, appointments, medications, allergies reviewed. [...] SURGICAL HISTORY Procedure Laterality Date ADENOIDECTOMY PRIMARY Adenoidectomy ARTHROTOMY W/MENISCUS REPAIR KNEE CARPAL TUNNEL 12/2017 COLONOSCOPY 2012 DENTURES COMPLETE LOWER and upper EGD 2012 EGD TRANSORAL BIOPSY SINGLE/MULTIPLE 12/20/2007 minimal gastritis LAPAROSCOPIC APPENDECTOMY 02/27/2007 PAST SURGICAL HISTORY OF 2011 biopsy of (L) calf- benign PAST SURGICAL HISTORY OF 09/2012 B/L eye lid retraction PAST SURGICAL HISTORY OF multple surgery for endometriosis THYROIDECTOMY TOTAL/COMPLETE 11/23/2011 graves disease TONSILLECTOMY PRIMARY/SECONDARY Tonsillectomy TOTAL ABDOM HYSTERECTOMY N/A Family History FAMILY HISTORY Problem Relation Age of Onset Diabetes Paternal Grandmother Psychiatry Maternal Grandmother Depression Asthma Mother Patient Allergies ALLERGIES Allergen Reactions Adalimumab Hives, Itching, Rash Flu Immuzation [Oth* GI Upset Lodine [Etodolac] Itching Current Medications Current Outpatient Medications on File Prior to Visit Medication Sig levothyroxine (SYNTHROID) 125 mcg tablet Take 1 tablet by mouth once daily. Takes 8 tabs per week. One daily except Mon and Wed takes an extra half tab. citalopram (CELEXA) 20 mg tablet Take 1 tablet by mouth once daily. folic acid 1 mg tablet Take 1 mg by mouth once daily. 2mg methotrexate 2.5 mg tablet prochlorperazine (COMPAZINE) 5 mg tablet Take by mouth. topiramate (TOPAMAX) 25 mg tablet 25 mg (1 tab) at bed x 2 wks, then 50 mg at bed (2 tabs) x 2 wks, then 75 mg at bed (3 tabs) x 2 wks topiramate (TOPAMAX) 100 mg tablet Take 1 tablet by mouth daily at bedtime. naratriptan (AMERGE) 2.5 mg tablet Take 1 tablet (2.5 mg) by mouth as directed. at the onset of headache; if headache returns or does not fully resolve, the dose may be repeated after 4 hours; do not exceed five(5) mg in 24 hours. NO more than 10 doses a month divalproex DR (DEPAKOTE) 500 mg EC tablet Take 1 tablet by mouth as needed. (Patient not taking: Reported on 05/23/2023) imipramine HCl (TOFRANIL) 25 mg tablet Take 25 mg by mouth once daily. STELARA 90 mg/mL injection Inject 90 mg subcutaneously every 8 weeks. estradiol (ESTRACE) 2 mg tablet dicyclomine (BENTYL) [...] REVIEW OF SYSTEMS SEE HPI EXAM: BP 110/66 Pulse 96 Resp 14 Wt 67.6 kg (149 lb) LMP 02/10/2017 BMI 24.79 kg/m? General Appearance: Well appearing, alert, in no acute distress, well-hydrated, well nourished.. Skin: Positives: red rash to umbilicus with thick white discharge noted. Painful with palpation. Health Maintenance List Covid-19 Vaccine(1) Never done [...] Pap Testing due on 05/31/2017 HPV Testing Ne (more content not included)... [facility] 07-17-2023 History of Presen t illness Narrative Chief Complaint: NPV History Of Present Illness: Olivia Man is a 38-year-old female with a PMH significant for Crohn's disease, Grave's disease s/p thyroidectomy, acquired hypothyroidism, climacteric, esophageal spasms, varicose veins, RA (previously on methotrexate but stopped), and depression, presented to neurology for evaluation of intractable migraine without aura with N/V. As part of her evaluation patient was ordered an MRI brain completed on 06/06/23 with no intracranial abnormality but noted tortuous intradural left vertebral artery. CTA was ordered for further evaluation which was negative for cerebral aneurysm and redemonstrated small vascular loop of left intramural vertebral artery on left medulla noting an anatomic variant. Given finding patient presents to clinic to discuss CTA results and presents to clinic for NPV. No first line familial history of aneurysm. Her grandmother and uncle with a history of cerebral aneurysm. Grandmother with craniotomy for clipping. 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 No history of HTN. Current smoker and smokes around 1/2ppd and has smoked since the age of 19. Migraine headaches she has been working with neurology but over the last year current treatment is not effective at managing her headaches. Endorses to photophobia, nausea, and dizziness. Vital Signs BP 108/74 Pulse 90 Resp 18 Ht 1.651 m (5' 5 ) Wt 65 kg (143 lb 4.8 oz) LMP (LMP Unknown) BMI 23.85 kg/m Physical Exam: A&Ox3 Fluent speech EOMI HAMILTON; strength 5/5; no drift Gait normal Face and shoulder shrug symmetrical Past Medical History: See HPI Past Surgical History: Thyroidectomy Assessment/Plan The encounter diagnosis was Intractable migraine without aura and without status migrainosus. Olivia Man is a 38-year-old female with a PMH significant for Crohn's disease, Grave's disease s/p thyroidectomy, acquired hypothyroidism, climacteric, esophageal spasms, varicose veins, RA (previously on methotrexate but stopped), and depression, presented to neurology for evaluation of intractable migraine without aura with N/V. As part of her evaluation patient was ordered an MRI brain completed on 06/06/23 with no intracranial abnormality but noted tortuous intradural left vertebral artery by report. CTA was ordered and did not identify an aneurysm greater than 2mm and redemonstrated small vascular loop of left intramural vertebral artery on left medulla noting an anatomic variant per report. Will have images uploaded as they were performed at an OSH by radiology. Once images are available for viewing will have case reviewed at conference. Additionally, a referral was placed for neurology headache specialist due to intractable migraine headaches with no relief in treatment and would like to establish with . Plan discussed with patient and mom who was present for visit. All questions answered. documented in this encounter [facility] Work Phone: 07-06-2023 Miscellaneous Notes Patient Comment: I am down to my last couple pills Last refill 01/26/23 Qty: 90 with 1 refill ALLEGRA 05/08/23 NOV none scheduled Devi Pinzon LPN documented in this encounter [facility] 06-22-2023 Miscellaneous Notes Your message has been forwarded to your provider for review. Please allow up to three (3) business days for a reply. If this is regarding an urgent matter, please call the office at (Option 5) or proceed to the nearest emergency department for evaluation. If you need to schedule or cancel an appointment please call our contact center at . If you have questions about a sleep study, please call our lab scheduling department at . documented in this encounter [facility] 06-22-2023 Note HNO ID: [id number] Author: Lulu Emery Service: ? Author Type: ? Type: Progress Notes Filed: 06/22/2023 12:17 PM Note Text: Sleep Study Check-In Documentation Date: June 22, 2023 Name: Olivia Man Comments: HST was returned in working order with all sleep questionnaires Lulu Emery [facility] 06-22-2023 History of Presen t illness Narrative Sleep Study Check-In Documentation Date: June 22, 2023 Name: Olivia Man Comments: HST was returned in working order with all sleep questionnaires Lulu Emery [employer]# [id number] , Date shipped out: 06/16 SENT FEDEX DELIVERY - FEDEX RETURN Tracking mailout: [id number] Tracking return: [id number] 2023 Standing PSG Orders signed in the last 90 days None Future PSG Orders signed in the last 90 days Ordered Auth. provider HOME SLEEP APNEA TEST (HSAT) [[id number]] 05/23/23 Darcy Flores PA-C Assoc. diagnoses: Obstructive sleep apnea [G47.33] Q: Indications: A: Obstructive sleep apnea Q: STOP-BANG conditions - Select All That Apply: A: SNORING that is loud or disruptive A2: TIREDNESS, fatigue or sleepiness during the day A3: OBSERVED sleep apnea Q: Current use of supplemental oxygen during sleep period?: A: No Q: Add supplemental oxygen if needed per sleep lab policy?: A: Yes All Prior Sleep Studies (past 365 days) Some values may be hidden. Unless noted otherwise, only the newest values recorded on each date are displayed. Sleep Studies HOME SLEEP APNEA TEST (HSAT) Future Expected: Expires: 05/22/24 BMI Readings from Last 2 Encounters: 05/23/23 : 24.93 kg/m 05/08/23 : 24.46 kg/m PAST MEDICAL HISTORY Diagnosis Date Acute appendicitis [...] tract infection, site not specified Recurrent UTI's The medical record was reviewed to determine if the proposed sleep study conforms to the [facility] Practice Parameters for the Indications for Polysomnography and Related Procedures, or if the sleep study is indicated for other reasons. Indications for study: ELISHA suspected without comorbid medical or sleep disorders Sleep study to be performed: Home Sleep Apnea Test (HSAT) Special instructions: None-follow laboratory protocol [facility] --- Sleep Medicine Staff Note: I have read the above protocol, edited as needed, and agree to the plan. Yoandy Melendez III, PhD 4:12 PM, 2023 June 07, 2023 An order has been received for Home Sleep Apnea Test (HSAT) from Darcy Salomon PA-C [, a B. [facility] Staff. Visit prep complete. Comments :No The sleep study is scheduled for 06/26. Insurance: Payor: [employer] / Plan: BLUE CARD PPO OOS / Product Type: PPO / Payer/Plan Subscr Sex Relation Sub. Ins. ID Effective Group Num 1. KAROL RAO* [place] MAN 01/17/1980 Male Spouse [id number] 08/07/21 [id number] [id number] 2. [facility] OLIVIA MEAD 1985 Female Self [id number] 08/17/06 ONE MILI Davis documented in this encounter [facility] 06-22-2023 Miscellaneous Notes Patient notified and verbalized understanding. Zenobia Dominguez Cma Please let patient know their CT shows no acute abnormalities. documented in this encounter [facility] 06-21-2023 Note HNO ID: [id number] Author: Glo Newton RT(R) Service: ? Author Type: Hazardous Material Technician Type: Progress Notes Filed: 06/21/2023 4:11 PM Note Text: Radiology Service Progress Note DATE OF SERVICE: June 21, 2023 TIME: 4:10 PM PATIENT IDENTITY VERIFICATION COMPLETED USING TWO (2) STANDARD IDENTIFIERS: Name and Date of confirmed by patient verbally. FALL SCREENING: Has the patient had 2 falls in the last year or 1 fall with injury or currently using an Ambulatory Assistive Device (Walker, Cane, Wheelchair, Crutches, etc.)? No PATIENT GENDER DATA: Female. status: : No status: NO. PATIENT RELEVANT IMPLANT DATA REVIEWED: Yes ALLERGIES: Reviewed and unchanged CONTRAST ALLERGY: NO. EXAM: CT -CONTRAST INDUCED NEPHROPATHY RISK FACTORS: Not applicable CREATININE: Creatinine Date Value Ref Range Status 03/07/2014 0.57 0.51 - 0.95 mg/dL Final P.O.C.T. RESULTS: POC done: Yes, See Lab Tab June 21, 2023 TREATMENT: N/A PERIPHERAL IV DATA: Ambulatory: A peripheral IV was started in the Left antecubital site with a Angio cath: 18 gauge. RADIOLOGY DEPARTMENT: CT; Exam(s) Completed: Brain and CTA Brain SIGNATURE: RT Shai(R) PATIENT NAME: Olivia Man DATE: June 21, 2023 TIME: 4:10 PM [facility] 06-21-2023 History of Presen t illness Narrative Radiology Service Progress Note DATE OF SERVICE: June 21, 2023 TIME: 4:10 PM PATIENT IDENTITY VERIFICATION COMPLETED USING TWO (2) STANDARD IDENTIFIERS: Name and Date of confirmed by patient verbally. FALL SCREENING: Has the patient had 2 falls in the last year or 1 fall with injury or currently using an Ambulatory Assistive Device (Walker, Cane, Wheelchair, Crutches, etc.)? No PATIENT GENDER DATA: Female. status: : No status: NO. PATIENT RELEVANT IMPLANT DATA REVIEWED: Yes ALLERGIES: Reviewed and unchanged CONTRAST ALLERGY: NO. EXAM: CT -CONTRAST INDUCED NEPHROPATHY RISK FACTORS: Not applicable CREATININE: Creatinine Date Value Ref Range Status 03/07/2014 0.57 0.51 - 0.95 mg/dL Final P.O.C.T. RESULTS: POC done: Yes, See Lab Tab June 21, 2023 TREATMENT: N/A PERIPHERAL IV DATA: Ambulatory: A peripheral IV was started in the Left antecubital site with a Angio cath: 18 gauge. RADIOLOGY DEPARTMENT: CT; Exam(s) Completed: Brain and CTA Brain SIGNATURE: RT Shai(R) PATIENT NAME: Olivia Man DATE: June 21, 2023 TIME: 4:10 PM documented in this encounter [facility] 06-15-2023 Note HNO ID: [id number] Author: Lei Curtis Service: ? Author Type: ? Type: Progress Notes Filed: 06/22/2023 12:17 PM Note Text: Nomad# [id number] , Date shipped out: 06/16 SENT FEDEX DELIVERY - FEDEX RETURN Tracking mailout: [id number] Tracking return: [phone] [facility] 2023 Note HNO ID: [id number] Author: Yoandy Melendez III, PhD Service: ? Author Type: Physician Type: Progress Notes Filed: 06/22/2023 12:17 PM Note Text: 2023 Standing PSG Orders signed in the last 90 days None Future PSG Orders signed in the last 90 days Ordered Auth. provider HOME SLEEP APNEA TEST (HSAT) [[id number]] 05/23/23 Darcy Flores PA-C Assoc. diagnoses: Obstructive sleep apnea [G47.33] Q: Indications: A: Obstructive sleep apnea Q: STOP-BANG conditions - Select All That Apply: A: SNORING that is loud or disruptive A2: TIREDNESS, fatigue or sleepiness during the day A3: OBSERVED sleep apnea Q: Current use of supplemental oxygen during sleep period?: A: No Q: Add supplemental oxygen if needed per sleep lab policy?: A: Yes All Prior Sleep Studies (past 365 days) Some values may be hidden. Unless noted otherwise, only the newest values recorded on each date are displayed. Sleep Studies HOME SLEEP APNEA TEST (HSAT) Future Expected: Expires: 05/22/24 BMI Readings from Last 2 Encounters: 05/23/23 : 24.93 kg/m? 05/08/23 : 24.46 kg/m? PAST MEDICAL HISTORY Diagnosis Date Acute appendicitis [...] tract infection, site not specified Recurrent UTI's The medical record was reviewed to determine if the proposed sleep study conforms to the [facility] Practice Parameters for the Indications for Polysomnography and Related Procedures, or if the sleep study is indicated for other reasons. Indications for study: ELISHA suspected without comorbid medical or sleep disorders Sleep study to be performed: Home Sleep Apnea Test (HSAT) Special instructions: None-follow laboratory protocol [facility] --- Sleep Medicine Staff Note: I have read the above protocol, edited as needed, and agree to the plan. Yoandy Melendez III, PhD 4:12 PM, 2023 [facility] 06-07-2023 Note HNO ID: [id number] Author: Klaudia Davis Service: ? Author Type: ? Type: Progress Notes Filed: 06/22/2023 12:17 PM Note Text: June 07, 2023 An order has been received for Home Sleep Apnea Test (HSAT) from Darcy Salomon PA-C [, a B. [facility] Staff. Visit prep complete. Comments :No The sleep study is scheduled for 06/26. Insurance: Payor: [employer]ISON[employer] / Plan: BLUE CARD PPO OOS / Product Type: PPO / Payer/Plan Subscr Sex Relation Sub. Ins. ID Effective Group Num 1. ANTHEM - BLUE* [place] MAN 01/17/1980 Male Spouse [id number] 08[birth year] [id number] 2. [facility] OLIVIA MEAD 1985 Female Self [id number] 08/17/06 MING Davis [facility] 06-06-2023 Miscellaneous Notes Pt called and is notified of providers results and instructions. Pt voices understanding. Transferred to scheduled to set up appt for CTA of head. Olivia Mariee RN Please let patient know that overall her MRI is normal however there is a questionable arterial abnormality that may or may not be contributing to her headaches. I would like patient to have CTA done to better look at her blood vessels. documented in this encounter [facility] 06-06-2023 Note HNO ID: [id number] Author: Lashon Banuelos RT(R) Service: ? Author Type: Technologist Type: Progress Notes Filed: 06/06/2023 9:10 AM Note Text: Radiology Service Progress Note DATE OF SERVICE: June 06, 2023 TIME: 9:09 AM PATIENT IDENTITY VERIFICATION COMPLETED USING TWO (2) STANDARD IDENTIFIERS: Name and Date of confirmed by patient verbally. FALL SCREENING: Has the patient had 2 falls in the last year or 1 fall with injury or currently using an Ambulatory Assistive Device (Walker, Cane, Wheelchair, Crutches, etc.)? No PATIENT GENDER DATA: Female. status: : No status: NO. PATIENT RELEVANT IMPLANT DATA REVIEWED: Yes ALLERGIES: Reviewed and unchanged CONTRAST ALLERGY: NO. EXAM: MRI - CONTRAST TYPE: GROUP II PERIPHERAL IV DATA: Ambulatory: A peripheral IV was started in the Left antecubital site with a Angio cath: 22 gauge. RADIOLOGY DEPARTMENT: MR; Exam(s) Completed: Head: Routine Brain SIGNATURE: Lashon Banuelos, RT(R) PATIENT NAME: Olivia Man DATE: June 06, 2023 TIME: 9:09 AM [facility] 06-05-2023 Miscellaneous Notes Requested Prescriptions Pending Prescriptions Disp Refills citalopram (CELEXA) 20 mg tablet 90 tablet 0 Sig: Take 1 tablet by mouth once daily. ALLEGRA 05/08/2023 NOV not scheduled at this time Barbara Middleton documented in this encounter [facility] 05-29-2023 Miscellaneous Notes Fax received from [facility] requesting last office note for patient. Note dated 05/23/23 from Darcy Flores faxed to [phone]. Ruchi Mathews LPN documented in this encounter [facility] 05-23-2023 Note HNO ID: [id number] Author: Darcy Flores PA-C Service: ? Author Type: Physician Loom Operator Apprentice Type: Progress Notes Filed: 05/23/2023 10:00 AM Note Text: Neurology Outpatient Clinic Date: May 23, 2023 Patient Name: Olivia Man Referring provider: Debra Roland CNP [address] [place] [address] Consult requested for headaches by Debra Roland CNP. Recommendations will be communicated via shared medical record or US mail. Primary provider: Debra Roland CNP [address] [place], [place] [id number] Reason for Evaluation: Headaches Subjective HPI Olivia Man is a 37 year old right-handed female who presents for evaluation of headaches. Debra Roland APRN.JIMENA is the PCP. Chart review: Saw PCP 05/08/23 for headache. migraine x1 month. Patient reports symptoms are worsening after taking methotrexate weekly. Patient has tried multiple OTC medications with no improvement. Patient reports nausea, blurry vision, and dizziness throughout the month long exacerbation. MRI brain scheduled for 06/06/23. Hx of graves disease. Last Tsh was normal. Patient presents for evaluation of headache. Patient notes longstanding history of migraines that acutely worsened around a year ago after she was started on methotrexate for rheumatoid arthritis. Also notes being on infusions for Crohn's disease which she was diagnosed around the same time as well. Also reports history of Graves' disease, has no thyroid and notes recent TSH is normal. Notes that she saw neurology many years ago, has also tried many medications including Emgality with no significant improvement. Does not remember ever being on Topamax. Denies any history of kidney stones or glaucoma. Headaches gradually worsened and now are almost every day. Notes that last months she had a headache last continuously for 2 months. Notes that she did have MRI imaging obtained at an outside neurology office which showed white matter changes consistent with migraines, but no other abnormalities. Notes that she was following with primary care for her migraines, was recently put on 10-day bridge of Depakote and just finished this. Notes that this did resolve her headache and she is migraine free at this time. However, notes that she takes methotrexate once a week and the day afterwards she gets a significant headache after taking it, is scheduled to take this tonight. Headaches are described as an aching, throbbing, pounding pain typically occur into the back of the head. Associated photophobia, phonophobia, nausea, vomiting, dizziness, blurred vision. Notes that she did see an eye doctor recently as she has history of eye surgery, exophthalmos with fluid correction. No autonomic features or headache, no onset with Valsalva, position change or exertion. Current Headache treatment Preventative: none Abortive: OTC Medications effective? sometimes # of doses of abortive medications per month: 10 Previous Medications: Celexa Depakote bridge Verapamil Elavil Emgality Imitrex Tylenol Benadryl Ibuprofen Oxycodone Headache Description Onset: Many years Total headache days per month: Almost daily Total headache attacks per month: almost daily Headache free days: Yes Duration of attacks: Days to weeks Severity of headaches? 04/16 Onset to Peak: quickly Location: posterior head. Aura: None Prodrome:none. Accompanying symptoms: photophobia, phonophobia, osmophobia, nausea, vomiting, vertigo, lightheaded, unsteadiness, blurred vision, neck pain, worse with movement. Quality:sharp, dull, throbbing, and aching . Worse with activity: No Triggers: weather changes, sleep- too little, fasting/hunger, dehydration, and methotrexate. Cough/sneeze/valsalva as trigger: no Positional changes: No Most common time of day for headache to begin:worse in the afternoon. Time missed from work or school: yes Risk Factors Visual-Motion sensitivity: Yes Tobacco Use: Yes, half a pack Alcohol Use: No Other substances: Yes, edibles occasional and helps to fall asleep Caffeine: Yes, tea and coffee (5 servings a day) Water: 2-3 bottles Neck Pain /Back Pain: No Fibromyalgia: No History of Motor Vehicle Accident: No History of Traumatic Brain Injury and/or Concussion: No History of severe infection: No History of Syncope: No Obesity: No, Body mass index is 24 Family History Migraine or other headaches in the family: No Aneurysms in a first degree relative: Grandmother and great uncle Brain tumors in the family: No Other neurological illness in the family: son with epilepsy ROS Review of Systems CONSTITUTIONAL: No reported fevers, chills, night sweats, or significant unintentional weight loss. EYES: No visual changes indicated. No eye pain or orbital swelling reported. HEENT: No hearing changes or vertiginous symptoms (more content not included)... [facility] 05-23-2023 Instructions Darcy Flores PA-C - 05/23/2023 9:22 AM EDT Preventative: topiramate up to 100mg Topamax Dosing Schedule Take at bedtime Increase dose every 2 weeks until goal dose of 100 mg Stop at any dose that reasonably treats headache Week 1-2: 25 mg each evening (1 tab) Week 3-4: 50 mg each evening (2 tabs) Week 5-6: 75 mg each evening (3 tabs) ROULETTE DEALER NEW SCRIPT 100 mg each evening (1 tab) Potential side effects: numbness and tingling, kidney stones (calcium phosphate) word finding difficulties and other cognitive side effects, loss off appetite, change in taste with sodas or reversible glaucoma. . If you develop numbness and tinglng , buy Potassium 99 mg over the counter and use 1 or 2 /day. Abortive: Amerge 2.5 mg with start of headache (no more than 10 doses in a month) Sleep study at home Increase water to 60 ounces and decrease caffeine (as close to two servings a day as you can) MRI of the brain as scheduled Follow up in three months Headache Preventive Treatment: Please keep in mind that it takes 4-6 weeks for the medication to start working well and 2-3 months at the appropriate dose before deciding if it will be useful or not. If it is not helping at all by this time, then we will discuss other medications to try. Supplements may take 3-6 months until you see full effect. Natural supplements: Magnesium Oxide 500 mg at bed Coenzyme Q10 300 mg in AM Vitamin B2- 200 mg twice a day Feverfew 50 mg twice a day Vitamins and herbs that show potential Magnesium: Magnesium (250 mg twice a day or 500 mg at bed) has a relaxant effect on smooth muscles such as blood vessels. Individuals suffering from frequent or daily headache usually have low magnesium levels which can be increase with daily supplementation of 400-750 mg. Three trials found 40-90% average headache reduction when used as a preventative. Magnesium also demonstrated the benefit in menstrually related migraine. Magnesium is part of the messenger system in the serotonin cascade and it is a good muscle relaxant. It is also useful for constipation which can be a side effect of other medications used to treat migraine. Good sources include nuts, whole grains, and tomatoes. Magnesium comes in many different forms: Magnesium glycinate is a good choice for those with a sensitive stomach who have gastrointestinal side effects such as diarrhea with other forms of magnesium. It is anecdotally also helpful with anxiety and sleep. Magnesium threonate also has low risk of gastrointestinal side effects and anecdotally helpful with cognitive function and brain fog symptoms. Magnesium malate has low gastrointestinal side effects and is reportedly more energizing and anecdotally often helpful in fibromyalgia and chronic fatigue syndrome. Magnesium citrate is one of the most studied, popular, and well-absorbed forms of magnesium. It can also be mixed easily with liquids if you can't take pills. However, it comes with a higher risk of diarrhea and gastrointestinal side effects, although this could be helpful for those with constipation. Magnesium oxide is also well studied, cheap, and often used for heartburn and indigestion. However, it is not well absorbed and can have some laxative side effects as well, so can also be helpful for constipation. Riboflavin (vitamin B 2) 200 mg twice a day. This vitamin assists nerve cells in the production of ATP a principal energy storing molecule. It is necessary for many chemical reactions in the body. There have been at least 3 clinical trials of riboflavin using 400 mg per day all of which suggested that migraine frequency can be decreased. All 3 trials showed significant improvement in over half of migraine sufferers. The supplement is found in bread, cereal, milk, meat, and poultry. Most Americans get more riboflavin than the recommended daily allowance, however riboflavin deficiency is not necessary for the supplements to help prevent headache. Feverfew: Feverfew is a common garden herb kletsel dehe wintun to [place] and popular in [place] as a treatment for disorders typically controlled by aspirin. The mechanism of action is unknown but is believed to be related to a chemical called parthenolide which helps the body use serotonin more effectively. Serotonin helps prevent migraine and assists with resolution when it occurs. Parthenolide also inhibits the release of histamine which is linked to pain and inflammation. Consistency of active ingredients in different products can be a problem. Some formulations don't have the active ingredient (parthenolide) that prevents migraine. A parthenolide content of 0.2% is generally recommended. Typical dosage is one capsule 3 times a day. Coenzyme Q10: This is present in almost all cells in the body and is critical component for the conversion of energy. Recent studies have shown that a nutritional supplement of CoQ10 can reduce the frequency of migraine attacks by improving the energy production of cells as with riboflavin. Doses of 150 mg twice a day have been shown to be effective. Melatonin: Increasing evidence shows correlation between melatonin secretion and headache conditions. Melatonin supplementation has decreased headache intensity and duration. It is widely used as a sleep aid. Sleep is natures way of dealing with migraine. A dose of 3 mg is recommended to start for headaches including cluster headache. Higher doses up to 15 mg has been reviewed for use in Cluster headache and have been used. The rationale behind using melatonin for cluster is that many theories regarding the cause of Cluster headache center around the disruption of the normal circadian rhythm in the brain. This helps restore the normal circadian rhythm. Ly: Ly has a small amount of antihistamine and anti-inflammatory action which may help headache. It is primarily used for nausea and may aid in the absorption of other medications. HEADACHE DIET: Foods and beverages which may trigger migraine Note that only 20% of headache patients are food sensitive. You will know if you are food sensitive if you get a headache consistently 20 minutes to 2 hours after eating a certain food. Only cut out a food if it causes headaches, otherwise you might remove foods you enjoy! What matters most for diet is to eat a well balanced healthy diet full of vegetables and low fat protein, and to not miss meals. Chocolate, other sweets ALL cheeses except cottage and cream cheese Dairy products, yogurt, sour cream, ice cream Liver Meat extracts (Bovril, Marmite, meat tenderizers) Meats or fish which have undergone aging, fermenting, pickling or smoking. These include: Hotdogs,salami,Lox,sausage, mortadellas,smoked salmon, pepperoni, Pickled gorman Pods of broad colon (Venezuelan beans, Botswanan pea pods, Egyptian (greg) beans, rincon and navy beans Ripe avocado, ripe banana Yeast extracts or active yeast preparations such as Servin's or Sophia's (commercial bakes goods are permitted) Tomato based foods, pizza (lasagna, etc.) MSG (monosodium glutamate) is disguised as many things; look for these common aliases: Monopotassium glutamate Autolysed yeast Hydrolysed protein Sodium caseinate flavorings all natural preservatives Nutrasweet Avoid all other foods that convincingly provoke headaches. Headache Prevention Strategies: 1. Maintain a headache diary; learn to identify and avoid triggers. Common triggers include: Emotional triggers: Emotional/Upset family or friends Emotional/Upset occupation Business reversal/success Anticipation anxiety Crisis-serious Post-crisis periodNew job/position Physical triggers: Vacation Day Weekend Strenuous Exercise High Altitude Location New Move Menstrual Day Physical Illness Oversleep/Not enough sleep Weather changes Light: Photophobia or light sesnitivity treatment involves a balance between desensitization and reduction in overly strong input. Use dark polarized glasses outside, but not inside. Avoid bright or fluorescent light, but do not dim environment to the point that going into a normally lit room hurts. Consider FL-41 tint lenses, which reduce the most irritating wavelengths without blocking too much light. These can be obtained at [employer] or [employer] Foods: see list above. 2. Limit use of acute treatments (ahny-gwg-xjxtufg medications, triptans, etc.) to no more than 2 days per week or 10 days per month to prevent medication overuse headache (rebound headache). 3. Follow a regular schedule (including weekends and holidays): Don't skip meals. Eat a balanced diet. 8 hours of sleep nightly. Minimize stress. Exercise 30 minutes per day. Being overweight is associated with a 5 times increased risk of chronic migraine. Keep well hydrated and drink 6-8 glasses of water per day. 4. Initiate non-pharmacologic measures at the earliest onset of your headache. Rest and quiet environment. Relax and reduce stress. Cmstdmb9Posry is a free hemanth that can instruct you on some simple relaxtion and breathing techniques. Http://[employer] is a free website that provides teaching videos on relaxation. Also, there are many apps that can be downloaded for mindful relaxation. An hemanth called YOGA NIDRA will help walk you through mindfulness. Cold compresses. 5. Don't wait!! Take the maximum allowable dosage of prescribed medication at the first sign of migraine. 6. Compliance: Take prescribed medication regularly as directed and at the first sign of a migraine. 7. Communicate: Call your physician when problems arise, especially if your headaches change, increase in frequency/severity, or become associated with neurological symptoms (weakness, numbness, slurred speech, etc.). 8. Headache/pain management therapies: Consider various complementary methods, including medication, behavioral therapy, psychological counselling, biofeedback, massage therapy, acupuncture, dry needling, and other modalities. Such measures may reduce the need for medications. Counseling for pain management, where patients learn to function and ignore/minimize their pain, seems to work very well. 9. Recommend changing family's attention and focus away from patient's headaches. Instead, emphasize daily activities. If first question of day is 'How are your headaches/Do you have a headache today?', then patient will constantly think about headaches, thus making them worse. Goal is to re-direct attention away from headaches, toward daily activities and other distractions. 10. Helpful Websites: www.AmericanHeadacheSociety.org www.migrainetrust.org www.headaches.org www.migraine.org.uk www.achenet.org 11. HEADACHE EXPECTATIONS: There are many types of headaches, and only a rare few in which complete relief can be expected. In general, there is no cure for headache, especially migraine based headaches. There is nothing available that completely prevents headaches from occurring, breaking through, or having periodic flare-ups and fluctuations. Regardless of what you are using on a daily basis for prevention, episodic headaches should still be expected, and periods where frequency may escalate and fluctuate are unavoidable. There is no quick fix for most headaches. Furthermore, the longer you have had high frequency headaches (such as chronic daily headache), the longer it will likely take to expect any improvement. In fact, some people will never improve, regardless of how many medications or other treatments we try. Our treatment strategy is to evaluate for possible causes of your headache, although testing is usually always normal, even in cases of daily continuous headaches for years. Most types of headache such as migraine are electrical brain disorders (similar to how epilepsy is an electrical brain disorders). Therefore, there is no testing that will reveal this dysfunctional electrical circuitry such on MRI, or other testing. We try to find a medication that may help lessen the frequency and/or severity of your headaches. The goal is not to completely stop them from happening, although if that happens, great! Different people respond to different medications, and some people just don't respond to anything, so it's usually a matter of trying different options. We can not predict if or when exactly you will respond to a treatment that we provide. Preventive headache medications take 4-6 weeks to start working, and 2-3 months to see full effect, assuming you reach an effective dose. Therefore, calling or messaging frequently because you have a headache flare prior to the 3 month romeo is unlikely to change anything, and unfortunately there is nothing available that will expedite this, so please try to avoid this. Our recommendation will generally be to give it adequate time first. If you are unable to wait it out for medications to work, we can also try IV infusions for some temporary relief. O In general, the best that preventive medications or other treatments (including Botox) are able to offer in migraine management (variable in other headache types) is a 50% improvement in frequency and/or severity of headache. That is our goal, and any additional benefit is considered a bonus. Some people do significantly better than this, others do not get close to this. Therefore, if your headaches are not improving by at least 3 months on your preventive strategy, contact us and we can discuss further adjustments. Keep in mind that complete headache cure is not a realistic expectation. Our Team: The nursing staff, and medical assistants are a major part of YOUR TREATMENT TEAM and will be handling your phone calls, Mimoonat Messages and inquiries, if any. Unless explicitly told otherwise at the time of your office visit, your study results and ensuing treatment plans will be released via OpenQ and discussed during your follow-up appointment. MyChart: Please ask the schedulers to give you an activation code. The main way of communication is by Qardiohart rather than phone lines, so if you have not signed up, please do so. Mimoonat is also the way that you can review your labs and testing. We are not able to contact everyone to tell them results are normal. If you do not hear back from us regarding testing you have had, it should be considered normal or within normal range. If you have any questions about the results, you are free to message us. OpenQ is meant for simple questions regarding medications, possible side effects, or other simple straight forward questions in limited sentences, rather than multiple paragraphs of discussion. OpenQ is not meant for, or efficient for these complex questions, extensive questions, extensive medication adjustments, complex new symptoms or concerns. These issues beyond simple questions require a follow up visit with myself, one of our physician assistants, nurse practitioners, or a Virtual Visit via computer or smart phone, as detailed further down. Refills: Please pay attention to when your refills will need to be renewed. Due to the volume of phone calls daily, this could potentially take a few days, although we certainly try to honor your refill requests as soon as we can. You should call at least 1 week in advance of needing a refill to ensure you do not run out of medication. Keep in mind that refill requests on Fridays may not be filled until the following week. In regards to blood work, testing, and radiology reports these are released automatically to the patients. We do not comment on most testing on [employer] in a message or commentary unless there is a concern. You will not receive a message from me of the result unless there is a specific concern of the result I need you to address further in care with us or your primary medical team. Make sure to check your my chart email or hmeanth. As an international referral center for syncope, autonomic dysfunction, general neurology, headache care, neuromuscular disease, and other related conditions, seeing patients from across the world, we do not have the resource of time or staffing to address inquiries for accommodations. As such, we do not provide or complete requests for work accommodations, FMLA, disability, or other such forms. We recommend seeking guidance through your primary care provider for these requests. We are happy to provide our office notes from your visits and other tests or evaluations performed through our clinic, which can be made available upon request to assist you with this process. documented in this encounter [facility] 05-23-2023 History of Presen t illness Narrative Neurology Outpatient Clinic Date: May 23, 2023 Patient Name: Olivia Man Referring provider: Debra Roland CNP [facility] [place] [address] Consult requested for headaches by Debra Roland CNP. Recommendations will be communicated via shared medical record or US mail. Primary provider: Debra Roland CNP [facility] [place] [address] Reason for Evaluation: Headaches Subjective HPI Olivia Man is a 37 year old right-handed female who presents for evaluation of headaches. Debra Roland APRN.CNP is the PCP. Chart review: Saw PCP 05/08/23 for headache. migraine x1 month. Patient reports symptoms are worsening after taking methotrexate weekly. Patient has tried multiple OTC medications with no improvement. Patient reports nausea, blurry vision, and dizziness throughout the month long exacerbation. MRI brain scheduled for 06/06/23. Hx of graves disease. Last Tsh was normal. Patient presents for evaluation of headache. Patient notes longstanding history of migraines that acutely worsened around a year ago after she was started on methotrexate for rheumatoid arthritis. Also notes being on infusions for Crohn's disease which she was diagnosed around the same time as well. Also reports history of Graves' disease, has no thyroid and notes recent TSH is normal. Notes that she saw neurology many years ago, has also tried many medications including Emgality with no significant improvement. Does not remember ever being on Topamax. Denies any history of kidney stones or glaucoma. Headaches gradually worsened and now are almost every day. Notes that last months she had a headache last continuously for 2 months. Notes that she did have MRI imaging obtained at an outside neurology office which showed white matter changes consistent with migraines, but no other abnormalities. Notes that she was following with primary care for her migraines, was recently put on 10-day bridge of Depakote and just finished this. Notes that this did resolve her headache and she is migraine free at this time. However, notes that she takes methotrexate once a week and the day afterwards she gets a significant headache after taking it, is scheduled to take this tonight. Headaches are described as an aching, throbbing, pounding pain typically occur into the back of the head. Associated photophobia, phonophobia, nausea, vomiting, dizziness, blurred vision. Notes that she did see an eye doctor recently as she has history of eye surgery, exophthalmos with fluid correction. No autonomic features or headache, no onset with Valsalva, position change or exertion. Current Headache treatment Preventative: none Abortive: OTC Medications effective? sometimes # of doses of abortive medications per month: 10 Previous Medications: Celexa Depakote bridge Verapamil Elavil Emgality Imitrex Tylenol Benadryl Ibuprofen Oxycodone Headache Description Onset: Many years Total headache days per month: Almost daily Total headache attacks per month: almost daily Headache free days: Yes Duration of attacks: Days to weeks Severity of headaches? 04/16 Onset to Peak: quickly Location: posterior head. Aura: None Prodrome:none. Accompanying symptoms: photophobia, phonophobia, osmophobia, nausea, vomiting, vertigo, lightheaded, unsteadiness, blurred vision, neck pain, worse with movement. Quality:sharp, dull, throbbing, and aching . Worse with activity: No Triggers: weather changes, sleep- too little, fasting/hunger, dehydration, and methotrexate. Cough/sneeze/valsalva as trigger: no Positional changes: No Most common time of day for headache to begin:worse in the afternoon. Time missed from work or school: yes Risk Factors Visual-Motion sensitivity: Yes Tobacco Use: Yes, half a pack Alcohol Use: No Other substances: Yes, edibles occasional and helps to fall asleep Caffeine: Yes, tea and coffee (5 servings a day) Water: 2-3 bottles Neck Pain /Back Pain: No Fibromyalgia: No History of Motor Vehicle Accident: No History of Traumatic Brain Injury and/or Concussion: No History of severe infection: No History of Syncope: No Obesity: No, Body mass index is 24 Family History Migraine or other headaches in the family: No Aneurysms in a first degree relative: Grandmother and great uncle Brain tumors in the family: No Other neurological illness in the family: son with epilepsy ROS Review of Systems CONSTITUTIONAL: No reported fevers, chills, night sweats, or significant unintentional weight loss. EYES: No visual changes indicated. No eye pain or orbital swelling reported. HEENT: No hearing changes or vertiginous symptoms indicated. No history of nose bleeds reported. RESPIRATORY: No reported cough, wheezing and dyspnea. CARDIOVASCULAR: Chest pain but due to EGD. GI: Negative for significant abdominal discomfort, blood in stools or black stools reported. No recent reported change in bowel habits. : No reported history of incontinence. No dark/cola colored urine reported. MUSCLOSKELETAL: No history of significant joint pain or swelling, or myalgias reported. SKIN: Negative for pertinent lesions, rash, and itching per report. HEMATOLOGY/ONCOLOGY: Negative for reported prolonged bleeding, bruising easily, and swollen nodes. ENDOCRINE: Negative for reported significant cold or heat intolerance, no reported goitrous neck swelling or polydipsia PSYCH: Chronic depression and anxiety on celexa. No reported SI or HI. NEURO: Per HPI above. Sleep: Normal- 7 hours but nap daily. Unsure if she snores. Dry mouth, morning headaches, wakes up throughout the night. Mood: normal, Energy: variable, Stress: High Medications: Current Outpatient Medications Medication Sig Dispense Refill folic acid 1 mg tablet Take 1 mg by mouth once daily. 2mg methotrexate 2.5 mg tablet prochlorperazine (COMPAZINE) 5 mg tablet Take by mouth. imipramine HCl (TOFRANIL) 25 mg tablet Take 25 mg by mouth once daily. STELARA 90 mg/mL injection Inject 90 mg subcutaneously every 8 weeks. citalopram (CELEXA) 20 mg tablet Take 1 tablet by mouth once daily. 90 tablet 0 levothyroxine (SYNTHROID) 125 mcg tablet Take 1 tablet by mouth once daily. Takes 8 tabs per week. One daily except Mon and Wed takes an extra half tab. 90 tablet 1 estradiol (ESTRACE) 2 mg tablet dicyclomine (BENTYL) 20 mg tablet Ferrous Gluconate (FERGON) 324 mg (38 mg iron) tablet Take 1 tablet by mouth twice daily with meals. 0 acetaminophen (TYLENOL) 500 mg tablet Take 500 mg by mouth every 8 hours as needed. acetaminophen/diphenhydramine (TYLENOL PM ORAL) Take by mouth. pantoprazole DR (PROTONIX) 20 mg tablet Take 20 mg by mouth once daily. topiramate (TOPAMAX) 25 mg tablet 25 mg (1 tab) at bed x 2 wks, then 50 mg at bed (2 tabs) x 2 wks, then 75 mg at bed (3 tabs) x 2 wks 84 tablet 0 topiramate (TOPAMAX) 100 mg tablet Take 1 tablet by mouth daily at bedtime. 30 tablet 2 naratriptan (AMERGE) 2.5 mg tablet Take 1 tablet (2.5 mg) by mouth as directed. at the onset of headache; if headache returns or does not fully resolve, the dose may be repeated after 4 hours; do not exceed five(5) mg in 24 hours. NO more than 10 doses a month [address] (DEPAKOTE) 500 mg EC tablet Take 1 tablet by mouth as needed. (Patient not taking: Reported on 05/23/2023) 15 tablet 0 No current facility-administered medications for this visit. ALLERGIES Allergen Reactions Adalimumab Hives, Itching, Rash Flu Immuzation [Oth* GI Upset Lodine [Etodolac] Itching Past Medical History: PAST MEDICAL HISTORY Diagnosis Date Acute appendicitis [...] tract infection, site not specified Recurrent UTI's Family History: FAMILY HISTORY Problem Relation Age of Onset Diabetes Paternal Grandmother Psychiatry Maternal Grandmother Depression Asthma Mother Also includes: . Social History: Social History Tobacco Use Smoking status: Every Day Packs/day: 0.50 Years: 15.00 Additional pack years: 0.00 Total pack years: 7.50 Types: Cigarettes Smokeless tobacco: Never Substance Use Topics Alcohol use: No Drug use: Yes Types: Marijuana Comment: occasional edible [employer] Objective 05/23/23 0854 BP: 112/74 Pulse: 100 Resp: 16 SpO2: 99% Weight: 67.9 kg (149 lb 12.8 oz) Physical Examination General Appearance: Well appearing, alert, in no acute distress, well-hydrated, well nourished. Head: Normocephalic Pulm: Breathing comfortably Neck: Supple Psych: Cooperative, appropriate affect Neurological Examination: Mental Status: Alert and Oriented to Place, Person, Time and Situation and Patient follows commands.. Language: Is intact to Comprehension, Fluency and Repetition Cranial Nerves: CNII: Visual acuity normal, visual joel full to confrontation CNIII, IV, : Pupils equal, round and reactive to light, full extraoccular movements, without nystagmus. Noted exophthalmos. Slight ptosis to the left eyelid which is chronic secondary to surgery CN V: Facial sensation intact bilaterally to fine touch CN VII: Facial muscles symmetric and strong CN VIII: Hears finger rub well bilaterally CN IX: Gag Reflex not examined CN X: Palate elevates symmetrically CN XI: Full strength shoulder shrug bilaterally CN XII: Tongue protrusion full and midline Motor Exam: Tone - Normal Tone noted in all extremities Bulk - Normal bulk noted in all muscles tested. Inspection - Normal, no fasciculations or tremors noted. Power: MUSCLES Upper Extremity RIGHT LEFT Deltoid 5/5 5/5 Biceps 5/5 5/5 Triceps 5/5 5/5 Wrist Extension 5/5 5/5 Wrist Flexion 5/5 5/5 Finger Flexion 5/5 5/5 Finger Extension 5/5 5/5 Finger Abd 5/5 5/5 Finger Add 5/5 5/5 MUSCLES Lower Extremity RIGHT LEFT Hip Flexion 5/5 5/5 Hip Extension 5/5 5/5 BiFem (Knee Flex) 5/5 5/5 Quads (Knee Ext) 5/5 5/5 Gastroc (Plantflx) 5/5 5/5 TibAnt (Dorsiflx) 5/5 5/5 FlxHLong (Toe Flex) 5/5 5/5 ExtHLong (Toe Ext) 5/5 5/5 Sensory Examination Sensation is intact to light touch. Negative extinction to double simultaneous stimulation Reflexes Right Left Bicep 2/4 2/4 Tricep 2/4 2/4 BrRad 2/4 2/4 Knee 2/4 2/4 Ankle 2/4 2/4 Encarnacion Response Negative Negative Coordination: finger-to- nose-finger intact bilaterally and ebbr-lf-nelt intact bilaterally. Gait: Patient's gait is normal, can heel and toe walk and can tandem walk Romberg: Negative DATA REVIEWED Actual films/image/tracing reviewed and summarized as follows: None available Old records reviewed and summarized as follows: Primary care Assessment/Plan Assessment & Plan: Olivia Man is a 37 year old right-handed female with a history of Graves' disease, Crohn's disease, rheumatoid arthritis, migraines, tobacco use, depression. Her examination demonstrates exophthalmos, but no neurologic abnormalities. Patient with years of headaches, worsening around a year ago after she was started on methotrexate for rheumatoid arthritis. Notes her headaches have worsened over the last year, recently had a 2-month long headache that finally resolved. Notes that she just completed Depakote bridge for 10 days resolving a 1 month long headache. Not currently taking anything for headaches other than [id number] medications including Benadryl and Tylenol. Notes she cannot take NSAIDs due to history of Crohn's disease. Has a scheduled MRI of the brain for the end of the month. Headaches are migrainous in nature, intractable and triggered by methotrexate which she has an appointment with her pattern cutter to to discuss stopping at the end of the week. Patient also with signs and symptoms of sleep apnea as well, notes history of complete hysterectomy in 2019 and has multiple signs of sleep apnea as well. We will order home sleep study to evaluate for any sleep apnea contribute to patient's symptoms. Regarding treatment, patient has tried multiple medications in the past but does not remember trying Topamax. No history of kidney stones or glaucoma. Discussed Topamax and titrating up to 100 mg the patient is amenable. Did have good resolve from Depakote, but discussed side effects and patient would like to refrain from this medication if possible. Should this medication not be beneficial, may consider Botox therapy as well in the future. Patient is amenable. Regarding abortive therapy, patient tried Imitrex in the past and had significant side effects, as patient's headaches last longer and she is sensitive to side effects we will prescribe longer-lasting triptan therapy. We will prescribe Amerge 2.5 mg take with onset of headache. Discussed not taking more than 10 doses a month. Discussed other conservative therapies including supplements,, triggers and increasing water intake while decreasing caffeine intake to avoid headaches. Patient is amenable. Patient sees eye doctor regularly, encouraged regular visits. Patient agreeable to treatment plan of care at this time, all questions were answered. Patient to follow-up in 3 months or sooner should any symptoms change or worsen. Olivia was seen today for new patient. Diagnoses and all orders for this visit: Migraine without aura, intractable, without status migrainosus - CONSULT TO NEUROLOGY Obstructive sleep apnea - HOME SLEEP APNEA TEST (HSAT); Future Other orders - topiramate (TOPAMAX) 25 mg tablet; 25 mg (1 tab) at bed x 2 wks, then 50 mg at bed (2 tabs) x 2 wks, then 75 mg at bed (3 tabs) x 2 wks - topiramate (TOPAMAX) 100 mg tablet; Take 1 tablet by mouth daily at bedtime. - naratriptan (AMERGE) 2.5 mg tablet; Take 1 tablet (2.5 mg) by mouth as directed. at the onset of headache; if headache returns or does not fully resolve, the dose may be repeated after 4 hours; do not exceed five(5) mg in 24 hours. NO more than 10 doses a month All options for treatment discussed. Preventative: Topiramate 100mg Abortive:Amerge Imaging:MRI brain Labs: She should return to see me in 3 months. I spent a total of 55 minutes on the date of the service which included preparing to see the patient, [id number] patient care, completing clinical documentation, obtaining and/or reviewing separately obtained history, performing a medically appropriate examination, counseling and educating the patient/family/caregiver, and ordering medications, tests, or procedures. Darcy Flores PA-C [facility] Neurology This document has been created with the use of voice recognition technology. It may contain inaccuracies: (e.g. misspellings, inaccurate syntax or word sense) that have escaped review. documented in this encounter [facility] 05-08-2023 Note HNO ID: [id number] Author: Debra Roland APRN.[employer] Service: ? Author Type: Nurse Practitioner Type: [...] SURGICAL HISTORY Procedure Laterality Date ADENOIDECTOMY PRIMARY Adenoidectomy ARTHROTOMY W/MENISCUS REPAIR KNEE CARPAL TUNNEL 12/2017 COLONOSCOPY 2013 DENTURES COMPLETE LOWER and upper EGD 2012 EGD TRANSORAL BIOPSY SINGLE/MULTIPLE 12/20/2007 minimal gastritis LAPAROSCOPIC APPENDECTOMY 02/27/2007 PAST SURGICAL HISTORY OF 2011 biopsy of (L) calf- benign PAST SURGICAL HISTORY OF 09/2012 B/L eye lid retraction PAST SURGICAL HISTORY OF multple surgery for endometriosis THYROIDECTOMY TOTAL/COMPLETE 11/23/2011 graves disease TONSILLECTOMY PRIMARY/SECONDARY Tonsillectomy TOTAL ABDOM HYSTERECTOMY N/A Family History [...] - IV CONTRAST (RADIOLOGY PROCEDURE) Debra Roland APRN.[facility] 05-08-2023 History of Presen t illness Narrative Chief Complaint Patient presents with: Headache: Migraines [...] 2013 DENTURES COMPLETE LOWER and upper EGD 2013 EGD TRANSORAL BIOPSY SINGLE/MULTIPLE 12/20/2007 minimal gastritis [...] kg (147 lb) LMP 02/10/2017 BMI 24.46 kg/m General Appearance: Well appearing, alert, in no [...] - IV CONTRAST (RADIOLOGY PROCEDURE) Debra Roland APRN.[employer] documented in this encounter [facility] 04-13-2023 Miscellaneous Notes Behavioral Health Social Work Progress Note Patient identified for [facility] from: PCP Reason for referral: Resources Behavioral Health Resources: Psychology - talk therapy [facility] encounter type: Telephone Encounter, Qardiohart Message Attempts to Outreach: 1 attempt Referral made: Psychology - Internal, Psychology - External Psychology-Internal referral type: Therapy Psychology-External referral type: Therapy Reason for external referral: Patient choice, Wait times at [facility] too long Final Disposition: Resources given Patient Discharged?: Yes therapist spoke with patient, she is seeking counseling services at this time. therapist will send her a list of resources to her MyChart. MARCO Hernandez-S April 13, 2023 documented in this encounter [facility] 04-13-2023 Note HNO ID: [id number] Author: Debra Roland APRN.CNP Service: ? Author Type: Nurse Practitioner Type: [...] SURGICAL HISTORY Procedure Laterality Date ADENOIDECTOMY PRIMARY Adenoidectomy ARTHROTOMY W/MENISCUS REPAIR KNEE CARPAL TUNNEL 12/2017 COLONOSCOPY 2012 DENTURES COMPLETE LOWER and upper EGD 2012 EGD TRANSORAL BIOPSY SINGLE/MULTIPLE 12/20/2007 minimal gastritis LAPAROSCOPIC APPENDECTOMY 02/27/2007 PAST SURGICAL HISTORY OF 2011 biopsy of (L) calf- benign PAST SURGICAL HISTORY OF 09/2012 B/L eye lid retraction PAST SURGICAL HISTORY OF multple surgery for endometriosis THYROIDECTOMY TOTAL/COMPLETE 11/23/2011 graves disease TONSILLECTOMY PRIMARY/SECONDARY Tonsillectomy TOTAL ABDOM HYSTERECTOMY N/A Family History [...] ICD9: 296.20, ICD10: F32.9 -Continue citalopram Debra Roland (more content not included)... [facility] 04-06-2023 Miscellaneous Notes Patient notified and verbalized understanding Zenobia Dominguez Cma Please let patient know her tsh is normal. documented in this encounter [facility] 03-28-2023 Note Patient Outreach (IN [facility]) OLIVIA MAN ([id number]) 1985 F Date Time Provider Department 03/28/23 DEBRA ROLAND During your visit today, we recorded the following information about you: Allergies As of Date: 03/28/2023 Noted Allergy Reaction flu immuzation [Other] 07/09/2007 8 - GI Upset LODINE (ETODOLAC) 09/18/2006 9 - Itching Date Reviewed: 09/29/2022 Reviewed by: Zenobia Dominguez Cma - Fully Assessed Visit Diagnosis:Hyperthyroidism [E05.90] Order(s):TSH BLD [SQTSH] Order #: [id number] FUTURE Prescriptions as of 03/31/2023 - citalopram [...] 03/28/2023 Noted Resolved SPRAIN OF BACK NOS [[id number]] 09/25/2006 PAP SMEAR OF CERVIX W ASCUS [...] use disorder [F17.200] 09/29/2022 Encounter Status:Closed by FITZ JACKUSER on 03/31/23 [facility] 01-26-2023 Miscellaneous Notes The following approved medication requests have been transmitted electronically. Requested Prescriptions Signed Prescriptions Disp Refills levothyroxine (SYNTHROID) 125 mcg tablet 90 tablet 1 Sig: Take 1 tablet by mouth once daily. Takes 8 tabs per week. One daily except Mon and Wed takes an extra half tab. Junaid Bradshaw MD In review of patients chart, Citalopram was sent to [facility] on 01/05/23 for a 90 day supply with 1 refill. This staff could only find levothyroxine on med list from 2012. Please review and advise. Thank you. SANDEEP Cruz documented in this encounter [facility] 09-29-2022 Note HNO ID: [id number] Author: Debra Roland APRN.[employer] Service: ? Author Type: Nurse Practitioner Type: Progress Notes Filed: 09/29/2022 7:07 PM Note Text: Chief Complaint Patient presents with: [facility] HPI Olivia Man is a 37 year old female who presents here today for Above Complaints.. [facility]. Patient reports that she sees Dr. Abbott [...] SURGICAL HISTORY Procedure Laterality Date ADENOIDECTOMY PRIMARY Adenoidectomy CARPAL TUNNEL 12/2017 COLONOSCOPY 2012 EGD 2012 EGD TRANSORAL BIOPSY SINGLE/MULTIPLE 12/20/2007 minimal gastritis LAPAROSCOPIC APPENDECTOMY 02/27/07 PAST SURGICAL HISTORY OF 2011 biopsy of (L) calf- benign PAST SURGICAL HISTORY OF 09/2012 B/L eye lid retraction PAST SURGICAL HISTORY OF multple surgery for endometriosis THYROIDECTOMY TOTAL/COMPLETE 11/23/11 graves disease TONSILLECTOMY PRIMARY/SECONDARY Tonsillectomy Family History FAMILY HISTORY Problem Relation [...] Never done PAP TESTING due on 05/31/2017 (more content not included)... [facility] 09-29-2022 Instructions Debra Roland APRN.CNP - 09/29/2022 6:53 PM EST Continue current medications Follow with specialists as scheduled Follow up in 6 months documented in this encounter [facility] 09-29-2022 History of Presen t illness Narrative Chief Complaint Patient presents with: [facility] HPI Olivia Man is a 37 year old female who presents here today for Above Complaints.. [facility]. Patient reports that she sees Dr. Abbott [...] kg (153 lb) LMP 02/10/2017 BMI 25.46 kg/m General Appearance: Well appearing, alert, in no [...] flu allergy and immunocompromised. Debra Roland APRN.JIMENA documented in this encounter [facility] 09-07-2022 History of Presen t illness Narrative This note was created using The [employer]. Subjective Olivia Man is a 37 year [...] Objective BP 118/82 Pulse 80 Temp 36.2 C (97.1 F) Resp 21 Wt 70.4 kg (155 lb 3.2 oz) LMP 02/10/2017 SpO2 98% BMI 25.05 kg/m Physical Exam Vitals and nursing note reviewed. [...] detail warranting prompt ER evaluation. SANGEETA Nunez documented in this encounter [facility] documented as of this encounter (statuses as of 09/07/2022) [facility] History of Past illness Narrative* Problem Noted Date Resolved Date Supervision of other high-risk (V23.89) 10/29/2008 11/04/2009 Abdominal pain, right lower quadrant 03/13/2007 03/27/2007 documented as of this encounter (statuses as of 09/30/2022) [facility] History of Past illness Narrative* Problem Noted Date Resolved Date Supervision of other high-risk (V23.89) 10/29/2008 11/04/2009 Abdominal pain, right lower quadrant 03/13/2007 03/27/2007 documented as of this encounter (statuses as of 01/05/2023) [facility] History of Past illness Narrative* Problem Noted Date Resolved Date Supervision of other high-risk (V23.89) 10/29/2008 11/04/2009 Abdominal pain, right lower quadrant 03/13/2007 03/27/2007 documented as of this encounter (statuses as of 01/26/2023) [facility] History of Past illness Narrative* Problem Noted Date Diagnosed Date Resolved Date Supervision of other high-ri sk (V23.89) 10/29/2008 11/04/2009 Abdominal pain, right lower quadrant 03/13/2007 03/27/2007 documented as of this encounter (statuses as of 03/09/2023) [facility] History of Past illness Narrative* Problem Noted Date Diagnosed Date Resolved Date Supervision of other high-ri sk (V23.89) 10/29/2008 11/04/2009 Abdominal pain, right lower quadrant 03/13/2007 03/27/2007 documented as of this encounter (statuses as of 03/31/2023) [address]25-2009 History of Past illness Narrative* Problem Noted Date Diagnosed Date Resolved Date Supervision of other high-ri sk (V23.89) 10/29/2008 11/04/2009 Abdominal pain, right lower quadrant 03/13/2007 03/27/2007 documented as of this encounter (statuses as of 04/07/2023) [address]25-2009 History of Past illness Narrative* Problem Noted Date Diagnosed Date Resolved Date Supervision of other high-ri sk (V23.89) 10/29/2008 11/04/2009 Abdominal pain, right lower quadrant 03/13/2007 03/27/2007 documented as of this encounter (statuses as of 04/13/2023) [address]25-2009 History of Past illness Narrative* Problem Noted Date Diagnosed Date Resolved Date Supervision of other high-ri sk (V23.89) 10/29/2008 11/04/2009 Abdominal pain, right lower quadrant 03/13/2007 03/27/2007 documented as of this encounter (statuses as of 05/09/2023) [address]25-2009 History of Past illness Narrative* Problem Noted Date Diagnosed Date Resolved Date Supervision of other high-ri sk (V23.89) 10/29/2008 11/04/2009 Abdominal pain, right lower quadrant 03/13/2007 03/27/2007 documented as of this encounter (statuses as of 05/23/2023) [address]25-2009 History of Past illness Narrative* Problem Noted Date Diagnosed Date Resolved Date Supervision of other high-ri sk (V23.89) 10/29/2008 11/04/2009 Abdominal pain, right lower quadrant 03/13/2007 03/27/2007 documented as of this encounter (statuses as of 05/29/2023) [address]25-2009 History of Past illness Narrative* Problem Noted Date Diagnosed Date Resolved Date Supervision of other high-ri sk (V23.89) 10/29/2008 11/04/2009 Abdominal pain, right lower quadrant 03/13/2007 03/27/2007 documented as of this encounter (statuses as of 06/06/2023) [address]25-2009 History of Past illness Narrative* Problem Noted Date Diagnosed Date Resolved Date Supervision of other high-ri sk (V23.89) 10/29/2008 11/04/2009 Abdominal pain, right lower quadrant 03/13/2007 03/27/2007 documented as of this encounter (statuses as of 06/06/2023) [address]25-2009 History of Past illness Narrative* Problem Noted Date Diagnosed Date Resolved Date Supervision of other high-ri sk (V23.89) 10/29/2008 11/04/2009 Abdominal pain, right lower quadrant 03/13/2007 03/27/2007 documented as of this encounter (statuses as of 06/22/2023) [address]25-2009 History of Past illness Narrative* Problem Noted Date Diagnosed Date Resolved Date Supervision of other high-ri sk (V23.89) 10/29/2008 11/04/2009 Abdominal pain, right lower quadrant 03/13/2007 03/27/2007 documented as of this encounter (statuses as of 06/22/2023) [address]25-2009 History of Past illness Narrative* Problem Noted Date Diagnosed Date Resolved Date Supervision of other high-ri sk (V23.89) 10/29/2008 11/04/2009 Abdominal pain, right lower quadrant 03/13/2007 03/27/2007 documented as of this encounter (statuses as of 06/22/2023) [address]25-2009 History of Past illness Narrative* Problem Noted Date Diagnosed Date Resolved Date Supervision of other high-ri sk (V23.89) 10/29/2008 11/04/2009 Abdominal pain, right lower quadrant 03/13/2007 03/27/2007 documented as of this encounter (statuses as of 06/23/2023) [address]25-2009 History of Past illness Narrative* Problem Noted Date Diagnosed Date Resolved Date Supervision of other high-ri sk (V23.89) 10/29/2008 11/04/2009 Abdominal pain, right lower quadrant 03/13/2007 03/27/2007 documented as of this encounter (statuses as of 07/06/2023) [address]25-2009 History of Past illness Narrative* Problem Noted Date Diagnosed Date Resolved Date Supervision of other high-ri sk (V23.89) 10/29/2008 11/04/2009 Abdominal pain, right lower quadrant 03/13/2007 03/27/2007 documented as of this encounter (statuses as of 07/19/2023) [facility] History of Past illness Narrative* Problem Noted Date Diagnosed Date Resolved Date Supervision of other high-ri sk (V23.89) 10/29/2008 11/04/2009 Abdominal pain, right lower quadrant 03/13/2007 03/27/2007 documented as of this encounter (statuses as of 09/26/2023) [facility] Diagnosis Injury of right knee, initial encounter- Primary Fall, initial encounter Acute pain of right knee [facility] Diagnosis Crohn's disease without complication, unspecified gastrointestinal tract location (HCC)- Primary Tobacco use disorder Major depressive disorder, remission status unspecified, unspecified whether recurrent Graves' disease Toxic diffuse goiter without mention of thyrotoxic crisis or storm Hyperthyroidism Thyrotoxicosis without mention of goiter or other cause, without mention of thyrotoxic crisis or storm [facility] Diagnosis Major depressive disorder, remission status unspecified, unspecified whether recurrent- Primary [facility] Diagnosis Major depressive disorder, remission status unspecified, unspecified whether recurrent- Primary JONELLE (generalized anxiety disorder) Generalized anxiety disorder [facility] Diagnosis Hyperthyroidism Thyrotoxicosis without mention of goiter or other cause, without mention of thyrotoxic crisis or storm [facility] Diagnosis Migraine without aura, intractable, without status migrainosus- Primary [facility] Diagnosis Migraine without aura, intractable, without status migrainosus- Primary Obstructive sleep apnea Obstructive sleep apnea (adult) (pediatric) [facility] Diagnosis JONELLE (generalized anxiety disorder) Generalized anxiety disorder [facility] Diagnosis Abnormal MRI of head- Primary Nonspecific (abnormal) findings on radiological and other examination of skull and head [facility] Diagnosis Abnormal MRI of head Nonspecific (abnormal) findings on radiological and other examination of skull and head [facility] Diagnosis Intractable migraine without aura and without status migrainosus- Primary documented in this encounter [facility] Work Phone: Evaluation note* Diagnosis Migraine without aura, intractable, without status migrainosus- Primary Obstructive sleep apnea Obstructive sleep apnea (adult) (pediatric) documented in this encounter [facility] for referral (narrative)* Diagnostic Procedure Only (Routine) - Authorized Specialty Diagnoses / Procedures Referred By Maria R harvey Referred To Contact [facility] Diagnoses Obstructive sleep apnea Procedures HOME SLEEP APNEA TEST (HSAT) SLEEP STD AIRFLOW HRT RATE&O2 SAT EFFORT Darcy Flynn PA-C [address] [place] [address] [facility] [address] [place] [address] Referral ID Status Reason Start Date Expiration Date Visits Requested Visits Authorized [id number] Authorized Auto-Generat ed Referral 3 05/22/2024 1 1 [facility] for referral (narrative)* Consultation (Routine) - Pending Review Specialty Diagnoses / Procedures Referred By Maria R harvey Referred To Contact Neurology Diagnoses Intractable migraine without aura and without status migrainosus Cornelia Singh APRN-CNP [id number] [facility] Department [place] [address] Referral ID Status Reason Start Date Expiration Date Visits Requested Visits Authorized [id number] Pending Review Specialty Services Required 3 07/16/2024 1 1 [facility] Work Phone: Summary Purpose Family History No Family History Records FoundNo Family History Records FoundNo Family History Records FoundNo Family History Records Found Advance Directives No Advanced Directives Records FoundNo Advanced Directives Records FoundNo Advanced Directives Records FoundNo Advanced Directives Records Found Reason for Referral Specialty Diagnoses / Procedures Referred By Contac t Referred To Contact Orthopedics Diagnoses Injury of right knee, initial encounter Procedures CONSULT TO ORTHOPAEDICS OFFICE/[facility] 60-74 MINUTES [facility] [address] [place] [address] Referral ID Status Reason Start Date Expiration Date Visits Requested Visits Authorized [id number] Authorized PCP Requested Referral 09/07/2022 09/07/2023 1 1 Specialty Diagnoses / Procedures Referred By Contac t Referred To Contact XR IMAGING Diagnoses Fall, initial encounter Acute pain of right knee Procedures XR TIBIA FIBULA 2V AP/LAT RIGHT RADIOLOGIC EXAMINATION TIBIA & FIBULA 2 VIEWS [facility] [address] [place] [address] Xr Imaging Referral ID Status Reason Start Date Expiration Date V isits Requested Visits Authorized [id number] Closed Auto-Generate d Referral 09/07/2022 10/07/2023 1 1 Specialty Diagnoses / Procedures Referred By Contac t Referred To Contact XR IMAGING Diagnoses Fall, initial encounter Acute pain of right knee Procedures XR KNEE GENERAL 4V AP BOTH/PA BOTH/LAT/MERC RIGHT RADIOLOGIC EXAM KNEE COMPLETE 4/MORE VIEWS [facility] [address] [place] [address] Xr Imaging Referral ID Status Reason Start Date Expiration Date V isits Requested Visits Authorized [id number] Closed Auto-Generate d Referral 09/07/2022 10/07/2023 1 1 Specialty Diagnoses / Procedures Referred By Contac t Referred To Contact MR IMAGING Diagnoses Migraine without aura, intractable, without status migrainosus Procedures MRI BRAIN WO/W IVCON MRI BRAIN BRAIN STEM W/O W/CONTRAST MATERIAL Debra Roland, CLEMENTE.[employer] [address] [place] [address] [place] [address] Referral ID Status Reason Start Date Expiration Date Visits Requested Visits Authorized [id number] Pending Review Auto-Generat ed Referral 05/08/2023 06/06/2024 1 1 Specialty Diagnoses / Procedures Referred By Contac t Referred To Contact Neurology Diagnoses Migraine without aura, intractable, without status migrainosus Procedures CONSULT TO NEUROLOGY OFFICE/[facility] 60-74 MINUTES Debra Roland APRN.[employer] [address] [place] [address] Referral ID Status Reason Start Date Expiration Date Visits Requested Visits Authorized [id number] Authorized PCP Requested Referral 05/08/2023 05/07/2024 1 1 Specialty Diagnoses / Procedures Referred By Contac t Referred To Contact CT IMAGING Diagnoses Abnormal MRI of head Procedures CTA HEAD WO/W IVCON CT ANGIOGRAPHY HEAD W/CONTRAST/NONCONTRAST Debra Roland, CLEMENTE[employer] [address] [place] [address] [place] [address] Referral ID Status Reason Start Date Expiration Date Visits Requested Visits Authorized [id number] Authorized Auto-Generat ed Referral 12/03/2023 1 1 Referral ID Status Reason Start Date Expiration Date V isits Requested Visits Authorized [id number] Closed Auto-Generate d Referral 06/06/2023 12/03/2023 1 1 Specialty Diagnoses / Procedures Referred By Contac t Referred To Contact Darcy Flores PA-C [address] [place] [id number] Referral ID Status Reason Start Date Expiration Date V isits Requested Visits Authorized [id number] Pending Review 1 1 Medications Administered Section Inactive Administered Medications - up to 3 most recent administrations Medication Order MAR Action Action Date Dose Rate Site keTORolac 60 mg injection (Toradol) 60 mg, INTRAMUSCULAR, ONCE, 1 dose, On Mon05/08/23 at 1200, Ketorolac (Toradol) is indicated for the short-term (up to 5 days) management of moderately severe acute pain. Continuation of ketorolac (Toradol) beyond 5 days increases the risk of developing serious adverse events. Please verify the duration of therapy for ketorolac (Toradol)., If ordered PRN for pain, patient/guardian may elect to receive this medication for higher pain levels INSTEAD of the opioid, if preferred: Yes Given 05/08/2023 11:57 AM EDT 60 mg Buttocks, Right Additional Source Comments INFORMATION SOURCE (unrecogn ized section and content) DATE CREATED AUTHOR AUTHOR'S ORGANIZ ATION 02/06/2018 [facility] [employer] DATE CREATED AUTHOR AUTHOR'S ORGANIZ ATION 07/19/2023 [facility] DATE CREATED AUTHOR AUTHOR'S ORGANIZ ATION 09/27/2023 [facility] Source Comments (unrecognize d section and content) In the event this informatio n is protected by the Federal Confidentiality of Alcohol and Drug Abuse Patient Records regulations: The Federal rules restrict any use of the information to criminally investigate or prosecute any alcohol or drug abuse patient.[facility] event this information is protected by the Federal Confidentiality of Alcohol and Drug Abuse Patient Records regulations: The Federal rules restrict any use of the information to criminally investigate or prosecute any alcohol or drug abuse patient.[facility] the event this information is protected by the Federal Confidentiality of Alcohol and Drug Abuse Patient Records regulations: The Federal rules restrict any use of the information to criminally investigate or prosecute any alcohol or drug abuse patient.[facility] the event this information is protected by the Federal Confidentiality of Alcohol and Drug Abuse Patient Records regulations: The Federal rules restrict any use of the information to criminally investigate or prosecute any alcohol or drug abuse patient.[facility] the event this information is protected by the Federal Confidentiality of Alcohol and Drug Abuse Patient Records regulations: The Federal rules restrict any use of the information to criminally investigate or prosecute any alcohol or drug abuse patient.[facility] the event this information is protected by the Federal Confidentiality of Alcohol and Drug Abuse Patient Records regulations: The Federal rules restrict any use of the information to criminally investigate or prosecute any alcohol or drug abuse patient.[facility] the event this information is protected by the Federal Confidentiality of Alcohol and Drug Abuse Patient Records regulations: The Federal rules restrict any use of the information to criminally investigate or prosecute any alcohol or drug abuse patient.[facility] the event this information is protected by the Federal Confidentiality of Alcohol and Drug Abuse Patient Records regulations: The Federal rules restrict any use of the information to criminally investigate or prosecute any alcohol or drug abuse patient.[facility] the event this information is protected by the Federal Confidentiality of Alcohol and Drug Abuse Patient Records regulations: The Federal rules restrict any use of the information to criminally investigate or prosecute any alcohol or drug abuse patient.[facility] the event this information is protected by the Federal Confidentiality of Alcohol and Drug Abuse Patient Records regulations: The Federal rules restrict any use of the information to criminally investigate or prosecute any alcohol or drug abuse patient.[facility] the event this information is protected by the Federal Confidentiality of Alcohol and Drug Abuse Patient Records regulations: The Federal rules restrict any use of the information to criminally investigate or prosecute any alcohol or drug abuse patient.[facility] the event this information is protected by the Federal Confidentiality of Alcohol and Drug Abuse Patient Records regulations: The Federal rules restrict any use of the information to criminally investigate or prosecute any alcohol or drug abuse patient.[facility] the event this information is protected by the Federal Confidentiality of Alcohol and Drug Abuse Patient Records regulations: The Federal rules restrict any use of the information to criminally investigate or prosecute any alcohol or drug abuse patient.[facility] the event this information is protected by the Federal Confidentiality of Alcohol and Drug Abuse Patient Records regulations: The Federal rules restrict any use of the information to criminally investigate or prosecute any alcohol or drug abuse patient.[facility] the event this information is protected by the Federal Confidentiality of Alcohol and Drug Abuse Patient Records regulations: The Federal rules restrict any use of the information to criminally investigate or prosecute any alcohol or drug abuse patient.[facility] the event this information is protected by the Federal Confidentiality of Alcohol and Drug Abuse Patient Records regulations: The Federal rules restrict any use of the information to criminally investigate or prosecute any alcohol or drug abuse patient.[facility] the event this information is protected by the Federal Confidentiality of Alcohol and Drug Abuse Patient Records regulations: The Federal rules restrict any use of the information to criminally investigate or prosecute any alcohol or drug abuse patient.[facility] the event this information is protected by the Federal Confidentiality of Alcohol and Drug Abuse Patient Records regulations: The Federal rules restrict any use of the information to criminally investigate or prosecute any alcohol or drug abuse patient.[facility] the event this information is protected by the Federal Confidentiality of Alcohol and Drug Abuse Patient Records regulations: The Federal rules restrict any use of the information to criminally investigate or prosecute any alcohol or drug abuse patient.[facility] the event this information is protected by the Federal Confidentiality of Alcohol and Drug Abuse Patient Records regulations: The Federal rules restrict any use of the information to criminally investigate or prosecute any alcohol or drug abuse patient.[facility] Reason for Visit (unrecogniz ed section and content) Reason Comments Establish Care Reason Comments Results Reason Comments Headache Migraines X 1 month Reason Comments New Patient Pt reported Hx migra ine Gomez x 10 yrs, c/o nausea, blurry vision. 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 Reason Onset Date Comments Refill Request 06/05/2023 Reason Comments Results Reason Comments Radiology CT Specialty Diagnoses / Procedures Referred By Contac t Referred To Contact CT IMAGING Diagnoses Abnormal MRI of head Procedures CTA HEAD WO/W IVCON CT ANGIOGRAPHY HEAD W/CONTRAST/NONCONTRAST Debra Roland, CANDLE CUTTER[employer] [address] [place] [address] [place] [address] Referral ID Status Reason Start Date Expiration Date V isits Requested Visits Authorized [id number] Closed Auto-Generate d Referral 06/06/2023 12/03/2023 1 1 Reason Onset Date Comments Refill Request 07/06/2023 Reason Comments Follow Up Pt reported slight i mproved migraine Gomez, currently reported x3 per month. Care Teams (unrecognized sec tion and content) Manager Stars Relationship Specialty Start Date End Date Debra Roland APRN.[employer] [address] [place] [id number] PCP - General Family Medicine 09/29/22 Manager Stars Relationship Specialty Start Date End Date Debra Roland APRN.[employer] [address] [place] [phone] PCP - General Family Medicine 09/29/22 Manager Stars Relationship Specialty Start Date End Date Debra Roland APRN.[employer] [address] [place] [id number] PCP - General Family Medicine 09/29/22 Manager Stars Relationship Specialty Start Date End Date Debra Roland APRN.[employer] [address] [place] [id number] PCP - General Family Medicine 09/29/22 Manager Stars Relationship Specialty Start Date End Date Debra Roland APRN.[employer] [address] [place] [id number] PCP - General Family Medicine 09/29/22 Manager Stars Relationship Specialty Start Date End Date Debra Roland APRN.[employer] [address] [place] [id number] PCP - General Family Medicine 09/29/22 Manager Stars Relationship Specialty Start Date End Date Debra Roland APRN.[employer] [address] [place] [id number] PCP - General Family Medicine 09/29/22 Manager Stars Relationship Specialty Start Date End Date Debra Roland APRN.[employer] [address] [place] [address] [phone] PCP - General Family Medicine 09/29/22 Manager Stars Relationship Specialty Start Date End Date Debra Roland APRN.[employer] [address] [place] [address] [id number] PCP - General Family Medicine 09/29/22 Manager Stars Relationship Specialty Start Date End Date Debra Roland APRN.[employer] [address] [place] [address] [id number] PCP - General Family Medicine 09/29/22 Manager Stars Relationship Specialty Start Date End Date Debra Roland APRN.[employer] [address] [place] [address] [id number] PCP - General Family Medicine 09/29/22 Manager Stars Relationship Specialty Start Date End Date Debra Roland APRN.[employer] [address] [place] [address] [phone] PCP - General Family Medicine 09/29/22 FOR RECORDS PERTAINING TO PATIENTS WHO ARE OR HAVE BEEN ENROLLED IN A CHEMICAL DEPENDENCY/SUBSTANCEABUSE PROGRAM, SOME INFORMATION MAY BE OMITTED. This clinical summary was aggregated from multiple sources. Caution should be exercised in using it in the provision of clinical care. This summary normalizes information from multiple sources, and as a consequence, information in this document may materially change the coding, format and clinical context of patient data. In addition, data may be omitted in some cases. CLINICAL DECISIONS SHOULD BE BASED ON THE PRIMARY CLINICAL RECORDS. [employer] provides no warranty or guarantee of the accuracy or completeness of information in this document.
[2023-10-06 16:09] LABS: Albumin 4.2 g/dL (2.9-4.4); Alpha-1-Globulins 0.3 g/dL (0.0-0.4); Alpha-2-Globulins 0.8 g/dL (0.4-1.0); Anti-Parietal Cell AB, QN 150.6 Units (0.0-20.0); Chromogranin A 27.5 ng/mL (0.0-101.8); Gamma Globulin 1.1 g/dL (0.4-1.8); Gastrin, Serum 57 pg/mL (0-115); Immunoglobulin A 102 mg/dL (87-352); Immunoglobulin G 1087 mg/dL (586-1602); Immunoglobulin M 97 mg/dL (26-217); PROEL- TOTAL PROTEIN 7.2 g/dL (6.0-8.5)
== END | disposition home or self-care (01) ==
LOC: LAB 10:34
PROVIDERS: PCP Nurse Practitioner Family; Referring Provider Internal Medicine Gastroenterology; Visit Provider Internal Medicine Gastroenterology
DX: K50.90 Crohn's disease, unspecified, without complications (principal)
CPT/HCPCS: 36415; 82784; 82941; 83516; 84165; 85025; 85652; 86140; 86316; 86334; 86340

== ENCOUNTER 2023-10-06 00:27 | Emergency (ER) | payer BC, SELFPAY ==
[2023-10-06 00:28] VITALS: BP 105/59; PULSE 121; RESP 19; TEMP 36.6; O2SAT 93; BMI 24.5
--- NOTE | 2023-10-06 01:03 | EDS_ITS ---
HPI History of Present Illness Chief Complaint: Fever Informant: patient and spouse/S.O. Narrative Narrative: Patient is a 38-year-old female with past medical history of hypothyroidism as well as Crohn's disease. She states roughly 6 days ago he began with congestion cough myalgias and fever. She states that on October 03 she was diagnosed with influenza B. She states that she had difficulty sleeping as she was placed on steroids and that she has had a persistent fever. This evening noted her fever spiked and she seemed disoriented and this concerned him so she was brought to the hospital for evaluation. Patient reports that she too k antipyretic medication prior to coming in and is at this time fever free and is also awake alert and oriented. [facility] Medical History Acute frontal sinusitis, unspecified Anemia Anxiety Colon polyps Depression Dietary restriction Endometriosis FH: migraine headache Graves disease Heartburn History of hiatal hernia History of steroid therapy Hx of Crohn's disease Hypothyroidism Low iron Smoker Thyroid disease Wears dentures Wears glasses Home Medications citalopram 10 mg tablet 20 mg PO DAILY anti depressant 01/18/18 [History Last Taken 03/14/23] levothyroxine 125 mcg tablet 125 mcg PO DAILY thyroid 01/18/18 [History Last Taken 03/14/23] ferrous gluconate 324 mg (37.5 mg iron) tablet 325 mg PO DAILY supplement 03/14/18 [History Last Taken Unknown] loratadine 10 mg capsule 10 mg PO DAILY 06/29/22 [History Last Taken Unknown] folic acid 1 mg tablet 2 mg PO DAILY 11/29/22 [History Last Taken Unknown] methotrexate sodium 5 mg tablet 15 mg PO TU 11/29/22 [History Last Taken Unknown] leucovorin calcium 15 mg tablet 15 mg PO WE 01/03/23 [History Last Taken Unknown] prochlorperazine maleate 5 mg tablet 5 mg PO BID PRN nausea and vomiting #30 tabs 01/17/23 [Rx Last Taken Unknown] ustekinumab 90 mg/mL subcutaneous syringe (Stelara) 90 mg subcut Q8W #1 mL 02/01/23 [Rx Last Taken Unknown] oxycodone-acetaminophen 5 mg-325 mg tablet 1 tab PO Q6H PRN PRN Pain 3 days #10 TABLETS 03/06/23 [Rx Last Taken Unknown] prednisone 10 mg tablet 10 mg PO DAILY PRN flare up 03/06/23 [History Last Taken Unknown] diphenoxylate-atropine 2.5 mg-0.025 mg tablet (Lomotil) 2 tab PO 4X/DAY PRN PRN diarrhea 5 days #40 tabs 03/23/23 [Rx Last Taken Unknown] estradiol 2 mg tablet 2 mg PO QDAY #90 tabs 05/25/23 [Rx Last Taken Unknown] naratriptan 2.5 mg tablet 2.5 mg PO ONCE 05/25/23 [History Last Taken Unknown] topiramate 25 mg tablet (Topamax) 25 mg PO DAILY 05/25/23 [History Last Taken Unknown] dicyclomine 20 mg tablet 20 mg PO TID #45 tabs 09/04/23 [Rx Last Taken Unknown] pantoprazole 40 mg tablet,delayed release (Protonix) 40 mg PO BID #60 tabs 09/04/23 [Rx Last Taken Unknown] imipramine HCl 25 mg tablet 25 mg PO .daily #30 tabs 09/11/23 [Rx Last Taken Unknown] Allergy/AdvReac Type Severity Reaction Status Date / Time etodolac [From Lodine] Allergy Mild Itching Verified 10/06/23 00:29 adalimumab [From Humira] Allergy Hives Verified 10/06/23 00:29 influenza virus vaccine tv AdvReac Fainting Verified 10/06/23 00:29 splt 2013-14 (4 yr,up) [From Fluvirin] Surgical History H/O bilateral salpingo-oophorectomy H/O exploratory laparotomy History of appendectomy History of carpal tunnel surgery of right wrist History of colonoscopy History of esophagogastroduodenoscopy (EGD) History of hysteroscopy History of knee surgery History of LAVH History of oral surgery History of tonsillectomy and adenoidectomy Hx of eye surgery Hx of thyroidectomy Social History Smoking Status: Current every day smoker tobacco type: cigarettes alcohol intake: never substance use type: does not use caffeine: Yes what type of physical activity do you participate in: none seatbelt use: always do you feel safe at home: Yes additional social history: [employer]ina Anish Patient works at [employer] ROS ROS ED Constitutional Constitutional ED: Reports chills and fever(s) ENT ENT ED: Reports rhinorrhea and sore throat Cardiovascular Cardiovascular: Denies chest pain Respiratory/Chest Respiratory/Chest: Reports cough; Denies dyspnea Gastrointestinal Gastrointestinal: Reports nausea; Denies abdominal pain, diarrhea or vomiting Genitourinary Genitourinary ED: Denies dysuria Musculoskeletal Musculoskeletal: Reports myalgias Integumentary Denies rash Neurologic Neurologic: Reports headache(s) Hematologic/Lymphatic Hematologic/Lymphatic: Denies easy bleeding or easy bruising EXAM Physical Exam Const Vital Signs: 10/06/23 00:28 10/06/23 00:28 10/06/23 01:19 Temperature 97.8 F 97.8 F Temperature Source Oral Pulse Rate 121 H 101 H Respiratory Rate 19 H 19 H Respiratory Effort Normal Non-Labored Respiratory Pattern Normal Blood Pressure 105/59 L 98/65 Blood Pressure Mean 74 76 Pulse Ox 93 92 Oxygen Delivery Method Room Air Positive well nourished and well developed General Appearance ED: well developed HEENT Reports dry mucous membranes HEENT Narrative: Cobblestoning is noted in the posterior pharynx consistent with sinus drainage No airway edema or compromise No secondary changes to suggest infection Mucous membranes are dry and tacky Mouth ED: Yes dry mucous membranes Mouth: dry mucous membranes Eyes EOMs intact bilaterally Eyes Narrative: Pupils are dilated but still responsive to light General Eye ED: Negative for scleral icterus Neck supple Neck Narrative: No nuchal rigidity or meningeal signs Resp normal respiratory effort Resp Narrative: Breath sounds are diminished throughout with faint expiratory wheeze in the bilateral bases but no nasal flaring retractions tachypnea or accessory muscle use Cardio regular rhythm Rate: tachycardic and other Other Details: Tachycardic rate with regular rhythm Radial and carotid pulses are equal and symmetric GI non-tender and non-distended GI Narrative: Abdomen is soft nontender nondistended with hyperactive bowel sounds. No voluntary guarding or rigidity or pulsatile mass Auscultation: hyperactive bowel sounds Palpation: soft Extremity normal to inspection Neuro oriented x3, CN's II-XII intact bilaterally and no sensory deficits noted Neuro Narrative: Patient is awake alert and oriented to person place and time GCS of 15 Cranial nerves II through XII are grossly intact there are no focal neurologic deficits No pronator drift no dysmetria no truncal ataxia NIH stroke scale score of 0 Sensorium / Orientation: alert Motor Exam: strength 5/5 throughout Psych Psych Narrative: Patient has a flat affect Skin no rashes or lesions noted Skin Narrative: Skin turgor is increased General Skin Exam: Negative for jaundice MDM MDM MDM Narrative Medical decision making narrative: Patient presented to the ER afebrile and this correlates with the fact she took antipyretic medication prior to arrival. reported that she had been altered at home but upon arrival to the ER she is awake alert and oriented to person place and time with normal neurologic exam. Physical exam shows changes concerning/consistent with dehydration which correlates with the fact she states she has not been eating or drinking well. We discussed that her altered mental status which was transient in nature is most likely related to influenza and the fever. As there is also concern this could be related to thyroid dysfunction versus acute kidney injury versus elevated ammonia or hepatic encephalopathy we did discuss potential testing. Patient had no report or signs of trauma and she is not on any type of blood thinner but we discussed potential head CT to rule out underlying mass or bleed. However with low concern for this based on her history and exam and the fact that her GCS is 15 and neurologic exam normal now the fever is under control patient and family did not want this performed. We also discussed IV hydration as well as basic laboratory studies but patient states that she would prefer to rehydrate orally and not spend the next 2 hours in the ER and as her mental status has not returned to normal and vitals are remaining stable feels comfortable taking her home and she will be di scharged at this time History & Record Review Discussion w/independent historian: Patient and Significant other Discharge Plan Triage Chief Complaint: Fever ED Provider: Jeffry Granger Dx/Rx/DC Orders Clinical Impression: Influenza B, Pyrexia, Crohn disease, Hypothyroidism Instructions: ED Fever Control (Adult), ED Influenza (Adult) Prescriptions: No Action topiramate [Topamax] 25 mg tablet 25 mg PO DAILY naratriptan 2.5 mg tablet 2.5 mg PO ONCE estradiol 2 mg tablet 2 mg PO QDAY Qty: 90 4RF leucovorin calcium 15 mg tablet 15 mg PO WE citalopram 10 MG tablet 20 mg PO DAILY levothyroxine 125 MCG tablet 125 mcg PO DAILY ferrous gluconate 325 MG tablet 325 mg PO DAILY loratadine 10 mg Capsule 10 mg PO DAILY methotrexate sodium 5 mg Tablet 15 mg PO TU folic acid 1 mg Tablet 2 mg PO DAILY prednisone 10 mg tablet 10 mg PO DAILY PRN (Reason: flare up) oxycodone-acetaminophen [oxycodone-acetaminophen] 5-325 mg tablet 1 tab PO Q6H PRN PRN (Reason: Pain) 3 Days Qty: 10 0RF diphenoxylate-atropine [Lomotil] 2.5-0.025 mg tablet 2 tab PO 4X/DAY PRN PRN (Reason: diarrhea) 5 Days Qty: 40 0RF prochlorperazine maleate 5 mg tablet 5 mg PO BID PRN (Reason: nausea and vomiting) Qty: 30 1RF Stelara 90 mg/mL syringe 90 mg subcut Q8W Qty: 1 5RF pantoprazole [Protonix] 40 mg tablet,delayed release (DR/EC) 40 mg PO BID Qty: 60 0RF dicyclomine 20 mg tablet 20 mg PO TID Qty: 45 1RF imipramine HCl 25 mg tablet 25 mg PO .daily Qty: 30 2RF Primary Care Provider: Debra Roland Referrals: Debra Roland, [employer] [Primary Care Provider] - Activity Restrictions/Additional Instructions: Please continue with Tylenol and or Motrin to keep your fever under control as doing so will help prevent hallucinations/altered mental status. Keep yourself well-hydrated as you are losing fluid through faster breathing and heart rate associated with the fever and infection. If you have any further concerns or worsening of symptoms please return for repeat evaluation Disposition Disposition: Home, Self Care Discharge Date/Time: 10/06/23 01:20
--- OUTSIDE RECORDS SUMMARY | 2023-10-06 01:10 | XMS RPT_ITS | CCD ---
Author Name Unknown Address [address] [place] [address] Organization [facility] Care Team Providers Care Automobile Service Station Manager Name Role Phone KARON RADFORD Unavailable Unavailable PLUSKOROMEO SKINNER Unavailable Unavailable PLUSKOROMEO SKINNER Unavailable Unavailable Pluskota Romeo WEBSTER Primary Care Provider [place] REGIONAL MEDICAL DIRECTOR.Debra HESS Primary Care Provider Unavailable Primary Care [...] Referring Unavailable KNOBLE, DEBRA Primary Care Unavailable ERDARCY Referring Unavailable KNOBLE, DEBRA Primary Care Unavailable Allergies Allergy Classification Reported Allergen(s) Allergy Type Date of Onset Reaction(s) Facility (20 sources) etodolac; Translations: [ETODOLAC] Drug Allergy 7 Itching [facility] Repository (2 sources) OTHER; Translations: [OTHER] Propensity to adverse reactions to food (disorder) 7 AOF [facility] Rep[facility] (19 sources) flu immuzation [Other] Propensity to adverse reactions 12-03-200 7 GI Upset [facility] Work Phone: (14 sources) adalimumab; Translations: [ADALIMUMAB] Drug Allergy 3 Hives, Itching, Rash [facility] (4 sources) Flu Vac 2014 (65 Up)-Mf59c(Pf); Translations: [FLU VAC 2014 (65 UP)-MF59C(PF)] Drug Allergy 3 Unknown [facility] Work Phone: Medications Current Medications Medication Drug [...] weight 69.04 kg Darcy RUTHERFORD-C Work Phone: [facility] 09-26-2023 11:30-0500 Diastolic blood pressure 68 mm[Hg] Darcy Flores PA-C Work Phone: [facility] 09-26-2023 11:30-0500 Heart rate 90 /min Darcy Flores PA-C Work Phone: [facility] 09-26-2023 11:30-0500 Respiratory rate 16 /min Darcy RUTHERFORD-C Work Phone: [facility] 09-26-2023 11:30-0500 SaO2% (BldA) [Mass fraction] 97 % Darcy Flores PA-C Work Phone: [facility] 09-26-2023 11:30-0500 Systolic blood pressure 122 mm[Hg] Darcy Flores PA-C Work Phone: [facility] 07-17-2023 13:59-0500 Body height 165.1 cm Cornelia Singh APRN-RIPPLER Work Phone: [facility] 07-17-2023 13:59-0500 Body mass index (BMI) [Ratio] 23.85 kg/m2 Cornelia Samantha REGIONAL MEDICAL DIRECTOR-RIPPLER Work Phone: [facility] 07-17-2023 13:59-0500 Body weight 65 kg Cornelia Samantha REGIONAL MEDICAL DIRECTOR-RIPPLER Work Phone: [facility] 07-17-2023 13:59-0500 Diastolic blood pressure 74 mm[Hg] Cornelia Samantha REGIONAL MEDICAL DIRECTOR-RIPPLER Work Phone: [facility] 07-17-2023 13:59-0500 Heart rate 90 /min Cornelia Samantha REGIONAL MEDICAL DIRECTOR-RIPPLER Work Phone: [facility] 07-17-2023 13:59-0500 Respiratory rate 18 /min Cornelia Samantha REGIONAL MEDICAL DIRECTOR-RIPPLER Work Phone: [facility] 07-17-2023 13:59-0500 Systolic blood pressure 108 mm[Hg] Cornelia Samantha REGIONAL MEDICAL DIRECTOR-RIPPLER Work Phone: [facility] 05-23-2023 08:54-0400 Body weight 67.95 kg Darcy Hernandezer PA-C Work Phone: [facility] 05-23-2023 08:54-0400 Diastolic blood pressure 74 mm[Hg] Darcy Queener PA-C Work Phone: [facility] 05-23-2023 08:54-0400 Heart rate 100 /min Darcy Queener PA-C Work Phone: [facility] 05-23-2023 08:54-0400 Respiratory rate 16 /min Darcy Queener PA-C Work Phone: [facility] 05-23-2023 08:54-0400 SaO2% (BldA) [Mass fraction] 99 % Darcy Queener PA-C Work Phone: [facility] 05-23-2023 08:54-0400 Systolic blood pressure 112 mm[Hg] Darcy Queener PA-C Work Phone: [facility] 05-08-2023 11:29-0400 Body weight 66.68 kg Debra Knoble REGIONAL MEDICAL DIRECTOR.RIPPLER Work Phone: [facility] 05-08-2023 11:29-0400 Diastolic blood pressure 70 mm[Hg] Debra Knoble REGIONAL MEDICAL DIRECTOR.RIPPLER Work Phone: [facility] 05-08-2023 11:29-0400 Heart rate 82 /min Debra Knoble REGIONAL MEDICAL DIRECTOR.RIPPLER Work Phone: [facility] 05-08-2023 11:29-0400 Respiratory rate 12 /min Debra Knoble REGIONAL MEDICAL DIRECTOR.RIPPLER Work Phone: [facility] 05-08-2023 11:29-0400 Systolic blood pressure 106 mm[Hg] Debra Knoble REGIONAL MEDICAL DIRECTOR.RIPPLER Work Phone: [facility] 09-29-2022 18:27-0500 Body height 165.1 cm Debra Knoble REGIONAL MEDICAL DIRECTOR.RIPPLER Work Phone: [facility] 09-29-2022 18:27-0500 Body weight 69.4 kg Debra Knoble REGIONAL MEDICAL DIRECTOR.RIPPLER Work Phone: [facility] 09-29-2022 18:27-0500 Diastolic blood pressure 80 mm[Hg] Debra Knoble REGIONAL MEDICAL DIRECTOR.RIPPLER Work Phone: [facility] 09-29-2022 18:27-0500 Heart rate 89 /min Debra Knoble REGIONAL MEDICAL DIRECTOR.RIPPLER Work Phone: [facility] 09-29-2022 18:27-0500 Respiratory rate 16 /min Debra Knoble REGIONAL MEDICAL DIRECTOR.RIPPLER Work Phone: [facility] 09-29-2022 18:27-0500 Systolic blood pressure 102 mm[Hg] Debra Knoble REGIONAL MEDICAL DIRECTOR.RIPPLER Work Phone: [facility] 09-07-2022 13:51-0500 Body temperature 97.11 [degF] Hardeep RUTHERFORD Work Phone: [facility] 09-07-2022 13:51-0500 Body weight 70.4 kg Krislyn Aberegg PA Work Phone: [facility] 09-07-2022 13:51-0500 Diastolic blood pressure 82 mm[Hg] Krislyn Aberegg PA Work Phone: [facility] 09-07-2022 13:51-0500 Heart rate 80 /min Krislyn Aberegg PA Work Phone: [facility] 09-07-2022 13:51-0500 Respiratory rate 21 /min Krislyn Aberegg PA Work Phone: [facility] 09-07-2022 13:51-0500 SaO2% (BldA) [Mass fraction] 98 % Krislyn Aberegg PA Work Phone: [facility] 09-07-2022 13:51-0500 Systolic blood pressure 118 mm[Hg] Krislyn Aberegg PA Work Phone: [facility] Encounters Encounter Date Encounter Type Care Provider Facility Start: 09-27-2023 Refill Darcy gautam PA-C Work Phone: Neurology Procedures Date Procedure Procedure Detail Performing Clinician Start: 06-21-2023 Ct angiography head w/contrast/noncontrast Debra Roland APRN.CNP Work Phone: Plan of Treatment Date Care Activity Detail Author Start: 2047 HEPATITIS B (1 of 3 - Risk 3-dose series) HEPATITIS B (1 of 3 - Risk 3-dose series) [facility] Start: 2047 Hepatitis B Vaccine (1 of 3 - Risk 3-dose series) Hepatitis B Vaccine (1 of 3 - Risk 3-dose series) [facility] Start: 2037 Zoster Vaccines (1 of 2) Zoster Vaccines (1 of 2) [facility] Start: 07-20-2024 Annual PCP Team Chronic Disease Visit Annual PCP Team Chronic Disease Visit [facility] Start: 05-08-2024 Annual PCP Team Chronic Disease Visit Annual PCP Team Chronic Disease Visit [facility] Start: 04-13-2024 ANNUAL PCP TEAM CHRONIC DISEASE VISIT ANNUAL PCP TEAM CHRONIC DISEASE VISIT [facility] Start: 09-29-2023 ANNUAL PCP TEAM CHRONIC DISEASE VISIT ANNUAL PCP TEAM CHRONIC DISEASE VISIT [facility] Start: 04-07-2023 Influenza vaccination [facility] Start: 03-28-2023 End: 05-28-2023 Thyrotropin [Units/volume] in Serum or Plasma TSH BLD Lab Routine Hyperthyroidism Expected: 03/28/2023, Expires: 05/28/2023 [place] Work Phone: Immunizations Immunization Date Immunization Notes Care Provider Hayde mistry 02[birth year]1999 tetanus and diphther ia toxoids, adsorbed, preservative free, for adult use (2 Lf of tetanus toxoid and 2 Lf of diphtheria toxoid) Hardeep RUTHERFORD Work Phone: [facility] Work Phone: Payers Date Payer Category Payer Unknown [id number] 2016 Unknown [id number] 1987 Unknown [id number] Social History Date Type Detail Facility Start: 09-07-2022 End: 09-29-2022 Tobacco smoking status NHIS Smokes tobacco daily [facility] History of tobacco use Cigarette Smoker C [facility] Start: 09-07-2022 End: 04-06-2023 Cigarettes smoked current (pack per day) - Reported 0.5 [facility] Start: 09-07-2022 End: 09-29-2022 Tobacco use and exposure Smokeless tobacco non-user [facility] Start: 09-07-2022 End: 09-26-2023 Alcohol intake Current non-drinker of alcohol (finding) [facility] Start: 09-07-2022 Tobacco Comment 12/04/09 Patient has decreased to 3-4 cigarettes daily [facility] Start: 07-25-2007 Alcohol Comment rare [facility] Start: 1985 Sex Assigned At Not on file [facility] Start: 09-29-2022 End: 04-06-2023 Tobacco use panel [facility] National Score (1-10 0), lower number is lower risk Not on file [facility] Start: 1985 Sex Assigned At Female [facility] Start: 03-23-2023 Gender identity Identifies as female gender (finding) [facility] Do you belong to any clubs or organizations such as samaritan groups, unions, fraternal or athletic groups, or school groups? No [facility] Are you now , , , , never or living with a partner? [facility] How often to you hav e a drink containing alcohol? Never [facility] How hard is it for y ou to pay for the very basics like food, housing, medical care, and heating Not very hard [facility] Do you feel stress - tense, restless, nervous, or anxious, or unable to sleep at night because your mind is troubled all the time - these days [OSQ] Only a little [facility] (I/We) worried wheth er (my/our) food would run out before (I/we) got money to buy more. Never true [facility] Start: 07-17-2023 Tobacco smoking status NJIS Tobacco smoking consumption unknown [facility] Work Phone: Start: 07-07-2023 End: 07-17-2023 Exposure to SARS-CoV-2 (event) Not sure [facility] Clinical Notes 10-29-2008 to 10-03-2023 Telephone Encounter - Olivia Mariee RN - 10/03/2023 1:14 PM ESTTelephone Encounter - Sarahy Yoo OCCA - 09/29/2023 10:31 AM ESTPatient Lei Malhotra - 06/15/2023 9:15 PM EST Note Date & Type Note Facility 10-03-2023 Miscellaneous Notes Pt reports she is out of medication. Please send a Ultora message once medication has been sent. Patient has been identified by name and date of : Yes, Provider Darcy RUTHERFORD Date 10/03/23 Time 1314. Patient phones for refill(s): Requested Prescriptions Pending Prescriptions Disp Refills topiramate (TOPAMAX) 100 mg tablet [Pharmacy Med Name: Topiramate 100 MG Oral Tablet] 30 tablet 0 Sig: take 1 tablet by mouth once daily at bedtime Date of last office visit in primary care: 09/26/2023 Date of next office visit in primary care: 01/17/2024 Please advise. Thank you. Olivia Mariee RN. documented in this encounter [facility] 09-29-2023 Miscellaneous Notes PA for Nurtec approved. CaseId:[id number] Coverage Start Date:08/27/2023 Coverage End Date:09/25/2024 Updated in medication list. sent to patient notifying of such. SANDEEP Cruz Prior Authorization started Nurtec 75 mg Cover My Meds Reese [id number], submitted on 09/26/2023 with documentation. Sera Martinez LPN documented in this encounter [facility] 09-26-2023 Note HNO ID: [id number] Author: SERA MARTINEZ LPN Service: ? Author [...] SD worse than population and warrants attention [facility] 09-26-2023 Note HNO ID: [id number] Author: DARCY FLORES PA-C Service: ? Author Type: Physician Gate Services Supervisor Type: Progress Notes Filed: 09/26/2023 12:13 Note Text: [facility] Follow up CC: [...] currently taking anything for headaches other than hejc-xzd-gcccgvz medications including Benadryl and Tylenol. Notes she cannot take NSAIDs due to history of Crohn's disease. Has a scheduled MRI of the brain for the end of the month. Headaches are migrainous in nature, intractable and triggered by methotrexate which she has an appointment with her control systems engineer to to discuss stopping at the end [...] doses of abo (more content not included)... [facility] 09-26-2023 Note HNO ID: [id number] Author: SERA MARTINEZ LPN Service: ? Author [...] SD worse than population and warrants attention [facility] 09-26-2023 Instructions Darcy Flores PA-C - 09/26/2023 11:57 AM EST Continue topiramate 100mg and will start Nurtec 75mg for headache when it starts. Follow up in three months documented in this encounter [facility] 09-26-2023 History of Presen t illness Narrative [...] from the original note were not included. [facility] Follow up CC: [...] currently taking anything for headaches other than wuik-gft-odkvzzn medications including Benadryl and Tylenol. Notes she cannot take NSAIDs due to history of Crohn's disease. Has a scheduled MRI of the brain for the end of the month. Headaches are migrainous in nature, intractable and triggered by methotrexate which she has an appointment with her control systems engineer to to discuss stopping at the end [...] days Severity of headaches? Up to a 9/10 Location: posterior head. Aura: None Accompanying symptoms: [...] which included preparing to see the patient, xikz-qa-cqzo patient care, completing clinical documentation, obtaining and/or reviewing separately obtained history, performing a medically appropriate examination, counseling and educating the patient/family/caregiver, and ordering medications, tests, or procedures. Darcy Flores PA-C General Neurology [address] [place] [address]. [id number] Appointment: [phone] 09/26/2023 [facility] Physical Health Summary [...] and warrants attention documented in this encounter [facility] 07-20-2023 Note HNO ID: [id number] Author: Debra Roland APRN.RIPPLER Service: ? Author Type: Nurse Practitioner Type: [...] HPV Testing Ne (more content not included)... [facility] 07-17-2023 History of Presen t illness Narrative [...] All questions answered. documented in this encounter [facility] Work Phone: 07-06-2023 Miscellaneous Notes Patient Comment: I am down to my last couple pills Last refill 01/26/23 Qty: 90 with 1 refill ALLEGRA 05/08/23 NOV none scheduled Devi Pinzon LPN documented in this encounter [facility] 06-22-2023 Miscellaneous Notes Your message has been [...] department at . documented in this encounter [facility] 06-22-2023 Note HNO ID: [id number] Author: Lulu Emery Service: ? Author Type: ? Type: Progress Notes Filed: 06/22/2023 12:17 PM Note Text: Sleep Study Check-In Documentation Date: June 22, 2023 Name: Olivia Man Comments: HST was returned in working order with all sleep questionnaires Lulu Emery [facility] 06-22-2023 History of Presen t illness Narrative Sleep Study Check-In Documentation Date: June 22, 2023 Name: Olivia Man Comments: HST was returned in working order with all sleep questionnaires Lulu Emery Nomad# [id number] , Date shipped out: 06/16 SENT FEDEX DELIVERY - FEDEX RETURN Tracking mailout: [id number] Tracking return: [id number] 2023 Standing PSG Orders signed in the last 90 days None Future PSG Orders signed in the last 90 days Ordered Auth. provider HOME SLEEP APNEA TEST (HSAT) [[id number]] 05/23/23 Darcy Flores PA-C Assoc. diagnoses: Obstructive [...] from Darcy Salomon PA-C [, a B. [facility] Staff. Visit prep complete. Comments :No The sleep study is scheduled for 06/26. Insurance: Payor: ANTHEM / Plan: BLUE CARD PPO OOS / Product Type: PPO / Payer/Plan Subscr Sex Relation Sub. Ins. ID Effective Group Num 1. ANTHTIANA - MAIRA* [place] MAN 01/17/1980 Male Spouse [id number] 08/07/21 [id number] [id number] 2. [facility]* OLIVIA MEAD Ángel 1985 Female Self [id number] 08/17/06 MING Davis documented in this encounter [facility] 06-22-2023 Miscellaneous Notes Patient notified and verbalized understanding. Zenobia Dominguez Cma Please let patient know their CT shows no acute abnormalities. documented in this encounter [facility] 06-21-2023 Note HNO ID: [id number] Author: Glo Newton RT(R) Service: ? Author Type: Tax Form Preparer Type: Progress Notes Filed: 06/21/2023 4:11 PM [...] DATE: June 21, 2023 TIME: 4:10 PM [facility] 06-21-2023 History of Presen t illness Narrative [...] TIME: 4:10 PM documented in this encounter [facility] 06-15-2023 Note HNO ID: [id number] Author: Lei Curtis Service: ? Author Type: ? Type: Progress Notes Filed: 06/22/2023 12:17 PM Note Text: Nomad# [id number] , Date shipped out: 06/16 SENT FEDEX DELIVERY - FEDEX RETURN Tracking mailout: [id number] Tracking return: [id number] [facility] 2023 Note HNO ID: [id number] Author: Yoandy Melendez III, PhD Service: ? Author Type: Physician Type: Progress Notes Filed: 06/22/2023 12:17 PM Note Text: 2023 Standing PSG Orders signed in the last 90 days None Future PSG Orders signed in the last 90 days Ordered Auth. provider HOME SLEEP APNEA TEST (HSAT) [[id number]] 05/23/23 Darcy Flores PA-C Assoc. diagnoses: Obstructive [...] Yoandy Melendez III, PhD 4:12 PM, 2023 [facility] 06-07-2023 Note HNO ID: [id number] Author: Klaudia Davis Service: ? Author Type: ? Type: Progress Notes Filed: 06/22/2023 12:17 PM Note Text: June 07, 2023 An order has been received for Home Sleep Apnea Test (HSAT) from Darcy Salomon PA-C [, a B. [facility] Staff. Visit prep complete. Comments :No The sleep study is scheduled for 06/26. Insurance: Payor: ANTHEM / Plan: BLUE CARD PPO OOS / Product Type: PPO / Payer/Plan Subscr Sex Relation Sub. Ins. ID Effective Group Num 1. KAROL RAO* [place] [birth year]/17/1980 Male Spouse [id number] 08/07/21 [id number] [id number] 2. [facility] OLIVIA MEAD 1985 Female Self [id number] 08/17/06 MING Davis [facility] 06-06-2023 Miscellaneous Notes Pt called and is [...] her blood vessels. documented in this encounter [facility] 06-06-2023 Note HNO ID: [id number] Author: Lashon Banuelos RT(Rubia) Service: ? Author Type: Technologist Type: Progress [...] MR; Exam(s) Completed: Head: Routine Brain SIGNATURE: RT Radhika(R) PATIENT NAME: Olivia Man DATE: June 06, 2023 TIME: 9:09 AM [facility] 06-05-2023 Miscellaneous Notes Requested Prescriptions Pending Prescriptions Disp Refills citalopram (CELEXA) 20 mg tablet 90 tablet 0 Sig: Take 1 tablet by mouth once daily. ALLEGRA 05/08/2023 NOV not scheduled at this time Barbara Middleton documented in this encounter [facility] 05-29-2023 Miscellaneous Notes Fax received from [facility] requesting last office note for patient. Note dated 05/23/23 from Darcy Flores faxed to [phone]. Ruchi Mathews LPN documented in this encounter [facility] 05-23-2023 Note HNO ID: [id number] Author: Darcy Flores PA-C Service: ? Author Type: Physician Gate Services Supervisor Type: Progress Notes Filed: 05/23/2023 10:00 AM Note Text: Neurology Outpatient Clinic Date: May 23, 2023 Patient Name: Olivia Man Referring provider: Debra Roland CNP [address] [place] [address] Consult requested for headaches by Debra Roland CNP. Recommendations will be communicated via shared medical record or US mail. Primary provider: Debra Roland CNP [address] [place] [address] Reason for Evaluation: Headaches Subjective HPI Olivia [...] attacks: Days to weeks Severity of headaches? 10 Onset to Peak: quickly Location: posterior head. [...] or vertiginous symptoms (more content not included)... [facility] 05-23-2023 Instructions Darcy Flores PA-C - 05/23/2023 [...] 5-6: 75 mg each evening (3 tabs) STAFFING COORDINATOR NEW SCRIPT 100 mg each evening (1 [...] Feverfew: Feverfew is a common garden herb [place] and popular in [place] as a treatment for disorders typically controlled [...] pepperoni, Pickled gorman Pods of broad colon (Serbian beans, Albanian pea pods, Spanish (greg) beans, rincon and navy beans Ripe [...] much light. These can be obtained at [employer] or [employer] Foods: see list above. 2. Limit use of acute treatments (ayif-xaa-kuyckxw medications, triptans, etc.) to no more than [...] and quiet environment. Relax and reduce stress. Qnfzysj5Xgoot is a free hemanth that can instruct you on some simple relaxtion and breathing techniques. Http://Carmine.[email or web address] is a free website that provides teaching [...] and will be handling your phone calls, CodeBabyt Messages and inquiries, if any. Unless explicitly told otherwise at the time of your office visit, your study results and ensuing treatment plans will be released via Ultora and discussed during your follow-up appointment. 8aweekhart: Please ask the schedulers to give you an activation code. The main way of communication is by CodeBabyt rather than phone lines, so if you have not signed up, please do so. MyChart is also the way that you can review your labs and testing. We are not able to contact everyone to tell them results are normal. If you do not hear back from us regarding testing you have had, it should be considered normal or within normal range. If you have any questions about the results, you are free to message us. 8aweekhart is meant for simple questions regarding medications, possible side effects, or other simple straight forward questions in limited sentences, rather than multiple paragraphs of discussion. 8aweekhart is not meant for, or efficient for [...] do not comment on most testing on [facility] in a message or commentary unless there is a concern. You will not receive a message from me of the result unless there is a specific concern of the result I need you to address further in care with us or your primary medical team. Make sure to check your my chart email or hemanth. As an international referral center for syncope, [...] with this process. documented in this encounter [facility] 05-23-2023 History of Presen t illness Narrative Neurology Outpatient Clinic Date: May 23, 2023 Patient Name: Olivia Man Referring provider: Debra Roland CNP [address] [facility] [address] Consult requested for headaches by Debra Roland CNP. Recommendations will be communicated via shared medical record or US mail. Primary provider: Debra Roland CNP [address] [place] [address] Reason for Evaluation: Headaches Subjective HPI Olivia [...] use: Yes Types: Marijuana Comment: occasional edible [employer] business Objective 05/23/23 0854 BP: 112/74 Pulse: [...] Negative Coordination: finger-to- nose-finger intact bilaterally and kwzh-ek-aqoc intact bilaterally. Gait: Patient's gait is normal, [...] currently taking anything for headaches other than dyir-slh-bmpxgrw medications including Benadryl and Tylenol. Notes she cannot take NSAIDs due to history of Crohn's disease. Has a scheduled MRI of the brain for the end of the month. Headaches are migrainous in nature, intractable and triggered by methotrexate which she has an appointment with her control systems engineer to to discuss stopping at the end [...] which included preparing to see the patient, rnui-xc-voat patient care, completing clinical documentation, obtaining and/or reviewing separately obtained history, performing a medically appropriate examination, counseling and educating the patient/family/caregiver, and ordering medications, tests, or procedures. Darcy Flores PA-C [facility] Neurology This document has been created with the use of voice recognition technology. It may contain inaccuracies: (e.g. misspellings, inaccurate syntax or word sense) that have escaped review. documented in this encounter [facility] 05-08-2023 Note HNO ID: [id number] Author: Debra Roland APRN.JIMENA Service: ? Author Type: Nurse Practitioner Type: [...] - IV CONTRAST (RADIOLOGY PROCEDURE) Debra Roland APRN.[facility] 05-08-2023 History of Presen t illness Narrative [...] - IV CONTRAST (RADIOLOGY PROCEDURE) Debra Roland APRN.RIPPLER documented in this encounter [facility] 04-13-2023 Miscellaneous Notes Behavioral Health Social Work Progress Note Patient identified for [facility] from: PCP Reason for referral: Resources Behavioral Health Resources: Psychology - talk therapy [facility] encounter type: Telephone Encounter, 8aweekhart Message Attempts to Outreach: 1 attempt Referral made: Psychology - Internal, Psychology - External Psychology-Internal referral type: Therapy Psychology-External referral type: Therapy Reason for external referral: Patient choice, Wait times at [facility] too long Final Disposition: Resources given Patient Discharged?: Yes therapist spoke with patient, she is seeking counseling services at this time. therapist will send her a list of resources to her MyChart. MARCO Hernandez-S April 13, 2023 documented in this encounter [facility] 04-13-2023 Note HNO ID: [id number] Author: Debra Roland APRN.RIPPLER Service: ? Author Type: Nurse Practitioner Type: [...] and Wed takes an extra half tab. LENACF, PEN 40 mg/0.4 mL pen kit estradiol [...] citalopram Debra Roland (more content not included)... [facility] 04-06-2023 Miscellaneous Notes Patient notified and verbalized understanding Zenobia Dominguez Cma Please let patient know her tsh is normal. documented in this encounter [facility] 03-28-2023 Note Patient Outreach (IN [facility]) OLIVIA MAN ([id number]) 1985 F Date Time Provider Department 03/28/23 DEBRA ROLAND During your visit today, we recorded the following information about you: Allergies As of Date: 03/28/2023 Noted Allergy Reaction flu immuzation [Other] 07/09/2007 8 - GI Upset LODINE (ETODOLAC) 09/18/2006 9 - Itching Date Reviewed: 09/29/2022 Reviewed by: Zenobia Dominguez Cma - Fully Assessed Visit Diagnosis:Hyperthyroidism [E05.90] Order(s):TSH BLD [SQTS] Order #: [id number] FUTURE Prescriptions as of 03/31/2023 - citalopram [...] 03/28/2023 Noted Resolved SPRAIN OF BACK NOS [[id number]] 09/25/2006 PAP SMEAR OF CERVIX W ASCUS [...] use disorder [F17.200] 09/29/2022 Encounter Status:Closed by MARCIE PRODUSER on 03/31/23 [facility] 01-26-2023 Miscellaneous Notes The following approved medication [...] you. SANDEEP Cruz documented in this encounter [facility] 09-29-2022 Note HNO ID: [id number] Author: Debra Roland APRN.RIPPLER Service: ? Author Type: Nurse Practitioner Type: Progress Notes Filed: 09/29/2022 7:07 PM Note Text: Chief Complaint Patient presents with: Establish Care HPI Olivia Man is a 37 year old female who presents here today for Above Complaints.. Patient presents to establish care. Patient reports that she sees Dr. [...] due on 05/31/2017 (more content not included)... [facility] 09-29-2022 Instructions Debra Roland APRN.CNP - 09/29/2022 6:53 PM EST Continue current medications Follow with specialists as scheduled Follow up in 6 months documented in this encounter [facility] 09-29-2022 History of Presen t illness Narrative Chief Complaint Patient presents with: [facility] HPI Olivia Man is a 37 year old female who presents here today for Above Complaints.. Patient presents to [facility]. Patient reports that she sees Dr. [...] OF multple surgery for endometriosis THYROIDECTOMY TOTAL/COMPLETE 4/18/12 graves disease TONSILLECTOMY PRIMARY/SECONDARY <AGE 14 Tonsillectomy [...] Debra Roland APRN.JIMENA documented in this encounter [facility] 09-07-2022 History of Presen t illness Narrative This note was created using [employer]riter. Subjective Olivia Man is a 37 year [...] evaluation. SANGEETA Nunez documented in this encounter [facility] documented as of this encounter (statuses as of 09/07/2022) [address]25-2009 History of Past illness Narrative* Problem Noted Date Resolved Date Supervision of other high-risk (V23.89) 10/29/2008 11/04/2009 Abdominal pain, right lower quadrant 03/13/2007 03/27/2007 documented as of this encounter (statuses as of 09/30/2022) [address]25-2009 History of Past illness Narrative* Problem Noted Date Resolved Date Supervision of other high-risk (V23.89) 10/29/2008 11/04/2009 Abdominal pain, right lower quadrant 03/13/2007 03/27/2007 documented as of this encounter (statuses as of 01/05/2023) [address]25-2009 History of Past illness Narrative* Problem Noted Date Resolved Date Supervision of other high-risk (V23.89) 10/29/2008 11/04/2009 Abdominal pain, right lower quadrant 03/13/2007 03/27/2007 documented as of this encounter (statuses as of 01/26/2023) [address]25-2009 History of Past illness Narrative* Problem Noted Date Diagnosed Date Resolved Date Supervision of other high-ri sk (V23.89) 10/29/2008 11/04/2009 Abdominal pain, right lower quadrant 03/13/2007 03/27/2007 documented as of this encounter (statuses as of 03/09/2023) [address]25-2009 History of Past illness Narrative* Problem Noted Date Diagnosed Date Resolved Date Supervision of other high-ri sk (V23.89) 10/29/2008 11/04/2009 Abdominal pain, right lower quadrant 03/13/2007 03/27/2007 documented as of this encounter (statuses as of 03/31/2023) [address]25-2009 History of Past illness Narrative* Problem Noted Date Diagnosed Date Resolved Date Supervision of other high-ri sk (V23.89) 10/29/2008 11/04/2009 Abdominal pain, right lower quadrant 03/13/2007 03/27/2007 documented as of this encounter (statuses as of 04/07/2023) [address]25-2009 History of Past illness Narrative* Problem Noted Date Diagnosed Date Resolved Date Supervision of other high-ri sk (V23.89) 10/29/2008 11/04/2009 Abdominal pain, right lower quadrant 03/13/2007 03/27/2007 documented as of this encounter (statuses as of 04/13/2023) [address]25-2009 History of Past illness Narrative* Problem Noted Date Diagnosed Date Resolved Date Supervision of other high-ri sk (V23.89) 10/29/2008 11/04/2009 Abdominal pain, right lower quadrant 03/13/2007 03/27/2007 documented as of this encounter (statuses as of 05/09/2023) [address]25[address]2009 History of Past illness Narrative* Problem Noted Date Diagnosed Date Resolved Date Supervision of other high-ri sk (V23.89) 10/29/2008 11/04/2009 Abdominal pain, right lower quadrant 03/13/2007 03/27/2007 documented as of this encounter (statuses as of 05/23/2023) [address]25[address]2009 History of Past illness Narrative* Problem Noted Date Diagnosed Date Resolved Date Supervision of other high-ri sk (V23.89) 10/29/2008 11/04/2009 Abdominal pain, right lower quadrant 03/13/2007 03/27/2007 documented as of this encounter (statuses as of 05/29/2023) [address]25[address]2009 History of Past illness Narrative* Problem Noted Date Diagnosed Date Resolved Date Supervision of other high-ri sk (V23.89) 10/29/2008 11/04/2009 Abdominal pain, right lower quadrant 03/13/2007 03/27/2007 documented as of this encounter (statuses as of 06/06/2023) [address]25[address]2009 History of Past illness Narrative* Problem Noted Date Diagnosed Date Resolved Date Supervision of other high-ri sk (V23.89) 10/29/2008 11/04/2009 Abdominal pain, right lower quadrant 03/13/2007 03/27/2007 documented as of this encounter (statuses as of 06/06/2023) [address]25[address]2009 History of Past illness Narrative* Problem Noted Date Diagnosed Date Resolved Date Supervision of other high-ri sk (V23.89) 10/29/2008 11/04/2009 Abdominal pain, right lower quadrant 03/13/2007 03/27/2007 documented as of this encounter (statuses as of 06/22/2023) [address]25[address]2009 History of Past illness Narrative* Problem Noted Date Diagnosed Date Resolved Date Supervision of other high-ri sk (V23.89) 10/29/2008 11/04/2009 Abdominal pain, right lower quadrant 03/13/2007 03/27/2007 documented as of this encounter (statuses as of 06/22/2023) [address]25[address]2009 History of Past illness Narrative* Problem Noted Date Diagnosed Date Resolved Date Supervision of other high-ri sk (V23.89) 10/29/2008 11/04/2009 Abdominal pain, right lower quadrant 03/13/2007 03/27/2007 documented as of this encounter (statuses as of 06/22/2023) [address]25[address]2009 History of Past illness Narrative* Problem Noted Date Diagnosed Date Resolved Date Supervision of other high-ri sk (V23.89) 10/29/2008 11/04/2009 Abdominal pain, right lower quadrant 03/13/2007 03/27/2007 documented as of this encounter (statuses as of 06/23/2023) [address]25[address]2009 History of Past illness Narrative* Problem Noted Date Diagnosed Date Resolved Date Supervision of other high-ri sk (V23.89) 10/29/2008 11/04/2009 Abdominal pain, right lower quadrant 03/13/2007 03/27/2007 documented as of this encounter (statuses as of 07/06/2023) [address]25[address]2009 History of Past illness Narrative* Problem Noted Date Diagnosed Date Resolved Date Supervision of other high-ri sk (V23.89) 10/29/2008 11/04/2009 Abdominal pain, right lower quadrant 03/13/2007 03/27/2007 documented as of this encounter (statuses as of 07/19/2023) [address]25[address]2009 History of Past illness Narrative* Problem Noted Date Diagnosed Date Resolved Date Supervision of other high-ri sk (V23.89) 10/29/2008 11/04/2009 Abdominal pain, right lower quadrant 03/13/2007 03/27/2007 documented as of this encounter (statuses as of 09/26/2023) [place] [address]25-2009 History of Past illness Narrative* Problem Noted Date Diagnosed Date Resolved Date Supervision of other high-ri sk (V23.89) 10/29/2008 11/04/2009 Abdominal pain, right lower quadrant 03/13/2007 03/27/2007 documented as of this encounter (statuses as of 09/29/2023) [facility]25[facility] History of Past illness Narrative* Problem Noted Date Diagnosed Date Resolved Date Supervision of other high-ri sk (V23.89) 10/29/2008 11/04/2009 Abdominal pain, right lower quadrant 03/13/2007 03/27/2007 documented as of this encounter (statuses as of 10/04/2023) [facility] Diagnosis Injury of right knee, initial encounter- Primary Fall, initial encounter Acute pain of right knee [facility] Diagnosis Crohn's disease without complication, unspecified gastrointestinal tract location (HCC)- Primary Tobacco use disorder Major depressive disorder, remission status unspecified, unspecified whether recurrent Graves' disease Toxic diffuse goiter without mention of thyrotoxic crisis or storm Hyperthyroidism Thyrotoxicosis without mention of goiter or other cause, without mention of thyrotoxic crisis or storm [facility] Diagnosis Major depressive disorder, remission status unspecified, unspecified whether recurrent- Primary [facility] Diagnosis Major depressive disorder, remission status unspecified, unspecified whether recurrent- Primary JONELLE (generalized anxiety disorder) Generalized anxiety disorder [facility] Diagnosis Hyperthyroidism Thyrotoxicosis without mention of goiter or other cause, without mention of thyrotoxic crisis or storm [facility] Diagnosis Migraine without aura, intractable, without status migrainosus- Primary [facility] Diagnosis Migraine without aura, intractable, without status migrainosus- Primary Obstructive sleep apnea Obstructive sleep apnea (adult) (pediatric) [facility] Diagnosis JONELLE (generalized anxiety disorder) Generalized anxiety disorder [facility] Diagnosis Abnormal MRI of head- Primary Nonspecific (abnormal) findings on radiological and other examination of skull and head [facility] Diagnosis Abnormal MRI of head Nonspecific (abnormal) findings on radiological and other examination of skull and head [facility] Diagnosis Intractable migraine without aura and without status migrainosus- Primary documented in this encounter [facility] Work Phone: Evaluation note* Diagnosis Migraine without aura, intractable, without status migrainosus- Primary Obstructive sleep apnea Obstructive sleep apnea (adult) (pediatric) documented in this encounter [facility] for referral (narrative)* Diagnostic Procedure Only (Routine) - Authorized Specialty Diagnoses / Procedures Referred By Maria R harvey Referred To Contact [facility] Diagnoses Obstructive sleep apnea Procedures HOME SLEEP APNEA TEST (HSAT) SLEEP STD AIRFLOW HRT RATE&O2 SAT EFFORT Darcy Flynn PA-C [address] [place] [address] Neu[facility] [place] [address] [place] [address] Referral ID Status Reason Start Date Expiration Date Visits Requested Visits Authorized [id number] Authorized Auto-Generat ed Referral 3 05/22/2024 1 1 [facility] for referral (narrative)* Consultation (Routine) - Pending Review Specialty Diagnoses / Procedures Referred By Maria R harvey Referred To Contact Neurology Diagnoses Intractable migraine without aura and without status migrainosus Corenlia Singh APRN-CNP [address] [facility] Department [place] [address] Referral ID Status Reason Start Date Expiration Date Visits Requested Visits Authorized [id number] Pending Review Specialty Services Required 3 07/16/2024 1 1 [facility] Work Phone: Summary Purpose Family History No [...] initial encounter Procedures CONSULT TO ORTHOPAEDICS OFFICE[facility] 60-74 MINUTES [facility] [address] [place] [address] Referral ID Status Reason Start Date Expiration Date Visits Requested Visits Authorized [id number] Authorized PCP Requested Referral 09/07/2022 09/07/2023 1 1 Specialty Diagnoses / Procedures Referred By Contac t Referred To Contact XR IMAGING Diagnoses Fall, initial encounter Acute pain of right knee Procedures XR TIBIA FIBULA 2V AP/LAT RIGHT RADIOLOGIC EXAMINATION TIBIA & FIBULA 2 VIEWS [facility] [address] [place] [address] Xr Imaging Referral ID Status Reason Start Date Expiration Date V isits Requested Visits Authorized [id number] Closed Auto-Generate d Referral 09/07/2022 10/07/2023 1 1 Specialty Diagnoses / Procedures Referred By Contac t Referred To Contact XR IMAGING Diagnoses Fall, initial encounter Acute pain of right knee Procedures XR KNEE GENERAL 4V AP BOTH/PA BOTH/LAT/MERC RIGHT RADIOLOGIC EXAM KNEE COMPLETE 4/MORE VIEWS [facility] [address] [place] [address] Xr Imaging Referral ID Status Reason Start Date Expiration Date V isits Requested Visits Authorized [id number] Closed Auto-Generate d Referral 09/07/2022 10/07/2023 1 1 Specialty Diagnoses / Procedures Referred By Contac t Referred To Contact MR IMAGING Diagnoses Migraine without aura, intractable, without status migrainosus Procedures MRI BRAIN WO/W IVCON MRI BRAIN BRAIN STEM W/O W/CONTRAST MATERIAL Debra Roland, REGIONAL MEDICAL DIRECTOR.RIPPLER [address] [place] [address] [place] [address] Referral ID Status Reason Start Date Expiration Date Visits Requested Visits Authorized [id number] Pending Review Auto-Generat ed Referral 05/08/2023 06/06/2024 1 1 Specialty Diagnoses / Procedures Referred By Contac t Referred To Contact Neurology Diagnoses Migraine without aura, intractable, without status migrainosus Procedures CONSULT TO NEUROLOGY OFFICE[facility] 60-74 MINUTES Debra Roland, REGIONAL MEDICAL DIRECTOR.RIPPLER [address] [place] [address] Referral ID Status Reason Start Date Expiration Date Visits Requested Visits Authorized [id number] Authorized PCP Requested Referral 05/08/2023 05/07/2024 1 1 Specialty Diagnoses / Procedures Referred By Contac t Referred To Contact CT IMAGING Diagnoses Abnormal MRI of head Procedures CTA HEAD WO/W IVCON CT ANGIOGRAPHY HEAD W/CONTRAST/NONCONTRAST Debra Roland APRN.RIPPLER [address] [place] [address] [place] [address] Referral ID Status Reason Start Date Expiration Date Visits Requested Visits Authorized [id number] Authorized Auto-Generat ed Referral 12/03/2023 1 1 Referral ID Status Reason Start Date Expiration Date V isits Requested Visits Authorized [id number] Closed Auto-Generate d Referral 06/06/2023 12/03/2023 1 1 Specialty Diagnoses / Procedures Referred By Contac t Referred To Contact Darcy Flores PA-C [address] [place] [address] Referral ID Status Reason Start Date Expiration Date V isits Requested Visits Authorized [id number] Pending Review 1 1 Medications Administered Section [...] DATE CREATED AUTHOR AUTHOR'S ORGANIZ ATION 02/06/2018 [facility] [employer] DATE CREATED AUTHOR AUTHOR'S ORGANIZ ATION 07/19/2023 [facility] DATE CREATED AUTHOR AUTHOR'S ORGANIZ ATION 09/27/2023 [facility] Source Comments (unrecognize d section and content) In the event this informatio n is protected by the Federal Confidentiality of Alcohol and Drug Abuse Patient Records regulations: The Federal rules restrict any use of the information to criminally investigate or prosecute any alcohol or drug abuse patient.[facility] the event this information is protected by the Federal Confidentiality of Alcohol and Drug Abuse Patient Records regulations: The Federal rules restrict any use of the information to criminally investigate or prosecute any alcohol or drug abuse patient.[facility] the event this information is protected by the Federal Confidentiality of Alcohol and Drug Abuse Patient Records regulations: The Federal rules restrict any use of the information to criminally investigate or prosecute any alcohol or drug abuse patient.[facility] the event this information is protected by the Federal Confidentiality of Alcohol and Drug Abuse Patient Records regulations: The Federal rules restrict any use of the information to criminally investigate or prosecute any alcohol or drug abuse patient.[facility] the event this information is protected by the Federal Confidentiality of Alcohol and Drug Abuse Patient Records regulations: The Federal rules restrict any use of the information to criminally investigate or prosecute any alcohol or drug abuse patient.[facility] the event this information is protected by the Federal Confidentiality of Alcohol and Drug Abuse Patient Records regulations: The Federal rules restrict any use of the information to criminally investigate or prosecute any alcohol or drug abuse patient.[facility] the event this information is protected by the Federal Confidentiality of Alcohol and Drug Abuse Patient Records regulations: The Federal rules restrict any use of the information to criminally investigate or prosecute any alcohol or drug abuse patient.[facility] the event this information is protected by the Federal Confidentiality of Alcohol and Drug Abuse Patient Records regulations: The Federal rules restrict any use of the information to criminally investigate or prosecute any alcohol or drug abuse patient.[facility] the event this information is protected by the Federal Confidentiality of Alcohol and Drug Abuse Patient Records regulations: The Federal rules restrict any use of the information to criminally investigate or prosecute any alcohol or drug abuse patient.[facility] the event this information is protected by the Federal Confidentiality of Alcohol and Drug Abuse Patient Records regulations: The Federal rules restrict any use of the information to criminally investigate or prosecute any alcohol or drug abuse patient.[facility] the event this information is protected by the Federal Confidentiality of Alcohol and Drug Abuse Patient Records regulations: The Federal rules restrict any use of the information to criminally investigate or prosecute any alcohol or drug abuse patient.[facility] the event this information is protected by the Federal Confidentiality of Alcohol and Drug Abuse Patient Records regulations: The Federal rules restrict any use of the information to criminally investigate or prosecute any alcohol or drug abuse patient.[facility] the event this information is protected by the Federal Confidentiality of Alcohol and Drug Abuse Patient Records regulations: The Federal rules restrict any use of the information to criminally investigate or prosecute any alcohol or drug abuse patient.[facility] the event this information is protected by the Federal Confidentiality of Alcohol and Drug Abuse Patient Records regulations: The Federal rules restrict any use of the information to criminally investigate or prosecute any alcohol or drug abuse patient.[facility] the event this information is protected by the Federal Confidentiality of Alcohol and Drug Abuse Patient Records regulations: The Federal rules restrict any use of the information to criminally investigate or prosecute any alcohol or drug abuse patient.[facility] the event this information is protected by the Federal Confidentiality of Alcohol and Drug Abuse Patient Records regulations: The Federal rules restrict any use of the information to criminally investigate or prosecute any alcohol or drug abuse patient.[facility] the event this information is protected by the Federal Confidentiality of Alcohol and Drug Abuse Patient Records regulations: The Federal rules restrict any use of the information to criminally investigate or prosecute any alcohol or drug abuse patient.[facility] the event this information is protected by the Federal Confidentiality of Alcohol and Drug Abuse Patient Records regulations: The Federal rules restrict any use of the information to criminally investigate or prosecute any alcohol or drug abuse patient.[facility] the event this information is protected by the Federal Confidentiality of Alcohol and Drug Abuse Patient Records regulations: The Federal rules restrict any use of the information to criminally investigate or prosecute any alcohol or drug abuse patient.[facility] the event this information is protected by the Federal Confidentiality of Alcohol and Drug Abuse Patient Records regulations: The Federal rules restrict any use of the information to criminally investigate or prosecute any alcohol or drug abuse patient.[facility] the event this information is protected by the Federal Confidentiality of Alcohol and Drug Abuse Patient Records regulations: The Federal rules restrict any use of the information to criminally investigate or prosecute any alcohol or drug abuse patient.[facility] the event this information is protected by the Federal Confidentiality of Alcohol and Drug Abuse Patient Records regulations: The Federal rules restrict any use of the information to criminally investigate or prosecute any alcohol or drug abuse patient.[facility] Reason for Visit (unrecogniz ed section and [...] OFFICE/OUTPATIENT NEW HIGH MDM 60-74 MINUTES Debra Roland APRN.JIMENA [address] [place] [id number] Referral ID Status Reason Start Date Expiration Date V isits Requested Visits Authorized [id number] Closed PCP Requested Referral 05/08/2023 05/07/2024 1 1 Reason Comments Internal Auditor - Other Reason Onset Date Comments Refill Request 06/05/2023 Reason Comments Results Reason Comments Radiology CT Specialty Diagnoses / Procedures Referred By Maria R t Referred To Contact CT IMAGING Diagnoses Abnormal MRI of head Procedures CTA HEAD WO/W IVCON CT ANGIOGRAPHY HEAD W/CONTRAST/NONCONTRAST Debra Roland APRN.RIPPLER [address] [place] [address] [id number] [place] [address] Referral ID Status Reason Start Date Expiration Date V isits Requested Visits Authorized [id number] Closed Auto-Generate d Referral 06/06/2023 12/03/2023 1 1 Reason Onset Date Comments Refill Request 07/06/2023 Reason Comments Follow Up Pt reported slight i mproved migraine Gomez, currently reported x3 per month. Reason Comments Patient Update Reason Comments Refill Request Care Teams (unrecognized sec tion and content) Automobile Service Station Manager Relationship Specialty Start Date End Date Debra Roland APRN.RIPPLER [address] [place] [phone] PCP - General Family Medicine 09/29/22 Automobile Service Station Manager Relationship Specialty Start Date End Date Debra Roland APRN.RIPPLER [address] [place] [address] [phone] PCP - General Family Medicine 09/29/22 Automobile Service Station Manager Relationship Specialty Start Date End Date Debra Roland APRN.RIPPLER [address] [place] [address] [phone] PCP - General Family Medicine 09/29/22 Automobile Service Station Manager Relationship Specialty Start Date End Date Debra Roland APRN.RIPPLER [address] [place] [address] [phone] PCP - General Family Medicine 09/29/22 Automobile Service Station Manager Relationship Specialty Start Date End Date Debra Roland APRN.RIPPLER [address] [place] [address] [phone] PCP - General Family Medicine 09/29/22 Automobile Service Station Manager Relationship Specialty Start Date End Date Debra Roland APRN.RIPPLER [address] [place] [address] [phone] PCP - General Family Medicine 09/29/22 Automobile Service Station Manager Relationship Specialty Start Date End Date Debra Roland APRN.RIPPLER [address] [place] [address] [phone] PCP - General Family Medicine 09/29/22 Automobile Service Station Manager Relationship Specialty Start Date End Date Debra Roland REGIONAL MEDICAL DIRECTOR.RIPPLER [address] [place] [address] [phone] PCP - General Family Medicine 09/29/22 Automobile Service Station Manager Relationship Specialty Start Date End Date Debra Roland APRN.RIPPLER [address] [place] [address] [phone] PCP - General Family Medicine 09/29/22 Automobile Service Station Manager Relationship Specialty Start Date End Date Debra Roland APRN.RIPPLER [address] [place] [address] [phone] PCP - General Family Medicine 09/29/22 Automobile Service Station Manager Relationship Specialty Start Date End Date Debra Roland APRN.RIPPLER [address] [place] [address] [phone] PCP - General Family Medicine 09/29/22 Automobile Service Station Manager Relationship Specialty Start Date End Date Debra Roland APRN.RIPPLER [address] [place] [address] PCP - General Family Medicine 09/29/22 Automobile Service Station Manager Relationship Specialty Start Date End Date Debra Roland APRN.RIPPLER [address] [place], [place] [phone] PCP - General Family Medicine 09/29/22 FOR [...] BE BASED ON THE PRIMARY CLINICAL RECORDS. [employer] [facility]. provides no warranty or guarantee of the accuracy or completeness of information in this document.
[2023-10-06 01:19] VITALS: BP 98/65; PULSE 101; RESP 19; TEMP 36.6; O2SAT 92
== END 2023-10-06 01:20 | disposition home or self-care (01) ==
LOC: ED 01:08
PROVIDERS: Emergency Provider Emergency Medicine; PCP Nurse Practitioner Family; Visit Provider Emergency Medicine
DX: J10.1 Influenza due to other identified influenza virus with other respiratory manifestations (principal); K50.90 Crohn's disease, unspecified, without complications; E03.9 Hypothyroidism, unspecified; F17.210 Nicotine dependence, cigarettes, uncomplicated
CPT/HCPCS: 99282; A4216

== ENCOUNTER 2023-10-08 13:50 | Emergency (ER) | payer BC, SELFPAY ==
[2023-10-08 13:51] VITALS: BP 95/64; PULSE 92; RESP 20; TEMP 36.3; O2SAT 98; BMI 23.6
--- OUTSIDE RECORDS SUMMARY | 2023-10-08 14:14 | XMS RPT_ITS | CCD ---
Author Name Unknown Address [address] [place] [address] Organization [facility] Care [facility] Coord[facility] Name Role Phone KARON RADFORD Unavailable Unavailable PLUSKOTAROMEO Unavailable Unavailable PLUSKOTA, ROMEO Luna Unavailable Unavailable Pluskota Romeo WEBSTER Primary Care Provider 1( [phone] [place] CLAM SHOVEL OPERATOR.Debra HESS Primary Care Provider Unavailable Primary Care Provider UnavailCORNELIA Patterson Attending Unavailable KNOBLE, DEBRA Primary Care Unavailable TAMIKA VICKERS Attending Unavailable KNOBLE, DEBRA Primary Care Unavailable DARCY FLORES Attending Unavailable KNOBLE, DEBRA Attending Unavailable KNOBLE, DEBRA Primary Care Unavailable KNOBLE, DEBRA Referring Unavailable KNOBLE, DEBRA Primary Care Unavailable QUEENDESTINI, DARCY Referring Unavailable KNOBLE, DEBRA Primary Care Unavailable KNOBLE, DEBRA Primary Care Unavailable KNOBLE, DEBRA Referring Unavailable QUEENERDARCY Attending Unavailable KNOBLE, DEBRA Primary Care Unavailable KNOBLE, DEBRA Referring Unavailable KNOBLE, DEBRA Primary Care Unavailable KNOBLE, DEBRA Attending Unavailable KNOBLE, DEBRA Primary Care Unavailable KNOBLE, DEBRA Attending Unavailable KNOBLE, DEBRA Primary Care Unavailable KNOBLE, DEBRA Referring Unavailable KNOBLE, DEBRA Primary Care Unavailable TAMIKA VICKERS Referring Unavailable Allergies Allergy Classification Reported Allergen(s) Allergy Type Date of Onset Reaction(s) Facility (20 sources) etodolac; Translations: [ETODOLAC] Drug Allergy 7 Itching [facility] (2 sources) OTHER; Translations: [OTHER] Propensity to adverse reactions to food (disorder) 7 AOF [facility] (19 sources) flu immuzation [Other] Propensity to adverse reactions 7 GI Upset [facility] Work Phone: (16 sources) adalimumab; Translations: [ADALIMUMAB] Drug Allergy 3 Hives, Itching, Rash [facility] (6 sources) Flu Vac 2014 (65 Up)-Mf59c(Pf); Translations: [FLU VAC 2014 (65 UP)-MF59C(PF)] Drug Allergy 3 Unknown [facility] Work Phone: Medications Current Medications Medication Drug Class(es) Dates Sig (Normalized) Sig (Original) codeine phosphate 2 mg/ml / guaiFENesin 20 mg/ml oral solution (1 source) Opioid Agonist Start: 10-05-2023 End: 10-10-2023 take 5 mL by mouth three times daily as needed codeine-guaiFENesi n (ROBITUSSIN AC) 10-100 mg/5 mL syrup Indications: Influenza B Take 5 mL by mouth three times a day as needed for up to 5 days. 120 mL 0 10/05/2023 10/10/2023 Active Completed/Discontinued Medications Medication Drug Class(es) Dates [...] disorder; Translations: [Generalized anxiety disorder] 03-09-2023 Chronic Chronic obstructive pulmonary disease and bronchiectasis (1 source) Bronchitis; Translations: [Bronchitis, not specified as acute or chronic] 10-05-2023 Episodic E Codes: Fall (1 source) Fall; Translations: [Unspecified fall, initial encounter] Episodic Headache; including migraine (7 sources) Refractory migraine without aura; Translations: [Migraine without aura, intractable, without status migrainosus] Onset: 06-06-2023 05-08-2023 Chronic Influenza (2 sources) Influenza due to Influenza B virus; Translations: [Influenza due to other identified influenza virus with other respiratory manifestations] Onset: 10-05-2023 10-05-2023 Episodic Menstrual disorders (20 sources) Irregular periods; Translations: [...] Time Vital Sign Value Performing Clinician Facility 10-05-2023 10:36-0500 Body temperature 98.29 [degF] Tamika Vickers PA-C Work Phone: [facility] 10-05-2023 10:36-0500 Body weight 68.04 kg Tamika Vickers PA-C Work Phone: [facility] 10-05-2023 10:36-0500 Diastolic blood pressure 80 mm[Hg] Tamika Vickers PA-C Work Phone: [facility] 10-05-2023 10:36-0500 Heart rate 97 /min Tamika iVckers PA-C Work Phone: [facility] 10-05-2023 10:36-0500 Respiratory rate 20 /min Tamika Vickers PA-C Work Phone: [facility] 10-05-2023 10:36-0500 SaO2% (BldA) [Mass fraction] 97 % Tamika Vickers PA-C Work Phone: [facility] 10-05-2023 10:36-0500 Systolic blood pressure 100 mm[Hg] Tamikakeyla Vickers PA-C Work Phone: [facility] 09-26-2023 11:30-0500 Body weight 69.04 kg Darcy Flores PA-C Work Phone: [facility] 09-26-2023 11:30-0500 Diastolic blood pressure 68 mm[Hg] Darcylacie Hernandezer PA-C Work Phone: [facility] 09-26-2023 11:30-0500 Heart rate 90 /min Darcylacie Hernandezer PA-C Work Phone: [facility] 09-26-2023 11:30-0500 Respiratory rate 16 /min Darcy Hernandezdestini PA-C Work Phone: [facility] 09-26-2023 11:30-0500 SaO2% (BldA) [Mass fraction] 97 % Darcy Hernandezdestini PA-C Work Phone: [facility] 09-26-2023 11:30-0500 Systolic blood pressure 122 mm[Hg] Darcylacie Hernandezer PA-C Work Phone: [facility] 07-17-2023 13:59-0500 Body height 165.1 cm Cornelia Martinezert CLAM SHOVEL OPERATOR-WELDER APPRENTICE COMBINATION Work Phone: [facility] 07-17-2023 13:59-0500 Body mass index (BMI) [Ratio] 23.85 kg/m2 Cornelia Martinezert CLAM SHOVEL OPERATOR-WELDER APPRENTICE COMBINATION Work Phone: [facility] 07-17-2023 13:59-0500 Body weight 65 kg Cornelia Martinezert CLAM SHOVEL OPERATOR-WELDER APPRENTICE COMBINATION Work Phone: [facility] 07-17-2023 13:59-0500 Diastolic blood pressure 74 mm[Hg] Cornelia Martinezert CLAM SHOVEL OPERATOR-WELDER APPRENTICE COMBINATION Work Phone: [facility] 07-17-2023 13:59-0500 Heart rate 90 /min Cornelia Martinezert CLAM SHOVEL OPERATOR-WELDER APPRENTICE COMBINATION Work Phone: [facility] 07-17-2023 13:59-0500 Respiratory rate 18 /min Cornelia Jayichert CLAM SHOVEL OPERATOR-WELDER APPRENTICE COMBINATION Work Phone: [facility] 07-17-2023 13:59-0500 Systolic blood pressure 108 mm[Hg] Cornelia Singh CLAM SHOVEL OPERATOR-WELDER APPRENTICE COMBINATION Work Phone: [facility] 05-23-2023 08:54-0400 Body weight 67.95 kg Darcy Hernandezer PA-C Work Phone: [facility] 05-23-2023 08:54-0400 Diastolic blood pressure 74 mm[Hg] Darcy Queener PA-C Work Phone: [facility] 05-23-2023 08:54-0400 Heart rate 100 /min Darcy Queener PA-C Work Phone: [facility] 05-23-2023 08:54-0400 Respiratory rate 16 /min Darcy Queener PA-C Work Phone: [facility] 05-23-2023 08:54-0400 SaO2% (BldA) [Mass fraction] 99 % Darcy Queener PA-C Work Phone: [facility] 05-23-2023 08:54-0400 Systolic blood pressure 112 mm[Hg] Darcy Queener PA-C Work Phone: [facility] 05-08-2023 11:29-0400 Body weight 66.68 kg Debra Roland CLAM SHOVEL OPERATOR.WELDER APPRENTICE COMBINATION Work Phone: [facility] 05-08-2023 11:29-0400 Diastolic blood pressure 70 mm[Hg] Debra Roland CLAM SHOVEL OPERATOR.WELDER APPRENTICE COMBINATION Work Phone: [facility] 05-08-2023 11:29-0400 Heart rate 82 /min Debra Roland CLAM SHOVEL OPERATOR.WELDER APPRENTICE COMBINATION Work Phone: [facility] 05-08-2023 11:29-0400 Respiratory rate 12 /min Debra Roland CLAM SHOVEL OPERATOR.WELDER APPRENTICE COMBINATION Work Phone: [facility] 05-08-2023 11:29-0400 Systolic blood pressure 106 mm[Hg] Debra Roland CLAM SHOVEL OPERATOR.WELDER APPRENTICE COMBINATION Work Phone: [facility] 09-29-2022 18:27-0500 Body height 165.1 cm Debra Roland APRN.WELDER APPRENTICE COMBINATION Work Phone: [facility] 09-29-2022 18:27-0500 Body weight 69.4 kg Debra Roland CLAM SHOVEL OPERATOR.WELDER APPRENTICE COMBINATION Work Phone: [facility] 09-29-2022 18:27-0500 Diastolic blood pressure 80 mm[Hg] Debra Roland CLAM SHOVEL OPERATOR.WELDER APPRENTICE COMBINATION Work Phone: [facility] 09-29-2022 18:27-0500 Heart rate 89 /min Debra Roland CLAM SHOVEL OPERATOR.WELDER APPRENTICE COMBINATION Work Phone: [facility] 09-29-2022 18:27-0500 Respiratory rate 16 /min Debra Roland CLAM SHOVEL OPERATOR.WELDER APPRENTICE COMBINATION Work Phone: [facility] 09-29-2022 18:27-0500 Systolic blood pressure 102 mm[Hg] Debra Roland CLAM SHOVEL OPERATOR.WELDER APPRENTICE COMBINATION Work Phone: [facility] 09-07-2022 13:51-0500 Body temperature 97.11 [degF] Krislyn Aberegg PA Work Phone: [facility] 09-07-2022 13:51-0500 Body weight 70.4 kg Krislyn Aberegg PA Work Phone: [facility] 09-07-2022 13:51-0500 Diastolic blood pressure 82 mm[Hg] Krislyn Aberegg PA Work Phone: [facility] 09-07-2022 13:51-0500 Heart rate 80 /min Krislyn Aberegg PA Work Phone: [facility] 09-07-2022 13:51-0500 Respiratory rate 21 /min Krislyn Aberegg PA Work Phone: [facility] 09-07-2022 13:51-0500 SaO2% (BldA) [Mass fraction] 98 % Hardeep RUTHERFORD Work Phone: [facility] 09-07-2022 13:51-0500 Systolic blood pressure 118 mm[Hg] Hardeep RUTHERFORD Work Phone: [facility] Encounters Encounter Date Encounter Type Care Provider Facility Start: 10-05-2023 End: 10-05-2023 ambulatory DEBRA ROLAND Facility:[facility] Start: 10-05-2023 End: 10-05-2023 Patient encounter procedure Tamika Vickers PA-C Work Phone: [facility] Procedures Date Procedure Procedure Detail Performing Clinician Start: 06-21-2023 Ct angiography head w/contrast/noncontrast Debra Roland APRN.CNP Work Phone: Plan of Treatment Date Care Activity Detail Author Start: 2047 HEPATITIS B (1 of 3 - Risk 3-dose series) HEPATITIS B (1 of 3 - Risk 3-dose series) [facility] Start: 2047 Hepatitis B Vaccine (1 of 3 - Risk 3-dose series) Hepatitis B Vaccine (1 of 3 - Risk 3-dose series) [facility] Start: 2037 Zoster Vaccines (1 of 2) Zoster Vaccines (1 of 2) [facility] Start: 10-04-2024 Annual PCP Team Chronic Disease Visit Annual PCP Team Chronic Disease Visit [facility] Start: 07-20-2024 Annual PCP Team Chronic Disease Visit Annual PCP Team Chronic Disease Visit [facility] Start: 05-08-2024 Annual PCP Team Chronic Disease Visit Annual PCP Team Chronic Disease Visit [facility] Start: 04-13-2024 ANNUAL PCP TEAM CHRONIC DISEASE VISIT ANNUAL PCP TEAM CHRONIC DISEASE VISIT [facility] Start: 09-29-2023 ANNUAL PCP TEAM CHRONIC DISEASE VISIT ANNUAL PCP TEAM CHRONIC DISEASE VISIT [facility] Start: 04-07-2023 Influenza vaccination [facility] Start: 03-28-2023 End: 05-28-2023 Thyrotropin [Units/volume] in Serum or Plasma TSH BLD Lab Routine Hyperthyroidism Expected: 03/28/2023, Expires: 05/28/2023 [facility] Work Phone: Immunizations Immunization Date Immunization Notes Care Provider Hayde khalifchristian 02[birth year]1999 tetanus and diphther ia toxoids, adsorbed, preservative free, for adult use (2 Lf of tetanus toxoid and 2 Lf of diphtheria toxoid) Hardeep RUTHERFORD Work Phone: [facility] Work Phone: Payers Date Payer Category Payer Unknown [id number] 2006 Unknown [id number] 1987 Unknown [id number] Social History Date Type Detail Facility Start: 09-07-2022 End: 09-29-2022 Tobacco smoking status ORIS Smokes tobacco daily [facility] History of tobacco use Cigarette Smoker C [facility] Start: 09-07-2022 End: 04-06-2023 Cigarettes smoked current (pack per day) - Reported 0.5 [facility] Start: 09-07-2022 End: 09-29-2022 Tobacco use and exposure Smokeless tobacco non-user [facility] Start: 09-07-2022 End: 05-23-2023 Alcohol intake Current non-drinker of alcohol (finding) [facility] Start: 09-07-2022 Tobacco Comment 12/04/09 Patient has decreased to 3-4 cigarettes daily [facility] Start: 07-25-2007 Alcohol Comment rare [facility] Start: 1985 Sex Assigned At Not on file [facility] Start: 09-29-2022 End: 04-06-2023 Tobacco use panel [facility] National Score (1-10 0), lower number is lower risk Not on file [facility] Start: 1985 Sex Assigned At Female [facility] Start: 03-23-2023 Gender identity Identifies as female gender (finding) [facility] Do you belong to any clubs or organizations such as latter-day groups, unions, fraternal or athletic groups, or school groups? No [facility] Are you now , , , , never or living with a partner? [facility] How often to you hav e a drink containing alcohol? Never [facility] How hard is it for y ou to pay for the very basics like food, housing, medical care, and heating Not very hard [facility] Do you feel stress - tense, restless, nervous, or anxious, or unable to sleep at night because your mind is troubled all the time - these days [OSQ] Only a little [facility] (I/We) worried wheth er (my/our) food would run out before (I/we) got money to buy more. Never true [facility] Start: 07-17-2023 Tobacco smoking status NHIS Tobacco smoking consumption unknown [facility] Work Phone: Start: 07-07-2023 End: 07-17-2023 Exposure to SARS-CoV-2 (event) Not sure [facility] Clinical Notes 10-29-2008 to 10-05-2023 Tamika Vickers PA-C - 10/05/2023 10:50 AM ESTTelephone Encounter - Olivia Mariee RN - 10/03/2023 1:14 PM ESTTelephone Encounter - Sarahy Yoo OCCA - 09/29/2023 10:31 AM EST Note Date & Type Note Facility 10-05-2023 Note HNO ID: [id number] Author: CAREY GALO RT(R) Service: Radiology Author Type: Technologist Type: Progress Notes Filed: 10/05/2023 11:26 Note Text: Radiology Service Progress Note PATIENT NAME: Olivia Man DATE OF SERVICE: October 05, 2023 TIME: 11:06 AM PATIENT IDENTITY VERIFICATION COMPLETED USING TWO (2) IDENTIFIERS: Name and Date of confirmed by patient verbally. FALL SCREENING: Has the patient had 2 falls in the last year or 1 fall with injury or currently using an Ambulatory Assistive Device (Walker, Cane, Wheelchair, Crutches, etc.)? No PATIENT GENDER DATA: Female. status: : No status: NO. PATIENT RELEVANT IMPLANT DATA REVIEWED: Not Applicable PATIENT PRESENTS WITH AN IMPLANTABLE OR ATTACHED INTERNET CAFE MANAGER: No RADIOLOGY DEPARTMENT: General X-ray: Exam(s) Completed: Chest X-Ray PERIPHERAL IV DATA: Not applicable SIGNED BY: RT Michelle(R) October 05, 2023 11:06 AM [facility] 10-05-2023 Note HNO ID: [id number] Author: TAMIKA VICKERS PA-C Service: ? Author Type: Physician Biomass Facilitator Type: Progress Notes Filed: 10/05/2023 11:07 Note Text: Chief Complaint Patient presents with: Follow Up: Was seen at [facility] for the flu HPI Olivia Man is a 38 year old female who presents here today for Above Complaints.. Patient tested positive for influenza on 10/03. Symptoms started on Friday 09/29. She is on stelara for crohn's disease. Patient is feeling miserable. States she is having nausea/vomiting now. Having trouble sleeping. Reports shortness of breath and cough. Chest discomfort. Runny nose. Taking OTC advil sinus. Past medical history, appointments, medications, allergies reviewed. [...] (65 Up* Unknown Lodine [Etodolac] Itching Current Medications Current Outpatient Medications on File Prior to Visit Medication Sig albuterol HFA (PROVENTIL HFA, VENTOLIN HFA) 90 mcg/actuation inhaler predniSONE (DELTASONE) 20 mg tablet Take 20 mg by mouth once daily. Taking 40 mg daily for 5 days Benzonatate 200 mg capsule Take 200 mg by mouth three times a day as needed for cough. topiramate (TOPAMAX) 100 mg tablet take 1 tablet by mouth once daily at bedtime rimegepant (NURTEC ODT) 75 mg disintegrating tablet Take 1 tablet by mouth once daily as needed. citalopram (CELEXA) 20 mg tablet Take 1 tablet by mouth once daily. levothyroxine (SYNTHROID) 125 mcg tablet Take 1 tablet by mouth once daily. Takes 8 tabs per week. One daily except Mon and Wed takes an extra half tab. prochlorperazine (COMPAZINE) 5 mg tablet Take by [...] edible Review of Symptoms REVIEW OF SYSTEMS See hpi EXAM: BP 100/80 (BP Site: Right Arm, BP Position: Sitting, BP Cuff Size: Regular Adult) Pulse 97 Temp 36.8 ?C (98.3 ?F) Resp 20 Wt 68 kg (150 lb) LMP 02/10/2017 SpO2 97% BMI 24.96 kg/m? General Appearance: Well appearing, alert, in no acute distress, well-hydrated, well nourished.. Eyes: Anicteric sclera. Pupils are equally round and reactive to light. Extraocular movements are intact. . Ears: External ears normal, canals clear. Nose/Sinuses: Nares normal, septum midline, mucosa normal, no drainage or sinus tenderness. Oropharynx: Lips, mucosa, and tongue normal, teeth and gums normal, oropharynx normal. Neck: Supple, no adenopathy; thyroid symmetric, normal size, no bruits. Lungs: Lungs clear to auscultation. No wheezing, rhonchi, rales.. Heart: RRR without murmur, gallop, or rubs. No ectopy. (more content not included)... [facility] 10-05-2023 History of Presen t illness Narrative Chief Complaint Patient presents with: Follow Up: Was seen at [facility] for the flu HPI Olivia Man is a 38 year old female who presents here today for Above Complaints.. Patient tested positive for influenza on 10/03. Symptoms started on Friday 09/29. She is on stelara for crohn's disease. Patient is feeling miserable. States she is having nausea/vomiting now. Having trouble sleeping. Reports shortness of breath and cough. Chest discomfort. Runny nose. Taking OTC advil sinus. Past medical history, appointments, medications, allergies reviewed. [...] (65 Up* Unknown Lodine [Etodolac] Itching Current Medications Current Outpatient Medications on File Prior to Visit Medication Sig albuterol HFA (PROVENTIL HFA, VENTOLIN HFA) 90 mcg/actuation inhaler predniSONE (DELTASONE) 20 mg tablet Take 20 mg by mouth once daily. Taking 40 mg daily for 5 days Benzonatate 200 mg capsule Take 200 mg by mouth three times a day as needed for cough. topiramate (TOPAMAX) 100 mg tablet take 1 tablet by mouth once daily at bedtime rimegepant (NURTEC ODT) 75 mg disintegrating tablet Take 1 tablet by mouth once daily as needed. citalopram (CELEXA) 20 mg tablet Take 1 tablet by mouth once daily. levothyroxine (SYNTHROID) 125 mcg tablet Take 1 tablet by mouth once daily. Takes 8 tabs per week. One daily except Mon and Wed takes an extra half tab. prochlorperazine (COMPAZINE) 5 mg tablet Take by [...] edible Review of Symptoms REVIEW OF SYSTEMS See hpi EXAM: BP 100/80 (BP Site: Right Arm, BP Position: Sitting, BP Cuff Size: Regular Adult) Pulse 97 Temp 36.8 C (98.3 F) Resp 20 Wt 68 kg (150 lb) LMP 02/10/2017 SpO2 97% BMI 24.96 kg/m General Appearance: Well appearing, alert, in no acute distress, well-hydrated, well nourished.. Eyes: Anicteric sclera. Pupils are equally round and reactive to light. Extraocular movements are intact. . Ears: External ears normal, canals clear. Nose/Sinuses: Nares normal, septum midline, mucosa normal, no drainage or sinus tenderness. Oropharynx: Lips, mucosa, and tongue normal, teeth and gums normal, oropharynx normal. Neck: Supple, no adenopathy; thyroid symmetric, normal size, no bruits. Lungs: Lungs clear to auscultation. No wheezing, rhonchi, rales.. Heart: RRR without murmur, gallop, or rubs. No ectopy. Health Maintenance List Covid-19 Vaccine(1) Never done Pneumococcal Vaccine(1 of 2 - PCV) Never done Meningococcal B Vaccine: [...] PCP Team Chronic Disease Visit due on 07/20/2024 Hepatitis B Vaccine(1 of 3 - Risk 3-dose series) due on 2047 HPV Vaccine Aged Out Data reviewed ASSESSMENT/PLAN: 1. Influenza B - ICD9: 487.1, ICD10: J10.1 (primary diagnosis) Continue symptoms care. Check cxr. Discussed possible red flags and when to seek medical attention. - XR CHEST 2V FRONTAL/LAT - CODEINE 10 MG-GUAIFENESIN 100 MG/5 ML ORAL LIQUID 2. Bronchitis - ICD9: 490, ICD10: J40 Tamika Vickers PA-C documented in this encounter [facility] 10-03-2023 Miscellaneous Notes Pt reports she is out of medication. Please send a OPPRTUNITY message once medication has been sent. Patient [...] Olivia Mariee RN. documented in this encounter [facility] 09-29-2023 Miscellaneous Notes PA for Nurtec approved. CaseId:[id number] Coverage Start Date:08/27/2023 Coverage End Date:09/25/2024 Updated in medication list. sent to patient notifying of such. SANDEEP Cruz Prior Authorization started Nurtec 75 mg Cover My Meds Reese [id number], submitted on 09/26/2023 with documentation. Sera Martinez LPN documented in this encounter [facility] 09-26-2023 Note HNO ID: [id number] Author: SERA MARTINEZ LPN Service: ? Author [...] SD worse than population and warrants attention [facility] 09-26-2023 Note HNO ID: [id number] Author: DARCY FLORES PA-C Service: ? Author Type: Physician Biomass Facilitator Type: Progress Notes Filed: 09/26/2023 12:13 Note Text: [facility] Follow up CC: [...] currently taking anything for headaches other than [id number] medications including Benadryl and Tylenol. Notes she cannot take NSAIDs due to history of Crohn's disease. Has a scheduled MRI of the brain for the end of the month. Headaches are migrainous in nature, intractable and triggered by methotrexate which she has an appointment with her dietary manager to to discuss stopping at the end [...] doses of abo (more content not included)... [facility] 09-26-2023 Note HNO ID: [id number] Author: SERA MARTINEZ LPN Service: ? Author [...] SD worse than population and warrants attention [facility] 09-26-2023 Instructions Darcy Flores PA-C - 09/26/2023 11:57 AM EST Continue topiramate 100mg and will start Nurtec 75mg for headache when it starts. Follow up in three months documented in this encounter [facility] 09-26-2023 History of Presen t illness [...] from the original note were not included. [facility] Follow up CC: [...] currently taking anything for headaches other than [id number] medications including Benadryl and Tylenol. Notes she cannot take NSAIDs due to history of Crohn's disease. Has a scheduled MRI of the brain for the end of the month. Headaches are migrainous in nature, intractable and triggered by methotrexate which she has an appointment with her dietary manager to to discuss stopping at the end [...] which included preparing to see the patient, [id number] patient care, completing clinical documentation, obtaining and/or reviewing separately obtained history, performing a medically appropriate examination, counseling and educating the patient/family/caregiver, and ordering medications, tests, or procedures. Darcy Flores PA-C General Neurology [address] [place] [address] [place]. [address] Appointment: [phone] 09/26/2023 [facility] Physical Health Summary [...] and warrants attention documented in this encounter [facility] 09-04-2023 Miscellaneous Notes Attempted to return call to mariela lam line was busy, will try back later Zenobia Dominguez Cma Please let Dr. Abbott's office know this patient is seeing neurology for migraines so no I will not take over prescribing migraine medication. Maura HENDERSON- Lionel - Dr. Abbott's office, reports they saw pt in Apr for a lot of issues from migraines. Dr Abbott prescribed pt Imipramine for the migraines. They received a refill request for the medication and asking if pcp is agreeable to take over prescribing this medication? Please phone Bhavana with reply: [phone] documented in this encounter [facility] 07-20-2023 Note HNO ID: [id number] Author: Debra Roland APRN.WELDER APPRENTICE COMBINATION Service: ? Author Type: Nurse Practitioner Type: [...] HPV Testing Ne (more content not included)... [facility] 07-17-2023 History of Presen t illness [...] All questions answered. documented in this encounter [facility] Work Phone: 07-06-2023 Miscellaneous Notes Patient Comment: I am down to my last couple pills Last refill 01/26/23 Qty: 90 with 1 refill ALLEGRA 05/08/23 NOV none scheduled Devi Pinzon LPN documented in this encounter [facility] 06-22-2023 Miscellaneous Notes Your message has [...] department at . documented in this encounter [facility] 06-22-2023 Note HNO ID: [id number] Author: Lulu Emery Service: ? Author Type: ? Type: Progress Notes Filed: 06/22/2023 12:17 PM Note Text: Sleep Study Check-In Documentation Date: June 22, 2023 Name: Olivia Man Comments: HST was returned in working order with all sleep questionnaires Lulu Emery [facility] 06-22-2023 History of Presen t illness Narrative Sleep Study Check-In Documentation Date: June 22, 2023 Name: Olivia Man Comments: HST was returned in working order with all sleep questionnaires Lulu Emery Nomad# [id number] , Date shipped out: 06/16 SENT FEDEX DELIVERY - FEDEX RETURN Tracking mailout: [phone] Tracking return: [id number] [id number] 2023 Standing PSG Orders signed in the last 90 days None Future PSG Orders signed in the last 90 days Ordered Auth. provider HOME SLEEP APNEA TEST (HSAT) [[id number]] 05/23/23 Darcy Flores PA-C Assoc. diagnoses: Obstructive [...] from Darcy Salomon PA-C [, a B. [facility] Staff. Visit prep complete. Comments :No The sleep study is scheduled for 06/26. Insurance: Payor: ANTHEM / Plan: BLUE CARD PPO OOS / Product Type: PPO / Payer/Plan Subscr Sex Relation Sub. Ins. ID Effective Group Num 1. ANTHEM - BLUE* C[place] MAN [birth year]1980 Male Spouse [id number] 08/07/21 [id number] 2. [facility] OLIVIA MEAD 1985 Female Self [id number] 08/17/06 ONE MILI Davis documented in this encounter [facility] 06-22-2023 Miscellaneous Notes Patient notified and verbalized understanding. Zenobia Dominguez Cma Please let patient know their CT shows no acute abnormalities. documented in this encounter [facility] 06-21-2023 Note HNO ID: [id number] Author: Glo Newton RT(R) Service: ? Author Type: Pantomimist Type: Progress Notes Filed: 06/21/2023 4:11 PM [...] DATE: June 21, 2023 TIME: 4:10 PM [facility] 06-21-2023 History of Presen t illness [...] TIME: 4:10 PM documented in this encounter [facility] 06-15-2023 Note HNO ID: [id number] Author: Lei Curtis Service: ? Author Type: ? Type: Progress Notes Filed: 06/22/2023 12:17 PM Note Text: Nomad# [id number] , Date shipped out: 06/16 SENT FEDEX DELIVERY - FEDEX RETURN Tracking mailout: [id number] Tracking return: [phone] [facility] 2023 Note HNO ID: [id number] Author: Yoandy Melendez III, PhD Service: ? Author Type: Physician Type: Progress Notes Filed: 06/22/2023 12:17 PM Note Text: 2023 Standing PSG Orders signed in the last 90 days None Future PSG Orders signed in the last 90 days Ordered Auth. provider HOME SLEEP APNEA TEST (HSAT) [[id number]] 05/23/23 Darcy Flores PA-C Assoc. diagnoses: Obstructive [...] (HSAT) Special instructions: None-follow laboratory protocol Noemí Jose Carlos --- Sleep Medicine Staff Note: I have read the above protocol, edited as needed, and agree to the plan. Yoandy Melendez III, PhD 4:12 PM, 2023 [facility] 06-07-2023 Note HNO ID: [id number] Author: Klaudia Davis Service: ? Author Type: ? Type: Progress Notes Filed: 06/22/2023 12:17 PM Note Text: June 07, 2023 An order has been received for Home Sleep Apnea Test (HSAT) from Darcy Salomon PA-C [, a B. [facility] Staff. Visit prep complete. Comments :No The sleep study is scheduled for 06/26. Insurance: Payor: ANTHEM / Plan: BLUE CARD PPO OOS / Product Type: PPO / Payer/Plan Subscr Sex Relation Sub. Ins. ID Effective Group Num 1. KAROL - MAIRA* CLAYTON MAN [birth year]/17/1980 Male Spouse [id number] 08/07/21 [id number] [id number] 2. [facility]* OLIVIA MEAD 1985 Female Self [id number] 08/17/06 MING Davis [facility] 06-06-2023 Miscellaneous Notes Pt called and [...] her blood vessels. documented in this encounter [facility] 06-06-2023 Note HNO ID: [id number] Author: Lashon Banuelos RT(R) Service: ? Author [...] DATE: June 06, 2023 TIME: 9:09 AM [facility] 06-05-2023 Miscellaneous Notes Requested Prescriptions Pending Prescriptions Disp Refills citalopram (CELEXA) 20 mg tablet 90 tablet 0 Sig: Take 1 tablet by mouth once daily. ALLEGRA 05/08/2023 NOV not scheduled at this time Barbara Middleton documented in this encounter [facility] 05-29-2023 Miscellaneous Notes Fax received from [facility] requesting last office note for patient. Note dated 05/23/23 from Darcy Flores faxed to [phone]. Ruchi Mathews LPN documented in this encounter [facility] 05-23-2023 Note HNO ID: [id number] Author: Darcy Flores PA-C Service: ? Author Type: Physician Biomass Facilitator Type: Progress Notes Filed: 05/23/2023 10:00 AM Note Text: Neurology Outpatient Clinic Date: May 23, 2023 Patient Name: Olivia Man Referring provider: Debra Rloand CNP [address] [place], [place] [id number] Consult requested for headaches by Debra Roland CNP. Recommendations will be communicated via shared medical record or US mail. Primary provider: Debra Roland CNP [address] [place] [id number] Reason for Evaluation: Headaches Subjective HPI Olivia [...] or vertiginous symptoms (more content not included)... [facility] 05-23-2023 Instructions Darcy Flores PA-C - [...] 5-6: 75 mg each evening (3 tabs) SECURITIES CLERK NEW SCRIPT 100 mg each evening (1 [...] Feverfew: Feverfew is a common garden herb cold springs to [place] and popular in [place] [...] pepperoni, Pickled gorman Pods of broad colon (Frisian beans, Bahraini pea pods, Uruguayan (greg) beans, rincon and navy beans Ripe [...] much light. These can be obtained at [employer] or [employer]: see list above. 2. Limit use of acute treatments (aurd-vwj-brhfoki medications, triptans, etc.) to no more than [...] and quiet environment. Relax and reduce stress. Cpntbnk4Fqsui is a free hemanth that can instruct you on some simple relaxtion and breathing techniques. Http://Dream D[employer].IPG is a free website that provides teaching videos on relaxation. Also, there are many apps that can be downloaded for mindful relaxation. An hemanht called YOGA NIDRA will help walk you [...] and will be handling your phone calls, OPPRTUNITY Messages and inquiries, if any. Unless explicitly told otherwise at the time of your office visit, your study results and ensuing treatment plans will be released via OPPRTUNITY and discussed during your follow-up appointment. OPPRTUNITY: Please ask the schedulers to give you an activation code. The main way of communication is by OPPRTUNITY rather than phone lines, so if you have not signed up, please do so. OPPRTUNITY is also the way that you can review your labs and testing. We are not able to contact everyone to tell them results are normal. If you do not hear back from us regarding testing you have had, it should be considered normal or within normal range. If you have any questions about the results, you are free to message us. OPPRTUNITY is meant for simple questions regarding medications, possible side effects, or other simple straight forward questions in limited sentences, rather than multiple paragraphs of discussion. 1,2,3 Listohart is not meant for, or efficient for [...] do not comment on most testing on CleanTiet in a message or commentary unless there [...] with this process. documented in this encounter [facility] 05-23-2023 History of Presen t illness Narrative Neurology Outpatient Clinic Date: May 23, 2023 Patient Name: Olivia Man Referring provider: Debra Roland CNP [facility] [place] [address] Consult requested for headaches by Debra Roland CNP. Recommendations will be communicated via shared medical record or US mail. Primary provider: Debra Roland CNP [address] [place] [address] Reason for Evaluation: Headaches Subjective HPI Olivia [...] use: Yes Types: Marijuana Comment: occasional edible [employer] business Objective 05/23/23 0854 BP: 112/74 Pulse: [...] Quads (Knee Ext) 5/5 5/5 Gastroc (Plantflx) 5/ 5/5 TibAnt (Dorsiflx) 5/5 5/5 FlxHLong (Toe Flex) 5/5 5/5 ExtHLong (Toe Ext) 5/5 5/5 Sensory Examination Sensation is intact to light touch. Negative extinction to double simultaneous stimulation Reflexes Right Left Bicep 2/4 2/4 Tricep 2/4 2/4 BrRad 2/4 2/4 Knee 2/4 2/4 Ankle 2/4 2/4 Encarnacion Response Negative Negative Coordination: finger-to- nose-finger intact bilaterally and nixq-la-wbvv intact bilaterally. Gait: Patient's gait is normal, [...] currently taking anything for headaches other than nrxe-dts-whymfbq medications including Benadryl and Tylenol. Notes she cannot take NSAIDs due to history of Crohn's disease. Has a scheduled MRI of the brain for the end of the month. Headaches are migrainous in nature, intractable and triggered by methotrexate which she has an appointment with her dietary manager to to discuss stopping at the end [...] which included preparing to see the patient, yzcg-ob-ldqk patient care, completing clinical documentation, obtaining and/or reviewing separately obtained history, performing a medically appropriate examination, counseling and educating the patient/family/caregiver, and ordering medications, tests, or procedures. Darcy Flores PA-C [facility] Neurology This document has been created with the use of voice recognition technology. It may contain inaccuracies: (e.g. misspellings, inaccurate syntax or word sense) that have escaped review. documented in this encounter [facility] 05-08-2023 Note HNO ID: [id number] Author: Debra Roland APRN.WELDER APPRENTICE COMBINATION Service: ? Author Type: Nurse Practitioner Type: [...] - IV CONTRAST (RADIOLOGY PROCEDURE) Debra Roland APRN.[facility] 05-08-2023 History of Presen t illness [...] - IV CONTRAST (RADIOLOGY PROCEDURE) Debra Roland APRN.WELDER APPRENTICE COMBINATION documented in this encounter [facility] 04-13-2023 Miscellaneous Notes Behavioral Health Social Work Progress Note Patient identified for [facility] from: PCP Reason for referral: Resources Behavioral Health Resources: Psychology - talk therapy [facility] encounter type: Telephone Encounter, MyChart Message Attempts to Outreach: 1 attempt Referral made: Psychology - Internal, Psychology - External Psychology-Internal referral type: Therapy Psychology-External referral type: Therapy Reason for external referral: Patient choice, Wait times at [facility] too long Final Disposition: Resources given Patient Discharged?: Yes therapist spoke with patient, she is seeking counseling services at this time. therapist will send her a [facility] Hernandez-S April 13, 2023 documented in this encounter [facility] 04-13-2023 Note HNO ID: [id number] Author: Debra Roland APRN.WELDER APPRENTICE COMBINATION Service: ? Author Type: Nurse Practitioner Type: [...] citalopram Debra Roland (more content not included)... [facility] 04-06-2023 Miscellaneous Notes Patient notified and verbalized understanding Zenobia Dominguez Cma Please let patient know her tsh is normal. documented in this encounter [facility] 03-28-2023 Note Patient Outreach (IN TMMN) OLIVIA MAN ([id number]) 1985 F Date Time Provider Department 03/28/23 DEBRA ROLAND During your visit today, we recorded the following information about you: Allergies As of Date: 03/28/2023 Noted Allergy Reaction flu immuzation [Other] 07/09/2007 8 - GI Upset LODINE (ETODOLAC) 09/18/2006 9 - Itching Date Reviewed: 09/29/2022 Reviewed by: Zenobia Dominguez Cma - Fully Assessed Visit Diagnosis:Hyperthyroidism [E05.90] Order(s):TSH BLD [SQTS] Order #: [id number] FUTURE Prescriptions as of 03/31/2023 - citalopram [...] 03/28/2023 Noted Resolved SPRAIN OF BACK NOS [[id number]] 09/25/2006 PAP SMEAR OF CERVIX W ASCUS [...] Encounter Status:Closed by FITZ JACKUSER on 03/31/23 [facility] 01-26-2023 Miscellaneous Notes The following approved [...] you. SANDEEP Cruz documented in this encounter [facility] 09-29-2022 Instructions Debra Roland APRN.CNP - 09/29/2022 6:53 PM EST Continue current medications Follow with specialists as scheduled Follow up in 6 months documented in this encounter [facility] 09-29-2022 History of Presen t illness Narrative Chief Complaint Patient presents with: [facility] HPI Olivia Man is a 37 year old female who presents here today for Above Complaints.. Patient [facility]. Patient reports that she sees Dr. [...] on File Prior to Visit Medication Sig LENA,CF, PEN 40 mg/0.4 mL pen kit estradiol [...] Debra Roland APRN.JIMENA documented in this encounter [facility] 09-07-2022 History of Presen t illness Narrative This note was created using Aspyrariter. Subjective Olivia Man is a 37 year [...] evaluation. SANGEETA Nunez documented in this encounter [facility] documented as of this encounter (statuses as of 09/07/2022) [facility]03-25[facility]2009 History of Past illness Narrative* Problem Noted Date Resolved Date Supervision of other high-risk (V23.89) 10/29/2008 11/04/2009 Abdominal pain, right lower quadrant 03/13/2007 03/27/2007 documented as of this encounter (statuses as of 09/30/2022) [facility] History of Past illness Narrative* Problem Noted Date Resolved Date Supervision of other high-risk (V23.89) 10/29/2008 11/04/2009 Abdominal pain, right lower quadrant 03/13/2007 03/27/2007 documented as of this encounter (statuses as of 01/05/2023) [facility] History of Past illness Narrative* Problem Noted Date Resolved Date Supervision of other high-risk (V23.89) 10/29/2008 11/04/2009 Abdominal pain, right lower quadrant 03/13/2007 03/27/2007 documented as of this encounter (statuses as of 01/26/2023) [address]25-2009 History of Past illness Narrative* Problem Noted Date Diagnosed Date Resolved Date Supervision of other high-ri sk (V23.89) 10/29/2008 11/04/2009 Abdominal pain, right lower quadrant 03/13/2007 03/27/2007 documented as of this encounter (statuses as of 03/09/2023) [address]25-2009 History of Past illness Narrative* Problem Noted Date Diagnosed Date Resolved Date Supervision of other high-ri sk (V23.89) 10/29/2008 11/04/2009 Abdominal pain, right lower quadrant 03/13/2007 03/27/2007 documented as of this encounter (statuses as of 03/31/2023) [address]25-2009 History of Past illness Narrative* Problem Noted Date Diagnosed Date Resolved Date Supervision of other high-ri sk (V23.89) 10/29/2008 11/04/2009 Abdominal pain, right lower quadrant 03/13/2007 03/27/2007 documented as of this encounter (statuses as of 04/07/2023) [address]25-2009 History of Past illness Narrative* Problem Noted Date Diagnosed Date Resolved Date Supervision of other high-ri sk (V23.89) 10/29/2008 11/04/2009 Abdominal pain, right lower quadrant 03/13/2007 03/27/2007 documented as of this encounter (statuses as of 04/13/2023) [address]25-2009 History of Past illness Narrative* Problem Noted Date Diagnosed Date Resolved Date Supervision of other high-ri sk (V23.89) 10/29/2008 11/04/2009 Abdominal pain, right lower quadrant 03/13/2007 03/27/2007 documented as of this encounter (statuses as of 05/09/2023) [address]25-2009 History of Past illness Narrative* Problem Noted Date Diagnosed Date Resolved Date Supervision of other high-ri sk (V23.89) 10/29/2008 11/04/2009 Abdominal pain, right lower quadrant 03/13/2007 03/27/2007 documented as of this encounter (statuses as of 05/23/2023) [address]25-2009 History of Past illness Narrative* Problem Noted Date Diagnosed Date Resolved Date Supervision of other high-ri sk (V23.89) 10/29/2008 11/04/2009 Abdominal pain, right lower quadrant 03/13/2007 03/27/2007 documented as of this encounter (statuses as of 05/29/2023) [address]25-2009 History of Past illness Narrative* Problem Noted Date Diagnosed Date Resolved Date Supervision of other high-ri sk (V23.89) 10/29/2008 11/04/2009 Abdominal pain, right lower quadrant 03/13/2007 03/27/2007 documented as of this encounter (statuses as of 06/06/2023) [address]25-2009 History of Past illness Narrative* Problem Noted Date Diagnosed Date Resolved Date Supervision of other high-ri sk (V23.89) 10/29/2008 11/04/2009 Abdominal pain, right lower quadrant 03/13/2007 03/27/2007 documented as of this encounter (statuses as of 06/06/2023) [address]25-2009 History of Past illness Narrative* Problem Noted Date Diagnosed Date Resolved Date Supervision of other high-ri sk (V23.89) 10/29/2008 11/04/2009 Abdominal pain, right lower quadrant 03/13/2007 03/27/2007 documented as of this encounter (statuses as of 06/22/2023) [address]25-2009 History of Past illness Narrative* Problem Noted Date Diagnosed Date Resolved Date Supervision of other high-ri sk (V23.89) 10/29/2008 11/04/2009 Abdominal pain, right lower quadrant 03/13/2007 03/27/2007 documented as of this encounter (statuses as of 06/22/2023) [address]25-2009 History of Past illness Narrative* Problem Noted Date Diagnosed Date Resolved Date Supervision of other high-ri sk (V23.89) 10/29/2008 11/04/2009 Abdominal pain, right lower quadrant 03/13/2007 03/27/2007 documented as of this encounter (statuses as of 06/22/2023) [place] [address]25-2009 History of Past illness Narrative* Problem Noted Date Diagnosed Date Resolved Date Supervision of other high-ri sk (V23.89) 10/29/2008 11/04/2009 Abdominal pain, right lower quadrant 03/13/2007 03/27/2007 documented as of this encounter (statuses as of 06/23/2023) [address]25-2009 History of Past illness Narrative* Problem Noted Date Diagnosed Date Resolved Date Supervision of other high-ri sk (V23.89) 10/29/2008 11/04/2009 Abdominal pain, right lower quadrant 03/13/2007 03/27/2007 documented as of this encounter (statuses as of 07/06/2023) [address]25-2009 History of Past illness Narrative* Problem Noted Date Diagnosed Date Resolved Date Supervision of other high-ri sk (V23.89) 10/29/2008 11/04/2009 Abdominal pain, right lower quadrant 03/13/2007 03/27/2007 documented as of this encounter (statuses as of 07/19/2023) [address]25-2009 History of Past illness Narrative* Problem Noted Date Diagnosed Date Resolved Date Supervision of other high-ri sk (V23.89) 10/29/2008 11/04/2009 Abdominal pain, right lower quadrant 03/13/2007 03/27/2007 documented as of this encounter (statuses as of 09/26/2023) [address]25-2009 History of Past illness Narrative* Problem Noted Date Diagnosed Date Resolved Date Supervision of other high-ri sk (V23.89) 10/29/2008 11/04/2009 Abdominal pain, right lower quadrant 03/13/2007 03/27/2007 documented as of this encounter (statuses as of 09/29/2023) [address]25-2009 History of Past illness Narrative* Problem Noted Date Diagnosed Date Resolved Date Supervision of other high-ri sk (V23.89) 10/29/2008 11/04/2009 Abdominal pain, right lower quadrant 03/13/2007 03/27/2007 documented as of this encounter (statuses as of 10/04/2023) [address]25-2009 History of Past illness Narrative* Problem Noted Date Diagnosed Date Resolved Date Supervision of other high-ri sk (V23.89) 10/29/2008 11/04/2009 Abdominal pain, right lower quadrant 03/13/2007 03/27/2007 documented as of this encounter (statuses as of 10/05/2023) [facility] History of Past illness Narrative* Problem Noted Date Diagnosed Date Resolved Date Supervision of other high-ri sk (V23.89) 10/29/2008 11/04/2009 Abdominal pain, right lower quadrant 03/13/2007 03/27/2007 documented as of this encounter (statuses as of 10/06/2023) [facility] Diagnosis Injury of right knee, initial encounter- Primary Fall, initial encounter Acute pain of right knee [facility] Diagnosis Crohn's disease without complication, unspecified gastrointestinal tract location (HCC)- Primary Tobacco use disorder Major depressive disorder, remission status unspecified, unspecified whether recurrent Graves' disease Toxic diffuse goiter without mention of thyrotoxic crisis or storm Hyperthyroidism Thyrotoxicosis without mention of goiter or other cause, without mention of thyrotoxic crisis or storm [facility] Diagnosis Major depressive disorder, remission status unspecified, unspecified whether recurrent- Primary [facility] Diagnosis Major depressive disorder, remission status unspecified, unspecified whether recurrent- Primary JONELLE (generalized anxiety disorder) Generalized anxiety disorder [facility]* Diagnosis Hyperthyroidism Thyrotoxicosis without mention of goiter or other cause, without mention of thyrotoxic crisis or storm [facility]* Diagnosis Migraine without aura, intractable, without status migrainosus- Primary [facility]* Diagnosis Migraine without aura, intractable, without status migrainosus- Primary Obstructive sleep apnea Obstructive sleep apnea (adult) (pediatric) documented [facility] this encounter [facility]* Diagnosis JONELLE (generalized anxiety disorder) Generalized anxiety disorder [facility] Diagnosis Abnormal MRI of head- Primary Nonspecific (abnormal) findings on radiological and other examination of skull and head documented [facility] Diagnosis Abnormal MRI of head Nonspecific (abnormal) findings on radiological and other examination of skull and head documented [facility] encounter [facility]* Diagnosis Intractable migraine without aura and without status migrainosus- Primary documented in this encounter [facility] Work Phone: Evaluation note* Diagnosis Migraine without aura, intractable, without status migrainosus- Primary Obstructive sleep apnea Obstructive sleep apnea (adult) (pediatric) [facility]* Diagnosis Influenza B- Primary Influenza with other respiratory manifestations Bronchitis Bronchitis, not specified as acute or chronic documented in this encounter [facility] for referral (narrative)* Diagnostic Procedure Only (Routine) - Authorized Specialty Diagnoses / Procedures Referred By Contac t Referred To Contact [facility] Diagnoses Obstructive sleep apnea Procedures HOME SLEEP APNEA TEST (HSAT) SLEEP STD AIRFLOW HRT RATE&O2 SAT EFFORT UNATT Darcy Flores PA-C [address] [place] [address] [facility] [address] [place] [address] Referral ID Status Reason Start Date Expiration Date Visits Requested Visits Authorized [id number] Authorized Auto-Generat ed Referral 3 05/22/2024 1 1 [facility] for referral (narrative)* Consultation (Routine) - Pending Review Specialty Diagnoses / Procedures Referred By Maria R harvey Referred To Contact Neurology Diagnoses Intractable migraine without aura and without status migrainosus Cornelia Singh APRN-CNP [id number] [facility], [facility] Department of Neurological Surgery [place] [phone] Referral ID Status Reason Start Date Expiration Date Visits Requested Visits Authorized [id number] Pending Review Specialty Services Required 3 07/16/2024 1 1 [facility] Work Phone: Summary Purpose Family History No [...] initial encounter Procedures CONSULT TO ORTHOPAEDICS OFFICE/OUTPATIENT NEW HIGH MDM 60-74 MINUTES [facility] [address] [place] [address] Referral ID Status Reason Start Date Expiration Date Visits Requested Visits Authorized [id number] Authorized PCP Requested Referral 09/07/2022 09/07/2023 1 1 Specialty Diagnoses / Procedures Referred By Contac t Referred To Contact XR IMAGING Diagnoses Fall, initial encounter Acute pain of right knee Procedures XR TIBIA FIBULA 2V AP/LAT RIGHT RADIOLOGIC EXAMINATION TIBIA & FIBULA 2 VIEWS [facility] [address] [place] [address] Xr Imaging Referral ID Status Reason Start Date Expiration Date V isits Requested Visits Authorized [id number] Closed Auto-Generate d Referral 09/07/2022 10/07/2023 1 1 Specialty Diagnoses / Procedures Referred By Contac t Referred To Contact XR IMAGING Diagnoses Fall, initial encounter Acute pain of right knee Procedures XR KNEE GENERAL 4V AP BOTH/PA BOTH/LAT/MERC RIGHT RADIOLOGIC EXAM KNEE COMPLETE 4/MORE VIEWS [facility] [address] [place] [address] Xr Imaging Referral ID Status Reason Start Date Expiration Date V isits Requested Visits Authorized [id number] Closed Auto-Generate d Referral 09/07/2022 10/07/2023 1 1 Specialty Diagnoses / Procedures Referred By Contac t Referred To Contact MR IMAGING Diagnoses Migraine without aura, intractable, without status migrainosus Procedures MRI BRAIN WO/W IVCON MRI BRAIN BRAIN STEM W/O W/CONTRAST MATERIAL Debra Roland APRN.WELDER APPRENTICE COMBINATION [facility]0 [place] [phone] Mr Imaging [facility] Referral ID Status Reason Start Date Expiration Date Visits Requested Visits Authorized [id number] Pending Review Auto-Generat ed Referral 05/08/2023 06/06/2024 1 1 Specialty Diagnoses / Procedures Referred By Contac t Referred To Contact Neurology Diagnoses Migraine without aura, intractable, without status migrainosus Procedures CONSULT TO NEUROLOGY OFFICE/OUTPATIENT NEW HIGH MDM 60-74 MINUTES Debra Roland APRN.WELDER APPRENTICE COMBINATION [address] [place] [address] Referral ID Status Reason Start Date Expiration Date Visits Requested Visits Authorized [id number] Authorized PCP Requested Referral 05/08/2023 05/07/2024 1 1 Specialty Diagnoses / Procedures Referred By Contac t Referred To Contact CT IMAGING Diagnoses Abnormal MRI of head Procedures CTA HEAD WO/W IVCON CT ANGIOGRAPHY HEAD W/CONTRAST/NONCONTRAST Debra Roland APRN.WELDER APPRENTICE COMBINATION [address] [place] [address] [place] [address] Referral ID Status Reason Start Date Expiration Date Visits Requested Visits Authorized [id number] Authorized Auto-Generat ed Referral 12/03/2023 1 1 Referral ID Status Reason Start Date Expiration Date V isits Requested Visits Authorized [id number] Closed Auto-Generate d Referral 06/06/2023 12/03/2023 1 1 Specialty Diagnoses / Procedures Referred By Maria R harvey Referred To Contact Darcy Flores PA-C [address] [place] [address] Referral ID Status Reason Start Date Expiration Date V isits Requested Visits Authorized [id number] Pending Review 1 1 Medications Administered Section Inactive Administered Medications - up to 3 most recent administrations Medication Order MAR Action Action Date Dose Rate Site keTORolac 60 mg injection (Toradol) 60 mg, INTRAMUSCULAR, ONCE, 1 dose, On 05/08/23 at 1200, Ketorolac (Toradol) is indicated for [...] DATE CREATED AUTHOR AUTHOR'S ORGANIZ ATION 02/06/2018 [facility] DATE CREATED AUTHOR AUTHOR'S ORGANIZ ATION 07/19/2023 [facility] DATE CREATED AUTHOR AUTHOR'S ORGANIZ ATION 10/07/2023 [facility] Source Comments (unrecognize d section and content) In the event this informatio n is protected by the Federal Confidentiality of Alcohol and Drug Abuse Patient Records regulations: The Federal rules restrict any use of the information to criminally investigate or prosecute any alcohol or drug abuse patient.[facility] the event this information is protected by the Federal Confidentiality of Alcohol and Drug Abuse Patient Records regulations: The Federal rules restrict any use of the information to criminally investigate or prosecute any alcohol or drug abuse patient.[facility] the event this information is protected by the Federal Confidentiality of Alcohol and Drug Abuse Patient Records regulations: The Federal rules restrict any use of the information to criminally investigate or prosecute any alcohol or drug abuse patient.[facility] the event this information is protected by the Federal Confidentiality of Alcohol and Drug Abuse Patient Records regulations: The Federal rules restrict any use of the information to criminally investigate or prosecute any alcohol or drug abuse patient.[facility] HospitalIn the event this information is protected by the Federal Confidentiality of Alcohol and Drug Abuse Patient Records regulations: The Federal rules restrict any use of the information to criminally investigate or prosecute any alcohol or drug abuse patient.[facility] Hospital[facility] the event this information is protected by the Federal Confidentiality of Alcohol and Drug Abuse Patient Records regulations: The Federal rules restrict any use of the information to criminally investigate or prosecute any alcohol or drug abuse patient.[facility] Hospital[facility] the event this information is protected by the Federal Confidentiality of Alcohol and Drug Abuse Patient Records regulations: The Federal rules restrict any use of the information to criminally investigate or prosecute any alcohol or drug abuse patient.[facility] the event this information is protected by the Federal Confidentiality of Alcohol and Drug Abuse Patient Records regulations: The Federal rules restrict any use of the information to criminally investigate or prosecute any alcohol or drug abuse patient.[facility] Hospital[facility] the event this information is protected by the Federal Confidentiality of Alcohol and Drug Abuse Patient Records regulations: The Federal rules restrict any use of the information to criminally investigate or prosecute any alcohol or drug abuse patient.[facility] the event this information is protected by the Federal Confidentiality of Alcohol and Drug Abuse Patient Records regulations: The Federal rules restrict any use of the information to criminally investigate or prosecute any alcohol or drug abuse patient.[facility] the event this information is protected by the Federal Confidentiality of Alcohol and Drug Abuse Patient Records regulations: The Federal rules restrict any use of the information to criminally investigate or prosecute any alcohol or drug abuse patient.[facility] Hospital[facility] the event this information is protected by the Federal Confidentiality of Alcohol and Drug Abuse Patient Records regulations: The Federal rules restrict any use of the information to criminally investigate or prosecute any alcohol or drug abuse patient.[facility] the event this information is protected by the Federal Confidentiality of Alcohol and Drug Abuse Patient Records regulations: The Federal rules restrict any use of the information to criminally investigate or prosecute any alcohol or drug abuse patient.[facility] Hospital[facility] the event this information is protected by the Federal Confidentiality of Alcohol and Drug Abuse Patient Records regulations: The Federal rules restrict any use of the information to criminally investigate or prosecute any alcohol or drug abuse patient.[facility] Hospital[facility] the event this information is protected by the Federal Confidentiality of Alcohol and Drug Abuse Patient Records regulations: The Federal rules restrict any use of the information to criminally investigate or prosecute any alcohol or drug abuse patient.[facility] HospitalIn the event this information is protected by the Federal Confidentiality of Alcohol and Drug Abuse Patient Records regulations: The Federal rules restrict any use of the information to criminally investigate or prosecute any alcohol or drug abuse patient.[facility] Hospital[facility] the event this information is protected by the Federal Confidentiality of Alcohol and Drug Abuse Patient Records regulations: The Federal rules restrict any use of the information to criminally investigate or prosecute any alcohol or drug abuse patient.[facility] Hospital[facility] the event this information is protected by the Federal Confidentiality of Alcohol and Drug Abuse Patient Records regulations: The Federal rules restrict any use of the information to criminally investigate or prosecute any alcohol or drug abuse patient.[facility] the event this information is protected by the Federal Confidentiality of Alcohol and Drug Abuse Patient Records regulations: The Federal rules restrict any use of the information to criminally investigate or prosecute any alcohol or drug abuse patient.[facility] HospitalIn the event this information is protected by the Federal Confidentiality of Alcohol and Drug Abuse Patient Records regulations: The Federal rules restrict any use of the information to criminally investigate or prosecute any alcohol or drug abuse patient.[facility] HospitalIn the event this information is protected by the Federal Confidentiality of Alcohol and Drug Abuse Patient Records regulations: The Federal rules restrict any use of the information to criminally investigate or prosecute any alcohol or drug abuse patient.[facility] HospitalIn the event this information is protected by the Federal Confidentiality of Alcohol and Drug Abuse Patient Records regulations: The Federal rules restrict any use of the information to criminally investigate or prosecute any alcohol or drug abuse patient.[facility] Hospital[facility] the event this information is protected by the Federal Confidentiality of Alcohol and Drug Abuse Patient Records regulations: The Federal rules restrict any use of the information to criminally investigate or prosecute any alcohol or drug abuse patient.[facility] HospitalIn the event this information is protected by the Federal Confidentiality of Alcohol and Drug Abuse Patient Records regulations: The Federal rules restrict any use of the information to criminally investigate or prosecute any alcohol or drug abuse patient.[facility] Reason for Visit (unrecogniz ed section [...] NEW HIGH MDM 60-74 MINUTES Debra Roland, CLAM SHOVEL OPERATOR.WELDER APPRENTICE COMBINATION [address] [place] [address] Referral ID Status Reason Start Date Expiration Date V isits Requested Visits Authorized [id number] Closed PCP Requested Referral 05/08/2023 05/07/2024 1 1 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 Reason Onset Date Comments Refill Request 06/05/2023 Reason Comments Results Reason Comments Radiology CT Specialty Diagnoses / Procedures Referred By Contac t Referred To Contact CT IMAGING Diagnoses Abnormal MRI of head Procedures CTA HEAD WO/W IVCON CT ANGIOGRAPHY HEAD W/CONTRAST/NONCONTRAST Debra Roland, CLAM SHOVEL OPERATOR.WELDER APPRENTICE COMBINATION [address] [place] [address] [place] [address] Referral ID Status Reason Start Date Expiration Date V isits Requested Visits Authorized [id number] Closed Auto-Generate d Referral 06/06/2023 12/03/2023 1 1 Reason Onset Date Comments Refill Request 07/06/2023 Reason Comments Follow Up Pt reported slight i mproved migraine Gomez, currently reported x3 per month. Reason Comments Patient Update Reason Comments Refill Request Reason Comments Follow Up Was seen at [facility] for the flu Reason Comments Medication question from GI Results Care Teams (unrecognized sec tion and content) [facility] Coordinator Relationship Specialty Start Date End Date Debra Roland APRN.JIMENA [address] [place] [phone] PCP - General Family Medicine 09/29/22 [facility] Coordinator Relationship Specialty Start Date End Date Debra Roland APRN.JIMENA [address] [place] [phone] PCP - General Family Medicine 09/29/22 [facility] Coordinator Relationship Specialty Start Date End Date Debra Roland APRN.WELDER APPRENTICE COMBINATION [address] [place] [phone] PCP - General Family Medicine 09/29/22 [facility] Coordinator Relationship Specialty Start Date End Date Debra Roland APRN.WELDER APPRENTICE COMBINATION [address] [place] [phone] PCP - General Family Medicine 09/29/22 [facility] Coordinator Relationship Specialty Start Date End Date Debra Roland APRN.WELDER APPRENTICE COMBINATION [address] [place] [phone] PCP - General Family Medicine 09/29/22 [facility] Coordinator Relationship Specialty Start Date End Date Debra Roland APRN.WELDER APPRENTICE COMBINATION [address] [place] [phone] PCP - General Family Medicine 09/29/22 Hospital [facility] Coordinator Relationship Specialty Start Date End Date Debra Roland APRN.WELDER APPRENTICE COMBINATION [address] [place] [phone] PCP - General Family Medicine 09/29/22 [facility] Coordinator Relationship Specialty Start Date End Date Debra Roland APRN.WELDER APPRENTICE COMBINATION [address] [place] [phone] PCP - General Family Medicine 09/29/22 Hospital [facility] Coordinator Relationship Specialty Start Date End Date Debra Roland APRN.WELDER APPRENTICE COMBINATION [address] [place] [phone] PCP - General Family Medicine 09/29/22 [facility] Coordinator Relationship Specialty Start Date End Date Debra Roland CLAM SHOVEL OPERATOR.WELDER APPRENTICE COMBINATION [address] [place] [phone] PCP - General Family Medicine 09/29/22 [facility] Coordinator Relationship Specialty Start Date End Date Debra Roland APRN.WELDER APPRENTICE COMBINATION [address] [place] [phone] PCP - General Family Medicine 09/29/22 [facility] Coordinator Relationship Specialty Start Date End Date Debra Roland CLAM SHOVEL OPERATOR.WELDER APPRENTICE COMBINATION [address] [place] [phone] PCP - General Family Medicine 09/29/22 [facility] Coordinator Relationship Specialty Start Date End Date Debra Roland, CLAM SHOVEL OPERATOR.WELDER APPRENTICE COMBINATION [address] [place] [phone] PCP - General Family Medicine 09/29/22 Hospital [facility] Coordinator Relationship Specialty Start Date End Date Debra Roland, CLAM SHOVEL OPERATOR.WELDER APPRENTICE COMBINATION [address] [place] [phone] PCP - General Family Medicine 09/29/22 FOR [...] BE BASED ON THE PRIMARY CLINICAL RECORDS. [facility]. provides no warranty or guarantee of the accuracy or completeness of information in this document.
--- NOTE | 2023-10-08 14:15 | EX.ED.DYSGE1 ---
HPI <SANGEETA Matthews - Last Filed: 10/08/23 15:51> History of Present Illness Chief Complaint: General Illness Narrative Narrative: 38-year-old female with PMH of Crohn's disease, hypothyroidism states she has had viral symptoms for about 9 days. On 10/03 she was diagnosed with influenza B. She took 2 days of prednisone for cough but discontinued due to inability to sleep. She has been very nauseated, fatigued, and has congestion and sore throat. She states she has been staying in bed most of the time. She is taking prochlorperazine which kept her from vomiting and she can keep down fluids but she still nauseated. She is concerned she is dehydrated. No abdominal pain or diarrhea. She is concerned because she has 4 children and her has to go back to work tomorrow and she is still symptomatic. PFSH <SANGEETA Matthews - Last Filed: 10/08/23 15:51> [facility] Medical History Acute frontal sinusitis, unspecified Anemia Anxiety Colon polyps Depression Dietary restriction Endometriosis FH: migraine headache Graves disease Heartburn History of hiatal hernia History of steroid therapy Hx of Crohn's disease Hypothyroidism Low iron Smoker Thyroid disease Wears dentures Wears glasses Home Medications citalopram 10 mg tablet 20 mg PO DAILY anti depressant 01/18/18 [History Last Taken 03/14/23] levothyroxine 125 mcg tablet 125 mcg PO DAILY thyroid 01/18/18 [History Last Taken 03/14/23] ferrous gluconate 324 mg (37.5 mg iron) tablet 325 mg PO DAILY supplement 03/14/18 [History Last Taken Unknown] loratadine 10 mg capsule 10 mg PO DAILY 06/29/22 [History Last Taken Unknown] folic acid 1 mg tablet 2 mg PO DAILY 11/29/22 [History Last Taken Unknown] methotrexate sodium 5 mg tablet 15 mg PO TU 11/29/22 [History Last Taken Unknown] leucovorin calcium 15 mg tablet 15 mg PO WE 01/03/23 [History Last Taken Unknown] prochlorperazine maleate 5 mg tablet 5 mg PO BID PRN nausea and vomiting #30 tabs 01/17/23 [Rx Last Taken Unknown] ustekinumab 90 mg/mL subcutaneous syringe (Stelara) 90 mg subcut Q8W #1 mL 02/01/23 [Rx Last Taken Unknown] oxycodone-acetaminophen 5 mg-325 mg tablet 1 tab PO Q6H PRN PRN Pain 3 days #10 TABLETS 03/06/23 [Rx Last Taken Unknown] prednisone 10 mg tablet 10 mg PO DAILY PRN flare up 03/06/23 [History Last Taken Unknown] diphenoxylate-atropine 2.5 mg-0.025 mg tablet (Lomotil) 2 tab PO 4X/DAY PRN PRN diarrhea 5 days #40 tabs 03/23/23 [Rx Last Taken Unknown] estradiol 2 mg tablet 2 mg PO QDAY #90 tabs 05/25/23 [Rx Last Taken Unknown] naratriptan 2.5 mg tablet 2.5 mg PO ONCE 05/25/23 [History Last Taken Unknown] topiramate 25 mg tablet (Topamax) 25 mg PO DAILY 05/25/23 [History Last Taken Unknown] dicyclomine 20 mg tablet 20 mg PO TID #45 tabs 09/04/23 [Rx Last Taken Unknown] pantoprazole 40 mg tablet,delayed release (Protonix) 40 mg PO BID #60 tabs 09/04/23 [Rx Last Taken Unknown] imipramine HCl 25 mg tablet 25 mg PO .daily #30 tabs 09/11/23 [Rx Last Taken Unknown] Allergy/AdvReac Type Severity Reaction Status Date / Time etodolac [From Lodine] Allergy Mild Itching Verified 10/08/23 13:54 adalimumab [From Humira] Allergy Hives Verified 10/08/23 13:54 influenza virus vaccine tv AdvReac Fainting Verified 10/08/23 13:54 splt 2012-14 (4 yr,up) [From Fluvirin] Surgical History H/O bilateral salpingo-oophorectomy H/O exploratory laparotomy History of appendectomy History of carpal tunnel surgery of right wrist History of colonoscopy History of esophagogastroduodenoscopy (EGD) History of hysteroscopy History of knee surgery History of LAVH History of oral surgery History of tonsillectomy and adenoidectomy Hx of eye surgery Hx of thyroidectomy Social History Smoking Status: Current every day smoker tobacco type: cigarettes alcohol intake: never substance use type: does not use caffeine: Yes what type of physical activity do you participate in: none seatbelt use: always do you feel safe at home: Yes additional social history: [employer]- [employer] Patient works at [employer] ROS <SANGEETA Matthews - Last Filed: 10/08/23 15:51> ROS ED ROS Narrative Constitutional: Positive for malaise. ENT: Positive for sore throat, rhinorrhea. CVS: Negative for chest pain. Respiratory: Positive for cough. GI: Positive for nausea. Negative for abdominal pain, vomiting, diarrhea. EXAM <SANGEETA Matthews - Last Filed: 10/08/23 15:51> Physical Exam Narrative Exam Narrative: CONST: Patient appears ill but nontoxic. EYES: Normal inspection. ENT: Normal inspection, moist mucous membranes. NECK: Normal inspection. No meningismus. RESP: No respiratory distress, CTAB. CVS: Regular rate and rhythm, no murmur, no gallop. ABD: Soft and nontender, no guarding or rebound, nondistended. SKIN: Color normal, no rash, warm, dry, intact. EXTREMITIES: Normal appearance, no pedal edema. NEURO: Oriented x4. PSYCH: Normal affect. Const Vital Signs: 10/08/23 13:51 10/08/23 15:44 10/08/23 15:56 Temperature 97.4 F L 97.4 F L Temperature Source Temporal Pulse Rate 92 77 Respiratory Rate 20 H 18 Respiratory Effort Normal Respiratory Pattern Normal Blood Pressure 95/64 103/59 L Blood Pressure Mean 74 73 Pulse Ox 98 100 Oxygen Delivery Method Room Air <Dr. Ferdinand Corona MD - Last Filed: 10/08/23 19:29> Physical Exam Const Vital Signs: 10/08/23 13:51 10/08/23 15:44 10/08/23 15:56 Temperature 97.4 F L 97.4 F L Temperature Source Temporal Pulse Rate 92 77 Respiratory Rate 20 H 18 Respiratory Effort Normal Respiratory Pattern Normal Blood Pressure 95/64 103/59 L Blood Pressure Mean 74 73 Pulse Ox 98 100 Oxygen Delivery Method Room Air MDM <SANGEETA Matthews - Last Filed: 10/08/23 15:51> MDM MDM Narrative Medical decision making narrative: Patient has had about 9 to 10 days of viral symptoms and tested positive for influenza B. Presents with concern for dehydration. She is managing nausea with prochlorperazine and has had no vomiting but states she has a dry mouth and sore throat. Continues to cough. She smokes. No chest pain or shortness of breath. No abdominal pain or diarrhea. She appears ill but nontoxic. BP lower end of normal at 95/64 with otherwise normal vital signs. She has dry mucous membranes. Normal cardiopulmonary exam. Abdomen soft and nontender. She was treated symptomatically with IV fluids, Zofran, and Toradol. She states she still has headache so I ordered Reglan and Benadryl. She will be discharged home. She has prochlorperazine to manage nausea. Blood pressure improved and she has been tolerating p.o. intake at home and has not been vomiting so she does not require further hydration. She was discharged in stable condition. I have personally performed a face to face assessment of the patient and have reviewed the YOGI Note. I performed a substantive portion of the visit including all aspects of the following. My dumont findings include: History is remarkable for patient being diagnosed with influenza. Symptoms started Monday. . She complains of bodyaches, headache, thirst difficulty eating or drinking because it hurts to swallow. Chest pain with cough. She is a smoker. She continues to smoke. She states she does not feel well. Exam is remarkable patient appearing ill. She not appear toxic. Vital signs are essentially unremarkable. HEENT exam is remarked for dry mucosa and rhinorrhea. Lungs are clear to auscultation with symmetric breath sounds. Heart is regular. There is no murmur, gallop or rub. As benign. She has no dermatologic lesions noted. Medical Decision Making IV fluids and symptomatic treatment Other additions or changes: [None] <Dr. Ferdinand Corona MD - Last Filed: 10/08/23 19:29> [facility] Narrative Medical decision making narrative: I have personally performed a face to face assessment of the patient and have reviewed the YOGI Note. I performed a substantive portion of the visit including all aspects of the following. My dmuont findings include: History is remarkable for patient being diagnosed with influenza. Symptoms started . She complains of bodyaches, headache, thirst difficulty eating or drinking because it hurts to swallow. Chest pain with cough. She is a smoker. She continues to smoke. She states she does not feel well. Exam is remarkable patient appearing ill. She not appear toxic. Vital signs are essentially unremarkable. HEENT exam is remarked for dry mucosa and rhinorrhea. Lungs are clear to auscultation with symmetric breath sounds. Heart is regular. There is no murmur, gallop or rub. As benign. She has no dermatologic lesions noted. Medical Decision Making IV fluids and symptomatic treatment Other additions or changes: [None] Discharge Plan Triage Chief Complaint: General Illness ED Midlevel Provider: Lashon Meraz ED Provider: Ferdinand Corona Dx/Rx/DC Orders Clinical Impression: Influenza B, Mild dehydration Instructions: ED Influenza (Adult) Prescriptions: No Action topiramate [Topamax] 25 mg tablet 25 mg PO DAILY naratriptan 2.5 mg tablet 2.5 mg PO ONCE estradiol 2 mg tablet 2 mg PO QDAY Qty: 90 4RF leucovorin calcium 15 mg tablet 15 mg PO WE citalopram 10 MG tablet 20 mg PO DAILY levothyroxine 125 MCG tablet 125 mcg PO DAILY ferrous gluconate 325 MG tablet 325 mg PO DAILY loratadine 10 mg Capsule 10 mg PO DAILY methotrexate sodium 5 mg Tablet 15 mg PO TU folic acid 1 mg Tablet 2 mg PO DAILY prednisone 10 mg tablet 10 mg PO DAILY PRN (Reason: flare up) oxycodone-acetaminophen [oxycodone-acetaminophen] 5-325 mg tablet 1 tab PO Q6H PRN PRN (Reason: Pain) 3 Days Qty: 10 0RF diphenoxylate-atropine [Lomotil] 2.5-0.025 mg tablet 2 tab PO 4X/DAY PRN PRN (Reason: diarrhea) 5 Days Qty: 40 0RF prochlorperazine maleate 5 mg tablet 5 mg PO BID PRN (Reason: nausea and vomiting) Qty: 30 1RF Stelara 90 mg/mL syringe 90 mg subcut Q8W Qty: 1 5RF pantoprazole [Protonix] 40 mg tablet,delayed release (DR/EC) 40 mg PO BID Qty: 60 0RF dicyclomine 20 mg tablet 20 mg PO TID Qty: 45 1RF imipramine HCl 25 mg tablet 25 mg PO .daily Qty: 30 2RF Primary Care Provider: Debra Roland Referrals: Debra Roland, [employer]PUT[employer] NETWORK [employer]IST[facility] [Primary Care Provider] - Activity Restrictions/Additional Instructions: Continue to drink fluids and take Tylenol or Motrin as needed. Disposition Disposition: Home, Self Care Discharge Date/Time: 10/08/23 15:57
[2023-10-08] MEDS: Ondansetron 4 MG/2 ML Vial IV (15:07)
[2023-10-08] MEDS: 0.9% Normal Saline (1000mL) 1,000 ML 999 ML IV (15:07)
[2023-10-08] MEDS: Ketorolac 15 MG/ML Vial IV (15:07)
[2023-10-08 15:44] VITALS: BP 103/59; PULSE 77; RESP 18; TEMP 36.3; O2SAT 100
[2023-10-08] MEDS: Metoclopramide 10 MG/2 ML Vial 5 MG IV (15:50)
[2023-10-08] MEDS: DiphenhydrAMINE 50 MG/ML Syringe 25 MG IV (15:50)
== END 2023-10-08 15:57 | disposition home or self-care (01) ==
PROVIDERS: Emergency Provider Emergency Medicine; PCP Nurse Practitioner Family; Visit Provider Emergency Medicine
DX: J10.1 Influenza due to other identified influenza virus with other respiratory manifestations (principal); E86.0 Dehydration; F17.210 Nicotine dependence, cigarettes, uncomplicated
CPT/HCPCS: 96374; 96375; 99283; J7030; A4216; J2405

== ENCOUNTER → 2023-10-11 | Outpatient (CLI) | payer BC, SELFPAY ==
--- NOTE | 2023-10-11 11:55 | NM_ITS ---
CLINICAL: 38-year-old female with history of abdominal bloating and nausea. SEMI-SOLID PHASE 99m Tc SULFUR COLLOID GASTRIC EMPTYING STUDY COMPARISON: None available FINDINGS: The patient was administered 1.0 mCi of 99m Tc sulfur colloid mixed with oatmeal and consumed per os. Image acquisitions in the anterior-posterior projections were obtained for 60 minutes. There is prompt visualization of the stomach. There is no gastroesophageal reflux identified. The T ? raw data emptying was calculated to be 23.06 minutes, (Normal: 12-56 minutes). NM/Gastric Emptying Study IMPRESSION: 1. NORMAL 99m Tc sulfur colloid semi-solid phase (oatmeal) gastric emptying imaging examination. A. There is normal and preserved semi-solid phase gastric emptying compared to normal controls. (Lenin et al, J Nucl Med Tech 38: 186, 2010). Electronically Signed: Seth Peterson DO at 23:52 EST ,
== END | disposition home or self-care (01) ==
LOC: NM 11:54
PROVIDERS: PCP Nurse Practitioner Family; Referring Provider Internal Medicine Gastroenterology; Visit Provider Internal Medicine Gastroenterology
DX: K50.90 Crohn's disease, unspecified, without complications (principal)
CPT/HCPCS: 78264; A9541

== ENCOUNTER 2024-03-19 18:58 | Emergency (ER) | payer BC, SELFPAY ==
[2024-03-19 18:59] VITALS: BP 106/80; PULSE 93; RESP 18; TEMP 36.2; O2SAT 100; BMI 27.3
[2024-03-19 19:33] LABS: Absolute Lymphocyte Count 1.71 X10^3/uL (0.83-4.51); Basophil# 0.06 X10^3/uL; Basophil% 1.1 % (0-1); Eosinophil# 0.14 X10^3/uL; Eosinophils% 2.5 % (0-5); Hematocrit 42.5 % (37-47); Hemoglobin 14.5 g/dL (12.0-15.0); Lymphocyte # 1.71 X10^3/ul (0.83-4.51); Lymphocyte % 30.5 % (19-41); Mean Corp Hgb Conc 34.1 g/dL (32-36); Mean Corpuscular Hgb 30.1 pg (27.0-32.0); Mean Corpuscular Volume 88.2 fL (81-99); Mean Platelet Vol. 9.3 fl (6.2-12.0); Monocyte% 12.5 % (0-10); NRBC Flagged by Analyzer 0 % (0-5); Neutrophil # 2.99 X10^3/uL (2.7-7.7); Neutrophil % 53.2 % (47-70); Platelet Count 220 K/mm3 (150-450); RBC Distribution Width CV 12.4 % (11.6-14.6); RBC Distribution Width SD 40.1 fl (35.1-43.9); Red Blood Count 4.82 M/mm3 (4.2-5.4); White Blood Count 5.6 K/mm3 (4.4-11.0)
[2024-03-19 19:45] LABS: Internal QC Validated? YES +Cl - CLEAR BKGD; Pregnancy, Serum, hCG Quali. NEGATIVE Negative
[2024-03-19 19:53] LABS: AST(SGOT) 21 U/L (15-37); Alanine Aminotransfer ALT/SGPT 30 U/L (13-56); Albumin, Serum 3.9 g/dL (3.2-5.0); Alkaline Phosphatase 115 U/L (45-117); Anion Gap 8 (5-15); BUN 14 mg/dL (7-18); BUN/Creat Ratio 22.8 RATIO (10-20); Calcium,Total 9.3 mg/dL (8.5-10.1); Chloride 105 mmol/L (98-107); Creatinine, Serum 0.62 mg/dL (0.55-1.02); EST Glomerular Filtration Rate 116 mL/min (>60); Est Glom Filt Rate - Afr Amer 141 mL/min (>60); Estimated Creatinine Clearance 126.74 ml/min; Globulin 3.8 g/dL (2.2-4.2); Glucose 98 mg/dL (74-106); Potassium 3.9 mmol/L (3.5-5.1); Protein, Total 7.7 g/dL (6.4-8.2); Sodium Level 139 mmol/L (136-145)
--- NOTE | 2024-03-19 20:48 | EDS_ITS ---
HPI History of Present Illness Chief Complaint: Abd Pain [facility] Medical History Acute frontal sinusitis, unspecified Anemia Anxiety Colon polyps Depression Dietary restriction Endometriosis FH: migraine headache Graves disease Heartburn History of hiatal hernia History of steroid therapy Hx of Crohn's disease Hypothyroidism Low iron Smoker Thyroid disease Wears dentures Wears glasses Home Medications ?Medication ?Instructions ?Recorded ?Last Taken ?Type citalopram 10 mg tablet 20 mg PO DAILY anti depressant 01/18/18 03/14/23 History levothyroxine 125 mcg tablet 125 mcg PO DAILY thyroid 01/18/18 03/14/23 History ferrous gluconate 324 mg (37.5 mg 325 mg PO DAILY supplement 03/14/18 Unknown History iron) tablet loratadine 10 mg capsule 10 mg PO DAILY 06/29/22 Unknown History folic acid 1 mg tablet 2 mg PO DAILY 11/29/22 Unknown History methotrexate sodium 5 mg tablet 15 mg PO TU 11/29/22 Unknown History leucovorin calcium 15 mg tablet 15 mg PO WE 01/03/23 Unknown History prochlorperazine maleate 5 mg 5 mg PO BID PRN nausea and 01/17/23 Unknown Rx tablet vomiting #30 tabs oxycodone-acetaminophen 5 mg-325 1 tab PO Q6H PRN PRN Pain 3 days 03/06/23 Unknown Rx mg tablet #10 TABLETS prednisone 10 mg tablet 10 mg PO DAILY PRN flare up 03/06/23 Unknown History diphenoxylate-atropine 2.5 2 tab PO 4X/DAY PRN PRN diarrhea 5 03/23/23 Unknown Rx mg-0.025 mg tablet (Lomotil) days #40 tabs estradiol 2 mg tablet 2 mg PO QDAY #90 tabs 05/25/23 Unknown Rx naratriptan 2.5 mg tablet 2.5 mg PO ONCE 05/25/23 Unknown History topiramate 25 mg tablet (Topamax) 25 mg PO DAILY 05/25/23 Unknown History pantoprazole 40 mg tablet,delayed 40 mg PO BID #60 tabs 11/13/23 Unknown Rx release (Protonix) dicyclomine 20 mg tablet 20 mg PO TID #45 TABLETS 02/09/24 Unknown Rx ustekinumab 90 mg/mL subcutaneous 90 mg subcut Q8W #1 mL 02/12/24 Unknown Rx syringe (Stelara) imipramine HCl 25 mg tablet 25 mg PO DAILY #30 TABLETS 03/04/24 Unknown Rx oxycodone 5 mg tablet 5 mg PO Q6H PRN pain 3 days #12 03/19/24 Unknown Rx tabs Allergy/AdvReac Type Severity Reaction Status Date / Time etodolac (From Lodine) Allergy Mild Itching Verified 03/19/24 18:59 adalimumab (From Humira) Allergy Hives Verified 03/19/24 18:59 influenza virus vaccine tv AdvReac Fainting Verified 03/19/24 18:59 splt 2012- (4 yr,up) (From Fluvirin) Surgical History H/O bilateral salpingo-oophorectomy H/O exploratory laparotomy History of appendectomy History of carpal tunnel surgery of right wrist History of colonoscopy History of esophagogastroduodenoscopy (EGD) History of hysteroscopy History of knee surgery History of LAVH History of oral surgery History of tonsillectomy and adenoidectomy Hx of eye surgery Hx of thyroidectomy Social History Smoking Status: Current every day smoker tobacco type: cigarettes alcohol intake: never substance use type: does not use caffeine: Yes what type of physical activity do you participate in: none seatbelt use: always do you feel safe at home: Yes additional social history: [employer]- [employer] Patient works at [employer] EXAM Physical Exam Const Vital Signs: 03/19/24 18:59 03/19/24 20:58 03/19/24 22:00 Temperature 97.2 F L Temperature Source Temporal Pulse Rate 93 95 67 Respiratory Rate 18 16 18 Blood Pressure 106/80 144/96 H 111/64 Blood Pressure Mean 88 112 79 Pulse Ox 100 97 98 Oxygen Delivery Method Room Air Room Air Room Air MDM MDM MDM Narrative Medical decision making narrative: HISTORY OF PRESENT ILLNESS: 38-year-old female presents with abdominal pain. She states she is a history of Crohn's disease. She further states she developed lower abdominal cramping with nausea vomiting diarrhea. Denies chest pain, shortness of breath. Denies cough fever chills. REVIEW OF SYSTEMS: Pertinent positives: Abdominal pain, nausea vomiting diarrhea Pertinent negatives: Fever, chest pain PHYSICAL EXAM: Nursing triage notes reviewed, Vital signs reviewed Constitutional: please see [facility] HENT: MMM Eyes: Pupils equal round and reactive to light, Extraocular muscles intact Neck: No stridor, no JVD, full neck ROM Lungs: Clear to auscultation, No wheezing or rales. No increased work of breathing, no conversational dyspnea, no accessory muscle use, no nasal flaring. No respiratory distress noted Heart: Regular rate and rhythm, No murmurs, No rubs and No gallops, 2+ distal pulses (radial, femoral, posterior tibial) in all extremities Abdomen: Soft, there is no tenderness, rigidity, rebound or guarding, no obvious peritoneal signs, no palpable pulsatile abdominal masses, no auscultated abdominal bruit : No CVAT Extremities: No edema Neuro: No focal neurological deficits, cranial nerves II through XII intact, 5/5 strength in all extremities. Intact sensation to light touch in all extremities, 2+ reflexes bilateral patella tendons. Normal gait. No ataxia. Skin: No rash or lesions noted MEDICAL DECISION MAKING: Chief Complaint: Abdominal pain External records reviewed: Imaging reviewed: CT scan abdomen pelvis from February 2023 shows no acute findings Factors affecting care: Crohn's disease, rheumatoid arthritis, endometriosis History obtained from others: Patient's family Consults: none [facility] Narrative: Patient was initially hemodynamically stable, afebrile and nontoxic-appearing. Abdomen with diffuse tenderness. No peritoneal signs. I considered the following differential diagnosis: Crohn's flare, fissure, abscess, small bowel obstruction, perforation ALL IMAGES (IF OBTAINED) HAVE BEEN PERSONALLY REVIEWED AND INTERPRETED BY MYSELF. CBC, BMP, LFTs, urine orders placed in triage CBC without leukocytosis, severe anemia, no thrombocytopenia. CMP without evidence of acute kidney injury, significant electrolyte abnormality, anion gap, no evidence hepatobiliary pathology. Urine test is negative After evaluating the patient I added lipase, urinalysis, CT scan abdomen pelvis, gave morphine Zofran and ketorolac for symptomatic control. Lipase is wnl indicating no pancreatic inflammation. Urinalysis shows no evidence of urinary inflammation suggestive of UTI CT scan abdomen pelvis showed no evidence of Acute surgical intra-abdominal pathology. Per radiologist incidental finding of a left lower lung opacity which could be concerning for infection versus cancer. Given patient is to have a fever, cough and shortness of breath hypoxia I do have a low suspicion for pneumonia. Instructed patient follow-up with her PCP for outpatient imaging to determine if she has any evidence of mass or cancer. Given patient significant pain she was discharged with instruction to take Tylenol, ibuprofen for basal pain control and oxycodone for breakthrough pain. Discussed incidental finding with the patient. Patient expressed understanding and promised to follow-up for further imaging. The patient and/or family, caregivers express understanding. The patient and/or family, caregivers agrees with the plan. Shared decision making: I will have a discussion with the patient and or visitors regarding risk/benefits of further testing or admission. They will be made aware of of the risk/benefits inherent in this decision they will be given the opportunity to voice understanding. Total critical care time today provided was at least 0 minutes. This excludes separately billable procedures. Critical care time (if documented) is secondary to the patient having high probability of clinically significant/life threatening deterioration in the patient's condition which required my urgent intervention. Impression: 1. Abdominal pain 2. History of Crohn's disease Dispo: Discharge home This note was generated with [employer] dictation software. It may contain incorrect words, spelling, and punctuation that were not noted in review of the chart prior to signing. Lab Data Labs: Laboratory Results - last 24 hr 03/19/24 03/19/24 03/19/24 19:25 20:49 21:19 WBC 5.6 RBC 4.82 Hgb 14.5 Hct 42.5 MCV 88.2 MCH 30.1 MCHC 34.1 RDW Std Deviation 40.1 RDW Coeff of Sy 12.4 Plt Count 220 MPV 9.3 Immature Gran % (Auto) 0.200 Neut % (Auto) 53.2 Lymph % (Auto) 30.5 [place] % (Auto) 12.5 H Eos % (Auto) 2.5 Baso % (Auto) 1.1 H Absolute Neuts (auto) 3.0 Absolute Lymphs (auto) 1.71 Nucleated RBC % 0 Sodium 139 Potassium 3.9 Chloride 105 Carbon Dioxide 26.0 Anion Gap 8 BUN 14 Creatinine 0.62 Estim Creat Clear Calc 126.74 Est GFR (MDRD) Af Amer 141 Est GFR (MDRD) Non-Af 116 BUN/Creatinine Ratio 22.8 H Glucose 98 Calcium 9.3 Total Bilirubin 0.20 AST 21 ALT 30 Alkaline Phosphatase 115 Total Protein 7.7 Albumin 3.9 Globulin 3.8 Albumin/Globulin Ratio 1.0 Lipase 27 Serum , Qual NEGATIVE Urine Color Yellow Urine Clarity Clear Urine pH 7.0 Ur Specific [place] 1.010 Urine Protein Negative Urine Glucose (UA) Normal Urine Ketones Negative Urine Occult Blood 10 H Urine Nitrite Negative Urine Bilirubin Negative Urine Urobilinogen Normal Ur Leukocyte Esterase Negative Urine RBC 0-5 SEEN Urine WBC 0 SEEN Ur Squamous Epith Cells 0-5 SEEN Urine Bacteria 0 SEEN Urine Mucus 0 SEEN Radiography Diagnostic Testing: Clinical Impression(s) from Imaging Studies Abdomen/Pelvis CT 03/19/24 21:20 IMPRESSION: No acute abnormalities in the abdomen or pelvis. Partially imaged opacity in the left lower lobe. Cannot rule out malignancy. Recommend dedicated chest CT with contrast. Electronically Signed: Rufus Sultana MD at 23:25 EDT Reading Location ID and State: [facility] / [place] Tel , Service support , Discharge Plan Triage Chief Complaint: Abd Pain ED Provider: Carmelo Young Dx/Rx/DC Orders Clinical Impression: Crohn disease Instructions: ED Crohn's Disease, ED Pulmonary Nodule, Solitary Prescriptions: New oxycodone 5 mg tablet 5 mg PO Q6H PRN (Reason: pain) 3 Days Qty: 12 0RF No Action topiramate [Topamax] 25 mg tablet 25 mg PO DAILY naratriptan 2.5 mg tablet 2.5 mg PO ONCE estradiol 2 mg tablet 2 mg PO QDAY Qty: 90 4RF leucovorin calcium 15 mg tablet 15 mg PO WE citalopram 10 MG tablet 20 mg PO DAILY levothyroxine 125 MCG tablet 125 mcg PO DAILY ferrous gluconate 325 MG tablet 325 mg PO DAILY loratadine 10 mg Capsule 10 mg PO DAILY methotrexate sodium 5 mg Tablet 15 mg PO TU folic acid 1 mg Tablet 2 mg PO DAILY prednisone 10 mg tablet 10 mg PO DAILY PRN (Reason: flare up) oxycodone-acetaminophen [oxycodone-acetaminophen] 5-325 mg tablet 1 tab PO Q6H PRN PRN (Reason: Pain) 3 Days Qty: 10 0RF diphenoxylate-atropine [Lomotil] 2.5-0.025 mg tablet 2 tab PO 4X/DAY PRN PRN (Reason: diarrhea) 5 Days Qty: 40 0RF prochlorperazine maleate 5 mg tablet 5 mg PO BID PRN (Reason: nausea and vomiting) Qty: 30 1RF pantoprazole [Protonix] 40 mg tablet,delayed release (DR/EC) 40 mg PO BID Qty: 60 0RF dicyclomine 20 mg tablet 20 mg PO TID Qty: 45 5RF Stelara 90 mg/mL syringe 90 mg subcut Q8W Qty: 1 4RF imipramine HCl 25 mg tablet 25 mg PO DAILY Qty: 30 3RF Primary Care Provider: Debra Roland Referrals: Harrison Abbott DO [Med Staff - Active Staff] - Debra Roland [employer] [Primary Care Provider] - Activity Restrictions/Additional Instructions: Thank you for trusting us with your care today! Please take Tylenol (2 pills, 650 mg), ibuprofen (2 pills, 400 mg) every 6 hours as needed for pain and fever control. Please take oxycodone if the above pain regiment does not control your pain Please return to the emergency department if your symptoms change or worsen. Please follow with your primary care physician and/or Gastroenterology for further outpatient evaluation and management. Please follow-up with your primary care physician to obtain additional images of your chest. On your CT scan abdomen pelvis there is incidental finding of a opacity in the left lung field. This may be associated with infection or cancer. I do not suspect his infection is due to have a fever or signs of an elevated white blood cell count to suggest a severe infection. In addition to this he denied complaint of cough or fever or chills. You will need a CT scan or x-ray as an outpatient to further evaluate this finding. Print Language: Thai Disposition Disposition: Home, Self Care
[2024-03-19 20:53] LABS: Bacteria 0 SEEN /hpf (None Seen); Mucous, Urine 0 SEEN /hpf (<or=2+); White Blood Cells 0 SEEN /hpf (0-5)
[2024-03-19 20:58] VITALS: BP 144/96; PULSE 95; RESP 16; O2SAT 97
[2024-03-19 20:59] LABS: Color, Urine Yellow (Yellow); Glucose, Dipstick Normal (Normal); Ketone-Dipstick Negative (Negative); Leukocyte Esterase-Dipstick Negative /ul (Negative); Nitrite-Dipstick Negative (Negative); Occult Blood-Urine 10 /ul (Negative); Protein-Dipstick Negative (Negative); Urine Bilirubin Dipstick Negative (Negative); Urine Clarity Clear (Clear); Urine Urobilinogen Normal (Normal)
[2024-03-19 21:08] LABS: Red Blood Cells-Urine 0-5 SEEN /hpf (0-5); Squamous Epithelial Cells - UA 0-5 SEEN /hpf (5-10)
--- NOTE | 2024-03-19 21:20 | CT_ITS ---
INDICATION: abdominal pain EXAMINATION: CT Abdomen And Pelvis W/ Contrast Injection TECHNIQUE: Helically acquired images were obtained of the abdomen and pelvis after IV contrast. A radiation dose optimization technique was used for this scan. IV Contrast dosage and agent: IV 100mL Isovue-370 Oral contrast: None. COMPARISON: None. FINDINGS: Visualized lung bases: Partially visualized opacity in the left lower lobe. Liver: Unremarkable Gallbladder: Unremarkable Spleen: Unremarkable Pancreas: Unremarkable Adrenal Glands: Unremarkable Kidneys: Unremarkable Vasculature: Unremarkable GI Tract: Unremarkable Lymphadenopathy: None Peritoneum: No ascites. Bladder: Unremarkable Reproductive organs: Status post hysterectomy. Bones/Soft tissues: No suspicious osseous or soft tissue lesions CT/Abdomen/Pelvis W IV Cont ONLY IMPRESSION: No acute abnormalities in the abdomen or pelvis. Partially imaged opacity in the left lower lobe. Cannot rule out malignancy. Recommend dedicated chest CT with contrast. Electronically Signed: Rufus Sultana MD at 23:25 EDT ,
[2024-03-19] MEDS: Morphine 4 MG/ML Syringe IV ×2 (21:30→23:50)
[2024-03-19] MEDS: Ondansetron 4 MG/2 ML Vial IV (21:30)
[2024-03-19] MEDS: Ketorolac 15 MG/ML Vial IV (21:30)
[2024-03-19 21:41] LABS: Lipase 27 U/L (13-75)
[2024-03-19 22:00] VITALS: BP 111/64; PULSE 67; RESP 18; O2SAT 98
[2024-03-20] VITALS: BP 132/62; PULSE 78; RESP 16; TEMP 36.9; O2SAT 97
== END 2024-03-20 00:05 | disposition home or self-care (01) ==
PROVIDERS: Emergency Provider Emergency Medicine; PCP Nurse Practitioner Family; Visit Provider Emergency Medicine
DX: R10.9 Unspecified abdominal pain (principal); K50.90 Crohn's disease, unspecified, without complications; F17.210 Nicotine dependence, cigarettes, uncomplicated
CPT/HCPCS: 74177; 80053; 81001; 83690; 84703; 85025; 96374; 96375; 96376; 99283; Q9967; A4216; J2405

== ENCOUNTER → 2024-04-02 | Outpatient (CLI) | payer BC, SELFPAY ==
[2024-04-02 13:59] LABS: Absolute Lymphocyte Count 2.34 X10^3/uL (0.83-4.51); Absolute Neutrophil Count 5.2 X10^3/uL (2.0-7.7); Basophil# 0.06 X10^3/uL; Basophil% 0.7 % (0-1); Eosinophil# 0.18 X10^3/uL; Eosinophils% 2.2 % (0-5); Hematocrit 43.2 % (37-47); Hemoglobin 14.5 g/dL (12.0-15.0); Lymphocyte # 2.34 X10^3/ul (0.83-4.51); Lymphocyte % 28.1 % (19-41); Mean Corp Hgb Conc 33.6 g/dL (32-36); Mean Corpuscular Volume 89.4 fL (81-99); Mean Platelet Vol. 9.3 fl (6.2-12.0); Monocyte# 0.55 X10^3/uL; Monocyte% 6.6 % (0-10); NRBC Flagged by Analyzer 0 % (0-5); Neutrophil # 5.18 X10^3/uL (2.7-7.7); Neutrophil % 62.2 % (47-70); Platelet Count 266 K/mm3 (150-450); RBC Distribution Width CV 12.3 % (11.6-14.6); RBC Distribution Width SD 40.7 fl (35.1-43.9); Red Blood Count 4.83 M/mm3 (4.2-5.4); White Blood Count 8.3 K/mm3 (4.4-11.0)
[2024-04-02 14:18] LABS: Erythrocyte Sedimentation Rate 2 mm/hr (0-30)
[2024-04-02 14:39] LABS: ALB/GLOB Ratio 1.1 RATIO (0.9-2.4); AST(SGOT) 21 U/L (15-37); Alanine Aminotransfer ALT/SGPT 30 U/L (13-56); Albumin, Serum 4.1 g/dL (3.2-5.0); Alkaline Phosphatase 96 U/L (45-117); Anion Gap 7 (5-15); BUN 8 mg/dL (7-18); BUN/Creat Ratio 11.6 RATIO (10-20); CRP < 2.90 mg/L (0.0-3.0); Calcium,Total 9.9 mg/dL (8.5-10.1); Chloride 106 mmol/L (98-107); Creatinine, Serum 0.69 mg/dL (0.55-1.02); EST Glomerular Filtration Rate 102 mL/min (>60); Est Glom Filt Rate - Afr Amer 124 mL/min (>60); Globulin 3.6 g/dL (2.2-4.2); Glucose 90 mg/dL (74-106); Protein, Total 7.7 g/dL (6.4-8.2); Sodium Level 141 mmol/L (136-145)
== END | disposition home or self-care (01) ==
PROVIDERS: PCP Nurse Practitioner Family; Referring Provider Student in an Organized Health Care Education/Training Program; Visit Provider Student in an Organized Health Care Education/Training Program
DX: K50.90 Crohn's disease, unspecified, without complications (principal)
CPT/HCPCS: 36415; 80053; 85025; 85652; 86140

== ENCOUNTER → 2024-04-04 | Outpatient (CLI) | payer BC, SELFPAY ==
[2024-04-07 00:06] LABS: Calprotectin, Stool 120 ug/g (0-120)
[2024-04-09 01:06] LABS: Pancreatic Elastase, Fecal > 800 (>200)
== END | disposition home or self-care (01) ==
LOC: LAB 09:50
PROVIDERS: PCP Nurse Practitioner Family; Referring Provider Student in an Organized Health Care Education/Training Program; Visit Provider Student in an Organized Health Care Education/Training Program
DX: K50.90 Crohn's disease, unspecified, without complications (principal); R19.7 Diarrhea, unspecified
CPT/HCPCS: 82653; 83630; 83993; 87177; 87209; 87329; 87506

== ENCOUNTER → 2024-04-15 | Outpatient (CLI) | payer BC, SELFPAY ==
--- NOTE | 2024-04-15 07:55 | NM_ITS ---
CLINICAL: 38-year-old female with history of abdominal pain. RADIONUCLIDE HEPATOBILIARY SCINTIGRAPHY COMPARISON: CT of the abdomen-pelvis report 03/19/2024 FINDINGS: Following the intravenous administration of 5.8 mCi of 99m Tc Mebrofenin, hepatobiliary images reveal: 1. Relatively prompt and homogeneous radiopharmaceutical concentration is noted by a normal sized liver. No parenchymal defects are identified. 2. Gallbladder activity is identified at 30 minutes post radiopharmaceutical administration. 3. Small intestinal tract is not visualized during 60 minutes of pre-CCK sequential imaging. Small bowel activity is identified following the administration of cholecystokinin. 4. Washout of the radiopharmaceutical by the hepatic parenchyma appears qualitatively normal. Cholecystokinin (0.02 ug/kg) was administered intravenously over a 30-minute period. The post CCK gallbladder ejection fraction calculated at 20 minutes following Cholecystokinin administration was noted to be 19.0 % (normal greater than 35%). NM/Hepatobilliary Img w/Pharm Int IMPRESSION: 1. ABNORMAL 99m Tc Mebrofenin hepatobiliary imaging examination with Cholecystokinin. A. A gallbladder ejection fraction calculated to be less than 35% following the administration of Cholecystokinin is consistent with the presence of functional hepatobiliary disease (gallbladder and/or sphincter of Oddi dyskinesia) and/or organic hepatobiliary disease (chronic acalculous cholecystitis and/or cystic duct syndrome) in patients with intermediate to high pretest likelihoods of hepatobiliary illness. (Sheng Yip et al, Journal of Nuclear Medicine 32:1695, 1991). Electronically Signed: Seth Peterson DO at 9:56 EDT ,
== END | disposition home or self-care (01) ==
LOC: NM 07:51
PROVIDERS: PCP Nurse Practitioner Family; Referring Provider Student in an Organized Health Care Education/Training Program; Visit Provider Student in an Organized Health Care Education/Training Program
DX: K50.90 Crohn's disease, unspecified, without complications (principal)
CPT/HCPCS: 78227; A9537; J2805

== ENCOUNTER 2024-04-19 12:12 | Emergency (ER) | payer BC, SELFPAY ==
[2024-04-19 12:13] VITALS: BP 106/78; PULSE 93; RESP 16; TEMP 36.6; O2SAT 98; BMI 27.8
[2024-04-19 16:00] VITALS: BP 128/70; PULSE 79; RESP 24; O2SAT 100
[2024-04-19 16:53] LABS: Absolute Lymphocyte Count 2.58 X10^3/uL (0.83-4.51); Basophil# 0.08 X10^3/uL; Basophil% 1.1 % (0-1); Eosinophil# 0.25 X10^3/uL; Eosinophils% 3.4 % (0-5); Hemoglobin 14.6 g/dL (12.0-15.0); Lymphocyte # 2.58 X10^3/ul (0.83-4.51); Lymphocyte % 35.1 % (19-41); Mean Corp Hgb Conc 33.2 g/dL (32-36); Mean Corpuscular Volume 90.3 fL (81-99); Mean Platelet Vol. 9.3 fl (6.2-12.0); Monocyte# 0.43 X10^3/uL; Monocyte% 5.8 % (0-10); NRBC Flagged by Analyzer 0 % (0-5); Neutrophil # 4.01 X10^3/uL (2.7-7.7); Neutrophil % 54.5 % (47-70); Platelet Count 249 K/mm3 (150-450); RBC Distribution Width CV 12.4 % (11.6-14.6); RBC Distribution Width SD 40.5 fl (35.1-43.9); Red Blood Count 4.87 M/mm3 (4.2-5.4); White Blood Count 7.4 K/mm3 (4.4-11.0)
[2024-04-19 16:55] LABS: Internal QC Validated? YES +Cl - CLEAR BKGD; Pregnancy, Serum, hCG Quali. NEGATIVE Negative; Record Kit Lot#, Serum Preg. 772476
[2024-04-19 16:59] LABS: ALB/GLOB Ratio 1.2 RATIO (0.9-2.4); AST(SGOT) 16 U/L (15-37); Alanine Aminotransfer ALT/SGPT 24 U/L (13-56); Albumin, Serum 4.2 g/dL (3.2-5.0); Alkaline Phosphatase 108 U/L (45-117); Anion Gap 4 (5-15); BUN 9 mg/dL (7-18); BUN/Creat Ratio 11.1 RATIO (10-20); Calcium,Total 9.9 mg/dL (8.5-10.1); Chloride 106 mmol/L (98-107); Creatinine, Serum 0.81 mg/dL (0.55-1.02); EST Glomerular Filtration Rate 84 mL/min (>60); Est Glom Filt Rate - Afr Amer 102 mL/min (>60); Estimated Creatinine Clearance 97.82 ml/min; Globulin 3.5 g/dL (2.2-4.2); Glucose 128 mg/dL (74-106); Potassium 3.9 mmol/L (3.5-5.1); Protein, Total 7.7 g/dL (6.4-8.2); Sodium Level 139 mmol/L (136-145)
--- NOTE | 2024-04-19 17:18 | ED.VIS.GI ---
HPI HPI - GI History of Present Illness Chief Complaint: Abd Pain Informant: patient Narrative Narrative: 38-year-old female with a history of Crohn's. She is been having right upper quadrant pain for the past month or more, significant worsening after meals, it radiates into her right mid back. She had gallbladder workup showing a low ejection fraction of her gallbladder, following with surgery Dr. Ackerman to want to take her gallbladder out electively but not until after she has been cleared by GI doctor friend who is also seeing her and concerned that she may have Crohn's complications such as intra-abdominal fistula. He sent her for a CT today, it was for some reason denied by insurance and the patient is in a lot of pain so she was advised to come to the ER for the study. [facility] Medical History Cholelithiasis Dietary restriction Acute frontal sinusitis, unspecified Hx of Crohn's disease Wears glasses Wears dentures Depression Anxiety History of steroid therapy Thyroid disease Low iron History of hiatal hernia Heartburn Smoker FH: migraine headache Anemia Endometriosis Colon polyps Hypothyroidism Graves disease Home Medications ?Medication ?Instructions ?Recorded ?Last Taken ?Type citalopram 10 mg tablet 20 mg PO DAILY anti depressant 01/18/18 03/14/23 History levothyroxine 125 mcg tablet 125 mcg PO DAILY thyroid 01/18/18 03/14/23 History ferrous gluconate 324 mg (37.5 mg 325 mg PO DAILY supplement 03/14/18 Unknown History iron) tablet loratadine 10 mg capsule 10 mg PO DAILY 06/29/22 Unknown History prochlorperazine maleate 5 mg 5 mg PO BID PRN nausea and 01/17/23 Unknown Rx tablet vomiting #30 tabs diphenoxylate-atropine 2.5 2 tab PO 4X/DAY PRN PRN diarrhea 5 03/23/23 Unknown Rx mg-0.025 mg tablet (Lomotil) days #40 tabs estradiol 2 mg tablet 2 mg PO QDAY #90 tabs 05/25/23 Unknown Rx pantoprazole 40 mg tablet,delayed 40 mg PO BID #60 tabs 11/13/23 Unknown Rx release (Protonix) dicyclomine 20 mg tablet 20 mg PO TID #45 TABLETS 02/09/24 Unknown Rx ustekinumab 90 mg/mL subcutaneous 90 mg subcut Q8W #1 mL 02/12/24 Unknown Rx syringe (Stelara) imipramine HCl 25 mg tablet 25 mg PO DAILY #30 TABLETS 03/04/24 Unknown Rx oxycodone 5 mg tablet 5 mg PO Q6H PRN pain 3 days #12 03/19/24 Unknown Rx tabs alprazolam 1 mg tablet 1 mg PO TID PRN anxiety 3 weeks 03/20/24 Unknown Rx #21 tabs Allergy/AdvReac Type Severity Reaction Status Date / Time etodolac (From Lodine) Allergy Mild Itching Verified 04/19/24 12:15 adalimumab (From Humira) Allergy Hives Verified 04/19/24 12:15 influenza virus vaccine tv AdvReac Fainting Verified 04/19/24 12:15 splt 2012- (4 yr,up) (From Fluvirin) Surgical History Hx of eye surgery History of esophagogastroduodenoscopy (EGD) History of tonsillectomy and adenoidectomy History of oral surgery History of hysteroscopy History of carpal tunnel surgery of right wrist History of knee surgery History of colonoscopy H/O bilateral salpingo-oophorectomy History of LAVH H/O exploratory laparotomy History of appendectomy Hx of thyroidectomy Social History Smoking Status: Current every day smoker tobacco type: cigarettes alcohol intake: never substance use type: does not use caffeine: Yes what type of physical activity do you participate in: none seatbelt use: always do you feel safe at home: Yes additional social history: [employer] Patient works at [employer] ROS ROS ED Constitutional Constitutional ED: Denies chills or fever(s) Eyes Eyes: Denies change in vision or diplopia ENT ENT ED: Denies rhinorrhea or sore throat Cardiovascular Cardiovascular: Denies chest pain or palpitations Respiratory/Chest Respiratory/Chest: Denies cough or dyspnea Gastrointestinal Gastrointestinal: Reports abdominal pain and nausea; Denies diarrhea or vomiting Genitourinary Genitourinary ED: Reports other Details: Recent perianal and perineal fissures, improved since treatment ; Denies dysuria or hematuria Musculoskeletal Musculoskeletal: Reports back pain; Denies neck pain Integumentary Denies abscess or rash Neurologic Neurologic: Denies headache(s), paresthesias or weakness Psychiatric Psychiatric: Denies anxiety or suicidal thoughts EXAM Physical Exam Const Vital Signs: 04/19/24 12:13 04/19/24 16:00 04/19/24 18:00 Temperature 98 F Temperature Source Temporal Pulse Rate 93 79 71 Respiratory Rate 16 24 H 16 Blood Pressure 106/78 128/70 H 115/80 Blood Pressure Mean 87 89 91 Pulse Ox 98 100 100 Oxygen Delivery Method Room Air Room Air Room Air Positive well nourished and well developed General Appearance ED: well developed and NAD HEENT Reports moist mucous membranes normocephalic and atraumatic Eyes PERRL and EOMs intact bilaterally General Eye ED: Negative for scleral icterus Neck full ROM and supple Resp normal respiratory effort and clear to auscultation bilaterally Cardio regular rate, regular rhythm and no murmurs GI non-distended GI Narrative: Tender right upper quadrant otherwise benign abdomen. No guarding or rebound. Auscultation: normoactive bowel sounds Palpation: soft Back/Spine no CVA tenderness General Back: other FROM Extremity normal to inspection General Extremety ED: Negative for edema, pulses abnormal or tenderness General Extremity: Negative for edema or pulses abnormal Neuro oriented x3, CN's II-XII intact bilaterally and no sensory deficits noted Sensorium / Orientation: awake and alert Motor Exam: strength 5/5 throughout Psych mental status grossly normal and thought process normal Skin no rashes or lesions noted and no wounds General Skin Exam: Negative for jaundice MDM MDM MDM Narrative Medical decision making narrative: I spoke with Dr. Abbott to confirm that he prefers to have the CT done with oral and IV contrast, so that we order the proper study. In the meantime labs obtained, they are all normal including liver enzymes and lipase, negative ruling out ectopic, and her symptoms were treated as well as given her IV fluids. Patient is doing better, I reviewed the CT images and report which I agree with, it is oral and IV contrasted scan that is completely negative for anything acute. Given this, Dr. Abbott states she is medically cleared for surgery with Dr. Wallace when she can follow-up with him for that. She is asking for something for pain before she is discharged. Her vital signs are normal her labs are normal including white blood count. Lab Data Attestation: I reviewed the patient's lab results. Labs: Laboratory Results - last 24 hr 04/19/24 04/19/24 16:35 19:15 WBC 7.4 RBC 4.87 Hgb 14.6 Hct 44.0 MCV 90.3 MCH 30.0 MCHC 33.2 RDW Std Deviation 40.5 RDW Coeff of Sy 12.4 Plt Count 249 MPV 9.3 Immature Gran % (Auto) 0.100 Neut % (Auto) 54.5 Lymph % (Auto) 35.1 [place] % (Auto) 5.8 Eos % (Auto) 3.4 Baso % (Auto) 1.1 H Absolute Neuts (auto) 4.0 Absolute Lymphs (auto) 2.58 Nucleated RBC % 0 Sodium 139 Potassium 3.9 Chloride 106 Carbon Dioxide 29.0 Anion Gap 4 L BUN 9 Creatinine 0.81 Estim Creat Clear Calc 97.82 Est GFR (MDRD) Af Amer 102 Est GFR (MDRD) Non-Af 84 BUN/Creatinine Ratio 11.1 Glucose 128 H Calcium 9.9 Total Bilirubin 0.20 AST 16 ALT 24 Alkaline Phosphatase 108 Total Protein 7.7 Albumin 4.2 Globulin 3.5 Albumin/Globulin Ratio 1.2 Lipase 23 Serum , Qual NEGATIVE Urine Color Yellow Urine Clarity Clear Urine pH 7.0 Ur Specific [place] 1.010 Urine Protein Negative Urine Glucose (UA) Normal Urine Ketones Negative Urine Occult Blood Negative Urine Nitrite Negative Urine Bilirubin Negative Urine Urobilinogen Normal Ur Leukocyte Esterase Negative Urine RBC 0 SEEN Urine WBC 0-5 SEEN Ur Squamous Epith Cells 0-5 SEEN Urine Bacteria 0 SEEN Urine Mucus 0 SEEN Radiography Diagnostic Testing: Clinical Impression(s) from Imaging Studies Abdomen/Pelvis CT 04/19/24 17:22 IMPRESSION: Negative CT of the abdomen and pelvis with intravenous contrast. Electronically Signed: Ellis Smith MD at 19:52 EDT , Management Discussion w/another healthcare provider: Instrument Shop Supervisor (GI friend) Discharge Plan Triage Chief Complaint: Abd Pain ED Provider: Kraig Chapman Dx/Rx/DC Orders Clinical Impression: Right upper quadrant abdominal pain Instructions: Abdominal Pain Prescriptions: No Action estradiol 2 mg tablet 2 mg PO QDAY Qty: 90 4RF citalopram 10 MG tablet 20 mg PO DAILY levothyroxine 125 MCG tablet 125 mcg PO DAILY ferrous gluconate 325 MG tablet 325 mg PO DAILY loratadine 10 mg Capsule 10 mg PO DAILY diphenoxylate-atropine [Lomotil] 2.5-0.025 mg tablet 2 tab PO 4X/DAY PRN PRN (Reason: diarrhea) 5 Days Qty: 40 0RF oxycodone 5 mg tablet 5 mg PO Q6H PRN (Reason: pain) 3 Days Qty: 12 0RF prochlorperazine maleate 5 mg tablet 5 mg PO BID PRN (Reason: nausea and vomiting) Qty: 30 1RF pantoprazole [Protonix] 40 mg tablet,delayed release (DR/EC) 40 mg PO BID Qty: 60 0RF dicyclomine 20 mg tablet 20 mg PO TID Qty: 45 5RF Stelara 90 mg/mL syringe 90 mg subcut Q8W Qty: 1 4RF imipramine HCl 25 mg tablet 25 mg PO DAILY Qty: 30 3RF alprazolam 1 mg tablet 1 mg PO TID PRN (Reason: anxiety) 21 Days Qty: 21 1RF Primary Care Provider: Debra Roland Referrals: Jose A Wallace MD [Med Staff - Active Staff] - As soon as possible Debra Roland, INSURANCE INVESTIGATOR-C [Primary Care Provider] - Print Language: Brazilian Disposition Disposition: Home, Self Care
--- NOTE | 2024-04-19 17:22 | CT_ITS ---
EXAM: CT ABDOMEN AND PELVIS WITH INTRAVENOUS CONTRAST CLINICAL INDICATION: RUQ pain, crohn''s, eval for fistula TECHNIQUE: Helically acquired images were obtained of the abdomen and pelvis with intravenous contrast. This CT exam was performed using one or more of the following dose reduction techniques: automated exposure control, adjustment of the mA and/or kV according to patient size, and/or use of iterative reconstruction technique. CONTRAST: Oral and amp; IV Gastrografin and amp; 75 mL Isovue-370 COMPARISON: 03/19/2024 FINDINGS: LOWER THORAX: Unremarkable. Lung bases are clear. No cardiomegaly. No significant pericardial effusion. ABDOMEN: LIVER: Unremarkable. Homogeneous. No focal mass. GALLBLADDER AND BILE DUCTS: Unremarkable. No calcified gallstones. No gallbladder distention or wall edema. No intra- or extrahepatic biliary ductal dilation. PANCREAS: Unremarkable. No focal cystic or solid mass. SPLEEN: Unremarkable. Normal size without focal cystic or solid mass. ADRENALS: Unremarkable. No nodules. KIDNEYS AND URETERS: Unremarkable. Normal renal size and position. No hydronephrosis. STOMACH AND BOWEL: Unremarkable. No stomach or bowel distention. No focal inflammatory change. PELVIS: APPENDIX: No evidence of acute appendicitis. BLADDER: Unremarkable. REPRODUCTIVE: Unremarkable as visualized. No mass. ABDOMEN and PELVIS: INTRAPERITONEAL SPACE: Unremarkable. No ascites or other fluid collection. No free air. BONES/JOINTS: Unremarkable. No suspicious lytic or blastic abnormality. SOFT TISSUES: Unremarkable. No discrete abdominal or pelvic wall hernia. VASCULATURE: Unremarkable. Abdominal aorta is non-dilated. LYMPH NODES: Unremarkable. No enlarged lymph nodes. CT/Abdomen/Pelvis WITH Contrast IMPRESSION: Negative CT of the abdomen and pelvis with intravenous contrast. Electronically Signed: Ellis Smith MD at 19:52 EDT ,
[2024-04-19] MEDS: Ondansetron 4 MG/2 ML Vial IV (17:26)
[2024-04-19] MEDS: Morphine 4 MG/ML Syringe IV ×2 (17:26→20:33)
[2024-04-19] MEDS: 0.9% Normal Saline (1000mL) 1,000 ML 999 ML IV (17:26)
[2024-04-19 17:30] LABS: Lipase 23 U/L (13-75)
[2024-04-19 18:00] VITALS: BP 115/80; PULSE 71; RESP 16; O2SAT 100
[2024-04-19 19:20] LABS: Bacteria 0 SEEN /hpf (None Seen); Mucous, Urine 0 SEEN /hpf (<or=2+); Red Blood Cells-Urine 0 SEEN /hpf (0-5)
[2024-04-19 19:30] LABS: Color, Urine Yellow (Yellow); Glucose, Dipstick Normal (Normal); Ketone-Dipstick Negative (Negative); Leukocyte Esterase-Dipstick Negative /ul (Negative); Nitrite-Dipstick Negative (Negative); Occult Blood-Urine Negative /ul (Negative); Protein-Dipstick Negative (Negative); Urine Bilirubin Dipstick Negative (Negative); Urine Clarity Clear (Clear); Urine Urobilinogen Normal (Normal)
[2024-04-19 19:44] LABS: Squamous Epithelial Cells - UA 0-5 SEEN /hpf (5-10); White Blood Cells 0-5 SEEN /hpf (0-5)
[2024-04-19 20:00] VITALS: BP 111/85; PULSE 57; RESP 16; TEMP 36.9; O2SAT 100
[2024-04-19 20:32] VITALS: BP 123/85; PULSE 60; RESP 16; O2SAT 100
== END 2024-04-19 21:12 | disposition home or self-care (01) ==
PROVIDERS: Emergency Provider Emergency Medicine; PCP Nurse Practitioner Family; Visit Provider Emergency Medicine
DX: R10.11 Right upper quadrant pain (principal); F17.210 Nicotine dependence, cigarettes, uncomplicated
CPT/HCPCS: 74177; 80053; 81001; 83690; 84703; 85025; 96361; 96374; 96375; 96376; 99283; J7030; Q9967; A4216; J2405

== ENCOUNTER → 2024-04-19 | Outpatient (CLI) | payer BC, SELFPAY ==
[2024-04-22 22:06] LABS: AFP, Tumor Marker < 1.8 ng/mL (0.0-6.4); Carbohydrate Ag 19-9 2261 5 U/mL (0-35); Carcinoembryonic Antigen 2139 2.1 ng/mL (0.0-4.7)
== END | disposition home or self-care (01) ==
LOC: LAB 14:57
PROVIDERS: PCP Nurse Practitioner Family; Referring Provider Student in an Organized Health Care Education/Training Program; Visit Provider Student in an Organized Health Care Education/Training Program
DX: K76.9 Liver disease, unspecified (principal)
CPT/HCPCS: 36415; 82105; 82378; 86301

== ENCOUNTER → 2024-05-23 | Outpatient (CLI) | payer BC, SELFPAY ==
[2024-05-23 10:06] LABS: Absolute Lymphocyte Count 1.97 X10^3/uL (0.83-4.51); Absolute Neutrophil Count 4.6 X10^3/uL (2.0-7.7); Basophil# 0.07 X10^3/uL; Basophil% 0.9 % (0-1); Eosinophil# 0.39 X10^3/uL; Eosinophils% 5.2 % (0-5); Hematocrit 43.7 % (37-47); Hemoglobin 14.7 g/dL (12.0-15.0); Lymphocyte # 1.97 X10^3/ul (0.83-4.51); Lymphocyte % 26.1 % (19-41); Mean Corp Hgb Conc 33.6 g/dL (32-36); Mean Corpuscular Hgb 30.4 pg (27.0-32.0); Mean Corpuscular Volume 90.3 fL (81-99); Mean Platelet Vol. 9.3 fl (6.2-12.0); Monocyte# 0.53 X10^3/uL; NRBC Flagged by Analyzer 0 % (0-5); Neutrophil # 4.57 X10^3/uL (2.7-7.7); Neutrophil % 60.4 % (47-70); Platelet Count 246 K/mm3 (150-450); RBC Distribution Width CV 12.3 % (11.6-14.6); RBC Distribution Width SD 40.3 fl (35.1-43.9); Red Blood Count 4.84 M/mm3 (4.2-5.4); White Blood Count 7.6 K/mm3 (4.4-11.0)
[2024-05-23 10:15] LABS: Erythrocyte Sedimentation Rate 6 mm/hr (0-30)
[2024-05-23 10:32] LABS: AST(SGOT) 17 U/L (15-37); Alanine Aminotransfer ALT/SGPT 31 U/L (13-56); Albumin, Serum 3.8 g/dL (3.2-5.0); Alkaline Phosphatase 109 U/L (45-117); Amylase 33 U/L (25-115); Anion Gap 4 (5-15); BUN 8 mg/dL (7-18); BUN/Creat Ratio 12.7 RATIO (10-20); CRP 4.49 mg/L (0.0-3.0); Calcium,Total 9.8 mg/dL (8.5-10.1); Chloride 105 mmol/L (98-107); Creatinine, Serum 0.63 mg/dL (0.55-1.02); EST Glomerular Filtration Rate 113 mL/min (>60); Est Glom Filt Rate - Afr Amer 136 mL/min (>60); Globulin 3.7 g/dL (2.2-4.2); Glucose 82 mg/dL (74-106); Lipase 19 U/L (13-75); Potassium 3.8 mmol/L (3.5-5.1); Protein, Total 7.5 g/dL (6.4-8.2); Sodium Level 137 mmol/L (136-145)
== END | disposition home or self-care (01) ==
LOC: LAB 09:44
PROVIDERS: PCP Nurse Practitioner Family; Referring Provider Internal Medicine Gastroenterology; Visit Provider Internal Medicine Gastroenterology
DX: K50.90 Crohn's disease, unspecified, without complications (principal)
CPT/HCPCS: 36415; 80053; 82150; 83690; 85025; 85652; 86140

== ENCOUNTER → 2024-05-24 | Outpatient (CLI) | payer BC, SELFPAY ==
[2024-05-28 16:10] LABS: Calprotectin, Stool 369 ug/g (0-120)
== END | disposition home or self-care (01) ==
LOC: LAB 22:39
PROVIDERS: PCP Nurse Practitioner Family
DX: R10.9 Unspecified abdominal pain (principal)
CPT/HCPCS: 82274; 83630; 83993

== ENCOUNTER → 2024-05-27 | Outpatient (CLI) | payer BC, SELFPAY ==
--- NOTE | 2024-05-27 09:49 | CT_ITS ---
STUDY: CT ABDOMEN AND PELVIS WITH CONTRAST REASON FOR EXAM: Female, 38 years old. Worsening abdominal pain following cholecystectomy. Diarrhea. Blood in the stool. RADIATION DOSAGE (If Supplied By Facility): CTDIvol = ( 10.92 ) mGy, DLP = ( 803.75 ) mGycm TECHNIQUE: Transaxial images were obtained from the dome of the diaphragm to the symphysis pubis with oral contrast. Oral and amp; IV Gastrografin and amp; 100mL Isovue-300 was administered. Sagittal and coronal images were reconstructed. Individualized dose optimization techniques were used for this CT. COMPARISON: Comparison is made with prior study dated April 19, 2024. FINDINGS: Stable minimal increased markings at the left lung base suggestive of atelectasis and/or scarring. The visualized portions of the heart are within normal limits. Normal liver. Questionable 6.2 mm hemangioma in the dome of the right lobe of the liver along the lateral aspect. There are surgical clips in the gallbladder fossa consistent with a prior cholecystectomy. Normal spleen. Normal pancreas. Normal bilateral adrenal glands. Normal right kidney. Normal left kidney. There is a small hiatal hernia. Normal small intestine. Prominence of the haustral pattern in the descending colon to the level of the hepatic flexure. Colitis should be ruled out. There is also evidence of sigmoid diverticulosis. There are surgical clips in the region of the appendix consistent with a prior appendectomy. Normal abdominal aorta. Normal inferior vena cava. Normal retroperitoneum. Normal urinary bladder. There is absence of the uterus consistent with a prior hysterectomy. Normal abdominal wall. Normal osseous structures. CT/Abdomen/Pelvis WITH Contrast IMPRESSION: Abnormal haustral pattern of the descending colon. Colitis should be ruled out. Sigmoid diverticulosis. Electronically Signed: Alonso Jennings MD at 12:19 EDT ,
== END | disposition home or self-care (01) ==
LOC: CT 09:48
PROVIDERS: PCP Nurse Practitioner Family
DX: K50.90 Crohn's disease, unspecified, without complications (principal)
CPT/HCPCS: 74177; Q9967

== ENCOUNTER 2024-09-04 15:51 | Emergency (ER) | payer BC, SELFPAY ==
[2024-09-04 15:52] VITALS: BP 130/85; PULSE 89; RESP 16; TEMP 36.7; O2SAT 100
[2024-09-04 15:55] VITALS: BMI 31.2
[2024-09-04 17:52] VITALS: BP 103/83; PULSE 72; RESP 16; O2SAT 97
--- NOTE | 2024-09-04 18:51 | CT_ITS ---
PROCEDURE: ABDOMEN/PELVIS W IV CONT ONLY REASON FOR EXAM: Abdominal pain. TECHNIQUE: Abdomen and pelvis CT with intravenous contrast. COMPARISON: 05/27/2024 CT. FINDINGS: Lung bases: Clear Liver: Unchanged hyperdense hepatic lesion which may represent a hemangioma. Gallbladder: Surgically absent gallbladder. Spleen: Unremarkable. Pancreas: Unremarkable. Adrenals: Unremarkable. Kidneys: Unremarkable. Bladder: Unremarkable. Reproductive Organs: Surgically absent uterus. Bowel: Loss of haustra markings and tubular appearance of the descending and sigmoid colon in keeping with ulcerative colitis. No surrounding inflammatory changes. Appendix: Normal. Lymph nodes: No suspicious lymph node enlargement. Vasculature: Major vascular structures are unremarkable. Peritoneum / Retroperitoneum: No ascites. No free air. Bones: Unremarkable. CT/Abdomen/Pelvis W IV Cont ONLY IMPRESSION: Loss of haustral markings and tubular appearance of the descending and sigmoid colon in keeping with ulcerative colitis. One or more dose reduction techniques were used (e.g., Automated exposure contr ol, adjustment of the mA and/or kV according to patient size, use of iterative reconstruction technique). Reading Location: [id number]
--- NOTE | 2024-09-04 18:54 | EX.ED.DYSGE1 ---
HPI History of Present Illness Chief Complaint: General Illness Informant: patient Onset/Context/Timing Onset: Today Context: Sudden Onset Timing: Continuous Quality: Weak, lightheaded Location: Generalized Worsened by: Movement, standing Relieved by: Nothing Narrative Narrative: Patient presents with lightheadedness and dizziness that began today. Patient recently had an injection of Stelara. Patient developed some redness at the injection site. Patient states she took some Benadryl which helped with the redness. Patient states that today she became dizzy and lightheaded. Patient states she feels weak all over. Patient states her dizziness feels like she is going to pass out. Patient states it is worse with standing and with movement. Patient admits to some pain in her chest. Patient denies any shortness of breath or cough. Patient denies any nausea or vomiting. Patient denies any fevers or chills. [facility] Medical History Cholelithiasis Dietary restriction Acute frontal sinusitis, unspecified Hx of Crohn's disease Wears glasses Wears dentures Depression Anxiety History of steroid therapy Thyroid disease Low iron History of hiatal hernia Heartburn Smoker FH: migraine headache Anemia Endometriosis Colon polyps Hypothyroidism Graves disease Home Medications ?Medication ?Instructions ?Recorded ?Last Taken ?Type citalopram 10 mg tablet 20 mg PO DAILY anti depressant 01/18/18 03/14/23 History levothyroxine 125 mcg tablet 125 mcg PO DAILY thyroid 01/18/18 09/04/24 History loratadine 10 mg capsule 10 mg PO DAILY 06/29/22 Unknown History diphenoxylate-atropine 2.5 2 tab PO 4X/DAY PRN PRN diarrhea 5 03/23/23 Unknown Rx mg-0.025 mg tablet (Lomotil) days #40 tabs ustekinumab 90 mg/mL subcutaneous 90 mg subcut Q8W #1 mL 02/12/24 09/03/24 Rx syringe (Stelara) dicyclomine 20 mg tablet 20 mg PO TID PRN abdominal pain 06/07/24 Unknown History estradiol 2 mg tablet 2 mg PO DAILY #90 TABLETS 06/13/24 Unknown Rx imipramine HCl 25 mg tablet 25 mg PO DAILY #30 TABLETS 07/01/24 Unknown Rx budesonide 9 mg tablet,delayed and 9 mg PO QAM #30 ea 07/12/24 Unknown Rx extended release Allergy/AdvReac Type Severity Reaction Status Date / Time etodolac (From Lodine) Allergy Mild Itching Verified 09/04/24 17:38 adalimumab (From Humira) Allergy Hives Verified 09/04/24 17:38 influenza virus vaccine tv AdvReac Fainting Verified 09/04/24 17:38 splt 2013-14 (4 yr,up) (From Fluvirin) Surgical History Hx of cholecystectomy Hx of eye surgery History of esophagogastroduodenoscopy (EGD) History of tonsillectomy and adenoidectomy History of oral surgery History of hysteroscopy History of carpal tunnel surgery of right wrist History of knee surgery History of colonoscopy H/O bilateral salpingo-oophorectomy History of LAVH H/O exploratory laparotomy History of appendectomy Hx of thyroidectomy Social History number of children: 4 current occupational status: employed 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 Smoking Status: Current every day smoker tobacco type: cigarettes alcohol intake: never substance use type: does not use caffeine: Yes what type of physical activity do you participate in: none seatbelt use: always do you feel safe at home: Yes additional social history: Jelena Oconnell Patient is self employed ROS ROS ED Constitutional Constitutional ED: Denies chills or fever(s) Eyes Eyes: Denies blurry vision or change in vision ENT ENT ED: Denies rhinorrhea or sore throat Cardiovascular Cardiovascular: Reports chest pain; Denies palpitations Respiratory/Chest Respiratory/Chest: Denies cough or dyspnea Gastrointestinal Gastrointestinal: Denies nausea or vomiting Genitourinary Genitourinary ED: Denies dysuria or hematuria Musculoskeletal Musculoskeletal: Reports back pain, myalgias and neck pain Integumentary Denies abscess or rash Neurologic Neurologic: Denies headache(s) or weakness Allergic/Immunologic Allergic/Immunologic ED: Denies mouth swelling or urticaria EXAM Physical Exam Const Vital Signs: 09/04/24 15:52 09/04/24 17:41 09/04/24 17:52 Temperature 98.1 F Temperature Source Oral Pulse Rate 89 72 Pulse Rate [Lying] Pulse Rate [Sitting (for 1 minute prior to obtaining)] Pulse Rate [Standing (for 1 minute prior to obtaining)] Respiratory Rate 16 16 Respiratory Effort Normal Respiratory Pattern Normal Blood Pressure 130/85 H 103/83 H Blood Pressure [Lying] Blood Pressure [Sitting (for 1 minute prior to obtaining)] Blood Pressure [Standing (for 1 minute prior to obtaining)] Blood Pressure Mean 100 89 Blood Pressure Mean [Lying] Blood Pressure Mean [Sitting (for 1 minute prior to obtaining)] Blood Pressure Mean [Standing (for 1 minute prior to obtaining)] Pulse Ox 100 97 Oxygen Delivery Method Room Air Room Air 09/04/24 19:00 09/04/24 20:33 09/04/24 21:00 Temperature Temperature Source Pulse Rate 75 72 Pulse Rate [Lying] 79 Pulse Rate [Sitting (for 1 minute prior to obtaining)] 78 Pulse Rate [Standing (for 1 minute prior to obtaining)] 92 Respiratory Rate 16 16 Respiratory Effort Respiratory Pattern Blood Pressure 105/74 102/70 Blood Pressure [Lying] 120/83 H Blood Pressure [Sitting (for 1 minute prior to obtaining)] 118/90 H Blood Pressure [Standing (for 1 minute prior to obtaining)] 113/89 H Blood Pressure Mean 84 80 Blood Pressure Mean [Lying] 95 Blood Pressure Mean [Sitting (for 1 minute prior to obtaining)] 99 Blood Pressure Mean [Standing (for 1 minute prior to obtaining)] 97 Pulse Ox 99 98 Oxygen Delivery Method Room Air Room Air Positive well nourished and well developed General Appearance ED: well developed and NAD HEENT Reports moist mucous membranes Neck supple and no JVD Resp normal respiratory effort and clear to auscultation bilaterally Cardio regular rate and regular rhythm GI non-distended Palpation: soft and tender epigastric, LLQ, RLQ, LUQ, RUQ, periumbilical and suprapubic; Negative for guarding or rebound tenderness present Neuro oriented x3, CN's II-XII intact bilaterally and no sensory deficits noted Sensorium / Orientation: alert Motor Exam: strength 5/5 throughout Psych mental status grossly normal MDM MDM MDM Narrative Medical decision making narrative: Differential diagnosis includes dehydration, electrolyte abnormality, medication side effect, allergic reaction, pancreatitis, urinary tract infection, hypothyroidism, and hyperthyroidism. CBC will be obtained to assess for leukocytosis and anemia. Comprehensive metabolic profile will be obtained to assess for hepatic function, renal function, and electrolyte abnormality. Lipase will be obtained to assess for pancreatitis. Urinalysis will be obtained to assess for urinary tract infection and hematuria. TSH will be obtained to assess for hypothyroidism and hyperthyroidism. CT scan of the abdomen and pelvis will be obtained to assess for colitis, bowel obstruction, perforation. Lab Data Attestation: I reviewed the patient's lab results. Lab results narrative: CBC was reviewed and was within normal limits. Comprehensive metabolic profile was reviewed and was essentially within normal limits. Lipase was reviewed and was normal at 23. TSH was reviewed and was slightly elevated at 4.92. Urinalysis was reviewed. There is no evidence of urinary tract infection or hematuria. Labs: Laboratory Results - last 24 hr 09/04/24 09/04/24 19:05 19:37 WBC 7.3 RBC 4.80 Hgb 14.4 Hct 43.4 MCV 90.4 MCH 30.0 MCHC 33.2 RDW Std Deviation 41.7 RDW Coeff of Sy 12.6 Plt Count 234 MPV 9.2 Immature Gran % (Auto) 0.300 Neut % (Auto) 52.6 Lymph % (Auto) 37.4 [place] % (Auto) 6.6 Eos % (Auto) 1.9 Baso % (Auto) 1.2 H Absolute Neuts (auto) 3.8 Absolute Lymphs (auto) 2.72 Nucleated RBC % 0 Sodium 134 L Potassium 3.6 Chloride 108 H Carbon Dioxide 19.0 L Anion Gap 7 BUN 8 Creatinine 0.56 Estim Creat Clear Calc 148.17 Est GFR (MDRD) Af Amer 156 Est GFR (MDRD) Non-Af 129 BUN/Creatinine Ratio 14.2 Glucose 103 Calcium 9.3 Total Bilirubin 0.20 AST 16 ALT 27 Alkaline Phosphatase 107 Total Protein 7.4 Albumin 3.2 Globulin 4.2 Albumin/Globulin Ratio 0.8 L Lipase 23 TSH 4.920 H Urine Color Yellow Urine Clarity Clear Urine pH 7.0 Ur Specific [place] 1.005 Urine Protein Negative Urine Glucose (UA) Normal Urine Ketones Negative Urine Occult Blood Negative Urine Nitrite Negative Urine Bilirubin Negative Urine Urobilinogen Normal Ur Leukocyte Esterase Negative Urine RBC 0 SEEN Urine WBC 0 SEEN Ur Squamous Epith Cells 0-5 SEEN Ur Transition Epith Cell 0-5 SEEN Urine Bacteria RARE Urine Mucus 0 SEEN Radiography Diagnostic Testing: Clinical Impression(s) from Imaging Studies Abdomen/Pelvis CT 09/04/24 18:51 IMPRESSION: Loss of haustral markings and tubular appearance of the descending and sigmoid colon in keeping with ulcerative colitis. One or more dose reduction techniques were used (e.g., Automated exposure control, adjustment of the mA and/or kV according to patient size, use of iterative reconstruction technique). Reading Location: [facility] CT scan of the abdomen and pelvis was obtained. There is evidence of ulcerative colitis in the descending and sigmoid colon. There is no acute abnormality noted. There is no free air or free fluid. There is no evidence of bowel obstruction or perforation. This was interpreted by the radiologist and was also independently reviewed by myself. Treatment and Re-Evaluation :: Patient was given IV fluids, morphine, and Zofran. Patient was feeling better on reevaluation. Patient was advised of her findings. Patient states she is currently on steroids. Patient states she has nausea medications at home. Patient was instructed to start with a liquid diet and advance as tolerated. Patient was instructed to follow-up with her primary care physician and crop research scientist in 5 to 7 days. Patient was instructed to return if worse in any way. Patient understood and was agreeable with the plan. All questions were answered. Discharge Plan Triage Chief Complaint: General Illness ED Provider: Franc Beck Dx/Rx/DC Orders Clinical Impression: Crohn disease, Abdominal pain Instructions: ED Crohn's Disease Prescriptions: No Action dicyclomine 20 mg tablet 20 mg PO TID PRN (Reason: abdominal pain) Patient Comments: made worse citalopram 10 MG tablet 20 mg PO DAILY levothyroxine 125 MCG tablet 125 mcg PO DAILY loratadine 10 mg Capsule 10 mg PO DAILY diphenoxylate-atropine [Lomotil] 2.5-0.025 mg tablet 2 tab PO 4X/DAY PRN PRN (Reason: diarrhea) 5 Days Qty: 40 0RF Stelara 90 mg/mL syringe 90 mg subcut Q8W Qty: 1 4RF estradiol 2 mg tablet 2 mg PO DAILY Qty: 90 3RF imipramine HCl 25 mg tablet 25 mg PO DAILY Qty: 30 0RF budesonide 9 mg tablet,delayed and ext.release 9 mg PO QAM Qty: 30 6RF Primary Care Provider: Debra Roland Referrals: Debra Roland, [employer]-[facility] [Primary Care Provider] - 5-7 Days Print Language: Romansh Disposition Disposition: Home, Self Care
[2024-09-04 19:00] VITALS: BP 105/74; PULSE 75; RESP 16; O2SAT 99
[2024-09-04] MEDS: Morphine 4 MG/ML Syringe IV (19:19)
[2024-09-04] MEDS: Ondansetron 4 MG/2 ML Vial IV (19:19)
[2024-09-04] MEDS: 0.9% Normal Saline (1000mL) 1,000 ML 999 ML IV (19:19)
[2024-09-04 19:21] LABS: Absolute Lymphocyte Count 2.72 X10^3/uL (0.83-4.51); Absolute Neutrophil Count 3.8 X10^3/uL (2.0-7.7); Basophil# 0.09 X10^3/uL; Basophil% 1.2 % (0-1); Eosinophil# 0.14 X10^3/uL; Eosinophils% 1.9 % (0-5); Hematocrit 43.4 % (37-47); Hemoglobin 14.4 g/dL (12.0-15.0); Lymphocyte # 2.72 X10^3/ul (0.83-4.51); Lymphocyte % 37.4 % (19-41); Mean Corp Hgb Conc 33.2 g/dL (32-36); Mean Corpuscular Volume 90.4 fL (81-99); Mean Platelet Vol. 9.2 fl (6.2-12.0); Monocyte# 0.48 X10^3/uL; Monocyte% 6.6 % (0-10); NRBC Flagged by Analyzer 0 % (0-5); Neutrophil # 3.83 X10^3/uL (2.7-7.7); Neutrophil % 52.6 % (47-70); Platelet Count 234 K/mm3 (150-450); RBC Distribution Width CV 12.6 % (11.6-14.6); RBC Distribution Width SD 41.7 fl (35.1-43.9); White Blood Count 7.3 K/mm3 (4.4-11.0)
[2024-09-04 19:41] LABS: Mucous, Urine 0 SEEN /hpf (<or=2+); Red Blood Cells-Urine 0 SEEN /hpf (0-5); White Blood Cells 0 SEEN /hpf (0-5)
[2024-09-04 19:43] LABS: Color, Urine Yellow (Yellow); Glucose, Dipstick Normal (Normal); Ketone-Dipstick Negative (Negative); Leukocyte Esterase-Dipstick Negative /ul (Negative); Nitrite-Dipstick Negative (Negative); Occult Blood-Urine Negative /ul (Negative); Protein-Dipstick Negative (Negative); Specific Gravity, Urine 1.005 (1.002-1.030); Urine Bilirubin Dipstick Negative (Negative); Urine Clarity Clear (Clear); Urine Urobilinogen Normal (Normal)
[2024-09-04 19:59] LABS: Bacteria RARE /hpf (None Seen); Squamous Epithelial Cells - UA 0-5 SEEN /hpf (5-10); Transitional Epithelial - Ur 0-5 SEEN /hpf (0-5)
[2024-09-04 20:02] LABS: ALB/GLOB Ratio 0.8 RATIO (0.9-2.4); AST(SGOT) 16 U/L (15-37); Alanine Aminotransfer ALT/SGPT 27 U/L (13-56); Albumin, Serum 3.2 g/dL (3.2-5.0); Alkaline Phosphatase 107 U/L (45-117); Anion Gap 7 (5-15); BUN 8 mg/dL (7-18); BUN/Creat Ratio 14.2 RATIO (10-20); Calcium,Total 9.3 mg/dL (8.5-10.1); Chloride 108 mmol/L (98-107); Creatinine, Serum 0.56 mg/dL (0.55-1.02); EST Glomerular Filtration Rate 129 mL/min (>60); Est Glom Filt Rate - Afr Amer 156 mL/min (>60); Estimated Creatinine Clearance 148.17 ml/min; Globulin 4.2 g/dL (2.2-4.2); Glucose 103 mg/dL (74-106); Lipase 23 U/L (13-75); Potassium 3.6 mmol/L (3.5-5.1); Protein, Total 7.4 g/dL (6.4-8.2); Sodium Level 134 mmol/L (136-145)
[2024-09-04 20:33] VITALS: BP 113/89; BP 118/90; BP 120/83; PULSE 78; PULSE 79; PULSE 92
[2024-09-04 21:00] VITALS: BP 102/70; PULSE 72; RESP 16; O2SAT 98
[2024-09-04 21:11] VITALS: BP 102/70; PULSE 72; RESP 16; TEMP 36.7; O2SAT 97
== END 2024-09-04 21:18 | disposition home or self-care (01) ==
PROVIDERS: Emergency Provider Emergency Medicine; PCP Nurse Practitioner Family; Visit Provider Emergency Medicine
DX: K50.90 Crohn's disease, unspecified, without complications (principal); F17.210 Nicotine dependence, cigarettes, uncomplicated; F32.A Depression, unspecified; E03.9 Hypothyroidism, unspecified; Z79.899 Other long term (current) drug therapy
CPT/HCPCS: 74177; 80053; 81001; 83690; 84443; 85025; 96361; 96374; 96375; 96376; 99284; Q9967; A4216; J2405

== ENCOUNTER → 2024-12-09 | Outpatient (CLI) | payer BC, SELFPAY ==
[2024-12-10 11:08] LABS: Pancreatic Elastase, Fecal > 800 (>200)
[2024-12-11 07:08] LABS: Calprotectin, Stool 37 ug/g (0-120)
== END | disposition home or self-care (01) ==
LOC: LABSPEC 11:45
PROVIDERS: PCP Nurse Practitioner Family; Referring Provider Internal Medicine Gastroenterology; Visit Provider Internal Medicine Gastroenterology
DX: K58.9 Irritable bowel syndrome, unspecified (principal); R19.7 Diarrhea, unspecified
CPT/HCPCS: 82653; 83630; 83993; 87177; 87209; 87329; 87493; 87506

== ENCOUNTER 2024-12-19 09:48 | Emergency (ER) | payer BC, SELFPAY ==
[2024-12-19 09:48] VITALS: BP 94/82; PULSE 80; RESP 14; TEMP 37.1; O2SAT 98; BMI 29.9
--- NOTE | 2024-12-19 09:59 | EX.ED.DYSGE1 ---
HPI History of Present Illness Chief Complaint: General Illness Informant: patient Onset/Context/Timing Onset: Weeks (6) Context: Gradual Onset Timing: Continuous Quality: Aching Location: Generalized Worsened by: Nothing Relieved by: Nothing Narrative Narrative: Patient presents with diarrhea, headache, abdominal pain, nausea, vomiting, and low pulse oximeter. Patient has a history of Crohn's and is getting infusions. Patient states she went for her infusion today and when she was talking to the staff at the infusion center, her pulse oximeter dropped into the low 80s. Patient denies any shortness of breath. Patient denies any cough. Patient denies any chest pain. Patient states she has generalized aching and abdominal cramping. [facility] Medical History Cholelithiasis Dietary restriction Acute frontal sinusitis, unspecified Hx of Crohn's disease Wears glasses Wears dentures Depression Anxiety History of steroid therapy Thyroid disease Low iron History of hiatal hernia Heartburn Smoker FH: migraine headache Anemia Endometriosis Colon polyps Hypothyroidism Graves disease Home Medications ?Medication ?Instructions ?Recorded ?Last Taken ?Type levothyroxine 125 mcg tablet 125 mcg PO DAILY thyroid 01/18/18 12/19/24 History loratadine 10 mg capsule 10 mg PO DAILY 06/29/22 12/19/24 History budesonide 9 mg tablet,delayed and 9 mg PO QAM #30 ea 07/12/24 12/19/24 Rx extended release varenicline tartrate 1 mg tablet 1 mg PO BID 09/17/24 Unknown History (Chantix) infliximab 100 mg intravenous mg .Route 09/24/24 11/22/24 History solution (Remicade) apixaban 5 mg tablet (Eliquis) 5 mg PO BID 12/19/24 12/19/24 History citalopram 40 mg tablet 40 mg PO DAILY 12/19/24 12/19/24 History methylprednisolone 4 mg tablets in See Rx Instructions PO UD 12/19/24 12/19/24 History a dose pack Allergy/AdvReac Type Severity Reaction Status Date / Time etodolac (From Lodine) Allergy Mild Itching Verified 12/19/24 09:53 adalimumab (From Humira) Allergy Hives Verified 12/19/24 09:53 ustekinumab (From Stelara) Allergy Hives Verified 12/19/24 09:53 varenicline (From Chantix) Allergy Hives Verified 12/19/24 09:53 influenza virus vaccine tv AdvReac Fainting Verified 12/19/24 09:53 splt 2012- (4 yr,up) (From Fluvirin) Surgical History Hx of cholecystectomy Hx of eye surgery History of esophagogastroduodenoscopy (EGD) History of tonsillectomy and adenoidectomy History of oral surgery History of hysteroscopy History of carpal tunnel surgery of right wrist History of knee surgery History of colonoscopy H/O bilateral salpingo-oophorectomy History of LAVH H/O exploratory laparotomy History of appendectomy Hx of thyroidectomy Social History number of children: 4 current occupational status: employed 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 Smoking Status: Current every day smoker tobacco type: cigarettes alcohol intake: never substance use type: does not use caffeine: Yes what type of physical activity do you participate in: none seatbelt use: always do you feel safe at home: Yes additional social history: [employer] Patient is self employed ROS ROS ED Constitutional Constitutional ED: Denies chills or fever(s) Eyes Eyes: Denies blurry vision or change in vision ENT ENT ED: Denies rhinorrhea or sore throat Cardiovascular Cardiovascular: Denies chest pain or palpitations Respiratory/Chest Respiratory/Chest: Denies cough or dyspnea Gastrointestinal Gastrointestinal: Reports abdominal pain, diarrhea, nausea and vomiting; Denies melena Genitourinary Genitourinary ED: Denies dysuria or hematuria Musculoskeletal Musculoskeletal: Reports arthralgias and myalgias Integumentary Denies abscess or rash Neurologic Neurologic: Reports headache(s); Denies weakness Allergic/Immunologic Allergic/Immunologic ED: Denies mouth swelling or urticaria EXAM Physical Exam Const Vital Signs: 12/19/24 09:48 12/19/24 09:55 12/19/24 10:26 Temperature 98.7 F Temperature Source Oral Pulse Rate 80 Respiratory Rate 14 Respiratory Effort Normal Non-Labored Respiratory Pattern Normal Blood Pressure 94/82 H Blood Pressure Mean 86 Pulse Ox 98 Oxygen Delivery Method Room Air Room Air 12/19/24 11:48 12/19/24 13:00 12/19/24 15:00 Temperature 98.6 F Temperature Source Oral Pulse Rate 64 64 87 Respiratory Rate 18 18 16 Respiratory Effort Respiratory Pattern Blood Pressure 155/76 H 136/78 H Blood Pressure Mean 102 97 Pulse Ox 98 98 98 Oxygen Delivery Method Room Air Nasal Cannula Positive well nourished and well developed General Appearance ED: well developed and NAD HEENT Reports moist mucous membranes Neck supple and no JVD Resp normal respiratory effort and clear to auscultation bilaterally Cardio regular rate and regular rhythm GI non-distended Palpation: soft and tender epigastric, LLQ, RLQ, LUQ, RUQ, periumbilical and suprapubic Neuro oriented x3, CN's II-XII intact bilaterally and no sensory deficits noted Sensorium / Orientation: alert Motor Exam: strength 5/5 throughout Psych mental status grossly normal MDM MDM MDM Narrative Medical decision making narrative: Differential diagnosis includes, pulmonary embolism, cardiac dysrhythmia, cardiac ischemia, electrolyte abnormality, dehydration, gastroenteritis, pancreatitis, Crohn's disease, and urinary tract infection. EKG will be obtained to assess for cardiac dysrhythmia and cardiac ischemia. CTA of the chest will be obtained to assess for pulmonary embolism and pneumonia. CBC will be obtained to assess for leukocytosis and anemia. Comprehensive metabolic profile will be obtained to assess for electrolyte abnormalities renal function. High-sensitivity troponin (for cardiac ischemia. Lipase will be obtained to assess for pancreatitis. Urinalysis will be obtained to assess for urinary tract infection and hematuria. History & Record Review Additional record(s) reviewed:: Prior outpatient record and Prior labs Lab Data Attestation: I reviewed the patient's lab results. Lab results narrative: CBC was reviewed. There is a slight leukocytosis of 11.2. PT with INR and PTT were reviewed. Pro time was slightly elevated at 15.4 and INR is 1.2. PTT was normal at 27.9. Comprehensive metabolic profile was reviewed and was within normal limits. High-sensitivity troponin was reviewed and was less than 6. Lipase was reviewed and was normal at 20. TSH was reviewed and was slightly elevated at 8.06. Urinalysis was reviewed. There is no evidence of urinary tract infection or hematuria. Labs: Laboratory Results - last 24 hr 12/19/24 12/19/24 10:35 13:15 WBC 11.2 H RBC 5.00 Hgb 15.1 H Hct 44.3 MCV 88.6 MCH 30.2 MCHC 34.1 RDW Std Deviation 40.8 RDW Coeff of Sy 12.5 Plt Count 286 MPV 9.3 Immature Gran % (Auto) 0.400 Neut % (Auto) 74.0 H Lymph % (Auto) 17.4 L [place] % (Auto) 7.6 Eos % (Auto) 0.2 Baso % (Auto) 0.4 Absolute Neuts (auto) 8.3 H Absolute Lymphs (auto) 1.96 Nucleated RBC % 0 PT 15.4 H INR 1.2 APTT 27.9 Sodium 138 Potassium 3.9 Chloride 102 Carbon Dioxide 23.9 Anion Gap 13 BUN 10 Creatinine 0.68 L Estim Creat Clear Calc 119.59 Est GFR (MDRD) Non-Af 115 BUN/Creatinine Ratio 14.5 Glucose 107 H Calcium 10.3 Total Bilirubin 0.26 AST 18 ALT 17 Alkaline Phosphatase 123 H Troponin T High Sens < 6 Troponin T Hi Sens 2 Hr < 6 Total Protein 7.5 Albumin 4.6 Globulin 2.9 Albumin/Globulin Ratio 1.6 Lipase 20 TSH 8.060 H Urine Color Yellow Urine Clarity Sl. Cloudy Urine pH 7.0 Ur Specific [place] 1.010 Urine Protein 30 H Urine Glucose (UA) Normal Urine Ketones Negative Urine Occult Blood 10 H Urine Nitrite Negative Urine Bilirubin Negative Urine Urobilinogen Normal Ur Leukocyte Esterase Negative Urine RBC 0 SEEN Urine WBC 0 SEEN Ur Squamous Epith Cells 0 SEEN Urine Bacteria 0 SEEN Urine Mucus 0 SEEN Radiography CTA PE Study: No Evidence of PE and No Evidence of Dissection Diagnostic Testing: Clinical Impression(s) from Imaging Studies Chest CTA 12/19/24 10:25 IMPRESSION: NORMAL CHEST CTA. NO EVIDENCE OF ACUTE PULMONARY EMBOLISM. Reading Location: [facility] Abdomen/Pelvis CT 12/19/24 11:31 IMPRESSION: No acute abnormality is seen. Reading Location: [id number] CTA of the chest was obtained. There is no evidence of pulmonary embolism or aortic dissection. There is no acute infiltrate noted. This was interpreted by the radiologist was also independently reviewed by myself. CT scan of the abdomen and pelvis was obtained. There is no evidence of bowel obstruction or perforation. There is no free air or free fluid. There is no acute abnormality noted. This was interpreted by the radiologist and was also independently reviewed by myself. EKG Initial EKG: Attestation: I personally reviewed and interpreted this EKG as follows: Interpretation: Sinus Rhythm (60) and Non-Specific ST Changes Comments: EKG was obtained. On my independent interpretation, it showed a normal sinus rhythm with a rate of 60. WV interval, QRS interval, and QTc intervals were all normal. Calcium was normal. There are nonspecific ST-T wave changes. Prior EKG tracings: available for review Prior: Unchanged (06/29/2022) Management Discussion w/another healthcare provider: Radiology Physician Treatment and Re-Evaluation :: Patient was given IV fluids. Patient was advised of her findings. Patient was upset that we could not find a reason for her diarrhea that she has had for 6 weeks. Patient was advised that this is not causing any dehydration or electrolyte abnormalities. Case was discussed with Dr. Abbott. He recommended having the patient take Imodium or Lomotil for the diarrhea. He had no other recommendations. He felt the patient could be discharged home and follow-up as an outpatient. Patient was instructed to drink plenty of fluids. Patient was instructed to follow-up with her Entyvio infusion as scheduled. Patient was instructed to follow-up with her primary care physician and crm technical lead in 5 to 7 days. Patient understood and was agreeable with this plan. All questions were answered. Discharge Plan Triage Chief Complaint: General Illness ED Provider: Franc Beck Dx/Rx/DC Orders Clinical Impression: Diarrhea, Abdominal pain, Crohn disease Prescriptions: No Action varenicline tartrate [Chantix] 1 mg tablet 1 mg PO BID levothyroxine 125 MCG tablet 125 mcg PO DAILY loratadine 10 mg Capsule 10 mg PO DAILY Eliquis 5 mg tablet 5 mg PO BID citalopram 40 mg tablet 40 mg PO DAILY methylprednisolone 4 mg tablets,dose pack See Rx Instructions PO UD Rx Instructions: taper per package orally as directed; started 12/18 budesonide 9 mg tablet,delayed and ext.release 9 mg PO QAM Qty: 30 6RF infliximab [Remicade] 100 mg recon soln .Route Patient Comments: was supposed to receive this morning 12/19 Rx Instructions: 5mg per kg. Pt receiving infusions at [facility] Primary Care Provider: Debra Roland Referrals: Harrison Abbott DO [Med Staff - Active Staff] - 5-7 Days Debra Roland NP-C [Primary Care Provider] - 3-5 Days Activity Restrictions/Additional Instructions: You may take [id number] Lomotil or Imodium as needed for diarrhea. Print Language: Palauan Disposition Disposition: Home, Self Care
--- NOTE | 2024-12-19 10:25 | CT_ITS ---
PROCEDURE: CTA CHEST W/WO CONTRAST 12/19/2024 REASON FOR EXAM: HYPOXIA TECHNIQUE: CTA axial imaging of the chest with intravenous contrast. Multiplanar and multisequence images were obtained. PATIENT PREPARATION: Per protocol One or more dose reduction techniques were used (e.g., Automated exposure control, adjustment of the mA and/or kV according to patient size, use of iterative reconstruction technique). CONTRAST: Isovue-300 VOLUME: 100 mL RADIATION DOSE SUMMARY: CTDlvol: 16.85 mGy DLP: 830.44 mGycm COMPARISON: Prior chest radiograph dated March 06, 2023. FINDINGS: Hardware: None Lymph nodes: None Heart: Unremarkable Thoracic Aorta: No thoracic aortic aneurysm or dissection. Pulmonary Vessels: No evidence of pulmonary embolism. Lungs and Airways: The lungs are normally expanded and clear. Pleura: No pleural effusion. No pneumothorax. Upper Abdomen: Prior cholecystectomy. Bones: Bone windows are unremarkable. CT/CTA Chest W/WO Contrast IMPRESSION: NORMAL CHEST CTA. NO EVIDENCE OF ACUTE PULMONARY EMBOLISM. Reading Location: [id number]
--- NOTE | 2024-12-19 10:26 | EKG12_ITS ---
Test Reason : Blood Pressure : */* mmHG Vent. Rate : 60 BPM Atrial Rate : 60 BPM P-R Int : 130 ms QRS Dur : 90 ms QT Int : 384 ms P-R-T Axes : 28 69 6 degrees QTcB Int : 384 ms Normal sinus rhythm Nonspecific T wave abnormality Abnormal ECG Confirmed by DAVID SHEARER, CHRIS ([id number]), features editor YAA ROMAN ([id number]) on 12/23/2024 7:06:04 AM Referred By: Confirmed By: CHRIS HERNANDEZ MD
[2024-12-19 10:57] LABS: Absolute Lymphocyte Count 1.96 X10^3/uL (0.83-4.51); Absolute Neutrophil Count 8.3 X10^3/uL (2.0-7.7); Basophil# 0.04 X10^3/uL; Basophil% 0.4 % (0-1); Eosinophil# 0.02 X10^3/uL; Eosinophils% 0.2 % (0-5); Hematocrit 44.3 % (37-47); Hemoglobin 15.1 g/dL (12.0-15.0); Lymphocyte # 1.96 X10^3/ul (0.83-4.51); Lymphocyte % 17.4 % (19-41); Mean Corp Hgb Conc 34.1 g/dL (32-36); Mean Corpuscular Hgb 30.2 pg (27.0-32.0); Mean Corpuscular Volume 88.6 fL (81-99); Mean Platelet Vol. 9.3 fl (6.2-12.0); Monocyte# 0.85 X10^3/uL; Monocyte% 7.6 % (0-10); NRBC Flagged by Analyzer 0 % (0-5); Neutrophil # 8.33 X10^3/uL (2.7-7.7); Platelet Count 286 K/mm3 (150-450); RBC Distribution Width CV 12.5 % (11.6-14.6); RBC Distribution Width SD 40.8 fl (35.1-43.9); White Blood Count 11.2 K/mm3 (4.4-11.0)
[2024-12-19 11:10] LABS: International Normalized Ratio 1.2; Partial Thromboplast Time 27.9 Seconds (24.1-36.2); Prothrombin Time (Protime)PT. 15.4 SECONDS (11.7-14.9)
[2024-12-19 11:16] LABS: Troponin T High Sensitivity < 6 ng/L (<=14)
[2024-12-19 11:21] LABS: ALB/GLOB Ratio 1.6 RATIO (0.9-2.4); AST(SGOT) 18 U/L (<=31); Alanine Aminotransfer ALT/SGPT 17 U/L (<=34); Albumin, Serum 4.6 g/dL (3.5-5.0); Alkaline Phosphatase 123 U/L (35-104); Anion Gap 13 (5-15); BUN 10 mg/dL (4-19); BUN/Creat Ratio 14.5 RATIO (10-20); Calcium,Total 10.3 mg/dL (7.6-11.0); Carbon Dioxide 23.9 mmol/L (21.0-32.0); Chloride 102 mmol/L (98-108); Creatinine, Serum 0.68 mg/dL (0.70-1.20); EST Glomerular Filtration Rate 115 (>60); Estimated Creatinine Clearance 119.59 ml/min (50-250); Globulin 2.9 g/dL (2.2-4.2); Glucose 107 mg/dL (70-99); Lipase 20 U/L (13-75); Potassium 3.9 mmol/L (3.3-5.1); Protein, Total 7.5 g/dL (5.9-8.4); Sodium Level 138 mmol/L (133-145); Total Bilirubin 0.26 mg/dL (0.00-1.30)
--- NOTE | 2024-12-19 11:31 | CT_ITS ---
PROCEDURE: ABDOMEN/PELVIS W IV CONT ONLY 12/19/2024 REASON FOR EXAM: ABDOMINAL PAIN TECHNIQUE: Abdomen and pelvis CT with intravenous contrast. Coronal and Sagittal reconstruction series were provided. PATIENT PREPARATION: Per protocol ORAL CONTRAST TYPE: None. CONTRAST: Isovue-[id number] VOLUME: 100 mL One or more dose reduction techniques were used (e.g., Automated exposure control, adjustment of the mA and/or kV according to patient size, use of iterative reconstruction technique. RADIATION DOSE SUMMARY: CTDlvol: 16.85 mGy DLP: 1106.52 mGycm COMPARISON: Prior study dated September 04, 2024. FINDINGS: Lung bases: Unremarkable Liver: Normal size. No mass. Gallbladder: Surgically absent. Spleen: Normal size. Pancreas: Normal size without evidence of mass surrounding inflammation or ductal dilation. Adrenals: Unremarkable Kidneys: Unremarkable Bladder: Unremarkable Reproductive Organs: Prior hysterectomy. Adnexal regions are unremarkable. Bowel: Unremarkable Appendix: Status post appendectomy. Lymph nodes: Unremarkable. Vasculature: The abdominal aorta and IVC are normal. Peritoneum / Retroperitoneum: Unremarkable Bones: Unremarkable CT/Abdomen/Pelvis W IV Cont ONLY IMPRESSION: No acute abnormality is seen. Reading Location: [id number]
[2024-12-19 11:48] VITALS: BP 155/76; PULSE 64; RESP 18; TEMP 37; O2SAT 98
[2024-12-19 13:00] VITALS: PULSE 64; RESP 18; O2SAT 98
[2024-12-19] MEDS: 0.9% Normal Saline (1000mL) 1,000 ML 1000 ML IV (13:13)
[2024-12-19 13:39] LABS: Bacteria 0 SEEN /hpf (None Seen); Mucous, Urine 0 SEEN /hpf (<or=2+); Red Blood Cells-Urine 0 SEEN /hpf (0-5); Squamous Epithelial Cells - UA 0 SEEN /hpf (5-10); White Blood Cells 0 SEEN /hpf (0-5)
[2024-12-19 14:03] LABS: Color, Urine Yellow (Yellow); Glucose, Dipstick Normal (Normal); Ketone-Dipstick Negative (Negative); Leukocyte Esterase-Dipstick Negative /ul (Negative); Nitrite-Dipstick Negative (Negative); Occult Blood-Urine 10 /ul (Negative); Protein-Dipstick 30 mg/dl (Negative); Urine Bilirubin Dipstick Negative (Negative); Urine Clarity Sl. Cloudy (Clear); Urine Urobilinogen Normal (Normal)
[2024-12-19 14:17] LABS: Troponin T High Sens 2 HR < 6 ng/L (<=14)
[2024-12-19 14:40] VITALS: O2SAT 99
[2024-12-19 15:00] VITALS: BP 136/78; PULSE 87; RESP 16; O2SAT 98
[2024-12-19 15:41] VITALS: BP 119/89; PULSE 88; RESP 18; TEMP 36.8; O2SAT 99
== END 2024-12-19 15:42 | disposition home or self-care (01) ==
PROVIDERS: Emergency Provider Emergency Medicine; PCP Nurse Practitioner Family; Visit Provider Emergency Medicine
DX: R19.7 Diarrhea, unspecified (principal); K50.90 Crohn's disease, unspecified, without complications; R10.9 Unspecified abdominal pain; F17.210 Nicotine dependence, cigarettes, uncomplicated; Z79.01 Long term (current) use of anticoagulants; Z79.899 Other long term (current) drug therapy
CPT/HCPCS: 71275; 74177; 80053; 81001; 83690; 84443; 84484; 85025; 85610; 85730; 93005; 96360; 96361; 99285; Q9967; A4216